=== PATIENT | female | born 1935 | race Caucasian/White ===

== ENCOUNTER 2016-08-25 10:19 | Inpatient (IN) | payer OTHER, MEDICARE ==
[~2016-08-25 10:19] MED LIST: TRANEXAMIC ACID 3,000 MG/50 ML BAG IRR ONE; VANCOMYCIN 1 GM VIAL ONE
[2016-08-25] MEDS ORDERED: ACETAMINOPHEN 325 MG TAB PO ONE (10:50)
[2016-08-25] MEDS ORDERED: ceFAZolin 2 GM/DEXTROSE 100 ML IV ONE (10:50)
[2016-08-25] MEDS ORDERED: DEXAMETHASONE 4 MG/ML VIAL IVP ONE (10:50)
[2016-08-25] MEDS ORDERED: FAMOTIDINE 20 MG TAB PO ONE (10:50)
[2016-08-25] MEDS ORDERED: LR 1,000 ML IV ONE (10:59)
[2016-08-25] MEDS ORDERED: LIDOCAINE 1% 2 ML INJ ID PRN (10:59)
[2016-08-25] MEDS ORDERED: ROPIVACAINE 0.2% 80 MG, EPINEPHrine 0.2 MG, KETOROLAC TROMETHAMINE 30 MG in BAG 0 ML IU ONE (11:00)
[2016-08-25] MEDS ORDERED: TRANEXAMIC ACID 3,000 MG in NS 50 ML IRR ONE (11:00)
--- NOTE | 2016-08-25 11:08 | PDHPUP ---
History & Physical Update H&P update statement: This history and physical update is based on an assessment of the patient which was completed after admission or registration (within 24 hours), but prior to the surgery/procedure. H&P update: H&P reviewed & patient examined, no change in patient's condition since H&P completed
[2016-08-25] MEDS ORDERED: PROPOFOL 200 MG/20 ML VIAL ONE ×3 (11:16→13:05)
[2016-08-25] MEDS ORDERED: fentaNYL 100 MCG/2 ML INJ ONE (11:16)
--- NOTE | 2016-08-25 11:46 | PDANEPAE ---
ANE History of Present Illness R knee replacement ANE Past Medical History - Cardiovascular History Hx Hypertension: No Hx Arrhythmias: No Hx Chest Pain: No Hx Coronary Artery / Peripheral Vascular Disease: No Hx CHF / Valvular Disease: No Hx Palpitations: No Cardiovascular History Comment: recently worked up [place]. Angel [place] [facility] [place] - Pulmonary History Hx COPD: No Hx Asthma/Reactive Airway Disease: No Hx Recent Upper Respiratory Infection: No Hx Oxygen in Use at Home: No Hx Sleep Apnea: No Sleep Apnea Screening Result - Last Documented: Negative Pulmonary History Comment: hx of bronchitis in winter usually , hx of pneumonia in past - Endocrine History Hx Diabetes: No Hypothyroid: Yes Endocrine History Comment: sjogrens syndrome - Renal History Hx Renal Disorders: Yes Renal History Comment: hx of 3 bladder slings. frequency - Liver History Hx Hepatic Disorders: No - Neurological & Psychiatric Hx Hx Neurological and Psychiatric Disorders: Yes Neurological / Psychiatric History Comment: insomnia - Cancer History Hx Cancer: No - Congenital Disorder History Hx Congenital Disorders: No - GI History GERD: mild Hx Gastrointestinal Disorders: No Gastrointestinal History Comment: hx of colonoscopy with [facility] - Other Health History Other Health History: wears glasses. arthritis generalized aches- right shoulder often aches- poss torn rtc - Chronic Pain History Chronic Pain: Yes (right knee) - Surgical History Prior Surgeries: ihsan. appy. tonsillectomy. 3 bladder slings. partial hysterectomy ANE Review of Systems - Exercise capacity Exercise capacity: <4 METS METS (RN): 3 METS ANE Patient History - Allergies Allergies/Adverse Reactions: amoxicillin trihydrate [From Augmentin] Allergy (Verified 08/05/16 16:11) Vomiting ciprofloxacin [From Cipro] Allergy (Verified 08/05/16 16:11) Vomiting ciprofloxacin HCl [From Cipro] Allergy (Verified 08/05/16 16:11) Vomiting metronidazole [From Flagyl] Allergy (Verified 08/05/16 16:11) Vomiting Metronidazole HCl [From Flagyl] Allergy (Verified 08/05/16 16:11) Vomiting morphine [Morphine] Allergy (Verified 08/05/16 16:11) Vomiting nitrofurantoin [From Macrobid] Allergy (Verified 08/05/16 16:11) Unknown nitrofurantoin macrocrystalline [From Macrobid] Allergy (Verified 08/05/16 16:11 ) Unknown oxaprozin [From Daypro] Allergy (Verified 08/05/16 16:11) Vomiting potassium clavula *RETIRED-11/01/11 [From Augmentin] Allergy (Verified 08/05/16 16:11) Vomiting Sulfa (Sulfonamide Antibiotics) Allergy (Verified 08/05/16 16:11) Hives tramadol [Tramadol] Allergy (Verified 08/05/16 16:11) Vomiting - Home Medications Home Medications: Butalb/Acetaminophen/Caffeine [Oyanri-Qtqgmgyl-Kffn 50-325-40] 1 each PO DAILY PRN 02/08/14 [Last Taken 08/24/16 17:00] Dicyclomine [Bentyl 20 MG (*)] 20 mg PO DAILY PRN 02/08/14 [Last Taken 08/03/16] Herbals/Supplements -Info Only 1 ea PO DAILY 02/08/14 [Last Taken 02/05/15] Hydroxychloroquine Sulfate [Plaquenil 200 mg (*)] 200 mg PO BID 02/08/14 [Last Taken 08/25/16 08:00] Levothyroxine [Synthroid 50 mcg (*)] 50 mcg PO DAILY06 02/08/14 [Last Taken 06/07 08:00] Methylcellulose (with Sugar) [Citrucel Powder 19 gm (RX)] 19 gm PO QID 02/08/14 [Last Taken 02/06/15] Omeprazole [Prilosec 20 mg] 20 mg PO BID 02/08/14 [Last Taken 08/24/16 08:00] cycloSPORINE 0.05% [Restasis Opht Drops(*)] 1 drop EACHEYE BID 02/08/14 [Last Taken 08/25/16 08:00] oxyCODONE/APAP 5/325 [Percocet 5/325 (*)] 1 tab PO QID PRN 02/08/14 [Last Taken 08/24/16 22:30] Gabapentin [Neurontin 300 MG (*)] 1,200 mg PO HS 02/06/15 [Last Taken 08/24/16 22:30] Pilocarpine HCl [Salagen 5mg (*)] 5 mg PO BID 02/06/15 [Last Taken 08/25/16 08: 00] Aspirin [Aspirin 81mg (*)] 81 mg PO DAILY 07/28/16 [Last Taken 08/10/16] Rosuvastatin Calcium [Crestor 5mg] 5 mg PO HS 07/28/16 [Last Taken 08/24/16 22: 30] Zolpidem Tartrate [Ambien 5MG (*)] 10 mg PO HS 07/28/16 [Last Taken 08/24/16 22: 30] - NPO status NPO Since - Liquids (Date): 08/25/16 NPO Since - Liquids (Time): 08:00 NPO Since - Solids (Date): 08/24/16 NPO Since - Solids (Time): 18:30 - Anes Hx Anes Hx: post operative nausea - Smoking Hx Smoking Status: Former smoker (stopped 38 years ago) - Alcohol Use Alcohol Use: None - Family Anes Hx Family Hx Anesthesia Complications: nausea and vomiting ANE Labs/Vital Signs - Vital Signs Blood Pressure: 149/72 Heart Rate: 76 Respiratory Rate: 15 O2 Sat (%): 96 Height: 162.56 cm Weight: 61.235 kg ANE Physical Exam - Airway Neck exam: decreased ROM (mild decrease in extension) Mallampati Score: Class 2 Mouth exam: normal dental/mouth exam - Pulmonary Pulmonary: clear to auscultation - Cardiovascular Cardiovascular: regular rate and rhythym - ASA Status ASA Status: III ANE Anesthesia Plan Anesthesia Plan: spinal Regional Anesthesia: single shot NB (adductor canal NB)
[2016-08-25] MEDS ORDERED: MIDAZOLAM 2 MG/2 ML VIAL IVP ONE (11:51)
[2016-08-25] MEDS ORDERED: MIDAZOLAM 2 MG/2 ML VIAL ONE (11:52)
--- NOTE | 2016-08-25 11:57 | PDANEPAE ---
ANE Past Medical History - Cardiovascular History Hx Hypertension: No Hx Arrhythmias: No Hx Chest Pain: No Hx Coronary Artery / Peripheral Vascular Disease: No Hx CHF / Valvular Disease: No Hx Palpitations: No Cardiovascular History Comment: [place] Angel [place] [facility] [place] [facility] [place] - Pulmonary History Hx COPD: No Hx Asthma/Reactive Airway Disease: No Hx Recent Upper Respiratory Infection: No Hx Oxygen in Use at Home: No Hx Sleep Apnea: No Sleep Apnea Screening Result - Last Documented: Negative Pulmonary History Comment: hx of bronchitis in winter usually - Endocrine History Hx Diabetes: No Endocrine History Comment: sjogrens syndrome - Renal History Hx Renal Disorders: Yes Renal History Comment: hx of 3 bladder slings. frequency - Liver History Hx Hepatic Disorders: No - Neurological & Psychiatric Hx Hx Neurological and Psychiatric Disorders: No - Cancer History Hx Cancer: No - Congenital Disorder History Hx Congenital Disorders: No - GI History Hx Gastrointestinal Disorders: No Gastrointestinal History Comment: hx of colonoscopy with [place] - Other Health History Other Health History: wears glasses. arthritis generalized aches- right shoulder often aches- poss torn rtc - Chronic Pain History Chronic Pain: Yes (right knee) - Surgical History Prior Surgeries: ihsan. appy. tonsillectomy. 3 bladder slings. partial hysterectomy ANE Review of Systems - Exercise capacity METS (RN): 3 METS ANE Patient History - Allergies Allergies/Adverse Reactions: amoxicillin trihydrate [From Augmentin] Allergy (Verified 08/05/16 16:11) Vomiting ciprofloxacin [From Cipro] Allergy (Verified 08/05/16 16:11) Vomiting ciprofloxacin HCl [From Cipro] Allergy (Verified 08/05/16 16:11) Vomiting metronidazole [From Flagyl] Allergy (Verified 08/05/16 16:11) Vomiting Metronidazole HCl [From Flagyl] Allergy (Verified 08/05/16 16:11) Vomiting morphine [Morphine] Allergy (Verified 08/05/16 16:11) Vomiting nitrofurantoin [From Macrobid] Allergy (Verified 08/05/16 16:11) Unknown nitrofurantoin macrocrystalline [From Macrobid] Allergy (Verified 08/05/16 16:11 ) Unknown oxaprozin [From Daypro] Allergy (Verified 08/05/16 16:11) Vomiting potassium clavula *RETIRED-11/01/11 [From Augmentin] Allergy (Verified 08/05/16 16:11) Vomiting Sulfa (Sulfonamide Antibiotics) Allergy (Verified 08/05/16 16:11) Hives tramadol [Tramadol] Allergy (Verified 08/05/16 16:11) Vomiting - Home Medications Home Medications: Butalb/Acetaminophen/Caffeine [Ochhih-Pamfbyso-Spey 50-325-40] 1 each PO DAILY PRN 02/08/14 [Last Taken Unknown] Dicyclomine [Bentyl 20 MG (*)] 20 mg PO DAILY PRN 02/08/14 [Last Taken Unknown] Herbals/Supplements -Info Only 1 ea PO DAILY 02/08/14 [Last Taken 02/05/15] Hydroxychloroquine Sulfate [Plaquenil 200 mg (*)] 200 mg PO BID 02/08/14 [Last Taken 02/06/15] Levothyroxine [Synthroid 50 mcg (*)] 50 mcg PO DAILY06 02/08/14 [Last Taken ] Methylcellulose (with Sugar) [Citrucel Powder 19 gm (RX)] 19 gm PO QID 02/08/14 [Last Taken 02/06/15] Omeprazole [Prilosec 20 mg] 20 mg PO BID 02/08/14 [Last Taken 02/06/15] cycloSPORINE 0.05% [Restasis Opht Drops(*)] 1 drop EACHEYE BID 02/08/14 [Last Taken 02/06/15] oxyCODONE/APAP 5/325 [Percocet 5/325 (*)] 1 tab PO QID PRN 02/08/14 [Last Taken 02/05/15] Gabapentin [Neurontin 300 MG (*)] 1,200 mg PO HS 02/06/15 [Last Taken 02/05/15] Pilocarpine HCl [Salagen 5mg (*)] 5 mg PO BID 02/06/15 [Last Taken 02/06/15] Aspirin [Aspirin 81mg (*)] 81 mg PO DAILY 07/28/16 [Last Taken Unknown] Rosuvastatin Calcium [Crestor 5mg] 5 mg PO HS 07/28/16 [Last Taken Unknown] Zolpidem Tartrate [Ambien 5MG (*)] 10 mg PO HS 07/28/16 [Last Taken Unknown] - NPO status NPO Since - Liquids (Date): 08/25/16 NPO Since - Liquids (Time): 08:00 NPO Since - Solids (Date): 08/24/16 NPO Since - Solids (Time): 18:30 - Smoking Hx Smoking Status: Former smoker - Family Anes Hx Family Hx Anesthesia Complications: none ANE Labs/Vital Signs - Vital Signs Blood Pressure: 149/72 Heart Rate: 76 Respiratory Rate: 15 O2 Sat (%): 96 Height: 162.56 cm Weight: 61.235 kg ANE Anesthesia Plan Anesthesia Plan: spinal Regional Anesthesia: single shot NB
[2016-08-25] MEDS ORDERED: ONDANSETRON 4 MG/2 ML VIAL ONE (12:29)
[2016-08-25] MEDS ORDERED: DEXAMETHASONE 4 MG/ML VIAL ONE (12:30)
[2016-08-25] MEDS ORDERED: POLYETHYLENE GLYCOL 3350 17 GM PKT PO PRN (12:37)
[2016-08-25] MEDS ORDERED: PROMETHAZINE HCL 25 MG/ML INJ IVP PRN (12:37)
[2016-08-25] MEDS ORDERED: diphenhydrAMINE 25 MG CAP PO PRN (12:37)
[2016-08-25] MEDS ORDERED: MAGNESIUM HYDROXIDE 30 ML UDCUP PO PRN (12:37)
[2016-08-25] MEDS ORDERED: ONDANSETRON 4 MG/2 ML VIAL IVP PRN (12:37)
[2016-08-25] MEDS ORDERED: BISACODYL 10 MG SUPP PR PRN (12:37)
[2016-08-25] MEDS ORDERED: LACTULOSE 20 GM/30 ML UDCUP PO PRN (12:37)
[2016-08-25] MEDS ORDERED: ONDANSETRON DISINTEGRATING 4 MG TAB PO PRN (12:37)
[2016-08-25] MEDS ORDERED: PHARMACY PAIN CONSULT 1 EA MISC PRN (12:37)
[2016-08-25] MEDS ORDERED: DIPHENOXYLATE/ATROPINE LOMOTIL 1 TAB PO PRN (12:37)
[2016-08-25] MEDS ORDERED: PROMETHAZINE HCL 25 MG SUPPR PR PRN (12:37)
[2016-08-25] MEDS ORDERED: METOCLOPRAMIDE 10 MG/2 ML VIAL IVP PRN (12:37)
[2016-08-25] MEDS ORDERED: CYCLOBENZAPRINE 10 MG TAB PO PRN (12:37)
[2016-08-25] MEDS ORDERED: ROPIVACAINE HCL 150 MG/30 ML INJ ONE ×3 (12:48)
--- NOTE | 2016-08-25 13:26 | POSTANESTH ---
Post Anesthetic Evaluation Cardiovascular Status: Normal, Stable Respiratory Status: Normal, Stable Level of Consciousness/Mental Status: Can Participate in Eval Pain Control: Adequate, Prn Tx Ordered Nausea/Vomiting Control: Adequate, Prn Tx Ordered Complications Possibly Related to Anesthesia: None Noted
--- NOTE | 2016-08-25 13:32 | POSTOPPROG ---
Post Op Note Date of Operation: 08/25/16 Surgeon: Kathie Manley Mechanical Assembly Technician: Carol Manley PAc Anesthesiologist: Markie Anesthesia: Spinal Pre-op Diagnosis: R knee djd Post-op Diagnosis: same Indication: pain Procedure: R TKA Findings: DJD knee Inf/Abcess present in the surg proc area at time of surgery?: No EBL: 50-100
[2016-08-25] MEDS ORDERED: fentaNYL 100 MCG/2 ML INJ IVP PRN (13:51)
[2016-08-25] MEDS ORDERED: NALOXONE HCL 0.4 MG/ML INJ IVP PRN (13:51)
[2016-08-25] MEDS: LR 1,000 ML IV SCH (17:44)
[2016-08-25] MEDS: ACETAMINOPHEN 325 MG TAB PO SCH ×2 (17:44→23:55)
[2016-08-25] MEDS ORDERED: NON-FORMULARY NEW DRUG (Rosuvastatin Calcium [Crestor 5mg] 5 MG) PO SCH (21:00)
[2016-08-25] MEDS ORDERED: NON-FORMULARY NEW DRUG (Omeprazole [Prilosec 20 Mg] 20 MG) PO SCH (21:00)
[2016-08-25] MEDS ORDERED: NON-FORMULARY NEW DRUG (Cyclosporine 0.05% [Restasis Opht Drops(*)] 1 DROP) EACHEYE SCH (21:00)
[2016-08-25] MEDS: oxyCODONE IR 5 MG TAB PO PRN ×2 (21:04→22:15)
[2016-08-25] MEDS: FAMOTIDINE 20 MG TAB PO SCH (21:05)
[2016-08-25] MEDS: ROSUVASTATIN CALCIUM 10 MG TAB PO SCH (21:05)
[2016-08-25] MEDS: GABAPENTIN 300 MG CAP PO SCH (21:06)
[2016-08-25] MEDS: PANTOPRAZOLE SODIUM 40 MG TAB PO SCH (21:06)
[2016-08-25] MEDS: SENNOSIDES/DOCUSATE SODIUM TAB PO SCH (21:06)
[2016-08-25] MEDS: HYDROXYCHLOROQUINE SULFATE 200 MG TAB PO SCH (21:07)
[2016-08-25] MEDS: ceFAZolin 2 GM/DEXTROSE 100 ML IV SCH (21:07)
[2016-08-25] MEDS: ASPIRIN 325 MG TAB PO SCH (21:13)
[2016-08-25] MEDS: TEMAZEPAM 15 MG CAP PO PRN (21:26)
[2016-08-25] MEDS: PILOCARPINE HCL 5 MG TAB PO SCH (21:52)
[2016-08-25] MEDS: CYCLOSPORINE 0.05% 1 EACH BOX EACHEYE SCH (22:07)
[2016-08-26] MEDS: oxyCODONE IR 5 MG TAB PO PRN ×7 (02:58→23:34)
[2016-08-26 04:59] LABS: HEMATOCRIT 29.7 % (38.0-47.0); HEMOGLOBIN 9.9 g/dL (12.6-16.3)
[2016-08-26 05:13] LABS: ANION GAP 9 mEq/L (8-16); CALCIUM 8.5 mg/dL (8.5-10.4); CARBON DIOXIDE 22 mEq/l (22-31); CHLORIDE 107 mEq/L (97-110); GLOMERULAR FILTRATION RATE 53; GLUCOSE 100 mg/dL (70-100); POTASSIUM 4.1 mEq/L (3.5-5.2); SODIUM 138 mEq/L (134-144)
[2016-08-26] MEDS: ACETAMINOPHEN 325 MG TAB PO SCH ×4 (05:31→23:33)
[2016-08-26] MEDS: ceFAZolin 2 GM/DEXTROSE 100 ML IV SCH (05:33)
[2016-08-26] MEDS: LEVOTHYROXINE 50 MCG TAB PO SCH (05:33)
--- NOTE | 2016-08-26 07:23 | GOP ---
[f rep st] OPERATIVE REPORT DATE OF OPERATION: 08/25/2016 SURGEON: Yanni Manley MD PROTOTYPE SEWER: DOUGLAS Martinez. ANESTHESIA: Spinal. PREOPERATIVE DIAGNOSIS: Right knee osteoarthritis. POSTOPERATIVE DIAGNOSIS: Right knee osteoarthritis. PROCEDURE PERFORMED: Right total knee arthroplasty. FINDINGS: ESTIMATED BLOOD LOSS: 30 cc. INDICATIONS: This is a 81-year-old female with severe and progressive pain and deformity of the rig ht knee unresponsive to conservative care. Risks and benefits of the surgical intervention were exp lained in detail. DESCRIPTION OF PROCEDURE: The patient was brought to the operative room and placed on the table in the supine position. Spinal anesthesia was induced without difficulty. A pneumatic tourniquet was applied about the right proximal thigh, and the leg was prepped and draped in a sterile fashion. Th e leg adler was applied. After exsanguination by elevation the tourniquet was inflated to 250 mm o f mercury. Incision was made anterior medial from the tibial tuberosity to a point 2 cm proximal to the superio r pole of the patella. Medial parapatellar arthrotomy was carried out from the superior pole of the patella and posteriorly in line with the fibers of the Type 2 VMO. The medial collateral ligament was elevated and the infrapatellar fat pad was resected. Pathology: Severe lateral compartmental osteoarthritis. The patella was everted and the articular surface was excised. A 32 mm patellar button was placed. The distal femoral guide hole was drilled and the 6 degree alignment shon was placed. A 10 mm distal femoral cut was made without difficulty. Attention was turned to the tibia and a standard 6 mm cut based on the medial tibial condyle was per formed. The tibial articular surface was excised without difficulty. Attention was turned back to the femur and a size 3 trial femoral cutting block was positioned. Ant erior, posterior, and chamfer cuts were made, followed by the intercondylar box cut. The knee was extended and the remnants of the medial and lateral meniscus were excised. The posteri or capsule was injected with ropivacaine, epinephrine and Toradol. A size 3 tibial tray was positio moises. Trial reduction was then carried out. There was excellent range of motion, alignment, and sta bility using the 11 mm polyethylene. All trials were then removed. The joint was thoroughly irrigated and carefully dried. Two packages of cement and 2 grams of vancomycin were mixed in the vacuum mixer and placed on the fixation surfa cathi of all surfaces of the components. The components were implanted and all excess cement was thor oughly removed. The permanent 11 mm polyethylene was placed without difficulty. The tourniquet was deflated and all bleeders were coagulated. The wound was thoroughly irrigated an d closed using interrupted sutures of 2-0 Vicryl for the joint capsule. The subcu was closed with 3 -0 Vicryl and the skin with 4-0 Monocryl. Dermabond and Steri-Strips were applied followed by a com pressive dressing. The patient was then moved from the operating room to the recovery room in good condition, having tolerated the procedure well. /[id number]/MODL
[2016-08-26] MEDS: PANTOPRAZOLE SODIUM 40 MG TAB PO SCH ×2 (08:20→22:21)
[2016-08-26] MEDS: ASPIRIN 325 MG TAB PO SCH (08:20)
[2016-08-26] MEDS: HYDROXYCHLOROQUINE SULFATE 200 MG TAB PO SCH ×2 (08:20→22:20)
[2016-08-26] MEDS: SENNOSIDES/DOCUSATE SODIUM TAB PO SCH ×2 (08:21→22:21)
[2016-08-26] MEDS: PILOCARPINE HCL 5 MG TAB PO SCH ×2 (08:21→22:36)
[2016-08-26] MEDS: FAMOTIDINE 20 MG TAB PO SCH ×2 (08:21→22:21)
[2016-08-26] MEDS: CYCLOSPORINE 0.05% 1 EACH BOX EACHEYE SCH ×2 (08:40→22:36)
--- NOTE | 2016-08-26 08:45 | SOAPPROG ---
SOAP Progress Note Assessment/Plan: Assessment: Patient is doing well POD 1 s/p R TKA Pain management: pain is well controlled on oral pain meds. VTE ppx: recommend aspirin daily for 3 weeks, cont ERIC and SCDs Anemia: level is expected initially postop. Asymptomatic. Continue to monitor D/c planning: d/c to SNF ([facility]) today vs tomorrow pending release from PT. Plan: 08/26/16 08:42 Subjective: Darya is doing well this morning, c/o lateral right hip pain, denies SOB, chest pain and N/V. Objective: Vital Signs Temp Pulse Resp BP Pulse Ox 36.6 C 66 14 103/70 94 08/26/16 07:17 08/26/16 07:17 08/26/16 07:17 08/26/16 07:17 08/26/16 07:17 Laboratory Results 08/26/16 04:30 08/26/16 04:30 08/25/16 08/26/16 08/27/16 05:59 05:59 05:59 Intake Total 1420 Output Total 1180 250 Balance 240 -250 RLE: incision dressing is clean and dry, NVI, +pf/df ICD10 Worksheet Patient Problems: Problems Problem Status Onset Primary localized osteoarthritis of right knee Acute TIA (transient ischemic attack) Acute Troponin I above reference range Acute
[2016-08-26] MEDS: LR 1,000 ML IV SCH (10:50)
[2016-08-26] MEDS: GABAPENTIN 300 MG CAP PO SCH (22:20)
[2016-08-26] MEDS: ROSUVASTATIN CALCIUM 10 MG TAB PO SCH (22:21)
[2016-08-26] MEDS: TEMAZEPAM 15 MG CAP PO PRN (22:39)
[2016-08-27 03:14] VITALS: PULSE 73; TEMP 98
[2016-08-27] MEDS: oxyCODONE IR 5 MG TAB PO PRN ×5 (03:58→14:20)
[2016-08-27 04:40] LABS: HEMATOCRIT 28.6 % (38.0-47.0); HEMOGLOBIN 9.5 g/dL (12.6-16.3)
[2016-08-27] MEDS: ACETAMINOPHEN 325 MG TAB PO SCH ×2 (06:12→12:15)
[2016-08-27] MEDS: LEVOTHYROXINE 50 MCG TAB PO SCH (06:13)
[2016-08-27 07:40] VITALS: BP 154/64; RESP 18; O2SAT 100
[2016-08-27] MEDS: PANTOPRAZOLE SODIUM 40 MG TAB PO SCH (08:51)
[2016-08-27] MEDS: PILOCARPINE HCL 5 MG TAB PO SCH (08:52)
[2016-08-27] MEDS: FAMOTIDINE 20 MG TAB PO SCH (08:52)
[2016-08-27] MEDS: SENNOSIDES/DOCUSATE SODIUM TAB PO SCH (08:52)
[2016-08-27] MEDS: ASPIRIN 325 MG TAB PO SCH (08:52)
[2016-08-27] MEDS: HYDROXYCHLOROQUINE SULFATE 200 MG TAB PO SCH (08:52)
[2016-08-27] MEDS: CYCLOSPORINE 0.05% 1 EACH BOX EACHEYE SCH (09:07)
--- NOTE | 2016-08-27 10:03 | SOAPPROG ---
SOAP Progress Note Assessment/Plan: Assessment: Darya is doing well today POD 2 s/p TKA pain is well controlled on oral pain meds VTE ppx: recommend ASA 325mg daily Anemia: level expected initially postop. patient has chronic anemia d/c planning: d/c to SNF today Plan: 08/27/16 10:01 Subjective: Darya is resting comfortably, pain well controlled, ready for d/c Objective: Vital Signs Temp Pulse Resp BP Pulse Ox 36.6 C 73 18 154/64 H 100 08/27/16 07:38 08/27/16 07:38 08/27/16 07:38 08/27/16 07:38 08/27/16 07:38 Laboratory Results 08/27/16 04:16 08/26/16 04:30 08/26/16 08/27/16 08/28/16 05:59 05:59 05:59 Intake Total 1420 1150 Output Total 1180 250 Balance 240 900 incision dressing is clean and dry ICD10 Worksheet Patient Problems: Problems Problem Status Onset Primary localized osteoarthritis of right knee Acute TIA (transient ischemic attack) Acute Troponin I above reference range Acute
--- NOTE | 2016-08-27 10:05 | PDIAF ---
- Diagnosis Diagnosis: s/p TKA Code Status: Full Code - Medication Management Discharge Medications: Medications to Continue on Transfer Dicyclomine [Bentyl 20 MG (*)] 20 mg PO DAILY PRN 02/08/14 [Last Taken 08/03/16] Herbals/Supplements -Info Only 1 ea PO DAILY 02/08/14 [Last Taken 02/05/15] Hydroxychloroquine Sulfate [Plaquenil 200 mg (*)] 200 mg PO BID 02/08/14 [Last Taken 08/25/16 08:00] Levothyroxine [Synthroid 50 mcg (*)] 50 mcg PO DAILY06 02/08/14 [Last Taken 06/07 08:00] Methylcellulose (with Sugar) [Citrucel Powder 19 gm (RX)] 19 gm PO QID 02/08/14 [Last Taken 02/06/15] Omeprazole [Prilosec 20 mg] 20 mg PO BID 02/08/14 [Last Taken 08/24/16 08:00] cycloSPORINE 0.05% [Restasis Opht Drops(*)] 1 drop EACHEYE BID 02/08/14 [Last Taken 08/25/16 08:00] Gabapentin [Neurontin 300 MG (*)] 1,200 mg PO HS 02/06/15 [Last Taken 08/24/16 22:30] Pilocarpine HCl [Salagen 5mg (*)] 5 mg PO BID 02/06/15 [Last Taken 08/25/16 08: 00] Rosuvastatin Calcium [Crestor 5mg] 5 mg PO HS 07/28/16 [Last Taken 08/24/16 22: 30] Zolpidem Tartrate [Ambien 5MG (*)] 10 mg PO HS 07/28/16 [Last Taken 08/24/16 22: 30] Acetaminophen [Tylenol 325mg (*)] 650 mg PO Q6HRS #0 tab 08/26/16 [Last Taken Unknown] Aspirin [Aspirin 325 mg (*)] 325 mg PO DAILY #0 tab 08/26/16 [Last Taken Unknown ] Sennosides/Docusate Sodium [Senokot-S] 1 - 2 tab PO BID #0 tab 08/26/16 [Last Taken Unknown] oxyCODONE IR [Oxycodone Ir (*)] 5 - 10 mg PO Q3HRS PRN #0 tab 08/26/16 [Last Taken Unknown] Discharge Medications: Refer to the Discharge Home Medication list for PRN reason. - Orders Diet Recommendation: no restrictions on diet Diet Texture: Regular Texture Diet Christiano Stockings Discontinue Date: 2 weeks. recommend during the daytime. break overnight Wound Care Instructions: cover incision dressing for showers. remove farmer dressing in 2 [address] surgery. call Dr[address] Galindo if any drainage occurs at Activity/Weight Bearing Restrictions: WBAT with FWW - Follow Up Care Current Providers and Referrals: Crystal Dia MD [Primary Care Provider] -
[2016-08-27] MEDS ORDERED: PILOCARPINE HCL 5 MG TAB PO SCH (12:30)
== END 2016-08-27 14:42 | DRG 470 ==
LOC: F3N 10:19
PROVIDERS: ADMIT Orthopaedic Surgery; ATTEND Orthopaedic Surgery
PROC: 0SRC0J9 Replacement of Right Knee Joint with Synthetic Substitute, Cemented, Open Approach (ICD-10-PCS; principal; 2016-08-25 12:15)
DX: M17.11 Unilateral primary osteoarthritis, right knee (principal); Q87.1 Congenital malformation syndromes predominantly associated with short stature; G47.00 Insomnia, unspecified
CPT/HCPCS: 97110-GP; 97116-GP; 97161-GP; 97165-GO; 97530-GP; C1713; G8978-GP-CL; G8979-GP-CJ; G8980-GP-CK; G8987-GO-CK; G8988-GO-CK; J0171; J0690; J1100; J1885; J2250; J2405; J2704; J2795; J3010; J3370

== ENCOUNTER 2016-09-07 09:47 | Emergency (ER) | payer OTHER, MEDICARE ==
--- NOTE | 2016-09-07 10:18 | EDPHY ---
H & P Stated Complaint: Nausea,dry heaves,not doing well ~ 1 wk while in rehab post TRK Time Seen by Provider: 09/07/16 09:58 HPI/ROS: CHIEF COMPLAINT: Nausea vomiting constipation HISTORY OF PRESENT ILLNESS: 81-year-old female history of right total knee arthroplasty 08/25/[address] Paul Manley arrives via private vehicle complaining of 1 week of vomiting, dry heaving, nausea. Last bowel movement was 4 days ago. She has been home for 3 days, home from a rehabilitation facility. She denies: Fever, chills, abdominal pain, back or flank pain, saddle anesthesia, lower extremity radiculopathy, back pain, urinary abnormality , acute musculoskeletal complaints. She has been performing physical therapy as directed has been weight-bearing. PRIMARY CARE PROVIDER: Dr. Crystal Gilbert REVIEW OF SYSTEMS: A ten point review of systems was performed and is negative with the exception of the items mentioned in the HPI PAST MEDICAL & SURGICAL HISTORY: Right total knee arthroplasty 08/25/2016 Dr. Paul Manley. History of cholecystectomy, appendectomy. SOCIAL HISTORY:lives with her PHYSICAL EXAM (Prior to examination, patient consented to physical exam, hands were washed and my usual and customary physical exam procedures followed) 1) GENERAL: Well-developed, well-nourished, alert and oriented. Appears uncomfortable 2) HEAD: Normocephalic, atraumatic 3) HEENT: Pupils equal, round, reactive to light bilaterally. Sclera anicteric. Nasopharynx, oropharynx, clear, no lesions. Dry mucous membrane 4) NECK: Full range of motion, no meningeal signs. 5) LUNGS: Clear auscultation bilaterally, no wheezes, no rhonchi, no retractions. 6) HEART: Regular rate and rhythm, no murmur, no heave, no gallop. 7) ABDOMEN: No guarding, no rebound, no focal tenderness, negative McBurney's, negative Teran's, negative Rovsing's, negative peritoneal sign, unable to elicit any abdominal pain on exam 8) MUSCULOSKELETAL: right lower extremity: Dressing in place, removed revealing a well-healing surgical incision with no erythema, normal temperature normal coloration. Distal DP PT pulses present and brisk. Negative Homans no palpable cord. No lower extremity edema. 9) BACK: No CVA tenderness 10) SKIN: No rash, no petechiae. 11) Psychiatric: Patient is oriented X 3, there is no agitation. DIFFERENTIAL DIAGNOSIS: [no particular include but limited to opiate induced constipation, opiate induced nausea vomiting, bowel obstruction - Personal History Current Tetanus Diphtheria and Acellular Pertussis (TDAP): Yes Tetanus Vaccine Date: WITHIN THE LAST 10YRS - Medical/Surgical History Hx Asthma: No Hx Chronic Respiratory Disease: No Hx Diabetes: No Hx Cardiac Disease: No Hx Renal Disease: No Hx Cirrhosis: No Hx Alcoholism: No Hx HIV/AIDS: No Hx Splenectomy or Spleen Trauma: No Other PMH: Sjogrens, appy, gallbladder - Social History Smoking Status: Former smoker Constitutional: Initial Vital Signs Temperature (C) 36.4 C 09/07/16 09:49 Heart Rate 74 09/07/16 09:49 Respiratory Rate 18 09/07/16 09:49 Blood Pressure 114/74 09/07/16 09:49 O2 Sat (%) 95 09/07/16 09:49 O2 Delivery Mode Room Air Allergies/Adverse Reactions: amoxicillin trihydrate [From Augmentin] Allergy (Verified 09/07/16 09:48) Vomiting ciprofloxacin [From Cipro] Allergy (Verified 09/07/16 09:48) Vomiting ciprofloxacin HCl [From Cipro] Allergy (Verified 09/07/16 09:48) Vomiting metronidazole [From Flagyl] Allergy (Verified 09/07/16 09:48) Vomiting Metronidazole HCl [From Flagyl] Allergy (Verified 09/07/16 09:48) Vomiting morphine [Morphine] Allergy (Verified 09/07/16 09:48) Vomiting nitrofurantoin [From Macrobid] Allergy (Verified 09/07/16 09:48) Unknown nitrofurantoin macrocrystalline [From Macrobid] Allergy (Verified 09/07/16 09:48 ) Unknown oxaprozin [From Daypro] Allergy (Verified 09/07/16 09:48) Vomiting potassium clavula *RETIRED-11/01/11 [From Augmentin] Allergy (Verified 09/07/16 09:48) Vomiting Sulfa (Sulfonamide Antibiotics) Allergy (Verified 09/07/16 09:48) Hives tramadol [Tramadol] Allergy (Verified 09/07/16 09:48) Vomiting Home Medications: Medication Instructions Recorded Dicyclomine [Bentyl 20 MG (*)] 20 mg PO DAILY PRN 02/08/14 Herbals/Supplements -Info Only 1 ea PO DAILY 02/08/14 Hydroxychloroquine Sulfate 200 mg PO BID 02/08/14 [Plaquenil 200 mg (*)] Levothyroxine [Synthroid 50 mcg 50 mcg PO DAILY06 02/08/14 (*)] Methylcellulose (with Sugar) 19 gm PO QID 02/08/14 [Citrucel Powder 19 gm (RX)] Omeprazole [Prilosec 20 mg] 20 mg PO BID 02/08/14 cycloSPORINE 0.05% [Restasis Opht 1 drop EACHEYE BID 02/08/14 Drops(*)] Gabapentin [Neurontin 300 MG (*)] 1,200 mg PO HS 02/06/15 Pilocarpine HCl [Salagen 5mg (*)] 5 mg PO BID 02/06/15 Rosuvastatin Calcium [Crestor 5mg] 5 mg PO HS 07/28/16 Zolpidem Tartrate [Ambien 5MG (*)] 10 mg PO HS 07/28/16 Acetaminophen [Tylenol 325mg (*)] 650 mg PO Q6HRS #0 tab 08/26/16 Aspirin [Aspirin 325 mg (*)] 325 mg PO DAILY #0 tab 08/26/16 Sennosides/Docusate Sodium 1 - 2 tab PO BID #0 tab 08/26/16 [Senokot-S] oxyCODONE IR [Oxycodone Ir (*)] 5 - 10 mg PO Q3HRS PRN #0 tab 08/26/16 Ondansetron Odt [Zofran Odt] 4 mg PO Q4PRN PRN #15 tab 09/07/16 Peg 3350/Na Sulf,Bicarb,Cl/KCl 1,000 ml PO ONCE #4000 ml 09/07/16 [Golytely (RX)] Medical Decision Making - Diagnostics Imaging Results: Imaging Impressions Abdomen X-Ray 09/07/16 10:22 Impression: Moderate constipation. Possible focal ileus in left upper quadrant. Other chronic findings as above. ED Course/Re-evaluation: The patient has been re-evaluated with serial examinations was recently at 1:57 p.m.. Case discussed with primary supervising physician Dr. Knapp in the ER. We discussed the imaging and laboratory results. We discussed possibility opiate induced nausea, vomiting, constipation. She is tolerating oral intake in the ER. She would like to be discharged. Have offered admission which she declines. Plan will be discharged with oral antiemetic as well as laxative. Usual customary abdominal precautions instructions provided. Doubt acute surgical abdominal pathology. Doubt bowel obstruction. Regarding her right knee, this appears to be healing well, doubt septic arthritis. Doubt spinal compressive disorder such as cauda equina. - Data Points Laboratory Results: Laboratory Results 09/07/16 11:40 09/07/16 11:50 09/07/16 09/07/16 11:50 11:40 WBC 5.44 10^3/uL 10^3/uL (3.80-9.50) RBC 3.51 10^6/uL L 10^6/uL (4.18-5.33) Hgb 11.1 g/dL L g/dL (12.6-16.3) Hct 32.5 % L % (38.0-47.0) MCV 92.6 fL fL (81.5-99.8) MCH 31.6 pg pg (27.9-34.1) MCHC 34.2 g/dL g/dL (32.4-36.7) RDW 13.6 % % (11.5-15.2) Plt Count 357 10^3/uL 10^3/uL (150-400) MPV 9.4 fL fL (8.7-11.7) Neut % (Auto) 80.8 % H % (39.3-74.2) Lymph % (Auto) 7.9 % L % (15.0-45.0) [place] % (Auto) 8.5 % % (4.5-13.0) Eos % (Auto) 1.1 % % (0.6-7.6) Baso % (Auto) 0.4 % % (0.3-1.7) Nucleat RBC Rel Count 0.0 % % (0.0-0.2) Absolute Neuts (auto) 4.40 10^3/uL 10^3/uL (1.70-6.50) Absolute Lymphs (auto) 0.43 10^3/uL L 10^3/uL (1.00-3.00) Absolute Monos (auto) 0.46 10^3/uL 10^3/uL (0.30-0.80) Absolute Eos (auto) 0.06 10^3/uL 10^3/uL (0.03-0.40) Absolute Basos (auto) 0.02 10^3/uL 10^3/uL (0.02-0.10) Absolute Nucleated RBC 0.00 10^3/uL 10^3/uL (0-0.01) Immature Gran % 1.3 % H % (0.0-1.1) Immature Gran # 0.07 10^3/uL 10^3/uL (0.00-0.10) Sodium 134 mEq/L mEq/L (134-144) Potassium 4.0 mEq/L mEq/L (3.5-5.2) Chloride 104 mEq/L mEq/L (97-110) Carbon Dioxide 17 mEq/l L mEq/l (22-31) Anion Gap 13 mEq/L mEq/L (8-16) BUN 16 mg/dL mg/dL (7-23) Creatinine 0.8 mg/dL mg/dL (0.6-1.0) Estimated GFR > 60 Glucose 73 mg/dL mg/dL (70-100) Calcium 8.7 mg/dL mg/dL (8.5-10.4) Total Bilirubin 0.6 mg/dL mg/dL (0.1-1.4) Conjugated Bilirubin 0.2 mg/dL mg/dL (0.0-0.5) Unconjugated Bilirubin 0.4 mg/dL mg/dL (0.0-1.1) AST 31 IU/L IU/L (14-46) ALT 25 IU/L IU/L (9-52) Alkaline Phosphatase 104 IU/L IU/L (38-126) Total Protein 6.9 g/dL g/dL (6.3-8.2) Albumin 3.3 g/dL L g/dL (3.5-5.0) Lipase 228.0 IU/L IU/L (23-300) Medications Given: Discontinued Medications Sodium Chloride (Ns) 1,000 mls @ 0 mls/hr IV ONCE ONE PRN Reason: Wide Open Stop: 09/07/16 10:42 Last Admin: 09/07/16 10:46 Dose: 1,000 mls Ondansetron HCl (Zofran) 4 mg IVP EDNOW ONE Stop: 09/07/16 10:42 Last Admin: 09/07/16 10:46 Dose: 4 mg Departure - Departure Disposition: Home, Routine, Self-Care Clinical Impression: Nausea & vomiting Qualifiers: Vomiting type: unspecified Vomiting Intractability: non-intractable Qualified Code(s): R11.2 - Nausea with vomiting, unspecified Constipation Qualifiers: Constipation type: drug induced constipation Qualified Code(s): K59.03 - Drug induced constipation Condition: Good Instructions: Constipation (ED), Acute Nausea and Vomiting (ED) Additional Instructions: Return to the emergency department immediately if you develop abdominal pain, fevers, if you are unable to tolerate oral food or fluid, or if you have any other symptoms that concern you. Referrals: Crystal Dia MD [Primary Care Provider] - 1 day without fail Prescriptions: Ondansetron Odt [Zofran Odt] 4 mg PO Q4PRN PRN #15 tab PRN Reason: Nausea Peg 3350/Na Sulf,Bicarb,Cl/KCl [Golytely (RX)] 1,000 ml PO ONCE #4000 ml
[2016-09-07] MEDS ORDERED: NS 1,000 ML IV ONE (10:41)
[2016-09-07] MEDS ORDERED: ONDANSETRON 4 MG/2 ML VIAL IVP ONE (10:41)
[2016-09-07 11:48] LABS: % IMMATURE GRANULYOCYTES 1.3 % (0.0-1.1); ABSOLUTE IMMATURE GRANULOCYTES 0.07 10^3/uL (0.00-0.10); ADD DIFF? NO; ADD MORPH? NO; ADD SCAN? NO; ATYPICAL LYMPHOCYTE FLAG 20 (0-99); FRAGMENT RBC FLAG 10 (0-99); HEMATOCRIT 32.5 % (38.0-47.0); HEMOGLOBIN 11.1 g/dL (12.6-16.3); LEFT SHIFT FLG 10 (0-99); LIPEMIA HEMOLYSIS FLAG 90 (0-99); MEAN CELL HEMOGLOBIN 31.6 pg (27.9-34.1); MEAN CELL HEMOGLOBIN CONCENTR. 34.2 g/dL (32.4-36.7); MEAN CELL VOLUME 92.6 fL (81.5-99.8); MEAN PLATELET VOLUME 9.4 fL (8.7-11.7); PLATELET CLUMPS FLAG 0 (0-99); PLATELET COUNT 357 10^3/uL (150-400); RED BLOOD CELL COUNT 3.51 10^6/uL (4.18-5.33); RED CELL DISTRIBUTION WIDTH 13.6 % (11.5-15.2)
[2016-09-07 12:23] LABS: ALANINE AMINOTRANSFERASE 25 IU/L (9-52); ALBUMIN 3.3 g/dL (3.5-5.0); ALKALINE PHOSPHATASE 104 IU/L (38-126); ANION GAP 13 mEq/L (8-16); ASPARTATE AMINOTRANSFERASE 31 IU/L (14-46); BILIRUBIN,TOTAL 0.6 mg/dL (0.1-1.4); BILIRUBIN-CONJUGATED 0.2 mg/dL (0.0-0.5); BILIRUBIN-UNCONJUGATED 0.4 mg/dL (0.0-1.1); CALCIUM 8.7 mg/dL (8.5-10.4); CARBON DIOXIDE 17 mEq/l (22-31); CHLORIDE 104 mEq/L (97-110); CREATININE 0.8 mg/dL (0.6-1.0); GLOMERULAR FILTRATION RATE > 60; GLUCOSE 73 mg/dL (70-100); SODIUM 134 mEq/L (134-144); TOTAL PROTEIN 6.9 g/dL (6.3-8.2)
[2016-09-07 14:12] VITALS: BP 151/71; PULSE 77; RESP 16; TEMP 98.2; O2SAT 93
== END 2016-09-07 14:15 | disposition home or self-care (01) ==
DX: K59.03 Drug induced constipation (principal); Z79.82 Long term (current) use of aspirin; Z87.891 Personal history of nicotine dependence
CPT/HCPCS: 74000; 96361; 96374; 99284; J2405

== ENCOUNTER 2016-09-13 12:24 | Emergency (ER) | payer OTHER, MEDICARE ==
[2016-09-13 12:32] VITALS: PULSE 82
[2016-09-13] MEDS ORDERED: NS 1,000 ML IV ONE ×2 (12:46→13:00)
--- NOTE | 2016-09-13 13:02 | EDPHY ---
HPI/HX/ROS/PE/MDM Narrative: CHIEF COMPLAINT: Nausea, vomiting, lack of appetite HPI: This patient is a 81 year old female arriving with her family complaining of intermittent nausea and vomiting and lack of appetite onset five days ago. She was seen for similar symptoms 09/07/16, six days ago. She has been vomiting bile , and states she cannot get to a point where she wants to eat anything and that nothing tastes good. She denies abdominal pain. She endorses dysuria beginning this morning. She recently had a right total knee arthroplasty 08/25/[address] Manley which has been healing well, and she has been walking as directed. She has not followed up with her surgeon since the procedure. Her daughter and are concerned her symptoms may be related to medication interactions following her surgery. She is on chronic steroid medication for Sjogren's syndrome, constant for the last 12-14 years. No chest pain, fever, headache, or other associated symptoms. REVIEW OF SYSTEMS: Aside from elements discussed in the HPI, a comprehensive 10-point review of systems was reviewed and is negative. PMH: Sjogren's syndrome. Right TKA. Cholecystectomy, appendectomy. SOCIAL HISTORY: and daughter at bedside. PHYSICAL EXAM: General:Patient is alert, in no acute distress. ENT:Eyes are normal to inspection. ENT inspection normal. Neck: Normal inspection. Full range of motion. Respiratory:No respiratory distress. Breath sounds normal bilaterally. Cardiovascular: Regular rate and rhythm. Strong peripheral pulses. Normal cap refill. Abdomen:The abdomen is nontender to palpation. There are no peritoneal signs. There are normal bowel sounds. Back: Normal to inspection. No tenderness to palpation. Skin: Pale. No rash. Warm and dry. Extremities: 10cm well-healed surgical incision to right knee. No erythema. Normal appearance. Full range of motion. Neuro: Oriented x3. Normal motor function. Normal sensory function. Portions of this note were transcribed by an ED scribe. I personally performed the history, physical exam, and medical decision making; and confirm the accuracy of the information in the transcribed note. ED Course: 81 year old female presents with nausea, vomiting, dysuria, and lack of appetite. Plan for labs including CBC, BMP, liver, lipase, and UA. Abdominal x- ray shows dysmotile small bowel pattern, possible manifestation of gastroenteritis or intra-abdominal inflammatory processes. No evidence of obstruction or pneumoperitoneum. Plan for abdominal CT for further evaluation. 15:[address] Henderson, radiologist. CT abdomen shows no localized intra- abdominal inflammatory process, small bowel obstruction or adynamic ileus. Normal kidneys. UA positive for urinary tract infection. 15:23 Reassessed patient. Plan to discharge home in good condition with prescription for Keflex for treatment of UTI. Follow up and return precautions discussed. The patient is comfortable with this plan. MDM: This patient presents with nausea and lack of appetite approximately one month post knee-surgery. Her surgical site appears to be healing well. We performed an extensive workup which is negative for bowel obstruction, bowel perforation, severe sepsis, PNA. I suspect her symptoms are largely secondary to UTI, with some component of adverse effect from ongoing percocet use. I cautioned her that she should really be attempting to wean herself off of her pain meds at this point as this is likely contributing to her lack of energy and nausea. - Data Points Imaging Results: Imaging Impressions Abdomen X-Ray 09/13/16 13:00 Impression: 1. Dysmotile small bowel pattern may be manifestation of gastroenteritis or intra-abdominal inflammatory processes. 2. No evidence of obstruction or pneumoperitoneum. Abdomen CT 09/13/16 14:13 Impression: 1. No localized intra-abdominal inflammatory process, small bowel obstruction or adynamic ileus. 2. Mild postcholecystectomy biliary dilation is unchanged. No common bile duct stone. 3. Normal kidneys. No renal abscess or CT evidence of pyelonephritis. Findings discussed with Emergency Department physician, Dr. Hadley Dillon, on September 13, 2016 at 1525 hours. Laboratory Results: Laboratory Results 09/13/16 13:45 09/13/16 13:45 09/13/16 09/13/16 09/13/16 13:45 13:45 13:00 WBC 5.89 10^3/uL 10^3/uL (3.80-9.50) RBC 3.43 10^6/uL L 10^6/uL (4.18-5.33) Hgb 10.7 g/dL L g/dL (12.6-16.3) Hct 31.8 % L % (38.0-47.0) MCV 92.7 fL fL (81.5-99.8) MCH 31.2 pg pg (27.9-34.1) MCHC 33.6 g/dL g/dL (32.4-36.7) RDW 13.4 % % (11.5-15.2) Plt Count 283 10^3/uL 10^3/uL (150-400) MPV 9.1 fL fL (8.7-11.7) Neut % (Auto) 81.4 % H % (39.3-74.2) Lymph % (Auto) 5.9 % L % (15.0-45.0) [place] % (Auto) 10.7 % % (4.5-13.0) Eos % (Auto) 0.7 % % (0.6-7.6) Baso % (Auto) 0.5 % % (0.3-1.7) Nucleat RBC Rel Count 0.0 % % (0.0-0.2) Absolute Neuts (auto) 4.79 10^3/uL 10^3/uL (1.70-6.50) Absolute Lymphs (auto) 0.35 10^3/uL L 10^3/uL (1.00-3.00) Absolute Monos (auto) 0.63 10^3/uL 10^3/uL (0.30-0.80) Absolute Eos (auto) 0.04 10^3/uL 10^3/uL (0.03-0.40) Absolute Basos (auto) 0.03 10^3/uL 10^3/uL (0.02-0.10) Absolute Nucleated RBC 0.00 10^3/uL 10^3/uL (0-0.01) Immature Gran % 0.8 % % (0.0-1.1) Immature Gran # 0.05 10^3/uL 10^3/uL (0.00-0.10) Sodium 135 mEq/L mEq/L (134-144) Potassium 4.3 mEq/L mEq/L (3.5-5.2) Chloride 105 mEq/L mEq/L (97-110) Carbon Dioxide 17 mEq/l L mEq/l (22-31) Anion Gap 13 mEq/L mEq/L (8-16) BUN 15 mg/dL mg/dL (7-23) Creatinine 0.7 mg/dL mg/dL (0.6-1.0) Estimated GFR > 60 Glucose 87 mg/dL mg/dL (70-100) Calcium 9.0 mg/dL mg/dL (8.5-10.4) Total Bilirubin 0.9 mg/dL mg/dL (0.1-1.4) Conjugated Bilirubin 0.4 mg/dL mg/dL (0.0-0.5) Unconjugated Bilirubin 0.5 mg/dL mg/dL (0.0-1.1) AST 32 IU/L IU/L (14-46) ALT 26 IU/L IU/L (9-52) Alkaline Phosphatase 112 IU/L IU/L (38-126) Total Protein 7.5 g/dL g/dL (6.3-8.2) Albumin 3.7 g/dL g/dL (3.5-5.0) Lipase 185.0 IU/L IU/L (23-300) Urine Color YELLOW Urine Appearance TURBID Urine pH 8.0 H (5.0-7.5) Ur Specific [place] 1.018 (1.002-1.030) Urine Protein 2+ H (NEGATIVE) Urine Ketones TRACE H (NEGATIVE) Urine Blood NEGATIVE (NEGATIVE) Urine Nitrate POSITIVE H (NEGATIVE) Urine Bilirubin NEGATIVE (NEGATIVE) Urine Urobilinogen NEGATIVE EU EU (0.2-1.0) Ur Leukocyte Esterase 3+ H (NEGATIVE) Urine RBC 3-5 /hpf H /hpf (0-3) Urine WBC 50-182 /hpf H /hpf (0-3) Ur Epithelial Cells NONE SEEN /lpf /lpf (NONE-1+) Amorphous Sediment PRESENT /hpf /hpf (NONE-1+) Urine Bacteria 1+ /hpf H /hpf (NONE SEEN) Hyaline Casts 25-50 /lpf H /lpf (0-1) Urine Mucus 4+ /lpf H /lpf (NONE-1+) Urine Glucose NEGATIVE (NEGATIVE) Medications Given: Discontinued Medications Sodium Chloride (Ns) 1,000 mls @ 3,000 mls/hr IV ONCE ONE Stop: 09/13/16 13:05 Last Admin: 09/13/16 13:06 Dose: 1,000 mls Sodium Chloride (Ns) 1,000 mls @ 0 mls/hr IV EDNOW ONE; Wide Open PRN Reason: Protocol Stop: 09/13/16 13:01 Last Admin: 09/13/16 13:08 Dose: Not Given General Time Seen by Provider: 09/13/16 12:59 Initial Vital Signs: Initial Vital Signs Temperature (C) 36.7 C 09/13/16 12:29 Heart Rate 82 09/13/16 12:29 Respiratory Rate 18 09/13/16 12:29 Blood Pressure 133/83 H 09/13/16 12:29 O2 Sat (%) 97 09/13/16 12:29 O2 Delivery Mode Room Air Allergies/Adverse Reactions: amoxicillin trihydrate [From Augmentin] Allergy (Verified 09/13/16 12:26) Vomiting ciprofloxacin [From Cipro] Allergy (Verified 09/13/16 12:26) Vomiting ciprofloxacin HCl [From Cipro] Allergy (Verified 09/13/16 12:26) Vomiting metronidazole [From Flagyl] Allergy (Verified 09/13/16 12:26) Vomiting Metronidazole HCl [From Flagyl] Allergy (Verified 09/13/16 12:26) Vomiting morphine [Morphine] Allergy (Verified 09/13/16 12:26) Vomiting nitrofurantoin [From Macrobid] Allergy (Verified 09/13/16 12:26) Unknown nitrofurantoin macrocrystalline [From Macrobid] Allergy (Verified 09/13/16 12:26 ) Unknown oxaprozin [From Daypro] Allergy (Verified 09/13/16 12:26) Vomiting potassium clavula *RETIRED-11/01/11 [From Augmentin] Allergy (Verified 09/13/16 12:26) Vomiting Sulfa (Sulfonamide Antibiotics) Allergy (Verified 09/13/16 12:26) Hives tramadol [Tramadol] Allergy (Verified 09/13/16 12:26) Vomiting Home Medications: Medication Instructions Recorded Dicyclomine [Bentyl 20 MG (*)] 20 mg PO DAILY PRN 02/08/14 Herbals/Supplements -Info Only 1 ea PO DAILY 02/08/14 Hydroxychloroquine Sulfate 200 mg PO BID 02/08/14 [Plaquenil 200 mg (*)] Levothyroxine [Synthroid 50 mcg 50 mcg PO DAILY06 02/08/14 (*)] Methylcellulose (with Sugar) 19 gm PO QID 02/08/14 [Citrucel Powder 19 gm (RX)] Omeprazole [Prilosec 20 mg] 20 mg PO BID 02/08/14 cycloSPORINE 0.05% [Restasis Opht 1 drop EACHEYE BID 02/08/14 Drops(*)] Gabapentin [Neurontin 300 MG (*)] 1,200 mg PO HS 02/06/15 Pilocarpine HCl [Salagen 5mg (*)] 5 mg PO BID 02/06/15 Rosuvastatin Calcium [Crestor 5mg] 5 mg PO HS 07/28/16 Zolpidem Tartrate [Ambien 5MG (*)] 10 mg PO HS 07/28/16 Acetaminophen [Tylenol 325mg (*)] 650 mg PO Q6HRS #0 tab 08/26/16 Aspirin [Aspirin 325 mg (*)] 325 mg PO DAILY #0 tab 08/26/16 Sennosides/Docusate Sodium 1 - 2 tab PO BID #0 tab 08/26/16 [Senokot-S] oxyCODONE IR [Oxycodone Ir (*)] 5 - 10 mg PO Q3HRS PRN #0 tab 08/26/16 Ondansetron Odt [Zofran Odt] 4 mg PO Q4PRN PRN #15 tab 09/07/16 Peg 3350/Na Sulf,Bicarb,Cl/KCl 1,000 ml PO ONCE #4000 ml 09/07/16 [Golytely (RX)] Cephalexin [Keflex] 500 mg PO TID #21 cap 09/13/16 Departure - Departure Disposition: Home, Routine, Self-Care Clinical Impression: Urinary tract infection Condition: Good Instructions: Urinary Tract Infection in Women (ED) Additional Instructions: Follow-up with your primary doctor within 72 hours. Return to the Emergency Department for fever, worsening pain, flank pain or failure to improve within 72 hours. It is possible that the bacteria causing your infection is resistant to the antibiotic we've placed you on. We have sent a urine for culture, if this comes back with a resistant bacteria, we will call you at the number you provided to us. Referrals: Crystal Dia MD [Primary Care Provider] - As per Instructions Prescriptions: Cephalexin [Keflex] 500 mg PO TID #21 cap Report Scribed for: Hadley Dillon Report Scribed by: Charity Huang Date of Report: 09/13/16 Time of Report: 13:02
[2016-09-13 13:13] LABS: COLOR YELLOW; LEUKOCYTE ESTERASE,URINE 3+ (NEGATIVE); NITRITE,URINE POSITIVE (NEGATIVE)
[2016-09-13 13:52] LABS: AMORPHOUS PRESENT /hpf (NONE-1+); BACTERIA 1+ /hpf (NONE SEEN); HYALINE CASTS 25-50 /lpf (0-1); MUCUS 4+ /lpf (NONE-1+); WBC,URINE 50-182 /hpf (0-3)
[2016-09-13 13:59] LABS: % IMMATURE GRANULYOCYTES 0.8 % (0.0-1.1); ABSOLUTE IMMATURE GRANULOCYTES 0.05 10^3/uL (0.00-0.10); ADD DIFF? NO; ADD MORPH? NO; ADD SCAN? YES; ATYPICAL LYMPHOCYTE FLAG 0 (0-99); FRAGMENT RBC FLAG 0 (0-99); HEMATOCRIT 31.8 % (38.0-47.0); HEMOGLOBIN 10.7 g/dL (12.6-16.3); LEFT SHIFT FLG 10 (0-99); LIPEMIA HEMOLYSIS FLAG 80 (0-99); MEAN CELL HEMOGLOBIN 31.2 pg (27.9-34.1); MEAN CELL HEMOGLOBIN CONCENTR. 33.6 g/dL (32.4-36.7); MEAN CELL VOLUME 92.7 fL (81.5-99.8); MEAN PLATELET VOLUME 9.1 fL (8.7-11.7); PLATELET CLUMPS FLAG 10 (0-99); PLATELET COUNT 283 10^3/uL (150-400); RED BLOOD CELL COUNT 3.43 10^6/uL (4.18-5.33); RED CELL DISTRIBUTION WIDTH 13.4 % (11.5-15.2)
[2016-09-13 14:00] VITALS: RESP 16
[2016-09-13 14:12] LABS: ALANINE AMINOTRANSFERASE 26 IU/L (9-52); ALBUMIN 3.7 g/dL (3.5-5.0); ALKALINE PHOSPHATASE 112 IU/L (38-126); ANION GAP 13 mEq/L (8-16); ASPARTATE AMINOTRANSFERASE 32 IU/L (14-46); BILIRUBIN,TOTAL 0.9 mg/dL (0.1-1.4); BILIRUBIN-CONJUGATED 0.4 mg/dL (0.0-0.5); BILIRUBIN-UNCONJUGATED 0.5 mg/dL (0.0-1.1); CARBON DIOXIDE 17 mEq/l (22-31); CHLORIDE 105 mEq/L (97-110); CREATININE 0.7 mg/dL (0.6-1.0); GLOMERULAR FILTRATION RATE > 60; GLUCOSE 87 mg/dL (70-100); POTASSIUM 4.3 mEq/L (3.5-5.2); SODIUM 135 mEq/L (134-144); TOTAL PROTEIN 7.5 g/dL (6.3-8.2)
[2016-09-13] MEDS ORDERED: IOPAMIDOL (ISOVUE-300) 100 ML BTL ONE (14:23)
[2016-09-13 15:04] LABS: SCAN NEGATIVE
[2016-09-13 15:42] VITALS: BP 163/71; TEMP 97.5; O2SAT 96
== END 2016-09-13 16:24 | disposition home or self-care (01) ==
DX: N39.0 Urinary tract infection, site not specified (principal); B96.89 Other specified bacterial agents as the cause of diseases classified elsewhere; Z79.82 Long term (current) use of aspirin
CPT/HCPCS: 74000; 74177; 96361; 96365; 99285; J0696; Q9967

== ENCOUNTER 2016-09-29 18:59 | Inpatient (IN) | payer OTHER, MEDICARE ==
[2016-09-29] MEDS ORDERED: NS 1,000 ML IV ONE ×3 (20:08→23:05)
[2016-09-29] MEDS ORDERED: ONDANSETRON 4 MG/2 ML VIAL IVP ONE (20:08)
--- NOTE | 2016-09-29 20:08 | EDPHY ---
H & P Time Seen by Provider: 09/29/16 20:07 HPI/ROS: Chief complaint. Nausea vomiting, shortness of breath HPI. 81-year-old female presents with nausea vomiting and dehydration over the past few weeks. This is her 3rd ED visit for same symptoms. She has also been having foul-smelling diarrhea. No abdominal pain. She has right-sided chest pain from a fall about a week ago. No fever cough. Otherwise no chest discomfort. Maybe shortness of breath over the last several days. She had a total knee replacement a month ago but has been ambulatory since. She has also had a recent UTI that was treated with antibiotics and she has no symptoms ROS Constitutional. Generalized weakness Eyes. no problems with vision ENT. no sore throat, no nasal drainage Cardiovascular. no chest pain Respiratory. no shortness of breath, no cough Abdominal. Nausea vomiting and diarrhea . no problems urinating MS. Right-sided chest pain from fall Skin. no rash Lymph. no swollen glands Neuro. no headache, no dizziness, no difficulty walking or with speech Past Medical/Surgical History: Past medical history is significant for Sjogren syndrome, appendectomy, cholecystectomy, right knee replacement Social History: , nonsmoker, no alcohol Smoking Status: Former smoker Physical Exam: General Appearance: Alert well-developed female moderate distress vital signs significant for heart rate 105 Eyes: Pupils equal and round no pallor or injection. ENT, mucous membranes are dry Respiratory: There are no retractions, lungs are clear to auscultation. Cardiovascular: Regular rate and rhythm. Gastrointestinal: Abdomen is soft and nontender, no masses, bowel sounds normal. Neurological: Awake and alert, sensory and motor exams grossly normal. Skin: Warm and dry, no rashes. Musculoskeletal: Neck is nontender. Right-sided chest pain from fall Extremities healed incision and right knee from knee replacement Psychiatric: Patient is oriented X 3, there is no agitation. Constitutional: Initial Vital Signs Temperature (C) 36.4 C 09/29/16 19:10 Heart Rate 105 H 09/29/16 19:10 Respiratory Rate 20 09/29/16 19:10 Blood Pressure 104/71 09/29/16 19:10 O2 Sat (%) 97 09/29/16 19:10 O2 Delivery Mode Room Air Allergies/Adverse Reactions: amoxicillin trihydrate [From Augmentin] Allergy (Verified 09/13/16 12:26) Vomiting ciprofloxacin [From Cipro] Allergy (Verified 09/13/16 12:26) Vomiting ciprofloxacin HCl [From Cipro] Allergy (Verified 09/13/16 12:26) Vomiting metronidazole [From Flagyl] Allergy (Verified 09/13/16 12:26) Vomiting Metronidazole HCl [From Flagyl] Allergy (Verified 09/13/16 12:26) Vomiting morphine [Morphine] Allergy (Verified 09/13/16 12:26) Vomiting nitrofurantoin [From Macrobid] Allergy (Verified 09/13/16 12:26) Unknown nitrofurantoin macrocrystalline [From Macrobid] Allergy (Verified 09/13/16 12:26 ) Unknown oxaprozin [From Daypro] Allergy (Verified 09/13/16 12:26) Vomiting potassium clavula *RETIRED-11/01/11 [From Augmentin] Allergy (Verified 09/13/16 12:26) Vomiting Sulfa (Sulfonamide Antibiotics) Allergy (Verified 09/13/16 12:26) Hives tramadol [Tramadol] Allergy (Verified 09/13/16 12:26) Vomiting Home Medications: Medication Instructions Recorded Dicyclomine [Bentyl 20 MG (*)] 20 mg PO DAILY PRN 02/08/14 Herbals/Supplements -Info Only 1 ea PO DAILY 02/08/14 Hydroxychloroquine Sulfate 200 mg PO BID 02/08/14 [Plaquenil 200 mg (*)] Levothyroxine [Synthroid 50 mcg 50 mcg PO DAILY06 02/08/14 (*)] Methylcellulose (with Sugar) 19 gm PO QID 02/08/14 [Citrucel Powder 19 gm (RX)] Omeprazole [Prilosec 20 mg] 20 mg PO BID 02/08/14 cycloSPORINE 0.05% [Restasis Opht 1 drop EACHEYE BID 02/08/14 Drops(*)] Gabapentin [Neurontin 300 MG (*)] 1,200 mg PO HS 02/06/15 Pilocarpine HCl [Salagen 5mg (*)] 5 mg PO BID 02/06/15 Rosuvastatin Calcium [Crestor 5mg] 5 mg PO HS 07/28/16 Zolpidem Tartrate [Ambien 5MG (*)] 10 mg PO HS 07/28/16 Acetaminophen [Tylenol 325mg (*)] 650 mg PO Q6HRS #0 tab 08/26/16 Aspirin [Aspirin 325 mg (*)] 325 mg PO DAILY #0 tab 08/26/16 Sennosides/Docusate Sodium 1 - 2 tab PO BID #0 tab 08/26/16 [Senokot-S] Ondansetron Odt [Zofran Odt] 4 mg PO Q4PRN PRN #15 tab 09/07/16 Peg 3350/Na Sulf,Bicarb,Cl/KCl 1,000 ml PO ONCE #4000 ml 09/07/16 [Golytely (RX)] Cephalexin [Keflex] 500 mg PO TID #21 cap 09/13/16 Medical Decision Making - Diagnostics EKG Interpretation: EKG interpreted by me shows normal sinus rhythm with normal interval. Left axis deviation QRS is normal there is no significant ST elevation or depression there is no arrhythmia. The rate is 88 Repeat EKG at 10:23 p.m. shows normal sinus rhythm with normal interval. There is left axis deviation and left anterior fascicular block. LVH by voltage. Slightly prolonged QTC at 5:[address] elevation or depression. Occasional PAC. Rate 94 Imaging Results: Imaging Impressions Chest X-Ray 09/29/16 20:09 Impression: No source for chest pain identified. Procedures: IV normal saline. Zofran for nausea. Initial target 2 L ED Course/Re-evaluation: Recheck 10:00 p.m.--patient stable though not really feeling better. Still very weak. She tells me she just cannot go home tonight. Recheck again at 10:30 p.m. patient is really unchanged. Still somewhat nauseated. The patient, her , and I discussed imaging and lab results. We discussed treatment plan including the need for admission due to elevated troponin. She expresses understanding and agreement I have consulted and discussed the case with Dr. Kolb, hospitalist, who agrees to the admission Aspirin given in the emergency department Differential Diagnosis: Recurrent nausea vomiting and diarrhea and dehydration with this being her 3rd admission. I am suspicious the patient may have C difficile causing the abdominal symptoms. She tonight did not have any chest pain but does have an elevated troponin. No ST elevation. - Data Points Laboratory Results: Laboratory Results 09/29/16 20:30 09/29/16 21:30 09/29/16 09/29/16 09/29/16 22:05 21:30 20:30 WBC 4.89 10^3/uL 10^3/uL (3.80-9.50) RBC 3.62 10^6/uL L 10^6/uL (4.18-5.33) Hgb 11.3 g/dL L g/dL (12.6-16.3) Hct 34.0 % L % (38.0-47.0) MCV 93.9 fL fL (81.5-99.8) MCH 31.2 pg pg (27.9-34.1) MCHC 33.2 g/dL g/dL (32.4-36.7) RDW 14.3 % % (11.5-15.2) Plt Count 238 10^3/uL 10^3/uL (150-400) MPV 9.2 fL fL (8.7-11.7) Neut % (Auto) 75.7 % H % (39.3-74.2) Lymph % (Auto) 8.8 % L % (15.0-45.0) [place] % (Auto) 12.7 % % (4.5-13.0) Eos % (Auto) 1.2 % % (0.6-7.6) Baso % (Auto) 0.4 % % (0.3-1.7) Nucleat RBC Rel Count 0.0 % % (0.0-0.2) Absolute Neuts (auto) 3.70 10^3/uL 10^3/uL (1.70-6.50) Absolute Lymphs (auto) 0.43 10^3/uL L 10^3/uL (1.00-3.00) Absolute Monos (auto) 0.62 10^3/uL 10^3/uL (0.30-0.80) Absolute Eos (auto) 0.06 10^3/uL 10^3/uL (0.03-0.40) Absolute Basos (auto) 0.02 10^3/uL 10^3/uL (0.02-0.10) Absolute Nucleated RBC 0.00 10^3/uL 10^3/uL (0-0.01) Immature Gran % 1.2 % H % (0.0-1.1) Immature Gran # 0.06 10^3/uL 10^3/uL (0.00-0.10) Sodium 131 mEq/L L mEq/L (134-144) Potassium 3.9 mEq/L mEq/L (3.5-5.2) Chloride 103 mEq/L mEq/L (97-110) Carbon Dioxide 14 mEq/l L mEq/l (22-31) Anion Gap 14 mEq/L mEq/L (8-16) BUN 11 mg/dL mg/dL (7-23) Creatinine 0.7 mg/dL mg/dL (0.6-1.0) Estimated GFR > 60 Glucose 53 mg/dL L mg/dL (70-100) Calcium 8.3 mg/dL L mg/dL (8.5-10.4) Troponin I 0.207 ng/mL H ng/mL (0-0.034) Lipase 107.0 IU/L IU/L (23-300) Urine Color YELLOW Urine Appearance CLEAR Urine pH 5.0 (5.0-7.5) Ur Specific [place] 1.015 (1.002-1.030) Urine Protein NEGATIVE (NEGATIVE) Urine Ketones 1+ H (NEGATIVE) Urine Blood NEGATIVE (NEGATIVE) Urine Nitrate NEGATIVE (NEGATIVE) Urine Bilirubin NEGATIVE (NEGATIVE) Urine Urobilinogen NEGATIVE EU EU (0.2-1.0) Ur Leukocyte Esterase 3+ H (NEGATIVE) Urine RBC 3-5 /hpf H /hpf (0-3) Urine WBC 50-182 /hpf H /hpf (0-3) Ur Epithelial Cells TRACE /lpf /lpf (NONE-1+) Urine Bacteria TRACE /hpf H /hpf (NONE SEEN) Hyaline Casts 5-15 /lpf /lpf (0-1) Urine Mucus 3+ /lpf H /lpf (NONE-1+) Urine Glucose NEGATIVE (NEGATIVE) Medications Given: Discontinued Medications Sodium Chloride (Ns) 1,000 mls @ 0 mls/hr IV EDNOW ONE; Wide Open PRN Reason: Protocol Stop: 09/29/16 20:09 Last Admin: 09/29/16 20:47 Dose: 1,000 mls Sodium Chloride (Ns) 1,000 mls @ 0 mls/hr IV EDNOW ONE; Wide Open PRN Reason: Protocol Stop: 08/09/17 20:09 Last Admin: 09/29/16 20:48 Dose: 1,000 mls Ondansetron HCl (Zofran) 4 mg IVP EDNOW ONE Stop: 09/29/16 20:09 Last Admin: 09/29/16 20:47 Dose: 4 mg Promethazine HCl (Phenergan) 12.5 mg IVP EDNOW ONE Stop: 09/29/16 22:17 Last Admin: 09/29/16 22:25 Dose: 12.5 mg Departure - Departure Disposition: [facility] Clinical Impression: Vomiting and diarrhea, Dehydration, Elevated troponin Condition: Fair
[2016-09-29 20:54] LABS: % IMMATURE GRANULYOCYTES 1.2 % (0.0-1.1); ABSOLUTE IMMATURE GRANULOCYTES 0.06 10^3/uL (0.00-0.10); ADD DIFF? NO; ADD MORPH? NO; ADD SCAN? NO; ATYPICAL LYMPHOCYTE FLAG 10 (0-99); FRAGMENT RBC FLAG 0 (0-99); HEMOGLOBIN 11.3 g/dL (12.6-16.3); LEFT SHIFT FLG 10 (0-99); LIPEMIA HEMOLYSIS FLAG 80 (0-99); MEAN CELL HEMOGLOBIN 31.2 pg (27.9-34.1); MEAN CELL HEMOGLOBIN CONCENTR. 33.2 g/dL (32.4-36.7); MEAN CELL VOLUME 93.9 fL (81.5-99.8); MEAN PLATELET VOLUME 9.2 fL (8.7-11.7); PLATELET CLUMPS FLAG 40 (0-99); PLATELET COUNT 238 10^3/uL (150-400); RED BLOOD CELL COUNT 3.62 10^6/uL (4.18-5.33); RED CELL DISTRIBUTION WIDTH 14.3 % (11.5-15.2)
--- NOTE | 2016-09-29 21:08 | CPEKG ---
Heart Rate: 88 RR Interval: 682 P-R Interval: 188 QRSD Interval: 90 QT Interval: 408 QTC Interval: 494 P Banner: -65 QRS Banner: -51 T Wave Banner: 79 EKG Severity - ABNORMAL ECG - EKG Impression: VENTRICULAR-PACED COMPLEXES EKG Impression: LEFT ANTERIOR FASCICULAR BLOCK EKG Impression: LEFT VENTRICULAR HYPERTROPHY EKG Impression: BORDERLINE PROLONGED QT INTERVAL Electronically Signed By: Bhaskar Cox 30-Sep-2016 15:29:29
[2016-09-29 21:57] LABS: ANION GAP 14 mEq/L (8-16); CALCIUM 8.3 mg/dL (8.5-10.4); CARBON DIOXIDE 14 mEq/l (22-31); CHLORIDE 103 mEq/L (97-110); CREATININE 0.7 mg/dL (0.6-1.0); GLOMERULAR FILTRATION RATE > 60; GLUCOSE 53 mg/dL (70-100); POTASSIUM 3.9 mEq/L (3.5-5.2); SODIUM 131 mEq/L (134-144)
[2016-09-29 22:08] LABS: TROPONIN I 0.207 ng/mL (0-0.034)
[2016-09-29] MEDS ORDERED: PROMETHAZINE HCL 25 MG/ML INJ IVP ONE (22:16)
[2016-09-29 22:19] LABS: COLOR YELLOW; LEUKOCYTE ESTERASE,URINE 3+ (NEGATIVE); NITRITE,URINE NEGATIVE (NEGATIVE)
[2016-09-29 22:21] LABS: BACTERIA TRACE /hpf (NONE SEEN); MUCUS 3+ /lpf (NONE-1+); WBC,URINE 50-182 /hpf (0-3)
--- NOTE | 2016-09-29 22:25 | CPEKG ---
Heart Rate: 94 RR Interval: 638 P-R Interval: 192 QRSD Interval: 96 QT Interval: 408 QTC Interval: 511 P [place]: 83 QRS [place]: -44 T Wave [place]: 89 EKG Severity - ABNORMAL ECG - EKG Impression: SINUS RHYTHM EKG Impression: ATRIAL PREMATURE COMPLEX EKG Impression: LEFT ANTERIOR FASCICULAR BLOCK EKG Impression: LVH WITH SECONDARY REPOLARIZATION ABNORMALITY EKG Impression: PROLONGED QT INTERVAL Electronically Signed By: Edgard Sabillon 30-Sep-2016 00:03:40
[2016-09-29] MEDS ORDERED: ASPIRIN 325 MG TAB PO ONE (22:43)
[2016-09-29] MEDS ORDERED: ONDANSETRON DISINTEGRATING 4 MG TAB PO PRN (23:05)
[2016-09-29] MEDS ORDERED: ACETAMINOPHEN 325 MG TAB PO PRN (23:05)
[2016-09-29] MEDS ORDERED: PROMETHAZINE HCL 25 MG/ML INJ IVP PRN (23:05)
--- NOTE | 2016-09-29 23:19 | PDGENHP ---
History and Physical - Chief Complaint Malaise - History of Present Illness 81 yo F w/ hx of Sjogren's syndrome and recent TKA presents with myriad of complaints. Patient underwent R TKA about a month ago and was then discharged to a SNF for rehabilitation. For the last few weeks she has noticed loose, foul smelling BMs w/ mucus. However, she has only had a few BMs each day. Additionally, she has lost her appetite and developed progressive nausea and cough over the last few weeks. She feels fatigued and overall very poorly. She also has some pain on her right chest where she fell and hit her ribs. She denies BRBPR, melena, abdominal pain, dysuria, urgency, frequency, and sputum production. She was seen in the ED on 09/13 with similar symptoms. Significant pyuria was noted at that time and she was prescribed Keflex, which she took for 3 days. No urine culture was sent at that time. History Information - Allergies/Home Medication List Allergies/Adverse Reactions: amoxicillin trihydrate [From Augmentin] Allergy (Verified 09/13/16 12:26) Vomiting ciprofloxacin [From Cipro] Allergy (Verified 09/13/16 12:26) Vomiting ciprofloxacin HCl [From Cipro] Allergy (Verified 09/13/16 12:26) Vomiting metronidazole [From Flagyl] Allergy (Verified 09/13/16 12:26) Vomiting Metronidazole HCl [From Flagyl] Allergy (Verified 09/13/16 12:26) Vomiting morphine [Morphine] Allergy (Verified 09/13/16 12:26) Vomiting nitrofurantoin [From Macrobid] Allergy (Verified 09/13/16 12:26) Unknown nitrofurantoin macrocrystalline [From Macrobid] Allergy (Verified 09/13/16 12:26 ) Unknown oxaprozin [From Daypro] Allergy (Verified 09/13/16 12:26) Vomiting potassium clavula *RETIRED-11/01/11 [From Augmentin] Allergy (Verified 09/13/16 12:26) Vomiting Sulfa (Sulfonamide Antibiotics) Allergy (Verified 09/13/16 12:26) Hives tramadol [Tramadol] Allergy (Verified 09/13/16 12:26) Vomiting Home Medications: Dicyclomine [Bentyl 20 MG (*)] 20 mg PO DAILY PRN 02/08/14 [Last Taken 08/03/16] Herbals/Supplements -Info Only 1 ea PO DAILY 02/08/14 [Last Taken 02/05/15] Hydroxychloroquine Sulfate [Plaquenil 200 mg (*)] 200 mg PO BID 02/08/14 [Last Taken 08/25/16 08:00] Levothyroxine [Synthroid 50 mcg (*)] 50 mcg PO DAILY06 02/08/14 [Last Taken 06/07 08:00] Methylcellulose (with Sugar) [Citrucel Powder 19 gm (RX)] 19 gm PO QID 02/08/14 [Last Taken 02/06/15] Omeprazole [Prilosec 20 mg] 20 mg PO BID 02/08/14 [Last Taken 08/24/16 08:00] cycloSPORINE 0.05% [Restasis Opht Drops(*)] 1 drop EACHEYE BID 02/08/14 [Last Taken 08/25/16 08:00] Gabapentin [Neurontin 300 MG (*)] 1,200 mg PO HS 02/06/15 [Last Taken 08/24/16 22:30] Pilocarpine HCl [Salagen 5mg (*)] 5 mg PO BID 02/06/15 [Last Taken 08/25/16 08: 00] Rosuvastatin Calcium [Crestor 5mg] 5 mg PO HS 07/28/16 [Last Taken 08/24/16 22: 30] Zolpidem Tartrate [Ambien 5MG (*)] 10 mg PO HS 07/28/16 [Last Taken 08/24/16 22: 30] I have personally reviewed and updated: family history, medical history - Past Medical History Additional medical history: Sjogren's syndrome - Family History Positive for: hypertension (Quit 38 years ago) - Social History Smoking Status: Former smoker Alcohol Use: None Drug Use: None Review of Systems ROS: 10pt was reviewed & negative except for what was stated in HPI & below Physical Exam Temp Pulse Resp BP Pulse Ox 36.7 C 86 18 148/75 H 95 09/29/16 23:00 09/29/16 23:00 09/29/16 23:00 09/29/16 23:00 09/29/16 23:00 Constitutional: chronically ill appearing, uncomfortable Eyes: PERRL, EOMI Ears, Nose, Mouth, Throat: moist mucous membranes, no oral mucosal ulcers Cardiovascular: regular rate and rhythym, pulses symmetric bilaterally Respiratory: no respiratory distress, clear to auscultation, reduced air movement Gastrointestinal: normoactive bowel sounds, soft, non-tender abdomen, No tenderness, No guarding, No rebound Genitourinary: no bladder tenderness Skin: warm, no rashes or abrasions Neurologic: AAOx3, CN II-XII Intact Psychiatric: interacting appropriately, not anxious Lab Data & Imaging Review 09/29/16 20:30 09/29/16 21:30 WBC 4.89 10^3/uL (3.80-9.50) 09/29/16 20:30 RBC 3.62 10^6/uL (4.18-5.33) L 09/29/16 20:30 Hgb 11.3 g/dL (12.6-16.3) L 09/29/16 20:30 Hct 34.0 % (38.0-47.0) L 09/29/16 20:30 MCV 93.9 fL (81.5-99.8) 09/29/16 20:30 MCH 31.2 pg (27.9-34.1) 09/29/16 20:30 MCHC 33.2 g/dL (32.4-36.7) 09/29/16 20:30 RDW 14.3 % (11.5-15.2) 09/29/16 20:30 Plt Count 238 10^3/uL (150-400) 09/29/16 20:30 MPV 9.2 fL (8.7-11.7) 09/29/16 20:30 Neut % (Auto) 75.7 % (39.3-74.2) H 09/29/16 20:30 Lymph % (Auto) 8.8 % (15.0-45.0) L 09/29/16 20:30 [place] % (Auto) 12.7 % (4.5-13.0) 09/29/16 20:30 Eos % (Auto) 1.2 % (0.6-7.6) 09/29/16 20:30 Baso % (Auto) 0.4 % (0.3-1.7) 09/29/16 20:30 Nucleat RBC Rel Count 0.0 % (0.0-0.2) 09/29/16 20:30 Absolute Neuts (auto) 3.70 10^3/uL (1.70-6.50) 09/29/16 20:30 Absolute Lymphs (auto) 0.43 10^3/uL (1.00-3.00) L 09/29/16 20:30 Absolute Monos (auto) 0.62 10^3/uL (0.30-0.80) 09/29/16 20:30 Absolute Eos (auto) 0.06 10^3/uL (0.03-0.40) 09/29/16 20:30 Absolute Basos (auto) 0.02 10^3/uL (0.02-0.10) 09/29/16 20:30 Absolute Nucleated RBC 0.00 10^3/uL (0-0.01) 09/29/16 20:30 Immature Gran % 1.2 % (0.0-1.1) H 09/29/16 20:30 Immature Gran # 0.06 10^3/uL (0.00-0.10) 09/29/16 20:30 Sodium 131 mEq/L (134-144) L 09/29/16 21:30 Potassium 3.9 mEq/L (3.5-5.2) 09/29/16 21:30 Chloride 103 mEq/L (97-110) 09/29/16 21:30 Carbon Dioxide 14 mEq/l (22-31) L 09/29/16 21:30 Anion Gap 14 mEq/L (8-16) 09/29/16 21:30 BUN 11 mg/dL (7-23) 09/29/16 21:30 Creatinine 0.7 mg/dL (0.6-1.0) 09/29/16 21:30 Estimated GFR > 60 09/29/16 21:30 Glucose 53 mg/dL (70-100) L 09/29/16 21:30 Calcium 8.3 mg/dL (8.5-10.4) L 09/29/16 21:30 Troponin I 0.207 ng/mL (0-0.034) H 09/29/16 21:30 Lipase 107.0 IU/L (23-300) 09/29/16 21:30 Urine Color YELLOW 09/29/16 22:05 Urine Appearance CLEAR 09/29/16 22:05 Urine pH 5.0 (5.0-7.5) 09/29/16 22:05 Ur Specific [place] 1.015 (1.002-1.030) 09/29/16 22:05 Urine Protein NEGATIVE (NEGATIVE) 09/29/16 22:05 Urine Ketones 1+ (NEGATIVE) H 09/29/16 22:05 Urine Blood NEGATIVE (NEGATIVE) 09/29/16 22:05 Urine Nitrate NEGATIVE (NEGATIVE) 09/29/16 22:05 Urine Bilirubin NEGATIVE (NEGATIVE) 09/29/16 22:05 Urine Urobilinogen NEGATIVE EU (0.2-1.0) 09/29/16 22:05 Ur Leukocyte Esterase 3+ (NEGATIVE) H 09/29/16 22:05 Urine RBC 3-5 /hpf (0-3) H 09/29/16 22:05 Urine WBC 50-182 /hpf (0-3) H 09/29/16 22:05 Ur Epithelial Cells TRACE /lpf (NONE-1+) 09/29/16 22:05 Urine Bacteria TRACE /hpf (NONE SEEN) H 09/29/16 22:05 Hyaline Casts 5-15 /lpf (0-1) 09/29/16 22:05 Urine Mucus 3+ /lpf (NONE-1+) H 09/29/16 22:05 Urine Glucose NEGATIVE (NEGATIVE) 09/29/16 22:05 Imaging Review: CXR unremarkable Visualized and Interpreted Chest x-ray results: Yes Chest X-Ray results: no infiltrate Visualized and Interpreted EKG results: Yes EKG additional interpertation: Incomplete RBBB, LAFB, subtle lateral ST depressions unchanged from 2015 ECG Assessment & Plan Assessment: 81 yo F w/ hx of Sjogren's syndrome and recent TKA presenting with nausea, vomiting, loose stools and found to have elevated troponin. Plan: 1. Loose stools, nausea, vomiting - Possibly infectious etiology (viral vs. bacterial), does have multiple risk factors including recent hospitalization, antibiotic use, and stay in nursing facility. Other considerations include systemic effects of urinary tract infection noting significant pyuria. Denies abdominal pain, BRBPR and melena. She appears dehydrated on examination and has a benign abdominal examination. - IVF, anti-emetics PRN - GI Stool PCR - Will also check TSH and AM cortisol 2. Abnormal urinalysis - Significant pyuria (persistent from 09/13), 3+ LE, and trace bacteria; denies symptoms of urinary tract infection. She received 3 day course of Keflex in late August for same problem, no urine culture performed at that time. Normal renal function and only 3-5 RBCS so doubt non-infectious inflammatory etiology, but still possible, especially noting autoimmune history. Review of microbiology data reveals Proteus urinary tract infection in 2009. - Will treat empirically with CTX 1g QD for now - Urine and blood cultures ordered - Consider further renal work-up if culture not explanatory 3. Elevated troponin - Without symptoms of ACS, suspect demand ischemia in this 81 yo with acute illness and evidence of conduction abnormalities on ECG. - Continue to trend enzymes - May benefit from risk stratification (Nuc stress vs. LHC) 4. Hyponatremia - Suspect hypovolemic etiology noting above, rehydrate and monitor BMP. 5. Hx of Sjogren's syndrome - On hydroxychloroquine, pilocarpine, and cyclosporine drops as outpatient. 6. Hypothyroid - On LTX, checking TSH. Diet - Regular Code - Full Ppx - Low dose LMWH noting age Dispo - Admit to observation
[2016-09-30] MEDS ORDERED: GABAPENTIN 300 MG CAP PO PRN (00:54)
[2016-09-30] MEDS: traZODone 50 MG TAB PO PRN ×2 (01:08→21:47)
[2016-09-30] MEDS ORDERED: LORazepam 0.5 MG TAB PO ONE (03:08)
[2016-09-30] MEDS: oxyCODONE IR 5 MG TAB PO PRN ×3 (03:22→21:46)
[2016-09-30 05:06] LABS: % IMMATURE GRANULYOCYTES 1.4 % (0.0-1.1); ABSOLUTE IMMATURE GRANULOCYTES 0.05 10^3/uL (0.00-0.10); ADD DIFF? NO; ADD MORPH? NO; ADD SCAN? NO; ATYPICAL LYMPHOCYTE FLAG 30 (0-99); FRAGMENT RBC FLAG 0 (0-99); HEMATOCRIT 28.1 % (38.0-47.0); HEMOGLOBIN 9.3 g/dL (12.6-16.3); LEFT SHIFT FLG 10 (0-99); LIPEMIA HEMOLYSIS FLAG 80 (0-99); MEAN CELL HEMOGLOBIN CONCENTR. 33.1 g/dL (32.4-36.7); MEAN CELL VOLUME 93.7 fL (81.5-99.8); MEAN PLATELET VOLUME 9.3 fL (8.7-11.7); PLATELET CLUMPS FLAG 0 (0-99); PLATELET COUNT 216 10^3/uL (150-400); RED CELL DISTRIBUTION WIDTH 14.3 % (11.5-15.2)
[2016-09-30 05:23] LABS: ANION GAP 12 mEq/L (8-16); CALCIUM 8.2 mg/dL (8.5-10.4); CARBON DIOXIDE 16 mEq/l (22-31); CHLORIDE 103 mEq/L (97-110); CREATININE 0.7 mg/dL (0.6-1.0); GLOMERULAR FILTRATION RATE > 60; GLUCOSE 48 mg/dL (70-100); POTASSIUM 3.7 mEq/L (3.5-5.2); SODIUM 131 mEq/L (134-144)
[2016-09-30 05:29] LABS: TROPONIN I 0.291 ng/mL (0-0.034)
[2016-09-30 05:48] LABS: CORTISOL-AM 6.8 ug/dL (4.5-22.7)
[2016-09-30] MEDS ORDERED: D10W 250 ML IV ONE (07:45)
[2016-09-30] MEDS ORDERED: NON-FORMULARY NEW DRUG (Omeprazole [Prilosec 20 Mg] 20 MG) PO SCH (09:00)
[2016-09-30] MEDS: PANTOPRAZOLE SODIUM 40 MG TAB PO SCH ×2 (10:09→21:47)
[2016-09-30] MEDS: PILOCARPINE HCL 5 MG TAB PO SCH ×2 (10:10→21:49)
[2016-09-30] MEDS: HYDROXYCHLOROQUINE SULFATE 200 MG TAB PO SCH ×2 (10:10→21:50)
[2016-09-30] MEDS: LEVOTHYROXINE 50 MCG TAB PO SCH (10:10)
[2016-09-30] MEDS: ENOXAPARIN 30 MG/0.3 ML SYR SC SCH (10:14)
[2016-09-30] MEDS: CYCLOSPORINE 0.05% 1 EACH BOX EACHEYE SCH ×2 (10:17→21:52)
[2016-09-30] MEDS ORDERED: CARBOXYMETHYLCELLULOSE 0.5% 0.4 ML DROPERETTE EACHEYE PRN (11:47)
[2016-09-30] MEDS ORDERED: PREDNISONE 2 MG PO SCH (12:00)
--- NOTE | 2016-09-30 14:40 | HOSPPROG ---
Hospitalist Progress Note Assessment/Plan: # Nausea and vomiting - intractable- this improved overnight with supportive care IV fluids IV antiemetics and empiric antibiotics Patient was noted to be hypoglycemic with blood sugars less than 50 3 times in the last 12 hours- curious of her presenting symptoms may be related Telemetry (personally reviewed and interpreted) sinus rhythm- oxygen saturations 96% on room air - continue IV fluids if p.o. inadequate - continue IV antiemetics p.r.n. - continue empiric antibiotics # Hypoglycemia- patient with 3 measured blood glucose < 50 in the past 12 hours - no history of diabetes or oral hypoglycemic agents Based on exam and history low suspicion for surreptitious medication use - patient intermittently with nausea, vomiting, tremulousness and diaphoresis TSH and cortisol at presentation normal Differential diagnosis includes insulin autoimmune hypoglycemia, insulinoma or other insulin legal secretary conditions- severity of illness less consistent with hypoglycemia secondary to sepsis - checking insulin, pro-insulin, beta-hydroxybutyrate, and insulin antibodies - consider US imaging - monitor sugars with improved PO intake # Hyponatremia - suspected hypovolemic - follow after IVF # Indeterminant troponins - patient without complaint - continue to follow would defer further work/risk stratification up until dc # pyuria- patient with previous symptoms received 3 days of Keflex returns to ED with abnormal urinalysis Urine culture- NGTD - continue empiric ceftriaxone - monitor culture results # Sjogren's - continue home meds # Hypothyroidism - cont home meds # proph - lovenox # diet - advancing as tolerates # dispo - > 2MN as requiring IV fluids and diagnostic work up for diarrhea, nausea/vomiting and hypoglycemia I have discussed case with RN will continue following blood sugars a.c. HS and giving dextrose as needed for blood sugars less than 60 or symptomatic Subjective: Feeling better this morning Objective: Vital Signs Temp Pulse Resp BP Pulse Ox 36.8 C 92 15 126/58 H 96 09/30/16 12:13 09/30/16 12:13 09/30/16 12:13 09/30/16 12:13 09/30/16 12:13 Laboratory Results 09/30/16 04:25 09/30/16 04:25 09/29/16 09/30/16 10/01/16 05:59 05:59 05:59 Intake Total 2960 Output Total 425 Balance 2535 - Physical Exam Constitutional: appears nourished Eyes: anicteric sclera Ears, Nose, Mouth, Throat: dry mucous membranes Cardiovascular: regular rate and rhythym, systolic murmur Respiratory: no respiratory distress, no rales or rhonchi Gastrointestinal: normoactive bowel sounds, soft, non-tender abdomen Genitourinary: no bladder fullness Skin: warm, normal color Musculoskeletal: No asymmetric calves Neurologic: AAOx3 Psychiatric: interacting appropriately, not anxious Lymph, Heme, Immunologic: no cervical LAD ICD10 Worksheet Patient Problems: Problems Problem Status Onset Dehydration Acute Elevated troponin Acute Vomiting and diarrhea Acute Primary localized osteoarthritis of right knee Acute TIA (transient ischemic attack) Acute Troponin I above reference range Acute
[2016-09-30] MEDS ORDERED: NS 1,000 ML IV ONE (15:05)
[2016-09-30] MEDS ORDERED: NON-FORMULARY NEW DRUG (Rosuvastatin Calcium [Crestor 5mg] 5 MG) PO SCH (21:00)
[2016-09-30] MEDS: ASPIRIN 81 MG CHEWABLE TAB PO SCH (21:48)
[2016-09-30] MEDS: ROSUVASTATIN CALCIUM 10 MG TAB PO SCH (21:49)
[2016-09-30] MEDS: GABAPENTIN 300 MG CAP PO SCH (21:51)
[2016-10-01] MEDS: ONDANSETRON 4 MG/2 ML VIAL IVP PRN (00:15)
[2016-10-01] MEDS: LEVOTHYROXINE 50 MCG TAB PO SCH (05:42)
[2016-10-01 05:49] LABS: ANION GAP 8 mEq/L (8-16); CARBON DIOXIDE 20 mEq/l (22-31); CHLORIDE 106 mEq/L (97-110); CREATININE 0.7 mg/dL (0.6-1.0); GLOMERULAR FILTRATION RATE > 60; GLUCOSE 73 mg/dL (70-100); POTASSIUM 3.5 mEq/L (3.5-5.2); SODIUM 134 mEq/L (134-144)
[2016-10-01] MEDS: PILOCARPINE HCL 5 MG TAB PO SCH ×2 (09:56→21:23)
[2016-10-01] MEDS: predniSONE 1 MG TAB PO SCH (09:56)
[2016-10-01] MEDS: HYDROXYCHLOROQUINE SULFATE 200 MG TAB PO SCH ×2 (09:56→21:22)
[2016-10-01] MEDS: PANTOPRAZOLE SODIUM 40 MG TAB PO SCH ×2 (09:57→21:21)
[2016-10-01] MEDS: ENOXAPARIN 30 MG/0.3 ML SYR SC SCH (10:02)
[2016-10-01] MEDS: CYCLOSPORINE 0.05% 1 EACH BOX EACHEYE SCH ×2 (10:20→21:23)
[2016-10-01] MEDS ORDERED: POLYETHYLENE GLYCOL 3350 17 GM PKT PO PRN (13:49)
--- NOTE | 2016-10-01 16:06 | HOSPPROG ---
Hospitalist Progress Note Assessment/Plan: # Nausea and vomiting - intractable- entirely resolved with IV fluids IV antiemetics and empiric antibiotics Telemetry (personally reviewed and interpreted) sinus rhythm- oxygen saturations 92% on room air - DC IV fluids as p.o. inadequate - continue IV antiemetics p.r.n. - continue empiric antibiotics # Hypoglycemia- patient with 3 measured blood glucose < 50 in 12 hours after admission- no history of diabetes or oral hypoglycemic agents symptoms of hypoglycemia and low sugars resolved overnight with PO intake alone TSH and cortisol at presentation normal - follow pending labs- insulin, pro-insulin, beta-hydroxybutyrate, and insulin antibodies - patient educated about hypoglycemia and the importance of oral intake ongoing # Hyponatremia - suspected hypovolemic - resolved after IVF- sodium 134 # Indeterminant troponins - patient without complaint - troponin down to 0.16 - defer additional workup during this hospitalization # pyelonephritis- patient with systemic sx at presentation - patient with previous symptoms received 3 days of Keflex returns to ED with abnormal urinalysis Urine culture with 1000 colony-forming units of gram-negative rods- suspect secondary to preceding antibiotic exposure - continue empiric ceftriaxone - monitor culture results # Sjogren's - continue home meds # Hypothyroidism - cont home meds # proph - lovenox # diet - advancing as tolerates # dispo - > 2MN as requiring therapy evaluations for safe disposition planning I have discussed case with RN gera Jon and work on bowel regiment and therapies Subjective: feeling so much better Objective: Vital Signs Temp Pulse Resp BP Pulse Ox 37 C 90 18 142/60 H 92 10/01/16 15:13 10/01/16 15:13 10/01/16 15:13 10/01/16 15:13 10/01/16 15:13 Laboratory Results 10/01/16 04:21 09/30/16 10/01/16 10/02/16 05:59 05:59 05:59 Intake Total 2310 Output Total 1650 875 Balance 660 -875 - Physical Exam Constitutional: chronically ill appearing Eyes: anicteric sclera Ears, Nose, Mouth, Throat: moist mucous membranes Cardiovascular: regular rate and rhythym Respiratory: no respiratory distress, no rales or rhonchi Gastrointestinal: normoactive bowel sounds, soft, non-tender abdomen Genitourinary: no bladder fullness Skin: warm, normal color Musculoskeletal: No asymmetric calves Neurologic: AAOx3 Psychiatric: interacting appropriately Lymph, Heme, Immunologic: no cervical LAD ICD10 Worksheet Patient Problems: Problems Problem Status Onset Dehydration Acute Elevated troponin Acute Vomiting and diarrhea Acute Primary localized osteoarthritis of right knee Acute TIA (transient ischemic attack) Acute Troponin I above reference range Acute
[2016-10-01] MEDS: DOCUSATE SODIUM 100 MG CAP PO SCH ×2 (16:14→21:23)
[2016-10-01] MEDS: oxyCODONE IR 5 MG TAB PO PRN ×2 (16:14→21:22)
[2016-10-01] MEDS: ASPIRIN 81 MG CHEWABLE TAB PO SCH (21:22)
[2016-10-01] MEDS: GABAPENTIN 300 MG CAP PO SCH (21:23)
[2016-10-01] MEDS: ROSUVASTATIN CALCIUM 10 MG TAB PO SCH (21:29)
[2016-10-01] MEDS: traZODone 50 MG TAB PO PRN (22:05)
[2016-10-02] MEDS: oxyCODONE IR 5 MG TAB PO PRN ×2 (01:03→22:05)
[2016-10-02] MEDS: LEVOTHYROXINE 50 MCG TAB PO SCH (04:12)
[2016-10-02] MEDS: PILOCARPINE HCL 5 MG TAB PO SCH ×2 (08:40→22:05)
[2016-10-02] MEDS: DOCUSATE SODIUM 100 MG CAP PO SCH ×2 (08:41→22:05)
[2016-10-02] MEDS: HYDROXYCHLOROQUINE SULFATE 200 MG TAB PO SCH ×2 (08:41→22:04)
[2016-10-02] MEDS: PANTOPRAZOLE SODIUM 40 MG TAB PO SCH ×2 (08:41→22:06)
[2016-10-02] MEDS: predniSONE 1 MG TAB PO SCH (08:41)
[2016-10-02] MEDS: ENOXAPARIN 40 MG/0.4 ML SYR SC SCH (08:42)
[2016-10-02] MEDS: CYCLOSPORINE 0.05% 1 EACH BOX EACHEYE SCH ×2 (08:57→22:05)
--- NOTE | 2016-10-02 16:48 | HOSPPROG ---
Hospitalist Progress Note Assessment/Plan: # Nausea and vomiting - intractable- entirely resolved with IV fluids IV antiemetics and empiric antibiotics - p.o. inadequate - continue IV antiemetics p.r.n. - continue empiric antibiotics # Hypoglycemia- patient with 3 measured blood glucose < 50 in 12 hours after admission- no history of diabetes or oral hypoglycemic agents symptoms of hypoglycemia and low sugars resolved with PO intake alone TSH and cortisol at presentation normal - follow pending labs- - patient educated about hypoglycemia and the importance of oral intake ongoing # Hyponatremia - suspected hypovolemic - resolved after IVF- sodium 134 # Indeterminant troponins - patient without complaint - troponin down to 0.16 Telemetry (personally reviewed and interpreted) sinus rhythm- oxygen saturations 94% on room air - defer additional workup during this hospitalization # pyelonephritis- patient with systemic sx at presentation - patient with previous symptoms received 3 days of Keflex returns to ED with abnormal urinalysis Urine culture with 1000 colony-forming units of gram-negative rods- suspect secondary to preceding antibiotic exposure - continue empiric ceftriaxone - based on allergies cefpodoxime only PO option # Sjogren's - continue home meds # Hypothyroidism - cont home meds # proph - lovenox # diet - advancing as tolerates # dispo - > 2MN as requiring therapy evaluations for safe disposition planning I have discussed case with RN based on the patient's allergy profile the only viable oral antibiotics for her pyelonephritis is cefpodoxime Meds being reconciled sent to her pharmacy they do not have that medication in stock we will need to wait till tomorrow morning for disposition Subjective: feeling stronger Objective: Vital Signs Temp Pulse Resp BP Pulse Ox 36.3 C 88 16 149/68 H 94 10/02/16 15:20 10/02/16 15:20 10/02/16 15:20 10/02/16 15:20 10/02/16 15:20 Laboratory Results 10/01/16 04:21 10/01/16 10/02/16 10/03/16 05:59 05:59 05:59 Intake Total 2310 810 Output Total 1650 8785 950 Balance 819 -3297 -443 - Physical Exam Constitutional: no apparent distress Eyes: PERRL Ears, Nose, Mouth, Throat: moist mucous membranes Cardiovascular: regular rate and rhythym Respiratory: no respiratory distress, no rales or rhonchi Gastrointestinal: normoactive bowel sounds, soft, non-tender abdomen Genitourinary: no bladder fullness Skin: warm, normal color Musculoskeletal: No asymmetric calves Neurologic: AAOx3 Psychiatric: interacting appropriately Lymph, Heme, Immunologic: no cervical LAD ICD10 Worksheet Patient Problems: Problems Problem Status Onset Dehydration Acute Elevated troponin Acute Vomiting and diarrhea Acute Primary localized osteoarthritis of right knee Acute TIA (transient ischemic attack) Acute Troponin I above reference range Acute
[2016-10-02] MEDS: GABAPENTIN 300 MG CAP PO SCH (22:04)
[2016-10-02] MEDS: traZODone 50 MG TAB PO PRN (22:05)
[2016-10-02] MEDS: ASPIRIN 81 MG CHEWABLE TAB PO SCH (22:05)
[2016-10-02] MEDS: ROSUVASTATIN CALCIUM 10 MG TAB PO SCH (22:06)
[2016-10-02] MEDS: ONDANSETRON 4 MG/2 ML VIAL IVP PRN (23:52)
[2016-10-03] MEDS: LEVOTHYROXINE 50 MCG TAB PO SCH (05:20)
--- NOTE | 2016-10-03 08:29 | PDIAF ---
- Diagnosis Diagnosis: pyelonephritis Code Status: Full Code - Medication Management Discharge Medications: Medications to Continue on Transfer Dicyclomine [Bentyl 20 MG (*)] 20 mg PO DAILY PRN 02/08/14 [Last Taken 08/03/16] Herbals/Supplements -Info Only 1 ea PO DAILY 02/08/14 [Last Taken 02/05/15] Hydroxychloroquine Sulfate [Plaquenil 200 mg (*)] 200 mg PO BID 02/08/14 [Last Taken 09/29/16 09:00] Levothyroxine [Synthroid 50 mcg (*)] 50 mcg PO DAILY06 02/08/14 [Last Taken 11/07] Omeprazole [Prilosec 20 mg] 20 mg PO BID 02/08/14 [Last Taken 09/28/16] cycloSPORINE 0.05% [Restasis Opht Drops(*)] 1 drop EACHEYE BID 02/08/14 [Last Taken 09/29/16 09:00] Gabapentin [Neurontin 300 MG (*)] 1,200 mg PO HS 02/06/15 [Last Taken 09/28/16] Pilocarpine HCl [Salagen 5mg (*)] 5 mg PO BID 02/06/15 [Last Taken 09/29/16 09: 00] Rosuvastatin Calcium [Crestor 5mg] 5 mg PO HS 07/28/16 [Last Taken 09/28/16] Zolpidem Tartrate [Ambien 5MG (*)] 10 mg PO HS 07/28/16 [Last Taken 09/28/16] Acetaminophen [Tylenol 325mg (*)] 650 mg PO Q6HRS #0 tab 08/26/16 [Last Taken 21:00] Ondansetron Odt [Zofran Odt 4 mg (*)] 4 mg PO Q4PRN PRN #15 tab 09/07/16 [Last Taken 09/29/16] Acet/Caffeine/Buta Fioricet [Fioricet (*)] 1 each PO Q6HRS PRN 09/30/16 [Last Taken 09/28/16] Aspirin [Aspirin 81mg (*)] 81 mg PO HS 09/30/16 [Last Taken 09/28/16] Sennosides/Docusate Sodium [Senokot-S] 1 - 2 tab PO BID PRN 09/30/16 [Last Taken Unknown] predniSONE [Kanwal] 2 mg PO DAILY 09/30/16 [Last Taken 09/29/16] Cefpodoxime Proxetil 100 mg PO BID #8 tablet 10/02/16 [Last Taken Unknown] Discharge Medications: Refer to the Discharge Home Medication list for PRN reason. - Orders Services needed: Home Care, Physical Therapy Home Care Face to Face: I certify that this patient was under my care and that I had the required [id number] encounter meeting the encounter requirements on the discharge day. My findings support the fact that the patient is homebound as defined in CMS Chapter 7 Medicare Benefits Manual 30.1.1, The condition of the patient is such that there exists a normal inability to leave home and consequently, leaving home would require a considerable and taxing effort. Diet Recommendation: no restrictions on diet Diet Texture: Regular Texture Diet - Follow Up Care Current Providers and Referrals: Crystal Dia MD [Primary Care Provider] - As per Instructions
[2016-10-03] MEDS: DOCUSATE SODIUM 100 MG CAP PO SCH (08:54)
[2016-10-03] MEDS: ENOXAPARIN 40 MG/0.4 ML SYR SC SCH (08:54)
[2016-10-03] MEDS: PILOCARPINE HCL 5 MG TAB PO SCH (08:55)
[2016-10-03] MEDS: PANTOPRAZOLE SODIUM 40 MG TAB PO SCH (08:55)
[2016-10-03] MEDS: predniSONE 1 MG TAB PO SCH (08:55)
[2016-10-03] MEDS: HYDROXYCHLOROQUINE SULFATE 200 MG TAB PO SCH (08:55)
[2016-10-03] MEDS: CYCLOSPORINE 0.05% 1 EACH BOX EACHEYE SCH (08:56)
[2016-10-03 10:15] VITALS: BP 114/59; PULSE 90; RESP 21; TEMP 98.2; O2SAT 91
--- NOTE | 2016-10-03 19:12 | GDS ---
[f rep st] DISCHARGE SUMMARY DISCHARGE DIAGNOSES: Include: 1. Pyelonephritis. 2. Nausea and vomiting, presumed secondary to acute pyelonephritis. 3. Hypoglycemia. 4. Hyponatremia. 5. Indeterminate troponins. 6. Sjogren's. 7. Hypothyroidism. HISTORY OF PRESENT ILLNESS: This is a 81-year-old female, who presents with complaints of severe na usea and vomiting. For details of patient's initial presentation, please reference the History and Physical dated 09/29/2016. HOSPITAL COURSE BY ISSUE: 1. Acute nausea and vomiting. Only reversible cause identified was presumed underlying pyelonephri tis. The patient was empirically treated with IV fluids and ceftriaxone, and had rapid improvement in her symptoms. By her second day of hospitalization, her nausea and vomiting had nearly resolved. Continue p.r.n. Zofran if needed post disposition. She is holding a normal diet without complicat ion on the day of disposition. 2. Presumed pyelonephritis. Patient received several doses of Keflex in the outpatient setting, ob scuring clear urine culture results. We did find gram-negative rods in her urine, but had a low per centage of colony-forming units. Again, she was empirically treated with ceftriaxone, and then salomon sitioned to cefpodoxime oral at disposition secondary to her complicated allergy list. It was the o nly oral agent that she was not allergic to that would presumably cover the most likely gram-negativ e rods. She will complete a full 7-day course after disposition. 3. Hypoglycemia. Patient had severe hypoglycemia in the first 24 hours of her hospitalization, wit h blood glucoses plummeting into the 40s while she was not tolerating good oral intake. We did init iate laboratory workup for this, which is pending at the time of her disposition. She did rebound a nd hold her blood sugars within normal range after resuming normal intake. 4. Indeterminate troponin. Patient did have a small peak of an indeterminate range for her troponi n, which then trended down after supportive care was initiated. She never had cardiac symptoms. Wa s followed on telemetry. It was felt that the small excursion of her troponin was likely related to her acute presentation and illness, which was profound enough to additionally cause hypoglycemia. Patient can seek outpatient cardiac risk stratification after full recovery from her acute pyeloneph ritis and postsurgical status. MEDICATIONS AT THE TIME OF DISPOSITION: Please reference medication reconciliation printed on 10/03. PENDING STUDIES: At the time of this dictation, include workup for hypoglycemia, as well as blood c ultures drawn 09/30/2016, which are preliminary no growth to date. FOLLOWUP APPOINTMENTS: Include with her primary care provider, post completion of antibiotics, for followup of her systemic symptoms after completion of treatment. TIME SPENT: I spent greater than 30 minutes in the planning and coordination of this discharge. /[id number]/MODL
== END 2016-10-03 11:01 | disposition home or self-care (01) | DRG 690 ==
LOC: INTOOBSV 22:25 → F2W 23:50 → OBSVTOIN 09-30 15:43
PROVIDERS: ADMIT Student in an Organized Health Care Education/Training Program; ATTEND Student in an Organized Health Care Education/Training Program
DX: N12 Tubulo-interstitial nephritis, not specified as acute or chronic (principal); E87.1 Hypo-osmolality and hyponatremia; E16.2 Hypoglycemia, unspecified; E03.9 Hypothyroidism, unspecified; M35.00 Sjogren syndrome, unspecified; E86.0 Dehydration; Z96.651 Presence of right artificial knee joint
CPT/HCPCS: 83525-90; 84206-90; 84681-90; 86337-90; 96374; 97116-GP; 97162-GP; 97530-GP; G0378; G8978-GP-CL; G8979-GP-CI; G8980-GP-CI; J0696; J1650; J2405; J2550

== ENCOUNTER 2016-10-22 10:34 | Inpatient (IN) | payer OTHER, MEDICARE ==
--- NOTE | 2016-10-22 11:37 | EDPHY ---
H & P Stated Complaint: Fell,hit back of head;no LOC - Personal History Current Tetanus Diphtheria and Acellular Pertussis (TDAP): Yes Tetanus Vaccine Date: WITHIN THE LAST 10YRS - Medical/Surgical History Hx Asthma: No Hx Chronic Respiratory Disease: No Hx Diabetes: No Hx Cardiac Disease: No Hx Renal Disease: No Hx Cirrhosis: No Hx Alcoholism: No Hx HIV/AIDS: No Hx Splenectomy or Spleen Trauma: No Other PMH: Sjogrens, appy, gallbladder, r knee replacement, tonsils, 3 bladder tucks - Social History Smoking Status: Former smoker Time Seen by Provider: 10/22/16 11:20 HPI/ROS: CHIEF COMPLAINT: Hit head, syncopal episode HISTORY OF PRESENT ILLNESS: 81-year-old female with no history of anticoagulant use in the emergency department via private vehicle with her complaining of acute occipital head injury after a syncopal episode. She remembers walking into her house and then remembers waking up on the floor with a headache. There are no prolonged periods of immobility on the floor. No alcohol use. She is currently complaining of a nonprogressive headache. No midline C-spine pain. No peripheral paresthesia, weakness, numbness. No antecedent symptoms such as dizziness, dyspnea, palpitations PRIMARY CARE PROVIDER:Dr. Crystal Dia REVIEW OF SYSTEMS: A ten point review of systems was performed and is negative with the exception of the items mentioned in the HPI PAST MEDICAL/SURGICAL HISTORY: TIA. Sjogren's. no anticoagulant use SOCIAL HISTORY: denies alcohol use at time of incident PHYSICAL EXAM 1) GENERAL: Well-developed, well-nourished, alert and oriented. Appears to be in no acute distress. Answering questions appropriately. 2) HEAD: Normocephalic, left occipital hematoma. No laceration or abrasion 3) HEENT: Pupils equal, round, reactive to light bilaterally. Negative Horners. Nasopharynx, oropharynx, clear. No deformity or angulation of nose. No septal hematoma. No rhinorrhea. No oral trauma. Ears bilaterally with normal tympanic membranes. No hemotympanum. No fluid or blood in the external auditory canal. No raccoon eyes. No Emerson sign. Teeth are normally aligned with no gross malocclusion, TMJ bilaterally nontender, facial bones nontender including the zygomatic arch, maxilla mandible. 4) NECK: No cervical collar is on. Posterior cervical spine is nontender, no stepoff, no effusion. Full range of motion which does not elicit any midline cervical spine pain, no posterior midline tenderness, no step-off. 5) LUNGS: Clear to auscultation bilaterally, no wheezes, no rhonchi, no retractions. No obvious signs of trauma. No chest wall pain. No flaring, no grunting. Moving symmetrically. No crepitus. 6) HEART: Regular rate and rhythm, 7) ABDOMEN: No guarding, no rebound, no focal tenderness, no peritoneal signs, no signs of trauma, no ecchymosis 8) MUSCULOSKELETAL: Moving all extremities, no focal areas of tenderness, no obvious trauma. 9) BACK: No midline vertebral tenderness, no fluctuance, no step-off, no obvious trauma, no visual or palpable abnormality. 10) SKIN: No laceration. No abrasion DIFFERENTIAL DIAGNOSIS: in no particular include but limited to intracranial hemorrhage, (Rodger Hinojosa) Constitutional: Initial Vital Signs Temperature (C) 36.5 C 10/22/16 10:35 Heart Rate 85 10/22/16 10:35 Respiratory Rate 18 10/22/16 10:35 Blood Pressure 155/85 H 10/22/16 10:35 O2 Sat (%) 95 10/22/16 10:35 O2 Delivery Mode Room Air Allergies/Adverse Reactions: amoxicillin trihydrate [From Augmentin] Allergy (Verified 10/22/16 10:38) Vomiting ciprofloxacin [From Cipro] Allergy (Verified 10/22/16 10:38) Vomiting ciprofloxacin HCl [From Cipro] Allergy (Verified 10/22/16 10:38) Vomiting metronidazole [From Flagyl] Allergy (Verified 10/22/16 10:38) Vomiting Metronidazole HCl [From Flagyl] Allergy (Verified 10/22/16 10:38) Vomiting morphine [Morphine] Allergy (Verified 10/22/16 10:38) Vomiting nitrofurantoin [From Macrobid] Allergy (Verified 10/22/16 10:38) Unknown nitrofurantoin macrocrystalline [From Macrobid] Allergy (Verified 10/22/16 10:38 ) Unknown oxaprozin [From Daypro] Allergy (Verified 10/22/16 10:38) Vomiting potassium clavula *RETIRED-11/01/11 [From Augmentin] Allergy (Verified 10/22/16 10:38) Vomiting Sulfa (Sulfonamide Antibiotics) Allergy (Verified 10/22/16 10:38) Hives tramadol [Tramadol] Allergy (Verified 10/22/16 10:38) Vomiting Home Medications: Medication Instructions Recorded Dicyclomine [Bentyl 20 MG (*)] 20 mg PO DAILY PRN 02/08/14 Hydroxychloroquine Sulfate 200 mg PO BID 02/08/14 [Plaquenil 200 mg (*)] Levothyroxine [Synthroid 50 mcg 50 mcg PO HS 02/08/14 (*)] Omeprazole [Prilosec 20 mg] 20 mg PO DAILY PRN 02/08/14 cycloSPORINE 0.05% [Restasis Opht 1 drop EACHEYE BID 02/08/14 Drops(*)] Gabapentin [Neurontin 300 MG (*)] 1,200 mg PO HS 02/06/15 Pilocarpine HCl [Salagen 5mg (*)] 5 mg PO BID 02/06/15 Rosuvastatin Calcium [Crestor 5mg] 5 mg PO HS 07/28/16 Zolpidem Tartrate [Ambien 5MG (*)] 10 mg PO HS 07/28/16 Aspirin [Aspirin 81mg (*)] 81 mg PO HS 09/30/16 Sennosides/Docusate Sodium 1 - 2 tab PO BID PRN 09/30/16 [Senokot-S] predniSONE [Kanwal] 2 mg PO DAILY 09/30/16 Ondansetron Odt [Zofran Odt 4 mg 4 mg PO Q4PRN PRN #30 tab 10/03/16 (*)] Acetaminophen [Tylenol 325mg (*)] 325 - 650 mg PO Q6HRS 10/22/16 Medical Decision Making ED Course/Re-evaluation: 11:35 a.m.: Head CT ordered in this patient for trauma for the following indication: greater than 65 years old. Discussed case Dr. Laura Lizarraga in the ER, secondary supervising physician 1:00 p.m.: Re-evaluation of the patient she is alert oriented person place time events answering questions appropriately. Will consult with Neurosurgery and Trauma Services 1:10 p.m.: Phone consultation with Dr. Newton Heranndez Neurosurgery who will consult 1:20 p.m.: Consultation with Trauma surgery Dr. Varela will admit primarily, ICU 1:47 p.m.: Phone consultation with hospitalist Dr. Fredy Hobbs will consult for medicine service. Informed by the nursing staff at this time that after 7 attempts at phlebotomy they have been unsuccessful in obtaining labs & IV access. A PICC line will be ordered. 4:28 p.m.: The patient had been taken to the floor after interventional radiology. There was a delay in obtaining blood work on the patient due to difficult IV access. At 3:40 p.m. blood work was obtained on the patient via interventional radiology and I was informed at 4:25 p.m. that the patient had elevated troponin of 0.179 and elevated D-dimer of 1.17. I spoke with the hospitalist at 4:28 p.m., Dr. Long to alert her to these laboratory values. (Rodger Hinojosa) The patient was evaluated and managed by the physician printing bindery assistant. I have reviewed this chart and I agree with the findings and plan of care as documented , as indicated by my signature. I am the secondary supervising physician. I reviewed the CT scan. Hazel Hinojosa discussed this patient with me throughout her stay in the emergency department. (Laura Lizarraga) - Data Points Medications Given: Acetaminophen (Tylenol) 1,000 mg PO Q8H MARY Stop: 04/20/17 14:59 Last Admin: 10/23/16 07:08 Dose: 1,000 mg Cyclosporine (Restasis) 1 drop EACHEYE BID MARY Stop: 04/20/17 20:59 Last Admin: 10/22/16 20:15 Dose: Not Given Gabapentin (Neurontin) 1,200 mg PO HS MARY Stop: 04/20/17 20:59 Last Admin: 10/22/16 21:08 Dose: 1,200 mg Hydromorphone HCl (Dilaudid) 0.2 mg IVP Q1H PRN PRN Reason: Pain, Severe Unable to Take PO Stop: 11/01/16 15:13 Last Admin: 10/22/16 21:06 Dose: 0.2 mg Hydroxychloroquine Sulfate (Plaquenil) 200 mg PO BID MARY PRN Reason: Protocol Stop: 11/21/16 20:59 Last Admin: 10/22/16 20:14 Dose: Not Given Levothyroxine Sodium (Synthroid) 50 mcg PO HS [facility] Stop: 04/20/17 20:59 Last Admin: 10/22/16 21:09 Dose: 50 mcg Ondansetron HCl (Zofran) 4 mg IVP Q4HRS PRN PRN Reason: Nausea/Vomiting, Can't Take PO Stop: 04/20/17 14:55 Last Admin: 10/23/16 03:17 Dose: 4 mg Pilocarpine HCl (Salagen) 5 mg PO BID [facility] Stop: 04/20/17 20:59 Last Admin: 10/22/16 20:14 Dose: Not Given Promethazine HCl (Phenergan) 12.5 - 25 mg IVP Q6 PRN PRN Reason: Nausea/Vomiting, Can't Take PO Stop: 04/21/17 03:24 Last Admin: 10/23/16 05:42 Dose: 25 mg Rosuvastatin Calcium (Crestor) 5 mg PO HS [facility] Stop: 04/20/17 20:59 Last Admin: 10/22/16 22:14 Dose: Not Given Zolpidem Tartrate (Ambien) 5 - 10 mg PO HS PRN PRN Reason: Sleep/Insomnia Stop: 04/20/17 20:39 Last Admin: 10/22/16 22:24 Dose: 5 mg Discontinued Medications Acetaminophen (Tylenol) 1,000 mg PO Q8H [facility] Stop: 04/20/17 14:59 Last Admin: 10/22/16 16:03 Dose: 1,000 mg Promethazine HCl (Phenergan) 12.5 - 25 mg IVP ONCE PRN PRN Reason: Nausea/Vomiting, Can't Take PO Stop: 10/23/16 03:00 Last Admin: 10/22/16 22:59 Dose: 12.5 mg Departure - Departure Disposition: [facility] Acute Clinical Impression: Subdural hematoma, Subarachnoid hemorrhage Syncope Qualifiers: Syncope type: unspecified Qualified Code(s): R55 - Syncope and collapse Condition: Fair
--- NOTE | 2016-10-22 11:41 | CPEKG ---
Heart Rate: 81 RR Interval: 741 P-R Interval: 204 QRSD Interval: 106 QT Interval: 388 QTC Interval: 451 P [place]: 54 QRS [place]: -42 T Wave [place]: 76 EKG Severity - ABNORMAL ECG - EKG Impression: SINUS RHYTHM EKG Impression: LEFT ANTERIOR FASCICULAR BLOCK EKG Impression: LEFT VENTRICULAR HYPERTROPHY Electronically Signed By: Laura Lizarraga 23-Oct-2016 09:26:41
[2016-10-22] MEDS ORDERED: ALTEPLASE 2 MG VIAL IVP PRN (13:30)
--- NOTE | 2016-10-22 14:35 | GCON ---
[f rep st] CONSULTATION REASON FOR CONSULTATION: Subdural hematoma with traumatic subarachnoid hemorrhage, status post grou nd-level fall. HISTORY OF PRESENT ILLNESS: The patient is a 81-year-old woman, who utilizes aspirin, who states th at she was walking toward her garage at approximately 8:30 this morning, when she had sudden loss of consciousness. When she woke up, she had called her , who was not present with her and did not witness the fall itself. She was brought by private vehicle to [facility] for f urther evaluation and management. Imaging studies demonstrated a small right-sided subdural hematom a with traumatic subarachnoid hemorrhage. The patient at this time is complaining about a little bi t of left posterior occipital pain but otherwise denies any double vision, blurred vision, difficult y with her speech. No numbness, tingling, pain, or weakness of the upper or lower extremities. She does have some baseline right rotator cuff symptoms as well as a recent right knee replacement. No loss of bowel or bladder function. REVIEW OF SYSTEMS: Complete 10-point review of systems was negative except for those noted above in the HPI. SOCIAL HISTORY: The patient denies any alcohol or other illicit drug use. She is a former smoker a nd is . She sits on the [facility] [employer]. She is retired. PAST MEDICAL HISTORY: 1. History of TIAs. 2. History of Sjogren's. FAMILY HISTORY: Negative for intracranial aneurysms. ALLERGIES: 1. Amoxicillin. 2. Ciprofloxacin. 3. Flagyl. 4. Morphine. 5. Macrobid. 6. Oxaprozin. 7. Potassium clavulanate. 8. Sulfa. 9. Tramadol. MEDICATIONS: Prior to admission: 1. Dicyclomine 20 mg p.o. daily p.r.n. 2. Plaquenil 200 mcg p.o. b.i.d. 3. Levothyroxine 50 mcg p.o. q.h.s. 4. Omeprazole 20 mg p.o. daily p.r.n. 5. Cyclosporine 0.05% to each eye b.i.d. 6. Gabapentin 1200 mg p.o. q.h.s. 7. Pilocarpine 5 mg p.o. b.i.d. 8. Crestor 5 mg p.o. q.h.s. 9. Ambien 10 mg p.o. q.h.s. 10. Aspirin 81 mg p.o. daily. 11. Senokot 1 tab p.o. b.i.d. p.r.n. 12. Prednisone 2 mg p.o. daily. 13. Zofran 4 mg p.o. q.4 hours p.r.n. 14. Tylenol 325-650 mg p.o. q.6 hours p.r.n. PAST SURGICAL HISTORY: 1. Cholecystectomy. 2. Right knee replacement. 3. Tonsil and adenoidectomy. 4. History of 3 bladder tucks. MEDICAL DECISION MAKING: The patient underwent a head CT without contrast, completed at [facility] and reviewed by myself on the PACS system. There is evidence of a small right-sided subdural hematoma, approximately 7 mm in thickness, with minimal mass effect. There is right front al hemorrhagic cortical contusion, subarachnoid hemorrhage without mass effect. There is a left par ietal scalp hematoma. No evidence of any skull fractures. CT of the cervical spine without contrast, also reviewed by myself on the [facility] PACS system, demonstrates evidence of diffuse degenerative disk disease, multilevel, with a grade 1 anterolisthesis of C3 on C4, C4 on C5, C5 on C6, and C7 on T1. There is no evidence of any spinal fractures. PHYSICAL EXAMINATION: VITAL SIGNS: Blood pressure 166/74, heart rate 89, respiratory rate 18. She is satting 97% on room air. GENERAL: The patient is lying on the gurney, has no acute distress. She is quite pleasant, cooperative with the examination. Her is at the bedside. Affect is appropriate. HEENT: Head is atraumatic, normocephalic. Pupils are equal, round, and reactive to l ight bilaterally. Oropharynx is moist. NEUROLOGICAL EXAMINATION: CRANIAL NERVES: 2-12 are intact. Tongue protrudes midline. Uvula and p alate elevate symmetrically. She has intact sensation to light touch on her face bilaterally. She has intact hearing to light finger scratch bilaterally. Shoulder shrug is symmetric. Pupils are eq ual, round, and reactive to light bilaterally. MOTOR: She has 5/5 strength with bilateral manager fiber str ength, biceps, triceps, and left deltoid, with 4/5 right deltoid, which is baseline from her rotator cuff injury. She has 5/5 strength with bilateral hip flexion, knee flexion and extension, plantar dorsiflexion. SENSORY: She has intact sensation to light touch throughout all major dermatomes of the bilateral upper and lower extremities throughout. OTHER: She has negative Ana Laura's and no Ba binski. Reflexes are not obtained in the right patella and 1+ in the left patella with 1+ at the bi lateral brachioradialis. ASSESSMENT AND PLAN: The patient is a 81-year-old woman who had a ground-level fall, likely syncopa l, earlier today around at 8:30 a.m. She presented to the emergency department and underwent imagin g, which demonstrated a small subdural hematoma as well as traumatic subarachnoid hemorrhage on the right side, both of which demonstrate no mass effect or midline shift. She is otherwise neurologica lly intact, with a GCS score of 15, and doing quite well. I explained to her the imaging findings a nd explained to her that at this point, given the fact that it has been several hours since her fall and the imaging studies, that we will not plan on reversing her aspirin. There is a very small lea nce that she may require reversal or surgical intervention for the subdural hematoma if these contin ue to enlarge. At this point, she will be admitted to the intensive care unit under the care of Dr. Varela of the trauma surgery service. Medicine will be consulted for syncopal workup. We will devan n to place her on Keppra 500 mg p.o. b.i.d. for 1 week for seizure prophylaxis and repeat a head CT in approximately 2 hours without contrast to ensure stabilization of the bleed. I discussed extensi vely with the patient and her , who are both in agreement. I also discussed with the emergen cy room physician, Mr. Hinojosa, as well as Dr. Varela, who are all in agreement. Thank you for this consultation. /[id number]/MODL
[2016-10-22] MEDS ORDERED: ACETAMINOPHEN 325 MG TAB PO SCH (15:00)
[2016-10-22] MEDS ORDERED: DICYCLOMINE 20 MG TAB PO PRN (15:10)
[2016-10-22] MEDS ORDERED: D5W NS 1,000 ML IV SCH (15:15)
--- NOTE | 2016-10-22 15:39 | PDGENHP ---
History and Physical - Chief Complaint acute syncope - History of Present Illness primary care provider: Dr. Crystal Dia HPI: 81-year-old female presents with acute syncope characterized as complete loss of consciousness, suddenly occurring while the patient was ambulating from her garage into her home. She reports the onset of symptoms was at 9:00 a.m. and she had no precipitating palpitation, Chest pain, lightheadedness, headache. Prior to her onset of symptoms, she had otherwise been feeling well and had been awake for approximately 2 hours. She reports that she had not eaten breakfast and had not had any fluids to drink prior to her onset of symptoms. When she regained consciousness, she was experiencing associated headache located in the left posterior occiput, duration persistent. She was not experiencing any hemiparesis or haylee paresthesias. she reports that she has had 1 prior episode of loss of consciousness in the past, and is debatable whether this was a TIA versus another cause. She has been taking all of her home medications as prescribed, and has been taking her aspirin nightly. She also reports that this event occurred in the context of approximately 8 weeks of generalized fatigue, as well as poor oral intake in the setting of her Sjogren syndrome, resulting in hypovolemia and several emergency department visits. History Information - Allergies/Home Medication List Allergies/Adverse Reactions: amoxicillin trihydrate [From Augmentin] Allergy (Verified 10/22/16 10:38) Vomiting ciprofloxacin [From Cipro] Allergy (Verified 10/22/16 10:38) Vomiting ciprofloxacin HCl [From Cipro] Allergy (Verified 10/22/16 10:38) Vomiting metronidazole [From Flagyl] Allergy (Verified 10/22/16 10:38) Vomiting Metronidazole HCl [From Flagyl] Allergy (Verified 10/22/16 10:38) Vomiting morphine [Morphine] Allergy (Verified 10/22/16 10:38) Vomiting nitrofurantoin [From Macrobid] Allergy (Verified 10/22/16 10:38) Unknown nitrofurantoin macrocrystalline [From Macrobid] Allergy (Verified 10/22/16 10:38 ) Unknown oxaprozin [From Daypro] Allergy (Verified 10/22/16 10:38) Vomiting potassium clavula *RETIRED-11/01/11 [From Augmentin] Allergy (Verified 10/22/16 10:38) Vomiting Sulfa (Sulfonamide Antibiotics) Allergy (Verified 10/22/16 10:38) Hives tramadol [Tramadol] Allergy (Verified 10/22/16 10:38) Vomiting Home Medications: Dicyclomine [Bentyl 20 MG (*)] 20 mg PO DAILY PRN 02/08/14 [Last Taken 08/03/16] Hydroxychloroquine Sulfate [Plaquenil 200 mg (*)] 200 mg PO BID 02/08/14 [Last Taken 10/21/16 09:00] Levothyroxine [Synthroid 50 mcg (*)] 50 mcg PO HS 02/08/14 [Last Taken 10/21/16] Omeprazole [Prilosec 20 mg] 20 mg PO DAILY PRN 02/08/14 [Last Taken 09/28/16] cycloSPORINE 0.05% [Restasis Opht Drops(*)] 1 drop EACHEYE BID 02/08/14 [Last Taken 10/21/16 21:00] Gabapentin [Neurontin 300 MG (*)] 1,200 mg PO HS 02/06/15 [Last Taken 10/21/16] Pilocarpine HCl [Salagen 5mg (*)] 5 mg PO BID 02/06/15 [Last Taken 10/21/16 09: 00] Rosuvastatin Calcium [Crestor 5mg] 5 mg PO HS 07/28/16 [Last Taken 10/21/16] Zolpidem Tartrate [Ambien 5MG (*)] 10 mg PO HS 07/28/16 [Last Taken 10/21/16] Aspirin [Aspirin 81mg (*)] 81 mg PO HS 09/30/16 [Last Taken 10/21/16] Sennosides/Docusate Sodium [Senokot-S] 1 - 2 tab PO BID PRN 09/30/16 [Last Taken 10/21/16 21:00] predniSONE [Kanwal] 2 mg PO DAILY 09/30/16 [Last Taken 10/21/16] Acetaminophen [Tylenol 325mg (*)] 325 - 650 mg PO Q6HRS 10/22/16 [Last Taken 21:00] I have personally reviewed and updated: family history, medical history, social history, surgical history - Past Medical History Additional medical history: Sjogren's syndrome. Hypothyroidism. Gastroesophageal reflux disease. Possible TIA. Hypoglycemia. Anemia with most recent hemoglobin level 9.3 in September of 2016. Pyelonephritis treated approximately 2 weeks ago - Surgical History Additional surgical history: right total knee replacement in August of 2016, hysterectomy, bladder suspension surgery, cholecystectomy - Family History Positive for: hypertension (Quit 38 years ago) Additional family history: no coronary artery disease, family history of hypertension - Social History Smoking Status: Former smoker Alcohol Use: Occasionally Drug Use: None Additional social history: currently lives independently in her home with her Review of Systems ROS: 10pt was reviewed & negative except for what was stated in HPI & below Neurological: Reports: headache, other ( loss of consciousness) Physical Exam Temp Pulse Resp BP Pulse Ox 36.5 C 93 20 103/70 93 10/22/16 10:35 10/22/16 14:15 10/22/16 14:15 10/22/16 14:15 10/22/16 14:15 Constitutional: no apparent distress, appears nourished, not in pain, other ( elderly appearing) Eyes: PERRL, anicteric sclera Ears, Nose, Mouth, Throat: moist mucous membranes, hearing normal, ears appear normal, no oral mucosal ulcers Cardiovascular: regular rate and rhythym, systolic murmur ( 1/6 systolic murmur at all valve locations), No irregularly irregular, No tachycardia, No edema Respiratory: no respiratory distress, no rales or rhonchi, clear to auscultation Gastrointestinal: normoactive bowel sounds, soft, non-tender abdomen, no palpable masses Genitourinary: no bladder fullness, no bladder tenderness, other ( no CVA tenderness) Skin: other ( tender, mildly ecchymotic area located along the posterior scalp, without any skin break) Neurologic: AAOx3, sensation intact bilaterally, CN II-XII Intact ( with the exception of right eye medial gaze palsy), No weakness ( motor strength 5/5 bilateral upper and lower extremities), No facial droop Psychiatric: interacting appropriately, not anxious, not encephalopathic, thought process linear, No agitated Lab Data & Imaging Review POC Glucose 92 mg/dL (70-100) 10/22/16 14:48 Visualized and Interpreted Chest x-ray results: Yes Chest X-Ray results: no infiltrate Visualized and Interpreted EKG results: Yes EKG Interpretation: Positive for: other ( normal sinus rhythm with left anterior fascicular block) Assessment & Plan Assessment: 81-year-old female presents with acute syncopal episode resulting in traumatic fall, resultant subdural and subarachnoid hemorrhages Plan: 1. Syncope. Acute, new problem this provider, further workup indicated. Potential etiologies include cerebral vascular insufficiency versus hypovolemia and orthostasis versus under replaced hypothyroidism. Glucometer check is within normal limits, doubt that hypoglycemia played any role in this event. -patient denies any urinary infectious symptoms, I have reviewed outside records including 10/03/[address] Jillian Garcia, characterizing patient's most recent hospitalization as pyelonephritis and subsequent hypoglycemia with hyponatremia, treated with 7 days of antibiotics -reviewed outside records including carotid ultrasounds from January of 2015 demonstrating minimal plaque in the bilateral carotids, MRA of the head demonstrating no abnormalities of the [place], echocardiogram demonstrating no significant valvular abnormalities but the left atrium is moderately dilated placing her at risk for atrial fibrillation. -nuc stress 02/09/14 normal -would recommend monitoring on telemetry for any tachyarrhythmias -would not recommend repeating echocardiogram and carotid ultrasounds at this time, unless the patient demonstrates other abnormalities -would recommend getting orthostatic vital signs -would recommend checking TSH, serum electrolytes, CBC 2. Subdural hematoma and subarachnoid hemorrhage. Head CT demonstrating right frontal subarachnoid hemorrhage without mass effect, 7 mm right parietal subdural hematoma with minimal mass effect -goal systolic blood pressures less than 140, utilize nicardipine if needed -neurosurgery consultation appreciated, no neurosurgical intervention indicated at this time -neurologic exam is relatively normal with the only subtle abnormality being right eye medial gaze palsy -continue to monitor neurologic exam 3. Sjogren's disease. Patient's aversion to oral intake may be somewhat related to her presentation, would recommend encouraging oral intake of solids and liquids, continuing her home medications once reconciled I have discussed with Dr. Abhi Varela, of the Trauma surgery service, the trauma surgery service will remain primary and hospital Medicine will continue to consult daily.
[2016-10-22 15:55] LABS: % IMMATURE GRANULYOCYTES 0.4 % (0.0-1.1); ABSOLUTE IMMATURE GRANULOCYTES 0.03 10^3/uL (0.00-0.10); ADD DIFF? NO; ADD MORPH? NO; ADD SCAN? NO; ATYPICAL LYMPHOCYTE FLAG 20 (0-99); FRAGMENT RBC FLAG 0 (0-99); HEMOGLOBIN 10.1 g/dL (12.6-16.3); LEFT SHIFT FLG 0 (0-99); LIPEMIA HEMOLYSIS FLAG 80 (0-99); MEAN CELL HEMOGLOBIN 31.8 pg (27.9-34.1); MEAN CELL HEMOGLOBIN CONCENTR. 33.7 g/dL (32.4-36.7); MEAN CELL VOLUME 94.3 fL (81.5-99.8); PLATELET CLUMPS FLAG 10 (0-99); PLATELET COUNT 215 10^3/uL (150-400); RED BLOOD CELL COUNT 3.18 10^6/uL (4.18-5.33)
[2016-10-22] MEDS ORDERED: ACETAMINOPHEN 325 MG TAB ONE (16:00)
[2016-10-22] MEDS ORDERED: ACETAMINOPHEN 500 MG TAB ONE (16:01)
[2016-10-22 16:05] LABS: APTT 24.1 SEC (23.0-38.0); INR 1.07 (0.83-1.16); PROTIME(PATIENT) 13.8 SEC (12.0-15.0)
[2016-10-22 16:06] LABS: ANION GAP 10 mEq/L (8-16); CALCIUM 9.1 mg/dL (8.5-10.4); CARBON DIOXIDE 22 mEq/l (22-31); CHLORIDE 100 mEq/L (97-110); CREATININE 0.7 mg/dL (0.6-1.0); GLOMERULAR FILTRATION RATE > 60; GLUCOSE 83 mg/dL (70-100); SODIUM 132 mEq/L (134-144)
[2016-10-22 16:18] LABS: TROPONIN I 0.179 ng/mL (0.000-0.034)
--- NOTE | 2016-10-22 16:20 | GHP ---
[f rep st] PREOP HISTORY AND PHYSICAL DATE OF ADMISSION: 10/22/2016 ADMITTING DIAGNOSIS: Syncope, with fall from standing and left subdural and left anterior subarachnoid hemorrhages. HISTORY: The patient is a 81-year-old white female who was in her usual state of health. She did not eat breakfast this morning. She went to the garage to get several cans at approximately 9 in the morning. She then was going to the steps. The next thing she remembers, she found herself on the garage floor complaining of a headache. She did not have her phone with her. As she recently had knee surgery, she was concerned about getting up, but was able to. She then walked up the stairs, tried calling her but did not reach him. She cleaned the house and he returned approximately at 10:00 in the morning. He took her to the emergency room. She does take an 81 mg aspirin on a daily basis. She has had no prior concussions. She did have a previous TIA last winter. She has been on the aspirin because of the TIA. SOCIAL HISTORY: She smoked from ages [age], up to 2 packs per day. She does not drink. ALLERGIES: She has an allergy to sulfa drugs manifested by hives. MEDICATIONS: Chronic medications include Tylenol 325 mg 1-2 p.o. every 6 hours , aspirin 81 mg q.h.s., Zofran 4 mg ODT tablet p.r.n., Ambien 10 mg p.o. q.h.s. She has cyclosporine 0.05% 1 drop each eye (Restasis) twice a day, Bentyl 20 mg twice a day, gabapentin 1200 mg p.o. q.h.s., Plaquenil 200 mg twice a day, Synthroid 50 mcg at bedtime, Prilosec 20 mg daily, pilocarpine 5 mg p.o. daily, prednisone 2 mg p.o. daily, Crestor 5 mg p.o. q.h.s., Senokot 1-2 tabs daily as needed. PAST SURGICAL HISTORY: Include bilateral cataract extraction with intraocular lens placement. 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 There is no history of rheumatic fever, tuberculosis, hepatitis, or transfusions. REVIEW OF SYSTEMS: She has had Sjgren syndrome for 12 years as manifested by fatigue, myalgias, dry eye, and difficulty swallowing. Her last colonoscopy was complicated with severe nausea, but according to the patient, it was negative. She wears lenses for visual correction. Recently, her stools have been more Jell-O like and yellow/orange in color. She has a history of a urinary tract infection, has completed treatment for that. She has been hypothyroid for a period of time. She has had decreased energy for the past 8 weeks. In fact, she has not been eating much since her surgery. She has been taking Tylenol for headaches. She has a right partial rotator cuff injury. PHYSICAL EXAMINATION: GENERAL: She is awake and alert, complaining bitterly of a left posterior occipital/parietal contusion. This is approximately 2.5 cm in diameter by approximately 0.75 cm thick. HEENT: There is no other head injury. Specifically, there are no raccoon eyes. There is no Emerson sign. She has normal dental occlusion. Her cranial nerves are intact. She has a slight diplopia on left lateral gaze. Strength is 5/5 in all muscle groups, without focal lateralizing weakness. She is oriented to person, place, and time. Her GCS is 15. Cognitive testing is intact. She is able to recite the days of the week forward and backward. NECK: Nontender to palpation. EXTREMITIES: She has difficulty raising her right arm because of her prior shoulder injury. Her right upper extremity is ranged, and that was felt to be normal. Her left upper extremity is ranged and is felt to be normal. Clavicles are normal. LYMPHATIC: There is no cervical, supraclavicular, axillary, or inguinal lymphadenopathy. CHEST: Stable to AP and lateral compression. CARDIAC: S1, S2 to be normal. I could not detect any murmurs but Dr. Adis Daniel felt that there was a 1/6 systolic ejection murmur present. ABDOMEN: Soft, nontender, with hypoactive bowel sounds. PELVIS: Stable to AP and lateral compression. A CT of her head shows a right small frontal subarachnoid hemorrhage and a lateral subdural hemorrhage without shift. There does not appear to be any parenchymal bleeding. CT of her neck shows degenerative changes, but no acute changes. There has been difficulty getting IV access. She will go to Interventional Radiology for placement of a PICC line, and she will go back to CAT scan for a followup head CT. She will be admitted to the intensive care unit for observation. Dr. Louise has seen her from a neurosurgical standpoint, and he recommended a followup CT. Dr. Bhaskar Daniel from the hospitalist service will be evaluating her for the causes of her syncope. /[id number]/MODL MTDD
[2016-10-22] MEDS ORDERED: IOPAMIDOL (ISOVUE 370) 100 ML BTL IV ONE (17:28)
[2016-10-22] MEDS: HYDROmorphONE/DILAUDID 1 MG/ML SYR IVP PRN ×2 (18:32→21:06)
[2016-10-22] MEDS: ONDANSETRON 4 MG/2 ML VIAL IVP PRN (20:08)
[2016-10-22] MEDS: HYDROXYCHLOROQUINE SULFATE 200 MG TAB PO SCH (20:14)
[2016-10-22] MEDS: PILOCARPINE HCL 5 MG TAB PO SCH (20:14)
[2016-10-22] MEDS: CYCLOSPORINE 0.05% 1 EACH BOX EACHEYE SCH (20:15)
[2016-10-22] MEDS: GABAPENTIN 400 MG CAP PO SCH (21:08)
[2016-10-22] MEDS: LEVOTHYROXINE 50 MCG TAB PO SCH (21:09)
[2016-10-22] MEDS: ROSUVASTATIN CALCIUM 10 MG TAB PO SCH (22:14)
[2016-10-22] MEDS: ZOLPIDEM TARTRATE 5 MG TAB PO PRN (22:24)
[2016-10-22] MEDS ORDERED: PROMETHAZINE HCL 25 MG/ML INJ IVP PRN (22:52)
[2016-10-23] MEDS: ONDANSETRON 4 MG/2 ML VIAL IVP PRN ×2 (03:17→18:01)
[2016-10-23] MEDS: ACETAMINOPHEN 500 MG TAB PO SCH ×3 (03:19→15:28)
[2016-10-23] MEDS: PROMETHAZINE HCL 25 MG/ML INJ IVP PRN ×2 (05:42→19:29)
[2016-10-23 05:57] LABS: % IMMATURE GRANULYOCYTES 0.8 % (0.0-1.1); ABSOLUTE IMMATURE GRANULOCYTES 0.04 10^3/uL (0.00-0.10); ADD DIFF? NO; ADD MORPH? NO; ADD SCAN? NO; ATYPICAL LYMPHOCYTE FLAG 20 (0-99); FRAGMENT RBC FLAG 0 (0-99); HEMOGLOBIN 9.6 g/dL (12.6-16.3); LEFT SHIFT FLG 0 (0-99); LIPEMIA HEMOLYSIS FLAG 80 (0-99); MEAN CELL HEMOGLOBIN 31.1 pg (27.9-34.1); MEAN CELL HEMOGLOBIN CONCENTR. 33.1 g/dL (32.4-36.7); MEAN CELL VOLUME 93.9 fL (81.5-99.8); MEAN PLATELET VOLUME 9.1 fL (8.7-11.7); PLATELET CLUMPS FLAG 0 (0-99); PLATELET COUNT 200 10^3/uL (150-400); RED BLOOD CELL COUNT 3.09 10^6/uL (4.18-5.33); RED CELL DISTRIBUTION WIDTH 15.2 % (11.5-15.2)
[2016-10-23 06:06] LABS: ANION GAP 7 mEq/L (8-16); CALCIUM 8.9 mg/dL (8.5-10.4); CARBON DIOXIDE 24 mEq/l (22-31); CHLORIDE 98 mEq/L (97-110); CREATININE 0.7 mg/dL (0.6-1.0); GLOMERULAR FILTRATION RATE > 60; GLUCOSE 98 mg/dL (70-100); POTASSIUM 3.9 mEq/L (3.5-5.2); SODIUM 129 mEq/L (134-144)
[2016-10-23 06:18] LABS: TROPONIN I 0.183 ng/mL (0.000-0.034)
[2016-10-23] MEDS ORDERED: LORazepam 2 MG/ML INJ IVP PRN (08:56)
[2016-10-23] MEDS ORDERED: fentaNYL 100 MCG/2 ML INJ IVP ONE (08:56)
[2016-10-23] MEDS ORDERED: PROCHLORPERAZINE MALEATE 25 MG SUPPR PR PRN (08:56)
[2016-10-23] MEDS ORDERED: HYDROmorphONE/DILAUDID 1 MG/ML SYR IVP PRN (08:58)
[2016-10-23] MEDS ORDERED: PANTOPRAZOLE SODIUM 40 MG TAB PO PRN (09:00)
[2016-10-23] MEDS: PROCHLORPERAZINE MALEATE 10 MG TAB PO PRN ×2 (09:25→15:29)
[2016-10-23] MEDS: CYCLOSPORINE 0.05% 1 EACH BOX EACHEYE SCH ×2 (09:35→20:13)
--- NOTE | 2016-10-23 10:07 | GCON ---
[f rep st] CONSULTATION [employer] CONSULTATION REASON FOR ADMISSION: Syncopal episode and closed head injury. HISTORY OF PRESENT ILLNESS: The patient is a very pleasant 81-year-old white female with a past med ical history of Sjogren syndrome, hypothyroidism, anemia, hypoglycemia, TIA, gastroesophageal reflux disease, and pyelonephritis. She presented after a fall at home, apparently having a syncopal epis ode that occurred in her garage. Upon regaining consciousness, she was experiencing headache, was b rought to the emergency room. She was subsequently found to have a subdural hematoma and a subarach noid hemorrhage. In discussion with the patient, she states that her only complaint is really a hea dache, as well as some nausea and vomiting. There is no breathlessness. She denies any chest pain, pleuritic-type chest pain, or angina equivalent. No fever or night sweats. Prior to this, she was in her normal state of health. PAST MEDICAL HISTORY: Again, significant for gastroesophageal reflux disease, Sjogren syndrome, hyp othyroidism, hypoglycemia, anemia, and pyelonephritis. PAST SURGICAL HISTORY: She has had a hysterectomy, bladder suspension surgery, cholecystectomy, and a total knee replacement. ALLERGIES: Include amoxicillin and ciprofloxacin. SOCIAL HISTORY: Previous heavy smoker, none recently. No significant alcohol use. She is retired. She currently resides at home with her . Has excellent family support. PHYSICAL EXAM: VITAL SIGNS: Blood pressure 139/63, pulse 92, respirations 20, temperature 36.4, ox ygen saturation 94% on room air. GENERAL: She is a thin, somewhat malnourished-appearing 81-year-o ld white female who is complaining of a headache. HEENT: Eyes are PERRLA, EOMI. Throat shows no e rythema or tonsillar hypertrophy. NECK: Supple. No cervical adenopathy. HEART: Regular rate and rhythm, with a 2/6 systolic murmur at left sternal border without radiation. LUNGS: Diminished br eath sounds with bibasilar crackles, but there is no wheeze. ABDOMEN: Soft, nontender. Bowel soun ds are present in all 4 quadrants. EXTREMITIES: No clubbing, cyanosis, or edema. LABORATORY DATA: White count is 5, hemoglobin 9.6, hematocrit 29, platelet count 200, sodium 129, p otassium 3.9, chloride 98, CO2 24, BUN 8, creatinine 0.7. Glucose is 98. TSH is 1.01. Chest x-ray is clear. CT scan of the head shows a right parietal acute subdural hematoma and subarachnoid hemo rrhage. There is a left parietal scalp hematoma. CT angiogram of the chest is negative for PE. She has bilateral fibrosis. IMPRESSION: 1. Syncopal episode. 2. Subdural and subarachnoid hemorrhage. 3. History of Sjogren's. 4. History of hypertension. 5. Nausea and vomiting. RECOMMENDATIONS: 1. Close neurologic monitoring. 2. Echocardiogram. 3. Carotid Dopplers. 4. Medications for nausea. 5. DVT and PE prophylaxis, holding anticoagulation for now. 6. Stress ulcer prophylaxis. /[id number]/MODL
[2016-10-23 10:08] LABS: CHOLESTEROL 138 mg/dL (140-220); CHOLESTEROL/HDL RATIO 2.06 RATIO (1.00-4.44); HIGH DENSITY LIPOPROTEIN 67 mg/dL (40-85); LDL/HDL RATIO 0.85 RATIO (1.00-3.22); LOW DENSITY LIPOPROTEIN 57 mg/dL (80-100); NON-HIGH DENSITY LIPOPROTEIN 71 mg/dL (90-129); TRIGLYCERIDE 73 mg/dL (35-135); VERY LOW DENSITY LIPOPROTEINS 14 mg/dL (8-25)
[2016-10-23] MEDS: HYDROXYCHLOROQUINE SULFATE 200 MG TAB PO SCH ×2 (10:56→20:13)
[2016-10-23] MEDS: PILOCARPINE HCL 5 MG TAB PO SCH ×2 (10:57→20:14)
[2016-10-23] MEDS: predniSONE 1 MG TAB PO SCH (10:57)
--- NOTE | 2016-10-23 11:10 | ECHO ---
[id number] + + [address] : : [place] [address] : : [phone] + + Adult Echocardiographic Report + ----+ :Name: SALOMON MCCLENDON MStudy Date: 10/23/2016 10:31 AM : : Hospital Admission Number: [id number] Location: 245: :: 1935 Gender: Female Height: 63 in : :Age: 81 yrs Race: WH Weight: 120 lb : :Reason For Study: Focal wall mortion abnormalities : : BSA: 1.6 meters2 : :History: CVA : + ----+ MMode/2D Measurements \T\ Calculations IVSd: 1.4 cm LVIDd: 3.3 cm FS: 25.8 % LVOT diam: 2.1 cm LVPWd: 1.5 cm LVIDs: 2.4 cm EDV(Teich): LVOT area: 43.4 ml 3.3 cm2 ESV(Teich): 20.8 ml EF(Teich): 52.0 % LVLd ap4: 5.4 cm SV(MOD-sp4): EDV(MOD-sp4): 36.0 ml 51.0 ml LVLs ap4: 4.2 cm ESV(MOD-sp4): 15.0 ml EF(MOD-sp4): 70.6 % Normal Measurement Values: + + :LVIDd (3.5-5.7cm) IVSd (0.6-1.1cm) LVPWd (0.6-1.1cm) Aortic Root (2.0-3.7cm)Left Atrium (1.5-4.0cm): :LV Vol(d) (76-115ml) LV Vol(s) (29-48ml) Ejec Fraction (50-65%)PV Virgilio (0.6- 1.2m/s) TV Virgilio (0.4-1.0m/s) : :MV E Virgilio (0.8-1.0m/s)MV A Virgilio (0.3-1.0m/s)LVOT Virgilio (0.7-1.2m/s) Asc Ao Virgilio ( 0.9-1.8m/s) : + + Doppler Measurements \T\ Calculations MV E max virgilio: MV V2 max: Ao mean P.2 mmHgLV V1 mean P.1 cm/sec 126.4 cm/sec Ao V2 mean: 1.6 mmHg MV A max virgilio: MV max P.9 cm/sec LV V1 mean: 113.5 cm/sec 6.4 mmHg Ao V2 VTI: 17.8 cm 57.3 cm/sec MV E/A: 0.64 MV V2 mean: GERSON(I,D): 3.2 cm2 LV V1 VTI: MV dec time: 81.8 cm/sec 17.0 cm 0.14 sec MV mean P.9 mmHg MV V2 VTI: 22.9 cm MVA(VTI): 2.5 cm2 SV(LVOT): 57.0 ml PA V2 max: PI end-d virgilio: 92.3 cm/sec 119.4 cm/sec PA max P.4 mmHg Left Ventricle The left ventricle is normal in size and function. There is moderate concentric left ventricular hypertrophy. Ejection Fraction = 55-60%. There is Doppler evidence for diastolic dysfunction. No regional wall motion abnormalities noted. Right Ventricle The right ventricle is grossly normal size. The right ventricular systolic function is normal. Atria The left atrial size is normal. Right atrial size is normal. The interatrial septum is intact with no evidence for an atrial septal defect. Mitral Valve The mitral valve is normal in structure and function. There is no mitral valve stenosis. There is trace mitral regurgitation. Tricuspid Valve The tricuspid valve is normal in structure and function. There is no tricuspid stenosis. There is trace tricuspid regurgitation. Right ventricular systolic pressure is normal. Aortic Valve The aortic valve is normal in structure and function. There is no aortic stenosis. Mild aortic regurgitation. Pulmonic Valve The pulmonic valve is not well visualized. There is no pulmonic valvular stenosis. Mild pulmonic valvular regurgitation. Great Vessels The aortic root is normal size. Pericardium/Pleural There is a fat pad seen. There is no pericardial effusion. Conclusion A complete two-dimensional transthoracic echocardiogram was performed (2D, M-mode, Doppler and color flow Doppler). The study was technically difficult. Moderate concentric left ventricular hypertrophy. Ejection Fraction = 55-60%. There is Doppler evidence for diastolic dysfunction. There is trace mitral regurgitation. There is trace tricuspid regurgitation. Mild aortic regurgitation. Mild pulmonic valvular regurgitation. Final Reading Physician: Chelsey Gross signed on 10/23/2016 11:09 AM Ordering Physician: Bhaskar Daniel Performed By: Crystal Rivas
--- NOTE | 2016-10-23 12:13 | TRAUMAPN ---
Assessment/Plan: Stable but etiology of fall/syncope still unclear. Follow up CT without change. Workup in progress by Dr. Daniel. Nothing further to add. Will transfer to Dr. Daniel's service. Subjective: "I slept poorly last night due to headache, nausea and frequent need to urinate. " Objective: Vital Signs Temp Pulse Resp BP Pulse Ox 36.4 C 92 20 139/63 H 94 10/23/16 08:00 10/23/16 08:00 10/23/16 08:00 10/23/16 08:00 10/23/16 08:00 Laboratory Results 10/23/16 05:25 10/23/16 09:35 10/22/16 10/23/16 10/24/16 05:59 05:59 05:59 Intake Total 1344.9 Output Total 630 Balance 714.9 PT 13.8 SEC (12.0-15.0) 10/22/16 15:40 INR 1.07 (0.83-1.16) 10/22/16 15:40 - C-Spine Clearance Cervical Spine Cleared: Yes Provider who Cleared Cervical Spine: Avery Physical Exam - Physical Exam General Appearance: WD/WN, alert, mild distress Neck: non-tender, full range of motion, supple Respiratory: chest non-tender, lungs clear, normal breath sounds Cardiac/Chest: regular rate, rhythm Abdomen: normal bowel sounds, non-tender, soft Pelvic Exam: deferred Rectal: deferred Back: Normal inspection Skin: normal color, warm/dry Extremities: normal range of motion, non-tender, normal inspection Neuro/Psych: no motor/sensory deficits, alert, normal mood/affect, oriented x 3 Time Spent w/Patient (minutes): 25
--- NOTE | 2016-10-23 12:15 | SOAPPROG ---
Downtime Inpatient Late Entry SOAP Note: Kylah remained GCS 15 today but had nausea and headache. We repeated her CT head and the SDH is stable. We would suggest a FU CT in 4 weeks and she could see us after that as an outpatient. We suggest holding antiplatelet agents. Our office can set up her outpatient CT scan and arrange for her followup. Please call if you have any questions regarding her subdural. Raul Hernandez MD
[2016-10-23] MEDS: NS 1,000 ML IV SCH ×2 (13:32→20:27)
[2016-10-23] MEDS: oxyCODONE IR 5 MG TAB PO PRN ×2 (13:36→20:12)
--- NOTE | 2016-10-23 15:29 | ASMTCMCOM ---
CM Note CM Note Notes: Pt admitted with subdural hematom and subarachnoid hemorrhage after fall at home. Pt tx from ICU to 3N today. DC needs unclear. C/M to follow Date Signed: 10/23/2016 03:29 PM Electronically Signed By:Mariana Aceves
--- NOTE | 2016-10-23 18:12 | HOSPPROG ---
Hospitalist Progress Note Assessment/Plan: Assessment: 81-year-old female presents with acute syncopal episode resulting in traumatic fall, resultant subdural and subarachnoid hemorrhages, abnormal troponin Plan: 1. Syncope. Acute, possible etiology includes orthostasis (none checked on admission) vs. cardiac ischemia (abnl trop) - monitor on tele, no arrhythmia o/n - cardiac stress test - reviewed outside records (02/04 CUS demonstrating minimal plaque, MRA brain normal), hold on further neurovasc imaging 2. Subdural hematoma and subarachnoid hemorrhage. Repeat HCT demonstrating stable blood, no shift - ongoing headache and nausea likely 2/2 issue, uncontrolled, cont supportive care w/ pain/anti-emetic Rx - appreciate NSGY consult, requires outpt f/u imaging 3. Sjogren's disease. Patient's aversion to oral intake may be somewhat related to her presentation, would recommend encouraging oral intake of solids and liquids, continuing her home medications 4. Abnormal troponin. Acute, new problem, further w/u indicated. No chest pain, remains elevated at 0.1, no prior hx and no underlying condition to attribute it to - last nuc stress 2013, normal - get nuc tomorrow AM - Echo w/o focal wall motion abnl - get lipid/A1c 5. Hyponatremia. Acute, 2/2 hypovolemia/poor PO intake - get Le - adjust from D5NS to NS at 100/hr and gauge response 6. Prior CVA. 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 Regular w/ NS Code. Full PPx. High risk, lovenox 40 Dispo. ADD uncertain, upgrade to inpatient admission status re: anticipate LOS > 48hrs for reasonable medical necessity including uncontrolled SDH/SAH symptoms , acutely abnl trop requiring further diagnostic w/u in setting of high risk syncope, hyponatremia. Discussed with Dr. Abhi Varela, we have agreed that the Hospital Medicine service will assume the patient's daily care and will serve as the primary provider for this patient moving forward given that her trauma issues have stabilized and she is being upgraded to inpatient admission status purely for medical issues at this time. Subjective: poor appetite, nauseated, headache relieved w/ fentanyl Objective: Vital Signs Temp Pulse Resp BP Pulse Ox 36.6 C 91 18 153/74 H 95 10/23/16 17:51 10/23/16 17:51 10/23/16 17:51 10/23/16 17:51 10/23/16 17:51 Laboratory Results 10/23/16 05:25 10/23/16 09:35 10/22/16 10/23/16 10/24/16 05:59 05:59 05:59 Intake Total 1344.9 449 Output Total 630 Balance 714.9 449 PT 13.8 SEC (12.0-15.0) 10/22/16 15:40 INR 1.07 (0.83-1.16) 10/22/16 15:40 - Physical Exam Constitutional: appears nourished, uncomfortable, other (elderly appearing), No not in pain Ears, Nose, Mouth, Throat: dry mucous membranes Cardiovascular: regular rate and rhythym, no murmur, rub, or gallop, No irregularly irregular, No edema Respiratory: no respiratory distress, no rales or rhonchi, clear to auscultation Gastrointestinal: normoactive bowel sounds, soft, non-tender abdomen, no palpable masses, No distension Neurologic: AAOx3, sensation intact bilaterally, facial droop (mild left), No weakness Psychiatric: interacting appropriately, not anxious, not encephalopathic, thought process linear ICD10 Worksheet Patient Problems: Problems Problem Status Onset Vomiting and diarrhea Acute Dehydration Acute Elevated troponin Acute Syncope Acute Subdural hematoma Acute Subarachnoid hemorrhage Acute Primary localized osteoarthritis of right knee Acute Troponin I above reference range Acute TIA (transient ischemic attack) Acute
[2016-10-23] MEDS: ZOLPIDEM TARTRATE 5 MG TAB PO PRN (20:12)
[2016-10-23] MEDS: LEVOTHYROXINE 50 MCG TAB PO SCH (20:13)
[2016-10-23] MEDS: GABAPENTIN 400 MG CAP PO SCH (20:13)
[2016-10-23] MEDS: ROSUVASTATIN CALCIUM 10 MG TAB PO SCH (20:14)
[2016-10-23] MEDS: SENNOSIDES/DOCUSATE SODIUM TAB PO PRN (20:14)
[2016-10-24] MEDS: ACETAMINOPHEN 500 MG TAB PO SCH ×4 (00:04→22:31)
[2016-10-24 04:44] LABS: % IMMATURE GRANULYOCYTES 0.5 % (0.0-1.1); ABSOLUTE IMMATURE GRANULOCYTES 0.03 10^3/uL (0.00-0.10); ADD DIFF? NO; ADD MORPH? NO; ADD SCAN? NO; ATYPICAL LYMPHOCYTE FLAG 20 (0-99); FRAGMENT RBC FLAG 0 (0-99); HEMATOCRIT 30.3 % (38.0-47.0); LEFT SHIFT FLG 0 (0-99); LIPEMIA HEMOLYSIS FLAG 80 (0-99); MEAN CELL HEMOGLOBIN 31.3 pg (27.9-34.1); MEAN CELL VOLUME 94.7 fL (81.5-99.8); MEAN PLATELET VOLUME 8.7 fL (8.7-11.7); PLATELET CLUMPS FLAG 10 (0-99); PLATELET COUNT 202 10^3/uL (150-400); RED CELL DISTRIBUTION WIDTH 15.1 % (11.5-15.2)
[2016-10-24 05:02] LABS: ANION GAP 7 mEq/L (8-16); CALCIUM 8.6 mg/dL (8.5-10.4); CARBON DIOXIDE 23 mEq/l (22-31); CHLORIDE 100 mEq/L (97-110); CREATININE 0.7 mg/dL (0.6-1.0); GLOMERULAR FILTRATION RATE > 60; GLUCOSE 75 mg/dL (70-100); POTASSIUM 3.7 mEq/L (3.5-5.2); SODIUM 130 mEq/L (134-144)
[2016-10-24] MEDS: predniSONE 1 MG TAB PO SCH (08:53)
[2016-10-24] MEDS: PILOCARPINE HCL 5 MG TAB PO SCH ×2 (08:53→22:30)
[2016-10-24] MEDS: HYDROXYCHLOROQUINE SULFATE 200 MG TAB PO SCH ×2 (08:53→21:21)
[2016-10-24] MEDS: NS 1,000 ML IV SCH (08:56)
[2016-10-24] MEDS ORDERED: REGADENOSON 0.4 MG/5 ML SYR IVP ONE (09:54)
--- NOTE | 2016-10-24 10:38 | CPIP ---
[f rep st] INVASIVE CARDIAC PROCEDURE DATE OF PROCEDURE: 10/24/2016 PROCEDURE PERFORMED: Adenosine stress test. INDICATIONS: Syncope. PROCEDURE: After obtaining informed consent, patient was administered Lexiscan per standard protoco l. Baseline heart rate was 99. Baseline blood pressure 123/58. Baseline oxygen saturation 98%. B aseline EKG showed sinus rhythm without acute ST changes. The patient was observed for 4 minutes. Peak heart rate was 114 beats per minute. Peak blood pressure 123/55. Peak heart rate 95. The pat ient experienced no significant AV block. EKG did not show significant changes. CONCLUSIONS: Uneventful Lexiscan infusion. Nuclear images pending. /[id number]/MODL
[2016-10-24] MEDS: oxyCODONE IR 5 MG TAB PO PRN ×3 (10:46→22:28)
[2016-10-24] MEDS: CYCLOSPORINE 0.05% 1 EACH BOX EACHEYE SCH ×2 (11:29→22:29)
--- NOTE | 2016-10-24 17:36 | HOSPPROG ---
Hospitalist Progress Note Assessment/Plan: * Syncope -continue tele - consider outpatient event monitoring * Borderline trop -stress test pending * SDH and SAH (traumatic) -stable -repeat head CT 4 weeks * Sjogren's * SIADH -urine sodium elevated - stop IVF -fluid restrict * Prior CVA -hold ASA Subjective: No new complaints. Objective: Vital Signs Temp Pulse Resp BP Pulse Ox 37.0 C 101 H 14 121/53 H 93 10/24/16 15:55 10/24/16 15:55 10/24/16 15:55 10/24/16 15:55 10/24/16 15:55 Laboratory Results 10/24/16 04:28 10/24/16 04:28 10/23/16 10/24/16 10/25/16 05:59 05:59 05:59 Intake Total 999 1208 Output Total 700 475 Balance 299 733 PT 13.8 SEC (12.0-15.0) 10/22/16 15:40 INR 1.07 (0.83-1.16) 10/22/16 15:40 - Physical Exam Constitutional: no apparent distress, appears nourished, not in pain Cardiovascular: regular rate and rhythym, no murmur, rub, or gallop Respiratory: no respiratory distress, no rales or rhonchi, clear to auscultation Gastrointestinal: normoactive bowel sounds, soft, non-tender abdomen, no palpable masses Skin: no rashes or abrasions, no fluctuance, no induration Neurologic: AAOx3, sensation intact bilaterally Psychiatric: interacting appropriately, not anxious, not encephalopathic, thought process linear ICD10 Worksheet Patient Problems: Problems Problem Status Onset Subarachnoid hemorrhage Acute Subdural hematoma Acute Syncope Acute Dehydration Acute Elevated troponin Acute Primary localized osteoarthritis of right knee Acute TIA (transient ischemic attack) Acute Troponin I above reference range Acute Vomiting and diarrhea Acute
[2016-10-24] MEDS: GABAPENTIN 400 MG CAP PO SCH (21:20)
[2016-10-24] MEDS: LEVOTHYROXINE 50 MCG TAB PO SCH (21:21)
[2016-10-24] MEDS: ROSUVASTATIN CALCIUM 10 MG TAB PO SCH (21:21)
[2016-10-24] MEDS: SENNOSIDES/DOCUSATE SODIUM TAB PO PRN (21:33)
[2016-10-24] MEDS: ZOLPIDEM TARTRATE 5 MG TAB PO PRN (22:28)
[2016-10-25 05:44] LABS: ANION GAP 9 mEq/L (8-16); CALCIUM 8.3 mg/dL (8.5-10.4); CARBON DIOXIDE 22 mEq/l (22-31); CHLORIDE 101 mEq/L (97-110); CREATININE 0.8 mg/dL (0.6-1.0); GLOMERULAR FILTRATION RATE > 60; GLUCOSE 80 mg/dL (70-100); SODIUM 132 mEq/L (134-144)
[2016-10-25] MEDS: ACETAMINOPHEN 500 MG TAB PO SCH ×3 (06:39→22:03)
[2016-10-25] MEDS: PILOCARPINE HCL 5 MG TAB PO SCH ×2 (08:02→21:55)
[2016-10-25] MEDS: predniSONE 1 MG TAB PO SCH (08:02)
[2016-10-25] MEDS: HYDROXYCHLOROQUINE SULFATE 200 MG TAB PO SCH ×2 (08:02→21:52)
[2016-10-25] MEDS: CYCLOSPORINE 0.05% 1 EACH BOX EACHEYE SCH ×2 (08:03→21:50)
[2016-10-25] MEDS ORDERED: BISACODYL 10 MG SUPP PR PRN (10:46)
[2016-10-25] MEDS ORDERED: POLYETHYLENE GLYCOL 3350 17 GM PKT PO PRN (10:46)
[2016-10-25] MEDS ORDERED: LACTULOSE 20 GM/30 ML UDCUP PO PRN (10:46)
[2016-10-25] MEDS ORDERED: MAGNESIUM HYDROXIDE 30 ML UDCUP PO PRN (10:46)
[2016-10-25] MEDS: oxyCODONE IR 5 MG TAB PO PRN ×3 (11:53→21:53)
--- NOTE | 2016-10-25 14:39 | SOAPPROG ---
SOAP Progress Note Assessment/Plan: Assessment: Cardiology consultation performed and dicatated. See dictation for full thoughts. 81 y/o woman with hyperlipidemia and palpitations but no previous cardiac issues had sudden syncope in garage three days ago suffering subdural hematoma. Telemetry shows NSR with PACs but no NSVT. Echo shows LVEF 57% with normal wall motions, mild diastolic dysfunction and mild AI with no , trivial MR and trivial TR with normal PA pressures. Lexiscan cardiolite shows LVEF 65% with mild lateral ischemia. ECG unremarkable and peak troponin 0.2. Patient denies CP , PND or cough. REGALADO at home of one block and has "quivering" in her heart chronically. IMP/PLAN: 1)Syncope with LOC and subdural hematoma. 2)Mildly abnormal cardiolite stress test with lateral ischemia and normal LVEF. Clinically I don't think she is having angina or CHF. I am concerned about arrhythmias as etiology for her syncope. REC: 1)no cath or ASA for now. 2)start Toprol XL 25mg PO qam. 3)ECG in AM 4)repeat cardiac troponin in AM 5)upon discharge to rehab facility or home would place 30 day event monitor and f/u Cardiology as out-pt. Thanks. Will follow with you. 10/25/16 14:35 Objective: Vital Signs Temp Pulse Resp BP Pulse Ox 36.6 C 89 15 111/64 93 10/25/16 08:00 10/25/16 08:00 10/25/16 08:00 10/25/16 08:00 10/25/16 08:00 Laboratory Results 10/24/16 04:28 10/25/16 05:15 10/24/16 10/25/16 10/26/16 05:59 05:59 05:59 Intake Total 999 2245 Output Total 700 1025 Balance 299 1220 PT 13.8 SEC (12.0-15.0) 10/22/16 15:40 INR 1.07 (0.83-1.16) 10/22/16 15:40 ICD10 Worksheet Patient Problems: Problems Problem Status Onset Subarachnoid hemorrhage Acute Subdural hematoma Acute Syncope Acute Dehydration Acute Elevated troponin Acute Primary localized osteoarthritis of right knee Acute TIA (transient ischemic attack) Acute Troponin I above reference range Acute Vomiting and diarrhea Acute
--- NOTE | 2016-10-25 15:42 | HOSPPROG ---
Hospitalist Progress Note Assessment/Plan: * Syncope -30 day event monitoring at discharge * Borderline trop -stress test with mild ischemia -per cardiology - no cath for now -metoprolol added * SDH and SAH (traumatic) -stable -repeat head CT 4 weeks * Sjogren's -chronic low dose prednisone * SIADH -fluid restrict * Prior CVA -hold ASA Subjective: A littel dizzy up in chair today Objective: Vital Signs Temp Pulse Resp BP Pulse Ox 37.0 C 100 15 132/67 H 96 10/25/16 15:23 10/25/16 15:23 10/25/16 15:23 10/25/16 15:23 10/25/16 15:23 Laboratory Results 10/24/16 04:28 10/25/16 05:15 10/24/16 10/25/16 10/26/16 05:59 05:59 05:59 Intake Total 999 2245 Output Total 700 1025 Balance 299 1220 PT 13.8 SEC (12.0-15.0) 10/22/16 15:40 INR 1.07 (0.83-1.16) 10/22/16 15:40 d/w Dr. Hayes - cardiology to consult and comment on mild + stress test and concerning syncope history Nuclear stress - mild lateral ischemia - Physical Exam Constitutional: no apparent distress, appears nourished, not in pain Cardiovascular: regular rate and rhythym, no murmur, rub, or gallop Respiratory: no respiratory distress, no rales or rhonchi, clear to auscultation Gastrointestinal: normoactive bowel sounds, soft, non-tender abdomen, no palpable masses Skin: no rashes or abrasions, no fluctuance, no induration Neurologic: AAOx3, sensation intact bilaterally Psychiatric: interacting appropriately, not anxious, not encephalopathic, thought process linear ICD10 Worksheet Patient Problems: Problems Problem Status Onset Subarachnoid hemorrhage Acute Subdural hematoma Acute Syncope Acute Dehydration Acute Elevated troponin Acute Primary localized osteoarthritis of right knee Acute TIA (transient ischemic attack) Acute Troponin I above reference range Acute Vomiting and diarrhea Acute
--- NOTE | 2016-10-25 15:50 | GCON ---
[f rep st] CONSULTATION CARDIOLOGY CONSULTATION DATE OF CONSULTATION: 10/25/2016 REASON FOR CONSULTATION: Evaluate woman with near syncopal spell and loss of consciousness with sma ll subdural hematoma and abnormal Lexiscan Cardiolite stress test with lateral ischemia. HISTORY OF PRESENT ILLNESS: I was asked by Dr. Nicci Bello to consult for the above reasons. Th e patient is a 81-year-old woman with a history of Sjogren disease, anemia and hyperlipidemia but no previous cardiac problems. She does have chronic dyspnea on exertion at 1 block and does feel her heart quivering once in a while. A year ago she had an episode of syncope with loss of consciousnes s in her closet. Three days ago she was in her garage getting some soda out of the refrigerator whe n she syncoped hitting her head on the cement floor. She was brought to the emergency room and foun d to have a subdural hematoma. The patient denies any prodromal chest pain or heart palpitations be fore the fall. An echo in the hospital demonstrated an LVEF of 57% with mild diastolic dysfunction and mild aortic insufficiency with no aortic stenosis. She had trivial mitral and tricuspid insuffi ciency with estimated normal pulmonary arterial pressures. A Lexiscan Cardiolite stress test demons trates an LVEF of 65% with a small amount of lateral ischemia. Her peak troponin was 0.2 and her EK G was unremarkable. Currently she has a headache but reports no chest pain or rest shortness of clarisa ath or heart palpitations or near syncope. She reports no PND or cough. She was on aspirin which h as been held during this hospitalization. PAST MEDICAL HISTORY: Hypothyroidism, GERD, Sjogren disease, questionable previous TIA, anemia and hyperlipidemia and a new subdural hematoma. PAST SURGICAL HISTORY: Right knee replacement, hysterectomy and cholecystectomy. CURRENT MEDICATIONS: Neurontin 1200 mg q.h.s., Dilaudid p.r.n., Plaquenil 200 mg p.o. b.i.d., Synth roid 50 mcg per day, prednisone 2 mg per day, Crestor 5 mg per day. ALLERGIES: Amoxicillin and Cipro. SOCIAL HISTORY: Patient denies tobacco use and has mild alcohol intake. FAMILY HISTORY: Unremarkable for premature coronary artery disease or premature sudden cardiac deat h. REVIEW OF SYSTEMS: Patient reports no recent fevers, chills, weight gain or weight loss. She repor ts no GI bleed symptoms such as hematemesis, melena, or bright red blood per rectum. Rest of a 10-p oint review of systems is negative. PHYSICAL EXAM: VITAL SIGNS: Temperature 36.6 Celsius, pulse 89 and regular, blood pressure 111/64, respirations 16. Weight 54.4 kg. GENERAL: An older thin-appearing woman in no acute distress wit hout chest pain or using excess respiratory muscles. Eyes: Pupils equal and reactive to light. EN T: Oral mucosa with no cyanosis. NECK: Jugular venous pressure to 7 cm. Carotid pulses 2+ bilate rally with no obvious bruits. No thyromegaly noted. LUNGS: Clear to auscultation bilaterally with out rales, rhonchi, or wheezing. HEART: Normal PMI. Regular rate and rhythm with 1/6 nonradiating systolic murmur and no S3. ABDOMEN: Soft and nontender. No hepatosplenomegaly. No guarding. No bruit over abdominal aorta. EXTREMITIES: 2+ peripheral pulses including femoral and pedal pulses. No edema noted. MUSCULOSKELETAL: No scoliosis. Mild tenderness in her cervical spine. SKIN: N o bleeding or cyanosis. NEURO: Normal affect and mood. DIAGNOSTIC STUDIES: EKG: Normal sinus rhythm at 81 beats per minute. Left ventricular hypertrophy and left anterior fascicular block noted. No acute ST elevation or depression noted. LABS: White count 6.3, hematocrit 30, platelets 202,000, MCV 95. Sodium 132, potassium 4.0, chlori de 101, bicarb 22, BUN 15, creatinine 0.8. INR 1.07. TSH 1.0. Troponin 0.2. LDL cholesterol 57. IMPRESSION: A 81-year-old woman with a syncopal spell and loss of consciousness with subsequent sma ll subdural hematoma. Clinically I am concerned about ventricular arrhythmias causing her syncope. Although she has mild ischemia on her Cardiolite stress test, I do not think she is having unstable angina or heart failure. With a recent subdural hematoma, I would not restart aspirin or do a hear t catheterization. RECOMMENDATIONS: 1. Would start on Toprol-XL 25 mg per day for both antiarrhythmic and antianginal effects. 2. Rest of medications without change. 3. No aspirin or heart catheterization currently. 4. Would recheck a troponin in the morning to make sure that it is trending down. 5. Would get an EKG in the morning. 6. Would continue her on telemetry, and when she is possibly discharged home or to inpatient rehab, would place a 30-day event monitor with close followup in Cardiology Clinic. Thank you for allowing me to participate in the care of the patient. We will follow along closely w carlos connie during her hospitalization. /[id number]/MODL
[2016-10-25] MEDS: METOPROLOL SUCCINATE XR 25 MG TAB PO SCH (16:18)
--- NOTE | 2016-10-25 16:35 | ASMTCMCOM ---
CM Note CM Note Notes: Patient feels dizzy when up. She would like yo go to in-patient rehab. At this time PT recommending home, OT in-pt; ST in-pt. This Field Specialist left a message for in-pt to review chart for possible admit. Date Signed: 10/25/2016 04:34 PM Electronically Signed By:Kylah Headley
[2016-10-25] MEDS: GABAPENTIN 400 MG CAP PO SCH (21:50)
[2016-10-25] MEDS: LEVOTHYROXINE 50 MCG TAB PO SCH (21:52)
[2016-10-25] MEDS: SENNOSIDES/DOCUSATE SODIUM TAB PO SCH (21:56)
[2016-10-25] MEDS: ROSUVASTATIN CALCIUM 10 MG TAB PO SCH (21:56)
[2016-10-25] MEDS: ZOLPIDEM TARTRATE 5 MG TAB PO PRN (22:03)
[2016-10-26 02:32] LABS: HEMOGLOBIN A1C 4.8 % (4.0-6.0)
[2016-10-26] MEDS: ACETAMINOPHEN 500 MG TAB PO SCH ×2 (05:21→16:02)
[2016-10-26] MEDS: oxyCODONE IR 5 MG TAB PO PRN ×3 (05:22→21:51)
[2016-10-26 05:53] LABS: ANION GAP 7 mEq/L (8-16); CALCIUM 8.5 mg/dL (8.5-10.4); CARBON DIOXIDE 25 mEq/l (22-31); CHLORIDE 101 mEq/L (97-110); CREATININE 0.7 mg/dL (0.6-1.0); GLOMERULAR FILTRATION RATE > 60; GLUCOSE 79 mg/dL (70-100); SODIUM 133 mEq/L (134-144)
[2016-10-26] MEDS ORDERED: COSYNTROPIN 0.25 MG/2 ML SYRINGE IVP ONE (06:00)
[2016-10-26 06:05] LABS: TROPONIN I 0.102 ng/mL (0.000-0.034)
--- NOTE | 2016-10-26 08:55 | CPEKG ---
Heart Rate: 78 RR Interval: 769 P-R Interval: 204 QRSD Interval: 88 QT Interval: 396 QTC Interval: 452 P [place]: 75 QRS [place]: -45 T Wave [place]: 83 EKG Severity - ABNORMAL ECG - EKG Impression: SINUS RHYTHM EKG Impression: LEFT ANTERIOR FASCICULAR BLOCK EKG Impression: LEFT VENTRICULAR HYPERTROPHY EKG Impression: COMPARED WITH 10/22/2016 AT 11:30 A.M., NO SIGNIFICANT CHANGE Electronically Signed By: Brissa Smith 26-Oct-2016 10:38:41
[2016-10-26] MEDS: predniSONE 1 MG TAB PO SCH (09:10)
[2016-10-26] MEDS: SENNOSIDES/DOCUSATE SODIUM TAB PO SCH ×2 (09:10→20:50)
[2016-10-26] MEDS: PILOCARPINE HCL 5 MG TAB PO SCH ×2 (09:10→20:51)
[2016-10-26] MEDS: HYDROXYCHLOROQUINE SULFATE 200 MG TAB PO SCH ×2 (09:10→20:50)
[2016-10-26] MEDS: METOPROLOL SUCCINATE XR 25 MG TAB PO SCH (09:10)
[2016-10-26] MEDS: CYCLOSPORINE 0.05% 1 EACH BOX EACHEYE SCH ×2 (09:11→20:53)
[2016-10-26] MEDS ORDERED: ACETAMINOPHEN 500 MG TAB PO PRN (18:01)
--- NOTE | 2016-10-26 18:03 | HOSPPROG ---
Hospitalist Progress Note Assessment/Plan: * Syncope -30 day event monitoring at discharge * Borderline trop -stress test with mild ischemia -per cardiology - no cath for now -metoprolol added * SDH and SAH (traumatic) -stable -repeat head CT 4 weeks * Sjogren's -chronic low dose prednisone * SIADH -fluid restrict * Prior CVA -hold ASA Patient still with severe dizziness when standing. Doesn't feel ready for home. ? rehab Subjective: doesn't feel ready for home. Severe dizziness with standing Objective: Vital Signs Temp Pulse Resp BP Pulse Ox 36.8 C 72 16 126/64 H 96 10/26/16 16:00 10/26/16 16:00 10/26/16 16:00 10/26/16 16:00 10/26/16 16:00 Laboratory Results 10/24/16 04:28 10/26/16 05:15 10/25/16 10/26/16 10/27/16 05:59 05:59 05:59 Intake Total 2245 300 Output Total 1025 1220 Balance 1220 -920 PT 13.8 SEC (12.0-15.0) 10/22/16 15:40 INR 1.07 (0.83-1.16) 10/22/16 15:40 - Physical Exam Constitutional: no apparent distress, appears nourished, not in pain Cardiovascular: regular rate and rhythym, no murmur, rub, or gallop Respiratory: no respiratory distress, no rales or rhonchi, clear to auscultation Gastrointestinal: normoactive bowel sounds, soft, non-tender abdomen, no palpable masses Skin: no rashes or abrasions, no fluctuance, no induration Neurologic: AAOx3, sensation intact bilaterally Psychiatric: interacting appropriately, not anxious, not encephalopathic, thought process linear ICD10 Worksheet Patient Problems: Problems Problem Status Onset Subarachnoid hemorrhage Acute Subdural hematoma Acute Syncope Acute Dehydration Acute Elevated troponin Acute Primary localized osteoarthritis of right knee Acute TIA (transient ischemic attack) Acute Troponin I above reference range Acute Vomiting and diarrhea Acute
[2016-10-26] MEDS: GABAPENTIN 400 MG CAP PO SCH (20:49)
[2016-10-26] MEDS: LEVOTHYROXINE 50 MCG TAB PO SCH (20:50)
[2016-10-26] MEDS: ROSUVASTATIN CALCIUM 10 MG TAB PO SCH (20:51)
[2016-10-26] MEDS: ONDANSETRON 4 MG/2 ML VIAL IVP PRN (21:27)
[2016-10-26] MEDS: ZOLPIDEM TARTRATE 5 MG TAB PO PRN (21:51)
[2016-10-27] MEDS: predniSONE 1 MG TAB PO SCH (09:01)
[2016-10-27] MEDS: PILOCARPINE HCL 5 MG TAB PO SCH ×2 (09:01→19:31)
[2016-10-27] MEDS: HYDROXYCHLOROQUINE SULFATE 200 MG TAB PO SCH ×2 (09:01→20:42)
[2016-10-27] MEDS: SENNOSIDES/DOCUSATE SODIUM TAB PO SCH ×2 (09:01→20:39)
[2016-10-27] MEDS: METOPROLOL SUCCINATE XR 25 MG TAB PO SCH (09:01)
[2016-10-27] MEDS: CYCLOSPORINE 0.05% 1 EACH BOX EACHEYE SCH ×2 (09:04→19:29)
[2016-10-27] MEDS ORDERED: LIDOCAINE 1% 300 MG/30 ML SDV SC ONE (13:08)
[2016-10-27] MEDS: oxyCODONE IR 5 MG TAB PO PRN ×3 (13:20→22:28)
--- NOTE | 2016-10-27 13:23 | PDCARPN ---
Cardiology Progress Note Chief Complaint: Syncope Assessment/Plan: Assessment: Kylah is a 81 y/o F who presented to the hospital with syncope which came on without warning. She was at the refrigerator getting a drink and the next thing she remembers was waking up on the floor. She did sustain a small subdural hematoma. A echo showed preserved LV function without significant valvular abnormalities. A nuclear stress test showed a small area of later ischemia. Her troponin peaked at .2. She is being monitored on tele which showed one short run of SVT at a rate of 160bpm at night time. She denies any CP, SOB, or racing heart. She is complaining of dizziness. Plan: 1. Syncope which came on without warning. Normal EF by echo. Her symptoms are concerning for a arrhythmia. Options including a Linq versus event monitor were discussed with her today. She will have a Linq placed today by Dr. Ramirez. 2. Subdural hematoma, small 3. Abnormal nuclear stress test with mild inferior ischemia. She denies any angina. She is being treated medically with Metoprolol and Crestor. She is not on a Aspirin secondary to #2 but I would add this once if felt to be ok from a neuro standpoint. 10/27/16 13:25 Subjective: complaining of dizziness when she stands. It has been present since her event and improves daily. Objective: Vital Signs (8 Hrs) Temp Pulse Resp BP Pulse Ox 10/27/16 11:32 36.8 C 83 14 106/59 L 94 10/27/16 09:01 92 122/60 H 10/27/16 07:22 37.1 C 89 14 122/60 H 93 Intake/Output (24 Hrs) 10/26/16 10/27/16 10/28/16 05:59 05:59 05:59 Intake Total 300 400 Output Total 1220 725 Balance -920 -325 Intake: Oral (ml) 300 400 Output: Urine (ml) 1220 725 Bedside Commode 1100 725 Incontinence 100 Toilet 20 Other: Intake Quantity Yes Sufficient Number of Voids Bedside Commode 1 1 Incontinence 1 Number of Stools Bedside Commode 1 tele- NSR with one run of SVT at 160bpm Result Diagrams: 10/24/16 04:28 10/26/16 05:15 Cardiac Labs: Cardiac Lab Results (72 Hrs) 10/26/16 05:15 Troponin I 0.102 H - Physical Exam Constitutional: WDWN Cardiovascular: regular rate and rhythm, No diastolic murmur Peripheral Pulses: 2+: dorsalis-pedis (R), dorsalis-pedis (L) Respiratory: clear to auscultate bilat, no crackles, no wheezes Skin: no edema ICD10 Worksheet Patient Problems: Problems Problem Status Onset Subarachnoid hemorrhage Acute Subdural hematoma Acute Syncope Acute Dehydration Acute Elevated troponin Acute Primary localized osteoarthritis of right knee Acute TIA (transient ischemic attack) Acute Troponin I above reference range Acute Vomiting and diarrhea Acute
--- NOTE | 2016-10-27 14:48 | HOSPPROG ---
Hospitalist Progress Note Assessment/Plan: Patient is a 81-year-old female who had a syncopal event with complete loss of consciousness. She had no precipitating palpitations, chest pain or lightheadedness. She landed on the back of her head sustained a large swollen bump. Today she is feeling overall better but is very concerned about being discharged home. Today is my 1st encounter with the patient. Chart reviewed. * Syncope -30 day event monitoring at discharge Dr. Ramirez placed a Linq today Reviewed her environmental monitoring technician. She had a short run of sinus tachycardia possibly SVT that occurred around 1 in the morning * Borderline trop -stress test with mild ischemia -per cardiology - no cath for now -metoprolol added * SDH and SAH (traumatic) -stable -repeat head CT 4 weeks * Sjogren's -chronic low dose prednisone * SIADH -fluid restrict * Prior CVA -hold ASA * plan. Patient does not feel safe to return home. She would like to stay at the rehab on [facility]/ will discuss with case management Subjective: sarah has no complaints, but overall fatigue. Objective: Vital Signs Temp Pulse Resp BP Pulse Ox 36.8 C 83 14 106/59 L 94 10/27/16 11:32 10/27/16 11:32 10/27/16 11:32 10/27/16 11:32 10/27/16 11:32 Laboratory Results 10/24/16 04:28 10/26/16 05:15 10/26/16 10/27/16 10/28/16 05:59 05:59 05:59 Intake Total 300 400 Output Total 1220 725 Balance -920 -325 PT 13.8 SEC (12.0-15.0) 10/22/16 15:40 INR 1.07 (0.83-1.16) 10/22/16 15:40 - Physical Exam Constitutional: no apparent distress, other (thin) Eyes: PERRL Ears, Nose, Mouth, Throat: hearing normal Cardiovascular: regular rate and rhythym Respiratory: no respiratory distress Gastrointestinal: normoactive bowel sounds Skin: warm, other (hematoma on the occipital part of her head) Musculoskeletal: full muscle strength Neurologic: AAOx3 Psychiatric: interacting appropriately, not anxious ICD10 Worksheet Patient Problems: Problems Problem Status Onset Subarachnoid hemorrhage Acute Subdural hematoma Acute Syncope Acute Dehydration Acute Elevated troponin Acute Primary localized osteoarthritis of right knee Acute TIA (transient ischemic attack) Acute Troponin I above reference range Acute Vomiting and diarrhea Acute
--- NOTE | 2016-10-27 15:32 | PDCTREPORT ---
Cardiothoracic Procedure Rpt Cardiothoracic Procedure Report: Procedure: Insertion of a LINQ monitor After obtaining informed consent, a small area on the left anterior chest was sterile prepped and draped. It was infiltrated with 2% Xylocaine. A stab was made with a 10 blade. Blunt dissection was used to implant the Linq subcutaneously. [place] closed the stab wound. Conclusion: Successful Linq implantation. Patient Problems: Problems Problem Status Onset Vomiting and diarrhea Acute Dehydration Acute Elevated troponin Acute Syncope Acute Subdural hematoma Acute Subarachnoid hemorrhage Acute Primary localized osteoarthritis of right knee Acute Troponin I above reference range Acute TIA (transient ischemic attack) Acute
[2016-10-27] MEDS: ROSUVASTATIN CALCIUM 10 MG TAB PO SCH (20:40)
[2016-10-27] MEDS: GABAPENTIN 400 MG CAP PO SCH (20:40)
[2016-10-27] MEDS: LEVOTHYROXINE 50 MCG TAB PO SCH (20:40)
[2016-10-27] MEDS: ZOLPIDEM TARTRATE 5 MG TAB PO PRN (22:28)
[2016-10-27] MEDS: ONDANSETRON 4 MG/2 ML VIAL IVP PRN (22:28)
[2016-10-28 07:24] VITALS: RESP 14
[2016-10-28] MEDS: HYDROXYCHLOROQUINE SULFATE 200 MG TAB PO SCH (08:41)
[2016-10-28] MEDS: PILOCARPINE HCL 5 MG TAB PO SCH (08:41)
[2016-10-28] MEDS: predniSONE 1 MG TAB PO SCH (08:42)
[2016-10-28] MEDS: SENNOSIDES/DOCUSATE SODIUM TAB PO SCH (08:43)
[2016-10-28] MEDS: METOPROLOL SUCCINATE XR 25 MG TAB PO SCH (08:46)
[2016-10-28] MEDS: CYCLOSPORINE 0.05% 1 EACH BOX EACHEYE SCH (09:15)
[2016-10-28] MEDS: oxyCODONE IR 5 MG TAB PO PRN ×2 (10:21→14:58)
[2016-10-28 11:26] VITALS: PULSE 86
--- NOTE | 2016-10-28 11:32 | HOSPPROG ---
Hospitalist Progress Note Assessment/Plan: Patient is a 81-year-old female who had a syncopal event with complete loss of consciousness. She had no precipitating palpitations, chest pain or lightheadedness. She landed on the back of her head sustained a large swollen bump. * Syncope Dr. Ramirez placed a Linq monitor Reviewed her monitor and storage bin tender. She had a short run of sinus tachycardia possibly SVT that occurred x 1. otherwise sinus * Borderline trop -stress test with mild ischemia -per cardiology - no cath for now -metoprolol added * SDH and SAH (traumatic) -stable -repeat head CT 4 weeks * Sjogren's -chronic low dose prednisone * SIADH -fluid restrict * Prior CVA -hold ASA * plan. DC to SNF/ cardiology to f/u with her Subjective: Darya is feeling fine/no complaints. Objective: Vital Signs Temp Pulse Resp BP Pulse Ox 36.9 C 86 14 121/63 H 93 10/28/16 11:24 10/28/16 11:24 10/28/16 11:24 10/28/16 11:24 10/28/16 11:24 Laboratory Results 10/24/16 04:28 10/26/16 05:15 10/27/16 10/28/16 10/29/16 05:59 05:59 05:59 Intake Total 400 1220 200 Output Total 725 1120 Balance -325 100 200 PT 13.8 SEC (12.0-15.0) 10/22/16 15:40 INR 1.07 (0.83-1.16) 10/22/16 15:40 - Physical Exam Constitutional: no apparent distress, appears nourished, not in pain Eyes: PERRL Ears, Nose, Mouth, Throat: hearing normal Cardiovascular: regular rate and rhythym Respiratory: no respiratory distress Gastrointestinal: normoactive bowel sounds Skin: warm, other (egg size bump on occipital area of head) Musculoskeletal: full muscle strength Neurologic: AAOx3 Psychiatric: interacting appropriately, not anxious ICD10 Worksheet Patient Problems: Problems Problem Status Onset Subarachnoid hemorrhage Acute Subdural hematoma Acute Syncope Acute Dehydration Acute Elevated troponin Acute Primary localized osteoarthritis of right knee Acute TIA (transient ischemic attack) Acute Troponin I above reference range Acute Vomiting and diarrhea Acute
[2016-10-28 11:40] VITALS: BP 111/66; TEMP 98.8; O2SAT 91
--- NOTE | 2016-10-28 12:04 | PDIAF ---
- Diagnosis Diagnosis: syncope, SDH & SAH Code Status: Full Code - Medication Management Discharge Medications: Medications to Continue on Transfer Dicyclomine [Bentyl 20 MG (*)] 20 mg PO DAILY PRN 02/08/14 [Last Taken 08/03/16] Hydroxychloroquine Sulfate [Plaquenil 200 mg (*)] 200 mg PO BID 02/08/14 [Last Taken 10/21/16 09:00] Levothyroxine [Synthroid 50 mcg (*)] 50 mcg PO HS 02/08/14 [Last Taken 10/21/16] Omeprazole [Prilosec 20 mg] 20 mg PO DAILY PRN 02/08/14 [Last Taken 09/28/16] cycloSPORINE 0.05% [Restasis Opht Drops(*)] 1 drop EACHEYE BID 02/08/14 [Last Taken 10/21/16 21:00] Gabapentin [Neurontin 300 MG (*)] 1,200 mg PO HS 02/06/15 [Last Taken 10/21/16] Pilocarpine HCl [Salagen 5mg (*)] 5 mg PO BID 02/06/15 [Last Taken 10/21/16 09: 00] Rosuvastatin Calcium [Crestor 5mg] 5 mg PO HS 07/28/16 [Last Taken 10/21/16] Zolpidem Tartrate [Ambien 5MG (*)] 10 mg PO HS 07/28/16 [Last Taken 10/21/16] predniSONE [Kanwal] 2 mg PO DAILY 09/30/16 [Last Taken 10/21/16] Acetaminophen [Tylenol ES 500 mg (*)] 1,000 mg PO Q8H PRN tab 10/28/16 [Last Taken Unknown] Metoprolol Succinate Xr [Toprol Xl 25 mg (*)] 25 mg PO DAILY #30 tab 10/28/16 [ Last Taken Unknown] Polyethylene Glycol 3350 [Miralax 17 gm (*)] 17 gm PO DAILY PRN pkt 10/28/16 [ Last Taken Unknown] Sennosides/Docusate Sodium [Senokot-S] 1 - 2 tab PO BID tab 10/28/16 [Last Taken Unknown] Discharge Medications: Refer to the Discharge Home Medication list for PRN reason. - Orders Services needed: Physical Therapy, Occupational Therapy Diet Recommendation: no restrictions on diet Diet Texture: Regular Texture Diet Additional: stop aspirin until ok with neurosurgery. f/u with Dr Newton Hernandez or Dr Louise in the next 4 weeks. You need a repeat CT scan of your head. Dr Ramirez to f/u with you about LINQ monitor/ if you don't hear from their office in next 30 days/ call them. Metoprolol is a new medication for you. - Labs/Radiology Imaging Orders: will need a f/u CT scan of head to f/u with SAH - Follow Up Care Current Providers and Referrals: Horace Hayes MD [Medical Doctor] - (follow up in office. 30 day monitor for arrythmia monitoring ) Crystal Dia MD [Primary Care Provider] - As per Instructions Nura Louise MD [Medical Doctor] - (follow up in Neurosurg office in [address] Head is obtained. , )
--- NOTE | 2016-10-28 12:55 | GDS ---
[f rep st] DISCHARGE SUMMARY DISCHARGE DIAGNOSES: 1. Syncopal event. 2. Borderline troponin. 3. Subdural hemorrhage and subarachnoid hemorrhage. 4. Sjogren's. 5. Syndrome of inappropriate antidiuretic hormone secretion. 6. Prior cerebrovascular accident. CONSULTATIONS: 1. Dr. Abhi Varela. 2. Dr. Horace Hayes. BRIEF HISTORY: The patient is a 81-year-old female with a history of Sjogren disease, anemia and hyp erlipidemia. A year ago she had an episode of syncope with loss of consciousness in her closet. Thr ee days prior to her admission she was in her garage getting some soda out of the refrigerator and sh e had a syncopal event, hitting her head on a cement floor. She was brought to the emergency room an d found to have a subdural hematoma. An echo in the hospital showed an EF of 57% with mild diastolic dysfunction and mild aortic insufficiency without aortic stenosis. A Lexiscan Cardiolite test showe d an LVEF of 65% with a small amount of lateral ischemia. Her EKG was noted to be unremarkable. She will be discharged to a fci facility because of the syncopal event. She will further fo llow up with Cardiology and with Neurosurgery in the outpatient setting. HOSPITAL COURSE: 1. Syncopal episode. I reviewed her monitoring analyst. She had 1 short run of SVT, that Cardiology is aware of. She has a Link monitor in place. 2. Borderline troponin. The stress test shows mild ischemia. No catheterization for now. Metoprol ol has been added to her home regimen. 3. Subdural hematoma and subarachnoid hemorrhage that was traumatic. She will get a repeat head CT in 4 weeks and further follow up with Neurosurgery. 4. Sojourn's. Continue her low-dose prednisone. 5. Syndrome of inappropriate antidiuretic hormone secretion, stable. 6. Prior cerebrovascular accident. Aspirin is on hold due to the bleed. CONDITION AT DISCHARGE: Stable. Blood pressure is 121/63, respiratory rate is 14, O2 saturation on room air 93%, pulse is 86, temperature is 36.9 Celsius. MEDICATIONS AT DISCHARGE: Please see the EMR. DISCHARGE INSTRUCTIONS: 1. To follow up with Neurosurgery within the next 4 weeks and get a repeat CT scan of her head. 2. To follow up with Dr. Ramirez in regard to her Link monitor. 3. If she has any further syncopal events, fever, chills, chest pain or shortness of breath, return to the ER. TIME SPENT: Greater than 30 minutes discharging and coordinating her care. /[id number]/MODL
--- NOTE | 2016-10-31 17:05 | ASMTCMCOM ---
CM Note CM Note Notes: Pt medically stable for d/c to [facility]. RN Nel to call report. Orders faxed due to [employer] down. Date Signed: 10/28/2016 02:17 PM Electronically Signed By:Lazara Rodríguez
== END 2016-10-28 17:02 | DRG 41 ==
LOC: INTOOBSV 13:21 → F2N 16:35 → F3N 10-23 12:06 → OBSVTOIN 10-23 13:18
PROVIDERS: ADMIT Internal Medicine; ATTEND Internal Medicine Pulmonary Disease
PROC: 02HV33Z Insertion of Infusion Device into Superior Vena Cava, Percutaneous Approach (ICD-10-PCS; 2016-10-22)
PROC: 0JH63PZ Insertion of Cardiac Rhythm Related Device into Chest Subcutaneous Tissue and Fascia, Percutaneous Approach (ICD-10-PCS; principal; 2016-10-27)
DX: S06.5X1A Traumatic subdural hemorrhage with loss of consciousness of 30 minutes or less, initial encounter (principal); S06.6X1A Traumatic subarachnoid hemorrhage with loss of consciousness of 30 minutes or less, initial encounter; W19.XXXA Unspecified fall, initial encounter; R55 Syncope and collapse; E22.2 Syndrome of inappropriate secretion of antidiuretic hormone; I25.9 Chronic ischemic heart disease, unspecified; M35.00 Sjogren syndrome, unspecified; E03.9 Hypothyroidism, unspecified; K21.9 Gastro-esophageal reflux disease without esophagitis; D64.9 Anemia, unspecified; E78.5 Hyperlipidemia, unspecified; I10 Essential (primary) hypertension; Z86.73 Personal history of transient ischemic attack (TIA), and cerebral infarction without residual deficits; Z79.82 Long term (current) use of aspirin; Z87.440 Personal history of urinary (tract) infections
CPT/HCPCS: 92507-GN; 92523-GN; 97116-GP; 97161-GP; 97166-GO; 97530-GO; 97530-GP; 97535-GO; A9500; C1751; C1764; G0378; G8978-GP-CJ; G8979-GP-CI; G8987-GO-CL; G8988-GO-CJ; G9168-GN-CJ; G9169-GN-CJ; J1170; J2405; J2550; J2785; J3010; Q9967

== ENCOUNTER 2016-11-02 14:04 | Inpatient (IN) | payer OTHER, MEDICARE ==
[2016-11-02] MEDS ORDERED: NS 1,000 ML IV ONE (14:18)
[2016-11-02] MEDS ORDERED: ONDANSETRON 4 MG/2 ML VIAL IVP ONE (14:18)
--- NOTE | 2016-11-02 14:43 | EDPHY ---
H & P Stated Complaint: nausea and vomiting along with headache Time Seen by Provider: 11/02/16 14:42 - Personal History Tetanus Vaccine Date: WITHIN THE LAST 10YRS - Medical/Surgical History Hx Asthma: No Hx Chronic Respiratory Disease: No Hx Diabetes: No Hx Cardiac Disease: No Hx Renal Disease: No Hx Cirrhosis: No Hx Alcoholism: No Hx HIV/AIDS: No Hx Splenectomy or Spleen Trauma: No Other PMH: Sjogrens, appy, gallbladder, r knee replacement, tonsils, 3 bladder tucks - Social History Smoking Status: Former smoker Constitutional: Initial Vital Signs Temperature (C) 37.2 C 11/02/16 14:05 Heart Rate 69 11/02/16 14:05 Respiratory Rate 17 11/02/16 14:05 Blood Pressure 138/69 H 11/02/16 14:05 O2 Sat (%) 96 11/02/16 14:05 O2 Delivery Mode Room Air Allergies/Adverse Reactions: amoxicillin trihydrate [From Augmentin] Allergy (Verified 10/22/16 10:38) Vomiting ciprofloxacin [From Cipro] Allergy (Verified 10/22/16 10:38) Vomiting ciprofloxacin HCl [From Cipro] Allergy (Verified 10/22/16 10:38) Vomiting metronidazole [From Flagyl] Allergy (Verified 10/22/16 10:38) Vomiting Metronidazole HCl [From Flagyl] Allergy (Verified 10/22/16 10:38) Vomiting morphine [Morphine] Allergy (Verified 10/22/16 10:38) Vomiting nitrofurantoin [From Macrobid] Allergy (Verified 10/22/16 10:38) Unknown nitrofurantoin macrocrystalline [From Macrobid] Allergy (Verified 10/22/16 10:38 ) Unknown oxaprozin [From Daypro] Allergy (Verified 10/22/16 10:38) Vomiting potassium clavula *RETIRED-11/01/11 [From Augmentin] Allergy (Verified 10/22/16 10:38) Vomiting Sulfa (Sulfonamide Antibiotics) Allergy (Verified 10/22/16 10:38) Hives tramadol [Tramadol] Allergy (Verified 10/22/16 10:38) Vomiting Home Medications: Medication Instructions Recorded Dicyclomine [Bentyl 20 MG (*)] 20 mg PO DAILY PRN 02/08/14 Hydroxychloroquine Sulfate 200 mg PO BID 02/08/14 [Plaquenil 200 mg (*)] Levothyroxine [Synthroid 50 mcg 50 mcg PO HS 02/08/14 (*)] Omeprazole [Prilosec 20 mg] 20 mg PO DAILY PRN 02/08/14 cycloSPORINE 0.05% [Restasis Opht 1 drop EACHEYE BID 02/08/14 Drops(*)] Gabapentin [Neurontin 300 MG (*)] 1,200 mg PO HS 02/06/15 Pilocarpine HCl [Salagen 5mg (*)] 5 mg PO BID 02/06/15 Rosuvastatin Calcium [Crestor 5mg] 5 mg PO HS 07/28/16 Zolpidem Tartrate [Ambien 5MG (*)] 10 mg PO HS 07/28/16 predniSONE [Kanwal] 2 mg PO DAILY 09/30/16 Acetaminophen [Tylenol ES 500 mg 1,000 mg PO Q8H PRN tab 10/28/16 (*)] Metoprolol Succinate Xr [Toprol Xl 25 mg PO DAILY #30 tab 10/28/16 25 mg (*)] Polyethylene Glycol 3350 [Miralax 17 gm PO DAILY PRN pkt 10/28/16 17 gm (*)] Sennosides/Docusate Sodium 1 - 2 tab PO BID tab 10/28/16 [Senokot-S] Ondansetron Odt [Zofran Odt 4 mg 4 mg PO Q6H PRN 11/02/16 (*)] oxyCODONE IR [Oxycodone Ir (*)] 5 mg PO Q6H PRN 11/02/16 Medical Decision Making - Diagnostics Imaging Results: Imaging Impressions Head CT 11/02/16 14:48 Impression: 1. Increase in mixed density subdural hematoma collections over the right frontal and parietal lobes with a small amount of [id number] shift that has developed. 2. No hemorrhage, mass effect, or definite acute peripheral infarct. 3. Stable moderate nonspecific hypodensities in the white matter of bilateral cerebral hemispheres. Differential diagnosis includes microvascular ischemic disease, post-infectious/post-inflammatory sequela, atypical demyelinating disease, or migraine-related sequela. Small white matter lacunar infarcts may also have this appearance. 4. Stable mild to moderate atrophy. If symptoms worsen, additional imaging may be necessary. Findings discussed with Sohail Rodrigues MD at 15:32 hour, 11/02/2016. Imaging: Discussed imaging studies w/ television and radio repairer Radiologist ED Course/Re-evaluation: CHIEF COMPLAINT: Headache and nausea vomiting HISTORY OF PRESENT ILLNESS: This patient is a 81-year-old female who is currently residing in a rehab facility after suffering a subdural hematoma. Starting last night she began vomiting. She denies any fevers or chills. She denies any diarrhea. She states she has a headache but she has had a headache intermittently. She denies any neurologic deficits. She denies any speech difficulty. REVIEW OF SYSTEMS: A 10 point review of systems was performed and is negative with the exception of the elements mentioned in the history of present illness. PHYSICAL EXAM: HR, BP, O2 Sat, RR. Temp noted General Appearance: Alert, well hydrated, appropriate, and non-toxic appearing. Head: Atraumatic without scalp tenderness or obvious injury Eyes: Pupils equal, round, reactive to light and accommodation, EOMI, no trauma , no injection. Ears: Clear bilaterally, no perforation, normal landmarks Nose: Atraumatic, no rhinorrhea, clear. Throat: There is no erythema or exudates, no lesions, normal tonsils, mucus membranes moist. Neck: Supple, 2+ carotid upstroke, nontender, no lymphadenopathy. Respiratory: No retractions, no distress, no wheezes, and no accessory muscle use. Lungs are clear to auscultation bilaterally. Cardiovascular: Regular rate and rhythm, no murmurs, rubs, or gallops. Bilateral carotid, radial, dorsalis pedis, and posterior tibial pulses intact. Good capillary refill all extremities. Gastrointestinal: Abdomen is soft, nontender, non-distended, no masses, no rebound, no guarding, no peritoneal signs. Musculoskeletal: Normal active ROM of all extremities, atraumatic. Neurological: Alert, appropriate, and interactive. The patient has normal DTRs and non-focal cranial nerves, motor, sensory, and cerebellar exam. Skin: No rashes, good turgor, no nodules on palpation. Past medical history: Subdural hematoma, hypertension Past surgical history: See above otherwise noncontributory Family history: Noncontributory Social history: , currently residing at a nursing facility, does not use tobacco drugs or alcohol DIAGNOSTICS/PROCEDURES/CRITICAL CARE TIME: Study: CT of the head without contrast Indication: subdural hematoma with new onset nausea vomiting rule out recurrent hemorrhage/hematoma Results: CT scan of the head was obtained. The results of the study are normal. The study was read by the radiologist, . I viewed the images myself on the PACS system. DIFFERENTIAL DIAGNOSIS: The differential diagnosis for the patient's nausea and vomiting included but was not limited to gastroenteritis, gastritis, medication side-effect, recurrent intracranial pressure from subdural bleeding. MEDICAL DECISION MAKING: This patient has no neurologic deficits. She may have a simple gastritis gastroenteritis or she may have increased intracranial pressure causing her headache and nausea and vomiting. Consequently, we will do a noncontrast head CT and some laboratory studies. 15:[address] Yuan, radiologist. CT shows a 3-5mm shift in her right frontal-parietal subdural hematoma. 15:[address] Nicholson, neurosurgeon. He will consult. He recommends admission. 15:39 Spoke with hospitalist service. Dr. Gonzalez accepts admission for increasing subdural hematoma, nausea, and vomiting. - Data Points Medications Given: Ondansetron HCl (Zofran) 4 mg IVP Q4HRS PRN PRN Reason: Nausea/Vomiting, Can't Take PO Stop: 05/01/17 16:04 Last Admin: 11/02/16 17:30 Dose: 4 mg Discontinued Medications Sodium Chloride (Ns) 1,000 mls @ 0 mls/hr IV ONCE ONE PRN Reason: Wide Open Stop: 11/02/16 14:19 Last Admin: 11/02/16 14:25 Dose: 1,000 mls Ondansetron HCl (Zofran) 4 mg IVP EDNOW ONE Stop: 11/02/16 14:19 Last Admin: 11/02/16 14:23 Dose: 4 mg Departure - Departure Disposition: [facility] In[facility] Acute Clinical Impression: Subdural hematoma Nausea & vomiting Qualifiers: Vomiting type: unspecified Vomiting Intractability: non-intractable Qualified Code(s): R11.2 - Nausea with vomiting, unspecified Condition: Fair Report Scribed for: Sohail Rodrigues Report Scribed by: Charity Huang Date of Report: 11/02/16 Time of Report: 15:41
[2016-11-02] MEDS ORDERED: POLYETHYLENE GLYCOL 3350 17 GM PKT PO PRN (16:40)
[2016-11-02] MEDS ORDERED: DICYCLOMINE 20 MG TAB PO PRN (16:40)
[2016-11-02 17:01] LABS: % IMMATURE GRANULYOCYTES 1.2 % (0.0-1.1); ABSOLUTE IMMATURE GRANULOCYTES 0.09 10^3/uL (0.00-0.10); ADD DIFF? NO; ADD MORPH? NO; ADD SCAN? NO; ATYPICAL LYMPHOCYTE FLAG 40 (0-99); FRAGMENT RBC FLAG 0 (0-99); HEMATOCRIT 31.3 % (38.0-47.0); HEMOGLOBIN 10.3 g/dL (12.6-16.3); LEFT SHIFT FLG 10 (0-99); LIPEMIA HEMOLYSIS FLAG 80 (0-99); MEAN CELL HEMOGLOBIN 31.6 pg (27.9-34.1); MEAN CELL HEMOGLOBIN CONCENTR. 32.9 g/dL (32.4-36.7); MEAN PLATELET VOLUME 9.2 fL (8.7-11.7); PLATELET CLUMPS FLAG 30 (0-99); PLATELET COUNT 266 10^3/uL (150-400); RED BLOOD CELL COUNT 3.26 10^6/uL (4.18-5.33); RED CELL DISTRIBUTION WIDTH 15.2 % (11.5-15.2)
[2016-11-02 17:22] LABS: ANION GAP 13 mEq/L (8-16); CALCIUM 8.6 mg/dL (8.5-10.4); CARBON DIOXIDE 18 mEq/l (22-31); CHLORIDE 99 mEq/L (97-110); CREATININE 0.8 mg/dL (0.6-1.0); GLOMERULAR FILTRATION RATE > 60; GLUCOSE 95 mg/dL (70-100); POTASSIUM 4.4 mEq/L (3.5-5.2); SODIUM 130 mEq/L (134-144)
--- NOTE | 2016-11-02 17:24 | GHP ---
[f rep st] HISTORY AND PHYSICAL DATE OF ADMISSION: 11/02/2016 CHIEF COMPLAINT: Nausea, vomiting, and recent subdural hemorrhage. HISTORY OF PRESENT ILLNESS: The patient is a 81-year-old female with history of Sjogren disorder, on chronic prednisone, who was recently admitted with syncope and found to have a subdural hemorrhage. She was subsequently transferred to rehab where she developed nausea and vomiting last night. She returns to the emergency department for reevaluation. She was admitted to the hospital on October 22 after a syncopal event. She was found to have a subdural hematoma which was 7 mm in the right parietal region. She remained neurologically intact with a GCS score of 15 and this was managed nonoperatively. Her aspirin has since been held. Syncope workup included normal ejection fraction on echocardiogram. There was some concern for cardiac arrhythmia and a LINQ monitor was placed. She did have an abnormal stress test on October 24, which showed some lateral ischemia. Cardiology was consulted. She did not undergo an angiogram, but rather was treated medically with beta imelda and statin. Again, she remains off aspirin due to her subdural bleed. In the ED today, CT showed enlarging subdural bleed. Upon my evaluation, she is neurologically intact. She complains of ongoing nausea. She states her headache is unchanged and is mild in severity. She denies any further syncope or presyncopal symptoms. She has had no chest pain, shortness of breath, heart palpitations, or dizziness. She just feels tired and nauseous. Neurosurgery is consulted in the emergency department. She will be admitted to the step- down unit for further management. PAST MEDICAL HISTORY: 1. Sjogren syndrome. 2. Chronic immunosuppression. On low-dose prednisone. 3. Hypothyroidism. 4. GERD. 5. History of possible TIA. 6. Chronic anemia. 7. History of pyelonephritis. SURGICAL HISTORY: 1. Right total knee replacement, August 2016. 2. Hysterectomy. 3. Bladder suspension surgery. 4. Cholecystectomy. FAMILY HISTORY: Positive for hypertension. SOCIAL HISTORY: She is a former smoker. She reports occasional alcohol use, though none recently. She denies drug use. She is currently staying at [facility] recovering from her subdural hematoma. Prior to that, she lived independently at home with her . REVIEW OF SYSTEMS: A 10-point review of systems was performed and is negative as per HPI. OBJECTIVE: VITAL SIGNS: Temperature is 37.2, blood pressure 138/69, heart rate 69, respiratory rate 17. She is 96% on room air general. Patient is awake , alert, and oriented, in no acute distress. She is frequently yawning. HEENT : She describes that she has some tenderness over her right parietal region. Pupils are equal, round, and reactive to light. Extraocular intact. Oropharynx is clear. Mucous membranes are moist. NECK: Supple. There is no JVD. HEART : Regular rate and rhythm. LUNGS: Clear to auscultation bilaterally. ABDOMEN : Soft, nondistended, nontender. Normoactive bowel sounds. EXTREMITIES: Without cyanosis, clubbing, or edema. NEUROLOGIC: Cranial nerves 2-12 are intact. She has 5/5 muscle strength in bilateral upper and lower extremities. Speech is fluent. LABORATORY DATA: CBC, basic metabolic panel, and INR are ordered and pending. CT of the brain without contrast showed increase in mixed density subdural hematoma over the right frontal and parietal lobes with a small amount of right- to-left that is new from prior exam. There is no definite acute infarct, stable [id number] atrophy, and also stable moderate nonspecific hypodensities in the white matter of bilateral cerebral hemispheres. ASSESSMENT/PLAN: Mrs. Domingo is a 81-year-old female who is readmitted to the hospital with nausea and vomiting due to increasing size of a recent subdural hematoma. 1. Subdural hematoma. This is increased in size from October 22, now consistent with a chronic SDH. No new trauma or recurrent falls or syncope. I reviewed the images and discussed the case with the Neurosurgery service who will consult. I will keep the patient n.p.o. until they have determined whether or not she will require surgery, though operative intervention sounds unlikely. Consideration is given to treatment with TXA. Will defer this to the Neurosurgery team. She will be monitored closely in the step-down unit with neuro checks and we will repeat a head CT in the morning. We will review blood pressure parameters with the Neurosurgery team. She is currently normotensive with a systolic blood pressure in the 130s. Will provide antiemetics to hopefully control her nausea and vomiting. 2. History of syncope. Her last syncopal event was October 22 which preceded her subdural hematoma. Workup thus far has included an echocardiogram with normal ejection fraction. A LINQ monitor was placed during her last hospitalization due to suspicion for cardiac arrhythmia as a source of her syncope. She will be monitored on telemetry. I asked cardiology to review her LINQ data to determine if there has been any evidence of arrythmia. 3. Chronic anemia. Her hemoglobin has been stable, around 10. CBC is currently pending. There is no indication for transfusion at this time. 4. Abnormal stress test. Mild lateral ischemia was noted on her Lexiscan performed October 24, 2016. This has been managed medically with beta imelda and statin. We will continue this. Aspirin is currently contraindicated, given the increasing size of her subdural hematoma. However, once her subdural risk is deemed stable by the Neurosurgery service, we should consider resuming aspirin. 5. Chronic hyponatremia. 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 Again, labs are pending. Her recent sodiums have been in the low 130s and have remained stable. 6. Sjogren syndrome. She is managed on chronic low-dose prednisone, which will be continued. 7. Deep venous thrombosis prophylaxis. Pharmacologic prophylaxis is contraindicated in the setting of increasing size of the subdural. We will place sequential compression devices. CODE STATUS: Patient is full code. DISPOSITION: Patient admitted as inpatient status. I suspect she will require greater than 48 hours hospitalization for ongoing management of her worsening subdural hematoma, nausea, and vomiting. PT/OT evaluations are requested. /[id number]/MODL MTDD
[2016-11-02] MEDS: ONDANSETRON 4 MG/2 ML VIAL IVP PRN (17:30)
[2016-11-02 17:38] LABS: INR 1.14 (0.83-1.16); PROTIME(PATIENT) 14.5 SEC (12.0-15.0)
[2016-11-02 17:39] LABS: APTT 24.4 SEC (23.0-38.0)
[2016-11-02] MEDS: ACETAMINOPHEN 325 MG TAB PO PRN (20:19)
[2016-11-02] MEDS: GABAPENTIN 300 MG CAP PO SCH (20:20)
[2016-11-02] MEDS: PILOCARPINE HCL 5 MG TAB PO SCH (20:21)
[2016-11-02] MEDS: ROSUVASTATIN CALCIUM 10 MG TAB PO SCH (20:22)
[2016-11-02] MEDS: LEVOTHYROXINE 50 MCG TAB PO SCH (20:23)
[2016-11-02] MEDS: SENNOSIDES/DOCUSATE SODIUM TAB PO SCH (20:23)
[2016-11-02] MEDS: TRANEXAMIC ACID 650 MG TAB PO SCH (20:24)
[2016-11-02] MEDS: ZOLPIDEM TARTRATE 5 MG TAB PO SCH (20:24)
[2016-11-02] MEDS: HYDROXYCHLOROQUINE SULFATE 200 MG TAB PO SCH (20:24)
[2016-11-02] MEDS: CYCLOSPORINE 0.05% 1 EACH BOX EACHEYE SCH (23:35)
[2016-11-03] MEDS: ACETAMINOPHEN 325 MG TAB PO PRN ×3 (04:35→20:49)
--- NOTE | 2016-11-03 04:46 | GCON ---
[f rep st] CONSULTATION HOSPITAL COURSE/HISTORY/MAJOR MEDICAL FINDINGS: The patient is a 81-year-old female, who presented to the emergency room today with increasing nausea. She is well known to Dr. Louise as he recently consulted on her in the hospital for a right-sided acute subdural hematoma. She states that she has been having nausea the past 2 days, and it has been worsening. She denies any headache, any dizziness, any confusion, difficulty with speech or smell. She denies any new weakness. REVIEW OF SYSTEMS: Review of systems is negative other than what is stated in the HPI. Please see pertinent negatives and pertinent positives. PAST MEDICAL HISTORY: Significant for history of Sjogren's, history of syncope. 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 SOCIAL HISTORY: She quit smoking at 40. She smokes approximately 2 packs per day. She does not use any alcohol or illicit drugs. FAMILY HISTORY: Noncontributory. ALLERGIES: She is allergic to sulfa drugs. HOME MEDICATIONS: Include Tylenol 325 mg 1 p.o. q. day; Zofran 4 mg 1 p.o. p.r.n. nausea; Ambien 10 mg 1 p.o. q.h.s.; Restasis to eyes twice a day; Bentyl b.i.d.; gabapentin 1 tab p.o. q.h.s.; Plaquenil 20 mg 1 p.o. q. day; Synthroid 50 mcg 1 p.o. q.h.s.; Prilosec 20 mg p.o. q. day; pilocarpine 5 mg 1 p.o. q. day ; prednisone 10 mg 1 p.o. daily; Crestor 5 mg 1 p.o. q.h.s.; and Senokot 1-2 tabs q. daily as needed. Patient also recently completed a course of Keppra after her last admission. PHYSICAL EXAMINATION: VITAL SIGNS: Temp 37.2, heart rate is 69, respiratory rate is 17, BP is 138/69. She is 96% on room air. NEUROLOGIC: Patient is in no acute distress. She is alert and oriented x3. She answers questions appropriately. Affect is appropriate given the situation. Cranial nerves 2-12 are grossly intact. EOMI and PERRLA. Patient has a negative pronator drift. Patient is a 5/5 and equal in her bilateral upper and bilateral lower extremities including her deltoids, triceps, biceps, wrist flexors, extensors, interossei, intrinsic heel cover splitter iliopsoas, hamstrings, quadriceps, plantar flexion, dorsiflexion and EHL. Her sensation is intact in bilateral upper and bilateral lower extremities. DIAGNOSTIC REVIEW: Head CT done on 11/02/2016 demonstrating an increased mixed density and subdural hematoma on the right-hand side that is appearing more chronic in nature. There is a small amount of increased [id number] midline shift. There is no evidence of acute new hemorrhage. ASSESSMENT AND PLAN: The patient is a 81-year-old female who presents to the emergency room with worsening nausea, who has evidence of a slight increase in her right-sided subdural hematoma with some increased nausea. At this point in time, she is otherwise neurologically intact and denies any headaches. Patient seen both by Dr. Louise and me in the emergency room at approximately 1600. At this point in time, we recommended admitting the patient to the step down unit with q.2 hour neuro checks. Will start tranexamic acid 650 mg b.i.d. and monitor her carefully. It was discussed with the Medicine team that at this point in time would not recommend surgical intervention, and it is okay if the patient eats. We will continue to monitor her carefully. Will order a repeat head CT if her exam or symptoms worsen. /[id number]/MODL MTDD
[2016-11-03 05:21] LABS: HEMATOCRIT 30.6 % (38.0-47.0); HEMOGLOBIN 10.2 g/dL (12.6-16.3); MEAN CELL HEMOGLOBIN CONCENTR. 33.3 g/dL (32.4-36.7); RED BLOOD CELL COUNT 3.29 10^6/uL (4.18-5.33)
[2016-11-03 05:33] LABS: ANION GAP 10 mEq/L (8-16); CARBON DIOXIDE 19 mEq/l (22-31); CHLORIDE 99 mEq/L (97-110); CREATININE 0.8 mg/dL (0.6-1.0); GLOMERULAR FILTRATION RATE > 60; GLUCOSE 73 mg/dL (70-100); SODIUM 128 mEq/L (134-144)
--- NOTE | 2016-11-03 08:04 | SOAPPROG ---
SOAP Progress Note Assessment/Plan: Assessment: 81 yo F with right subacute SDH Plan: neuro: stable and feeling better this am, nausea improved today. We will continue to follow her SDH clinically for now. If she has worsening headaches, nausea or enlarging SDH then we will consider surgery. on Tranexamic acid hyponatremia: likely contributing to worsening symptoms, would like NA > 130, currently 128. Will let IM address PT/OT/ST please call with neuro changes patient was seen by Dr Louise this morning 11/03/16 07:59 Subjective: headacahes and nausea better this morning. No weakness. Objective: Vital Signs Temp Pulse Resp BP Pulse Ox 36.9 C 92 16 118/60 93 11/03/16 07:51 11/03/16 07:51 11/03/16 07:51 11/03/16 07:51 11/03/16 07:51 Laboratory Results 11/03/16 04:56 11/03/16 04:56 11/02/16 11/03/16 11/04/16 05:59 05:59 05:59 Intake Total 400 Output Total 200 Balance 200 PT 14.5 SEC (12.0-15.0) 11/02/16 17:21 INR 1.14 (0.83-1.16) 11/02/16 17:21 AAOx4, +FC PERRL, EOMI, no facial droop JAYDA x 4 + light touch ICD10 Worksheet Patient Problems: Problems Problem Status Onset Nausea & vomiting Acute Subdural hematoma Acute Dehydration Acute Elevated troponin Acute Primary localized osteoarthritis of right knee Acute Subarachnoid hemorrhage Acute Syncope Acute TIA (transient ischemic attack) Acute Troponin I above reference range Acute Vomiting and diarrhea Acute
--- NOTE | 2016-11-03 08:39 | HOSPPROG ---
Hospitalist Progress Note Assessment/Plan: Patient is a 81-year-old female who was recently admitted with syncope and found to have a subdural hemorrhage. She was transferred from rehab her she developed nausea and vomiting. Emergency room a CT showed enlarging subdural bleed. Today is my 1st encounter with the patient. Chart reviewed. * subdural subacute hematoma Started on tranexamic acid 650 mg bid Having a mild headache this morning * nausea and vomiting Resolved, will advance her diet from clear liquids * history of syncope A link monitor was placed on her recent admission Per research nurse practitioner pest control service representative. The link monitor shows sinus rhythm * chronic anemia follow * abnormal stress test with noted lateral ischemia Being managed with beta imelda and statin, aspirin is currently contraindicated * hyponatremia Secondary to see SIADH * history of Sjogren syndrome low dose prednisone * plan. Will monitor through today hopefully she can return to inpatient rehab soon. Appreciate neurosurgery involvement Subjective: Darya is complaining of a headache. Says this is been chronic Objective: Vital Signs Temp Pulse Resp BP Pulse Ox 36.9 C 92 16 118/60 93 11/03/16 07:51 11/03/16 07:51 11/03/16 07:51 11/03/16 07:51 11/03/16 07:51 Laboratory Results 11/03/16 04:56 11/03/16 04:56 11/02/16 11/03/16 11/04/16 05:59 05:59 05:59 Intake Total 400 Output Total 200 Balance 200 PT 14.5 SEC (12.0-15.0) 11/02/16 17:21 INR 1.14 (0.83-1.16) 11/02/16 17:21 - Physical Exam Constitutional: uncomfortable Eyes: PERRL Ears, Nose, Mouth, Throat: hearing normal Cardiovascular: regular rate and rhythym Respiratory: no respiratory distress Skin: warm Musculoskeletal: generalized weakness Neurologic: AAOx3 Psychiatric: interacting appropriately ICD10 Worksheet Patient Problems: Problems Problem Status Onset Nausea & vomiting Acute Subdural hematoma Acute Dehydration Acute Elevated troponin Acute Primary localized osteoarthritis of right knee Acute Subarachnoid hemorrhage Acute Syncope Acute TIA (transient ischemic attack) Acute Troponin I above reference range Acute Vomiting and diarrhea Acute
[2016-11-03] MEDS ORDERED: PANTOPRAZOLE SODIUM 40 MG TAB PO PRN (09:00)
[2016-11-03] MEDS: TRANEXAMIC ACID 650 MG TAB PO SCH ×2 (09:32→20:43)
[2016-11-03] MEDS: PILOCARPINE HCL 5 MG TAB PO SCH ×2 (09:32→20:44)
[2016-11-03] MEDS: HYDROXYCHLOROQUINE SULFATE 200 MG TAB PO SCH ×2 (09:32→20:43)
[2016-11-03] MEDS: predniSONE 1 MG TAB PO SCH (09:32)
[2016-11-03] MEDS: METOPROLOL SUCCINATE XR 25 MG TAB PO SCH (09:32)
[2016-11-03] MEDS: SENNOSIDES/DOCUSATE SODIUM TAB PO SCH ×2 (09:32→20:46)
[2016-11-03] MEDS: CYCLOSPORINE 0.05% 1 EACH BOX EACHEYE SCH ×2 (10:10→22:09)
--- NOTE | 2016-11-03 12:22 | ASMTCMCOM ---
CM Note CM Note Notes: Pt has increasing subderal hematoma, n/v; is currently in rehab at [facility]. [facility] sent updates via [employer]. PT/OT evals pending. Plan is for pt to return to [facility] when medically stable. Date Signed: 11/03/2016 12:21 PM Electronically Signed By:AUNDREA Regan
[2016-11-03] MEDS: ONDANSETRON DISINTEGRATING 4 MG TAB PO PRN (15:30)
--- NOTE | 2016-11-03 16:21 | HOSPPROG ---
Hospitalist Progress Note Assessment/Plan: Patient is a 81-year-old female who was recently admitted with syncope and found to have a subdural hemorrhage. She was transferred from rehab her she developed nausea and vomiting. Emergency room a CT showed enlarging subdural bleed. Today is my 1st encounter with the patient. Chart reviewed. * subdural subacute hematoma Started on tranexamic acid 650 mg bid Having a mild headache this morning * nausea and vomiting Resolved, will advance her diet from clear liquids * history of syncope A link monitor was placed on her recent admission Per senior loan processor guest services representative. The link monitor shows sinus rhythm * chronic anemia follow * abnormal stress test with noted lateral ischemia Being managed with beta imelda and statin, aspirin is currently contraindicated * hyponatremia Secondary to see SIADH * history of Sjogren syndrome low dose prednisone * plan. notified by radiology about CT Scan results/ concern for r to left shift / I spoke w neurosurgery/will make her NPO for now. Patient having some emesis / will give iv fluids. Objective: Vital Signs Temp Pulse Resp BP Pulse Ox 37 C 91 20 112/52 L 96 11/03/16 11:35 11/03/16 11:35 11/03/16 11:35 11/03/16 11:35 11/03/16 11:35 Laboratory Results 11/03/16 04:56 11/03/16 04:56 11/02/16 11/03/16 11/04/16 05:59 05:59 05:59 Intake Total 400 Output Total 200 Balance 200 PT 14.5 SEC (12.0-15.0) 11/02/16 17:21 INR 1.14 (0.83-1.16) 11/02/16 17:21 ICD10 Worksheet Patient Problems: Problems Problem Status Onset Nausea & vomiting Acute Subdural hematoma Acute Dehydration Acute Elevated troponin Acute Primary localized osteoarthritis of right knee Acute Subarachnoid hemorrhage Acute Syncope Acute TIA (transient ischemic attack) Acute Troponin I above reference range Acute Vomiting and diarrhea Acute
[2016-11-03] MEDS: NS 1,000 ML IV SCH (16:33)
[2016-11-03 18:22] LABS: ANION GAP 10 mEq/L (8-16); CALCIUM 8.8 mg/dL (8.5-10.4); CARBON DIOXIDE 19 mEq/l (22-31); CHLORIDE 97 mEq/L (97-110); CREATININE 0.9 mg/dL (0.6-1.0); GLOMERULAR FILTRATION RATE > 60; GLUCOSE 88 mg/dL (70-100); POTASSIUM 4.1 mEq/L (3.5-5.2); SODIUM 126 mEq/L (134-144)
[2016-11-03] MEDS: ROSUVASTATIN CALCIUM 10 MG TAB PO SCH (20:42)
[2016-11-03] MEDS: GABAPENTIN 300 MG CAP PO SCH (20:44)
[2016-11-03] MEDS: ZOLPIDEM TARTRATE 5 MG TAB PO SCH (20:45)
[2016-11-03] MEDS: LEVOTHYROXINE 50 MCG TAB PO SCH (20:46)
[2016-11-04] MEDS: ACETAMINOPHEN 325 MG TAB PO PRN ×3 (00:34→22:11)
--- NOTE | 2016-11-04 01:46 | HOSPPROG ---
Hospitalist Progress Note Assessment/Plan: Cross cover: called by RN about worsening right-sided/parietal headache. Patient states this is worsening from prior and now 10/31. Neurologic exam is stable at this time and patient denies any new symptoms or visual disturbances. Will obtain CT Head w/o STAT noting known subdural hematoma. Objective: Vital Signs Temp Pulse Resp BP Pulse Ox 36.9 C 78 16 134/58 H 90 L 11/03/16 23:25 11/03/16 23:25 11/03/16 23:25 11/03/16 23:25 11/03/16 23:25 Laboratory Results 11/03/16 04:56 11/03/16 17:30 11/02/16 11/03/16 11/04/16 05:59 05:59 05:59 Intake Total 400 1800 Output Total 200 650 Balance 200 1150 PT 14.5 SEC (12.0-15.0) 11/02/16 17:21 INR 1.14 (0.83-1.16) 11/02/16 17:21 ICD10 Worksheet Patient Problems: Problems Problem Status Onset Nausea & vomiting Acute Subdural hematoma Acute Dehydration Acute Elevated troponin Acute Primary localized osteoarthritis of right knee Acute Subarachnoid hemorrhage Acute Syncope Acute TIA (transient ischemic attack) Acute Troponin I above reference range Acute Vomiting and diarrhea Acute
[2016-11-04] MEDS: NS 1,000 ML IV SCH (05:17)
--- NOTE | 2016-11-04 07:38 | SOAPPROG ---
SOAP Progress Note Assessment/Plan: Assessment: 81 yo F with right subacute SDH Plan: neuro: stable but continued nausea and headaches yesterday We will continue to follow her SDH clinically for now. If she has worsening headaches, nausea or enlarging SDH then we will consider surgery. on Tranexamic acid. Patient does not need any more head CTs unless her condition changes dramatically. She has undergone 3 head CTs in 36 hours. hyponatremia: likely contributing to worsening symptoms, would like NA > 130, currently 126. Will likely start 1.8% Nacl to slowly raise Na PT/OT/ST please call with neuro changes patient was seen by Dr Louise this morning 11/03/16 07:59 11/04/16 07:35 11/04/16 07:37 Subjective: continued headaches, some nausea last night but no emesis. Objective: Vital Signs Temp Pulse Resp BP Pulse Ox 37.1 C 75 16 136/58 H 92 11/04/16 03:43 11/04/16 03:43 11/04/16 03:43 11/04/16 03:43 11/04/16 03:43 Laboratory Results 11/03/16 04:56 11/03/16 17:30 11/03/16 11/04/16 11/05/16 05:59 05:59 05:59 Intake Total 400 2765 Output Total 200 650 Balance 200 2115 PT 14.5 SEC (12.0-15.0) 11/02/16 17:21 INR 1.14 (0.83-1.16) 11/02/16 17:21 AAOx4, +FC PERRL, EOMI, no facial droop JAYDA x 4 + light touch ICD10 Worksheet Patient Problems: Problems Problem Status Onset Nausea & vomiting Acute Subdural hematoma Acute Dehydration Acute Elevated troponin Acute Primary localized osteoarthritis of right knee Acute Subarachnoid hemorrhage Acute Syncope Acute TIA (transient ischemic attack) Acute Troponin I above reference range Acute Vomiting and diarrhea Acute
[2016-11-04] MEDS: predniSONE 1 MG TAB PO SCH (09:32)
[2016-11-04] MEDS: TRANEXAMIC ACID 650 MG TAB PO SCH ×3 (09:33→22:11)
[2016-11-04] MEDS: SENNOSIDES/DOCUSATE SODIUM TAB PO SCH ×3 (09:34→21:35)
[2016-11-04] MEDS: HYDROXYCHLOROQUINE SULFATE 200 MG TAB PO SCH ×2 (09:35→21:21)
[2016-11-04] MEDS: METOPROLOL SUCCINATE XR 25 MG TAB PO SCH (09:35)
[2016-11-04] MEDS: PILOCARPINE HCL 5 MG TAB PO SCH ×2 (09:36→21:29)
[2016-11-04] MEDS: ONDANSETRON 4 MG/2 ML VIAL IVP PRN (09:42)
[2016-11-04] MEDS: SODIUM CL 23.4% 308 MEQ in WATER FOR INJECTION,STERILE 1,000 ML IV SCH (09:44)
[2016-11-04] MEDS: CYCLOSPORINE 0.05% 1 EACH BOX EACHEYE SCH ×2 (10:35→21:28)
[2016-11-04] MEDS: PROMETHAZINE HCL 25 MG/ML INJ IVP PRN ×2 (12:10→18:28)
--- NOTE | 2016-11-04 15:05 | HOSPPROG ---
Hospitalist Progress Note Assessment/Plan: Patient is a 81-year-old female who was recently admitted with syncope and found to have a subdural hemorrhage. She was transferred from rehab her she developed nausea and vomiting. Emergency room a CT showed enlarging subdural bleed. Today is my 1st encounter with the patient. Chart reviewed. D/W Luis Ramírez. * subdural subacute hematoma Started on tranexamic acid 650 mg bid Having a mild headache this morning * nausea and vomiting continues *Diarrhea check cdiff follow * history of syncope A link monitor was placed on her recent admission Per flooring helper wholesale representative. The link monitor shows sinus rhythm * chronic anemia follow * abnormal stress test with noted lateral ischemia Being managed with beta imelda and statin, aspirin is currently contraindicated * hyponatremia Secondary to SIADH on saline labs ordered, still not done D/W RN multiple times difficult blood draw follow closely * history of Sjogren syndrome low dose prednisone * plan. Patient having some emesis/diarrhea on iv fluids. Subjective: Still having nausea and diarrhea. Mild headache. Objective: Vital Signs Temp Pulse Resp BP Pulse Ox 36.5 C 82 16 172/76 H 96 11/04/16 12:00 11/04/16 14:03 11/04/16 12:00 11/04/16 14:03 11/04/16 12:00 Laboratory Results 11/03/16 04:56 11/03/16 17:30 11/03/16 11/04/16 11/05/16 05:59 05:59 05:59 Intake Total 400 2765 Output Total 200 650 1 Balance 200 2115 -1 PT 14.5 SEC (12.0-15.0) 11/02/16 17:21 INR 1.14 (0.83-1.16) 11/02/16 17:21 - Physical Exam Constitutional: not in pain, chronically ill appearing, uncomfortable Eyes: PERRL, anicteric sclera, EOMI Ears, Nose, Mouth, Throat: moist mucous membranes, hearing normal, ears appear normal Cardiovascular: No JVD, No tachycardia, No edema Respiratory: no respiratory distress, no rales or rhonchi, reduced air movement Gastrointestinal: normoactive bowel sounds, No tenderness, No ascites Skin: warm, normal color, No erythema Musculoskeletal: normal joint ROM, no joint effusions, generalized weakness Neurologic: AAOx3 Psychiatric: not anxious, not encephalopathic, thought process linear ICD10 Worksheet Patient Problems: Problems Problem Status Onset Vomiting and diarrhea Acute Dehydration Acute Elevated troponin Acute Syncope Acute Subdural hematoma Acute Subarachnoid hemorrhage Acute Nausea & vomiting Acute Primary localized osteoarthritis of right knee Acute Troponin I above reference range Acute TIA (transient ischemic attack) Acute
[2016-11-04 16:02] LABS: ANION GAP 12 mEq/L (8-16); CALCIUM 8.5 mg/dL (8.5-10.4); CARBON DIOXIDE 17 mEq/l (22-31); CHLORIDE 99 mEq/L (97-110); CREATININE 0.7 mg/dL (0.6-1.0); GLOMERULAR FILTRATION RATE > 60; GLUCOSE 81 mg/dL (70-100); POTASSIUM 3.8 mEq/L (3.5-5.2); SODIUM 128 mEq/L (134-144)
[2016-11-04] MEDS: ONDANSETRON DISINTEGRATING 4 MG TAB PO PRN (16:28)
[2016-11-04] MEDS ORDERED: ALTEPLASE 2 MG VIAL IVP PRN (18:35)
[2016-11-04] MEDS: GABAPENTIN 300 MG CAP PO SCH (21:21)
[2016-11-04] MEDS: ZOLPIDEM TARTRATE 5 MG TAB PO SCH (21:22)
[2016-11-04] MEDS: LEVOTHYROXINE 50 MCG TAB PO SCH (21:28)
[2016-11-04] MEDS: ROSUVASTATIN CALCIUM 10 MG TAB PO SCH (21:34)
--- NOTE | 2016-11-05 07:36 | NEUSURGPN ---
Assessment/Plan: Assessment: 81 yo F with right subacute SDH Plan: neuro: stable. States she feels improved this AM compared to yesterday. We will continue to follow her SDH clinically for now. If she has worsening headaches, nausea or enlarging SDH then we will consider surgery. on Tranexamic acid. Patient does not need any more head CTs unless her condition changes dramatically. She has undergone 3 head CTs in 36 hours. hyponatremia: likely contributing to worsening symptoms, would like NA > 130, currently 128. On 1.8% Nacl to slowly raise Na PT/OT/ST please call with neuro changes patient was d/w Dr Louise this morning Subjective: Pt resting in bed. Denies headache or nausea at this time. Objective: AAOx3 NAD VSS CN II-XII grossly intact Motor 5/5 BUE/BLE +LT Urinary Catheter in Place: No - Physician Discussed Patient with Dr.: Louise Neurosurgery Physical Exam - Vitals, I&O, Labs I and O 11/04/16 11/05/16 11/06/16 05:59 05:59 05:59 Intake Total 2765 400 Output Total 650 851 Balance 2115 -451 Intake: Oral (ml) 2100 IV Infused (ml) 665 400 Ns 1,000 ml @ 75 mls/hr 665 IV CONT MARY Rx#: [id number] Sodium Cl 23.4% 308 meq 400 In Water For Injection, Sterile 1,000 ml @ 50 mls /hr IV CONT MARY Rx#: [id number] Output: Urine (ml) 650 851 Bedside Commode 650 451 Toilet 400 Other: Number of Voids Bedside Commode 1 2 Toilet 1 1 Number of Stools Bedside Commode 1 1 Vital Signs Temp Pulse Resp BP Pulse Ox 37.6 C 90 18 151/80 H 95 11/05/16 04:00 11/05/16 04:00 11/05/16 04:00 11/05/16 04:00 11/05/16 04:00 Laboratory Results 11/03/16 04:56 11/04/16 15:32 ICD10 Worksheet Patient Problems: Problems Problem Status Onset Nausea & vomiting Acute Subdural hematoma Acute Dehydration Acute Elevated troponin Acute Primary localized osteoarthritis of right knee Acute Subarachnoid hemorrhage Acute Syncope Acute TIA (transient ischemic attack) Acute Troponin I above reference range Acute Vomiting and diarrhea Acute
[2016-11-05] MEDS: ACETAMINOPHEN 325 MG TAB PO PRN ×3 (08:46→20:19)
[2016-11-05] MEDS: TRANEXAMIC ACID 650 MG TAB PO SCH ×2 (08:47→20:20)
[2016-11-05] MEDS: predniSONE 1 MG TAB PO SCH (08:47)
[2016-11-05] MEDS: HYDROXYCHLOROQUINE SULFATE 200 MG TAB PO SCH ×2 (08:47→20:20)
[2016-11-05] MEDS: PILOCARPINE HCL 5 MG TAB PO SCH ×2 (08:48→20:25)
[2016-11-05] MEDS: METOPROLOL SUCCINATE XR 25 MG TAB PO SCH (08:48)
[2016-11-05] MEDS: SENNOSIDES/DOCUSATE SODIUM TAB PO SCH ×2 (09:00→20:25)
[2016-11-05] MEDS: CYCLOSPORINE 0.05% 1 EACH BOX EACHEYE SCH ×2 (09:00→20:27)
[2016-11-05 10:01] LABS: ANION GAP 13 mEq/L (8-16); CALCIUM 8.9 mg/dL (8.5-10.4); CARBON DIOXIDE 16 mEq/l (22-31); CHLORIDE 101 mEq/L (97-110); CREATININE 0.7 mg/dL (0.6-1.0); GLOMERULAR FILTRATION RATE > 60; GLUCOSE 105 mg/dL (70-100); POTASSIUM 3.4 mEq/L (3.5-5.2); SODIUM 130 mEq/L (134-144)
--- NOTE | 2016-11-05 12:16 | HOSPPROG ---
Hospitalist Progress Note Assessment/Plan: Patient is a 81-year-old female who was recently admitted with syncope and found to have a subdural hemorrhage. She was transferred from rehab her she developed nausea and vomiting. Emergency room a CT showed enlarging subdural bleed. 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 Continue supportive care check na in am likely titrate off IVF Subjective: Feeling much better today. No nausea or headache. Objective: Vital Signs Temp Pulse Resp BP Pulse Ox 36.9 C 80 18 155/77 H 96 11/05/16 12:00 11/05/16 12:00 11/05/16 12:00 11/05/16 12:00 11/05/16 12:00 Laboratory Results 11/03/16 04:56 11/05/16 09:41 11/04/16 11/05/16 11/06/16 05:59 05:59 05:59 Intake Total 2765 400 250 Output Total 650 851 300 Balance 2115 -451 -50 PT 14.5 SEC (12.0-15.0) 11/02/16 17:21 INR 1.14 (0.83-1.16) 11/02/16 17:21 - Physical Exam Constitutional: not in pain, chronically ill appearing Eyes: PERRL, anicteric sclera, EOMI Ears, Nose, Mouth, Throat: moist mucous membranes, hearing normal, ears appear normal Cardiovascular: regular rate and rhythym, No JVD Respiratory: no respiratory distress, reduced air movement Gastrointestinal: normoactive bowel sounds, No tenderness, No ascites Skin: warm, normal color, No mottled Musculoskeletal: no joint effusions, generalized weakness Neurologic: AAOx3 Psychiatric: interacting appropriately, not anxious, not encephalopathic ICD10 Worksheet Patient Problems: Problems Problem Status Onset Vomiting and diarrhea Acute Dehydration Acute Elevated troponin Acute Syncope Acute Subdural hematoma Acute Subarachnoid hemorrhage Acute Nausea & vomiting Acute Primary localized osteoarthritis of right knee Acute Troponin I above reference range Acute TIA (transient ischemic attack) Acute
[2016-11-05] MEDS: SODIUM CL 23.4% 308 MEQ in WATER FOR INJECTION,STERILE 1,000 ML IV SCH (13:33)
--- NOTE | 2016-11-05 15:57 | ASMTCMCOM ---
CM Note CM Note Notes: Pt n/v has improved, neurology is monitoring for normalization of her sodium. Plan remains return to [facility] when medically stable. [facility] sent updated clinicals. Date Signed: 11/05/2016 03:56 PM Electronically Signed By:AUNDREA Regan
[2016-11-05] MEDS: ROSUVASTATIN CALCIUM 10 MG TAB PO SCH (20:17)
[2016-11-05] MEDS: GABAPENTIN 300 MG CAP PO SCH (20:19)
[2016-11-05] MEDS: ZOLPIDEM TARTRATE 5 MG TAB PO SCH (20:20)
[2016-11-05] MEDS: LEVOTHYROXINE 50 MCG TAB PO SCH (20:20)
[2016-11-06] MEDS: ACETAMINOPHEN 325 MG TAB PO PRN ×3 (03:20→21:46)
[2016-11-06 08:01] LABS: ANION GAP 7 mEq/L (8-16); CALCIUM 8.1 mg/dL (8.5-10.4); CARBON DIOXIDE 19 mEq/l (22-31); CHLORIDE 105 mEq/L (97-110); CREATININE 0.6 mg/dL (0.6-1.0); GLOMERULAR FILTRATION RATE > 60; GLUCOSE 93 mg/dL (70-100); POTASSIUM 3.1 mEq/L (3.5-5.2); SODIUM 131 mEq/L (134-144)
--- NOTE | 2016-11-06 08:24 | NEUSURGPN ---
Assessment/Plan: Assessment: 81 yo F with right subacute SDH Plan: neuro: stable. States she feels improved this AM compared to yesterday. We will continue to follow her SDH clinically for now. If she has worsening headaches, nausea or enlarging SDH then we will consider surgery. on Tranexamic acid. Patient does not need any more head CTs unless her condition changes dramatically. She has undergone 3 head CTs in 36 hours. hyponatremia: likely contributing to worsening symptoms, would like NA > 130, currently 131. PT/OT/ST please call with neuro changes Continue TXA 650mg bid Subjective: Denies any head, nausea improved. Mild headache, alleviated with Tylenol Objective: NAD A&Ox3 CN II-XII grossly intact. EOMI. PERRLA. MAEx4 06/25 and equal in BUE and BLE - Physician Discussed Patient with : [facility] Physical Exam - Vitals, I&O, Labs I and O 11/05/16 11/06/16 11/07/16 05:59 05:59 05:59 Intake Total 400 1000 Output Total 851 300 Balance -451 700 Intake: Oral (ml) 1000 IV Infused (ml) 400 Sodium Cl 23.4% 308 meq 400 In Water For Injection, Sterile 1,000 ml @ 50 mls /hr IV CONT MARY Rx#: [id number] Output: Urine (ml) 851 300 Bedside Commode 451 Toilet 400 300 Other: Intake Quantity Yes Sufficient Number of Voids Bedside Commode 2 Incontinence 2 Toilet 1 1 Number of Stools Bedside Commode 1 Vital Signs Temp Pulse Resp BP Pulse Ox 36.6 C 89 17 158/92 H 95 11/06/16 08:00 11/06/16 08:00 11/06/16 08:00 11/06/16 08:00 11/06/16 08:00 Laboratory Results 11/03/16 04:56 11/06/16 07:32 ICD10 Worksheet Patient Problems: Problems Problem Status Onset Nausea & vomiting Acute Subdural hematoma Acute Dehydration Acute Elevated troponin Acute Primary localized osteoarthritis of right knee Acute Subarachnoid hemorrhage Acute Syncope Acute TIA (transient ischemic attack) Acute Troponin I above reference range Acute Vomiting and diarrhea Acute
[2016-11-06] MEDS: SODIUM CL 23.4% 308 MEQ in WATER FOR INJECTION,STERILE 1,000 ML IV SCH (08:56)
[2016-11-06] MEDS: predniSONE 1 MG TAB PO SCH (09:01)
[2016-11-06] MEDS: PILOCARPINE HCL 5 MG TAB PO SCH ×2 (09:02→22:31)
[2016-11-06] MEDS: TRANEXAMIC ACID 650 MG TAB PO SCH ×2 (09:02→21:41)
[2016-11-06] MEDS: METOPROLOL SUCCINATE XR 25 MG TAB PO SCH (09:02)
[2016-11-06] MEDS: HYDROXYCHLOROQUINE SULFATE 200 MG TAB PO SCH ×2 (09:02→22:31)
[2016-11-06] MEDS: SENNOSIDES/DOCUSATE SODIUM TAB PO SCH ×2 (09:03→22:31)
[2016-11-06] MEDS: CYCLOSPORINE 0.05% 1 EACH BOX EACHEYE SCH ×2 (09:06→22:31)
--- NOTE | 2016-11-06 12:08 | HOSPPROG ---
Hospitalist Progress Note Assessment/Plan: Patient is a 81-year-old female who was recently admitted with syncope and found to have a subdural hemorrhage. She was transferred from rehab her she developed nausea and vomiting. * subdural subacute hematoma Started on tranexamic acid 650 mg bid doing better * nausea and vomiting resolved today *Diarrhea cdiff negative none today * history of syncope A link monitor was placed on her recent admission Per [facility] representative. The link monitor shows sinus rhythm * chronic anemia follow * abnormal stress test with noted lateral ischemia Being managed with beta imelda and statin, aspirin is currently contraindicated * hyponatremia Secondary to SIADH DC saline infusion check metp in am follow closely * history of Sjogren syndrome low dose prednisone * plan. Continue supportive care check na in am home soon if na conts to be stable Subjective: Feeling tired today. No new issues. No pain. Objective: Vital Signs Temp Pulse Resp BP Pulse Ox 36.6 C 86 16 150/76 H 97 11/06/16 08:00 11/06/16 11:39 11/06/16 11:39 11/06/16 11:39 11/06/16 11:39 Laboratory Results 11/03/16 04:56 11/06/16 07:32 11/05/16 11/06/16 11/07/16 05:59 05:59 05:59 Intake Total 400 1000 380 Output Total 851 300 Balance -451 700 380 PT 14.5 SEC (12.0-15.0) 11/02/16 17:21 INR 1.14 (0.83-1.16) 11/02/16 17:21 - Physical Exam Constitutional: not in pain, cachectic Eyes: PERRL, anicteric sclera Ears, Nose, Mouth, Throat: moist mucous membranes, hearing normal Cardiovascular: No JVD, No edema Respiratory: no respiratory distress, reduced air movement Gastrointestinal: No tenderness, No ascites Skin: warm, normal color Musculoskeletal: normal joint ROM, generalized weakness Neurologic: AAOx3 Psychiatric: interacting appropriately, not anxious, not encephalopathic ICD10 Worksheet Patient Problems: Problems Problem Status Onset Vomiting and diarrhea Acute Dehydration Acute Elevated troponin Acute Syncope Acute Subdural hematoma Acute Subarachnoid hemorrhage Acute Nausea & vomiting Acute Primary localized osteoarthritis of right knee Acute Troponin I above reference range Acute TIA (transient ischemic attack) Acute
[2016-11-06] MEDS: ONDANSETRON DISINTEGRATING 4 MG TAB PO PRN (20:31)
[2016-11-06] MEDS: ONDANSETRON 4 MG/2 ML VIAL IVP PRN (21:34)
[2016-11-06] MEDS: ZOLPIDEM TARTRATE 5 MG TAB PO SCH (21:42)
[2016-11-06] MEDS: ROSUVASTATIN CALCIUM 10 MG TAB PO SCH (21:43)
[2016-11-06] MEDS: GABAPENTIN 300 MG CAP PO SCH (22:31)
[2016-11-06] MEDS: LEVOTHYROXINE 50 MCG TAB PO SCH (22:31)
[2016-11-07] MEDS: ONDANSETRON DISINTEGRATING 4 MG TAB PO PRN (03:11)
[2016-11-07] MEDS: ACETAMINOPHEN 325 MG TAB PO PRN ×2 (04:18→21:15)
[2016-11-07] MEDS: PROMETHAZINE HCL 25 MG/ML INJ IVP PRN ×2 (04:50→21:16)
[2016-11-07 05:27] LABS: ANION GAP 7 mEq/L (8-16); CALCIUM 8.4 mg/dL (8.5-10.4); CARBON DIOXIDE 22 mEq/l (22-31); CHLORIDE 98 mEq/L (97-110); CREATININE 0.7 mg/dL (0.6-1.0); GLOMERULAR FILTRATION RATE > 60; GLUCOSE 86 mg/dL (70-100); POTASSIUM 3.1 mEq/L (3.5-5.2); SODIUM 127 mEq/L (134-144)
[2016-11-07] MEDS: TRANEXAMIC ACID 650 MG TAB PO SCH ×2 (09:16→21:02)
[2016-11-07] MEDS: SODIUM CHLORIDE 1,000 MG TAB PO SCH ×2 (09:16→17:53)
[2016-11-07] MEDS: HYDROXYCHLOROQUINE SULFATE 200 MG TAB PO SCH ×2 (09:17→21:01)
[2016-11-07] MEDS: predniSONE 1 MG TAB PO SCH (09:17)
[2016-11-07] MEDS: SENNOSIDES/DOCUSATE SODIUM TAB PO SCH ×2 (09:17→21:03)
[2016-11-07] MEDS: PILOCARPINE HCL 5 MG TAB PO SCH ×2 (09:17→21:04)
[2016-11-07] MEDS: METOPROLOL SUCCINATE XR 25 MG TAB PO SCH (09:17)
[2016-11-07] MEDS: CYCLOSPORINE 0.05% 1 EACH BOX EACHEYE SCH ×2 (09:26→22:32)
--- NOTE | 2016-11-07 10:02 | NEUSURGPN ---
Assessment/Plan: Assessment: 81 yo F with right subacute SDH Plan: neuro: stable. We will continue to follow her SDH clinically for now. If she has worsening headaches, nausea or enlarging SDH then we will consider surgery. on Tranexamic acid. Patient does not need any more head CTs unless her condition changes dramatically. hyponatremia: likely contributing to worsening symptoms, would like NA > 130, currently 127. Medicine following closely and Salt tabs order this morning PT/OT/ST please call with neuro changes Continue TXA 650mg bid Continue Q4 hour neuro checks Subjective: Nausea this morning Objective: NAD A&Ox3 MAEx4 5/5 and equal in BUE and BLE. CN II-XII grossly intact [facility] Neurosurgery Physical Exam - Vitals, I&O, Labs I and O 11/06/16 11/07/16 11/08/16 05:59 05:59 05:59 Intake Total 1000 830 Output Total 300 450 200 Balance 700 380 -200 Intake: Oral (ml) 1000 830 Output: Urine (ml) 300 450 200 Incontinence 450 Toilet 300 200 Other: Intake Quantity Yes No Sufficient Number of Voids Incontinence 2 1 Toilet 1 2 1 Number of Stools Incontinence 1 Toilet 1 Vital Signs Temp Pulse Resp BP Pulse Ox 36.4 C 74 16 134/69 H 96 11/07/16 07:23 11/07/16 07:23 11/07/16 07:23 11/07/16 07:23 11/07/16 07:23 Laboratory Results 11/03/16 04:56 11/07/16 04:49 ICD10 Worksheet Patient Problems: Problems Problem Status Onset Nausea & vomiting Acute Subdural hematoma Acute Dehydration Acute Elevated troponin Acute Primary localized osteoarthritis of right knee Acute Subarachnoid hemorrhage Acute Syncope Acute TIA (transient ischemic attack) Acute Troponin I above reference range Acute Vomiting and diarrhea Acute
[2016-11-07] MEDS: SODIUM CL 23.4% 308 MEQ in WATER FOR INJECTION,STERILE 1,000 ML IV SCH (12:54)
--- NOTE | 2016-11-07 13:29 | HOSPPROG ---
Hospitalist Progress Note Assessment/Plan: Patient is a 81-year-old female who was recently admitted with syncope and found to have a subdural hemorrhage. She was transferred from rehab her she developed nausea and vomiting. 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 The link monitor shows sinus rhythm * chronic anemia follow * abnormal stress test with noted lateral ischemia Being managed with beta imelda and statin, aspirin is currently contraindicated * hyponatremia Secondary to SIADH and possible salt wasting DC'd saline infusion over night, pt did not tolerate NA down to 127 and symptomatic restarted 1.8% saline salt tabs BID, reviewed with Dr Kumari([facility]) agrees fluid restriction 800ml check metp in am follow closely * history of Sjogren syndrome low dose prednisone *Nutrition poor PO intake making hyponatremia worse encourage increased intake * plan. Continue supportive care check na in am return to rehab when na stable reviewed with at bedside Subjective: Feeling terrible. Nausea and vomitting. Weak and tired. Objective: Vital Signs Temp Pulse Resp BP Pulse Ox 36.1 C 81 16 151/71 H 92 11/07/16 11:27 11/07/16 11:27 11/07/16 11:27 11/07/16 11:27 11/07/16 11:27 Laboratory Results 11/03/16 04:56 11/07/16 04:49 11/06/16 11/07/16 11/08/16 05:59 05:59 05:59 Intake Total 1000 830 Output Total 300 450 200 Balance 700 380 -200 PT 14.5 SEC (12.0-15.0) 11/02/16 17:21 INR 1.14 (0.83-1.16) 11/02/16 17:21 - Physical Exam Constitutional: not in pain, chronically ill appearing, uncomfortable Eyes: PERRL, anicteric sclera, EOMI Ears, Nose, Mouth, Throat: moist mucous membranes, hearing normal, ears appear normal Cardiovascular: No JVD, No tachycardia, No edema Respiratory: no respiratory distress, no rales or rhonchi, reduced air movement Gastrointestinal: No tenderness, No ascites, No guarding, No distension Skin: warm, normal color, No mottled Musculoskeletal: normal joint ROM, no joint effusions, generalized weakness, No pain with ROM Neurologic: AAOx3 Psychiatric: interacting appropriately, not anxious, not encephalopathic, thought process linear ICD10 Worksheet Patient Problems: Problems Problem Status Onset Vomiting and diarrhea Acute Dehydration Acute Elevated troponin Acute Syncope Acute Subdural hematoma Acute Subarachnoid hemorrhage Acute Nausea & vomiting Acute Primary localized osteoarthritis of right knee Acute Troponin I above reference range Acute TIA (transient ischemic attack) Acute
[2016-11-07] MEDS: GABAPENTIN 300 MG CAP PO SCH (21:00)
[2016-11-07] MEDS: LEVOTHYROXINE 50 MCG TAB PO SCH (21:00)
[2016-11-07] MEDS: ZOLPIDEM TARTRATE 5 MG TAB PO SCH (21:02)
[2016-11-07] MEDS: ROSUVASTATIN CALCIUM 10 MG TAB PO SCH (21:02)
[2016-11-08] MEDS: SODIUM CHLORIDE 1,000 MG TAB PO SCH ×2 (08:45→17:12)
[2016-11-08] MEDS: PILOCARPINE HCL 5 MG TAB PO SCH ×2 (08:45→20:56)
[2016-11-08] MEDS: METOPROLOL SUCCINATE XR 25 MG TAB PO SCH (08:45)
[2016-11-08] MEDS: TRANEXAMIC ACID 650 MG TAB PO SCH ×2 (08:45→20:57)
[2016-11-08] MEDS: HYDROXYCHLOROQUINE SULFATE 200 MG TAB PO SCH ×2 (08:45→20:56)
[2016-11-08] MEDS: predniSONE 1 MG TAB PO SCH (08:45)
[2016-11-08] MEDS: CYCLOSPORINE 0.05% 1 EACH BOX EACHEYE SCH ×2 (08:49→21:01)
[2016-11-08] MEDS: SENNOSIDES/DOCUSATE SODIUM TAB PO SCH ×2 (08:50→20:55)
[2016-11-08] MEDS: SODIUM CL 23.4% 308 MEQ in WATER FOR INJECTION,STERILE 1,000 ML IV SCH (09:53)
--- NOTE | 2016-11-08 10:20 | NEUSURGPN ---
Assessment/Plan: 81 yr old female with enlarging chronic appearing right SDH without midline shift -Patient remains neurologically stable. -We will continue to follow her SDH clinically for now-Continue Tranexamic acid. -Patient does not need any more head CTs unless her condition changes dramatically -hyponatremia: likely contributing to worsening symptoms, would like NA > 130, currently 127. Most recent Na pending. Medicine following closely. -Patient states she is chronically hyponatremic and she does not appreciate the salt tabs/fluids, we appreciate medicines input on this -PT/OT/ST -please call with neuro changes -Continue TXA 650mg bid -Continue Q4 hour neuro checks -Elva Garcia PA has long phone conversation with on phone this am regarding her plan of care Patient discussed with Dr Louise Subjective: Patient does not like the salt tabs, states she is chronically low sodium all the time Objective: A&Ox3 MAEx4 5/5 and equal in BUE and BLE CN II-XII grossly intact EMOI PERRLA Neuro Check Frequency: per routine Urinary Catheter in Place: No - Physician Discussed Patient with : [facility] Physical Exam - Vitals, I&O, Labs I and O 11/07/16 11/08/16 11/09/16 05:59 05:59 05:59 Intake Total 830 675 Output Total 450 1250 Balance 380 -575 Intake: Oral (ml) 830 375 IV Infused (ml) 300 Sodium Cl 23.4% 308 meq 300 In Water For Injection, Sterile 1,000 ml @ 50 mls /hr IV CONT [facility] Rx#: [id number] Output: Urine (ml) 450 1250 Incontinence 450 950 Toilet 300 Other: Intake Quantity No Sufficient Number of Voids Incontinence 1 2 Toilet 2 1 Number of Stools Incontinence 1 Toilet 1 Vital Signs Temp Pulse Resp BP Pulse Ox 36.8 C 93 16 152/72 H 92 11/08/16 07:52 11/08/16 07:52 11/08/16 07:52 11/08/16 07:52 11/08/16 07:52 Laboratory Results 11/03/16 04:56 ICD10 Worksheet Patient Problems: Problems Problem Status Onset Nausea & vomiting Acute Subdural hematoma Acute Dehydration Acute Elevated troponin Acute Primary localized osteoarthritis of right knee Acute Subarachnoid hemorrhage Acute Syncope Acute TIA (transient ischemic attack) Acute Troponin I above reference range Acute Vomiting and diarrhea Acute
[2016-11-08 10:24] LABS: ANION GAP 10 mEq/L (8-16); CALCIUM 8.5 mg/dL (8.5-10.4); CARBON DIOXIDE 21 mEq/l (22-31); CHLORIDE 101 mEq/L (97-110); CREATININE 0.7 mg/dL (0.6-1.0); GLOMERULAR FILTRATION RATE > 60; GLUCOSE 115 mg/dL (70-100); POTASSIUM 3.1 mEq/L (3.5-5.2); SODIUM 132 mEq/L (134-144)
--- NOTE | 2016-11-08 14:16 | HOSPPROG ---
Hospitalist Progress Note Assessment/Plan: Assessment: 81-year-old female p/w acute SDH s/p syncopal episode c/b acute on chronic hyponatremia Plan: * subdural subacute hematoma. acute, NSGY consulting, stablized, on tranexamic acid 650 mg bid - will need outpt NSGY f/u * nausea and vomiting. acute on chronic, this issue has intermittently occurred , unclear if is this truly related to hyponatremia, or exacerbated by SDH - improved s/p tx for hyponatremia * diarrhea. cdiff negative, PRN imodium * syncope. has had recurrent episodes, unclear etiology, has previously be thought to be 2/2 "dehydration", and linq monitor has been placed - per rep review, shows NSR * chronic anemia. stable, no active bleeding * abnormal stress test with noted lateral ischemia. currently on bblocker and statin, holding ASA given SDH * hyponatremia. 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's ( drinks lots of water at home to keep mouth saturated, is very attentive to this) + SIADH component and potentially recently exacerbated by SDH - significant symptoms of nausea/vomiting/weakness when level at 127 yesterday, sx improved w/ improvement in level to 132 w/ 1.8% saline, 1g bid salt tabs, tight fluid restriction (800cc/day) - counseled patient and that solid food and approx 1L/day fluid restriction is a sustainable plan, if patient can tolerate the sensation of dry mouth - recommended PO lozenges/candy to increase saliva production, patient has not enjoyed this in the past - will loosen fluid restriction to 1L/day - will increase salt tabs to 2g bid - will stop 1.8% saline - repeat 4 p.m. Na level, and q12 thereafter, gauge effect of changes - repeat Le level - d/w Dr. Stokes, appreciate renal consultation, counseled patient/ that generating a viable outpatient plan is next step, and then ensuring outpatient f /u * Sjogren syndrome. chronic, cont on low dose prednisone Diet. As tolerates, fluid restriction Code. Full PPx. High risk, SCDs, pharm contraindicated Dispo. ADD 11/09 vs. 11/10, pending stabilization of Na level above, planning on SNF Subjective: reports no nausea today, thirsty Objective: Vital Signs Temp Pulse Resp BP Pulse Ox 37.9 C 96 18 140/75 H 94 11/08/16 12:00 11/08/16 12:00 11/08/16 12:00 11/08/16 12:00 11/08/16 12:00 Laboratory Results 11/03/16 04:56 11/08/16 09:36 11/07/16 11/08/16 11/09/16 05:59 05:59 05:59 Intake Total 830 675 Output Total 450 1250 Balance 380 -575 PT 14.5 SEC (12.0-15.0) 11/02/16 17:21 INR 1.14 (0.83-1.16) 11/02/16 17:21 - Time Spent With Patient Time Spent with Patient: greater than 35 minutes Time Spent with Patient: Greater than 35 minutes spent on this patients care, greater than 50% of time spent counseling, educating, and coordinating care regarding the above mentioned plan. - Physical Exam Constitutional: no apparent distress, not in pain, chronically ill appearing, uncomfortable Ears, Nose, Mouth, Throat: other (tacky mucouse membranes) Cardiovascular: tachycardia, No systolic murmur, No irregularly irregular, No edema Respiratory: no respiratory distress, no rales or rhonchi, clear to auscultation Gastrointestinal: normoactive bowel sounds, soft, non-tender abdomen, no palpable masses Neurologic: AAOx3, sensation intact bilaterally, No weakness Psychiatric: interacting appropriately, not anxious, not encephalopathic, thought process linear ICD10 Worksheet Patient Problems: Problems Problem Status Onset Nausea & vomiting Acute Subdural hematoma Acute Dehydration Acute Elevated troponin Acute Primary localized osteoarthritis of right knee Acute Subarachnoid hemorrhage Acute Syncope Acute TIA (transient ischemic attack) Acute Troponin I above reference range Acute Vomiting and diarrhea Acute
--- NOTE | 2016-11-08 14:22 | ASMTCMCOM ---
CM Note CM Note Notes: [facility] sent clinical updates. Plan remains d/c back to [facility] when medically stable. Date Signed: 11/08/2016 02:22 PM Electronically Signed By:AUNDREA Regan
[2016-11-08] MEDS: ACETAMINOPHEN 325 MG TAB PO PRN (14:55)
[2016-11-08] MEDS ORDERED: POTASSIUM CL 20 MEQ TAB PO ONE (15:00)
--- NOTE | 2016-11-08 15:22 | PDCONSULT ---
Audio Visual Facilities Engineer Note: Assessment/Plan: Hyponatremia: pt has chronic hyponatremia usually with sodium in the low 130s. 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 She has been getting hypertonic saline for the past four days for concern that her hyponatremia is contributing to her symptoms of N/V. Her lowest sodium here has been 126, I would be surprised if she was symptomatic from that. - Stopping hypertonic saline. - Increasing sodium tabs to 2000mg BID. - Fluid restricting to 1000ml daily. - Would continue to monitor daily. Hypokalemia: K 3.1, will give KCl 40meq x1 today and continue to monitor. Thank you for the interesting consult. Nephrology will continue to follow, please call if you have any additional questions or concerns. H & P Stated Complaint: nausea and vomiting along with headache Time Seen by Provider: 11/02/16 14:42 HPI/ROS: HPI: Ms. Julian is a 81 yo F with h/o Sjogrens and hyponatremia who was admited on 11/02 for a subdural hematoma. Pt had presented initially on 10/22/16 after a syncopal event and was found to have a subdural hematoma but GCS of 15. She re- presented this time as she had worsening nausea/vomiting at home. 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 On 11/04/16, she was started on hypertonic saline at 1.8% for concern that her sodium level was contributing to her symptoms. The lowest her sodium has been this hospitalization is 126, and today it is 132. She states that she has known about the low sodium but nothing had ever been done about it before. She notes she drinks lots of water at home due to her Sjogrens. ROS: Positive per HPI, rest of 10-point ROS negative - Personal History Tetanus Vaccine Date: WITHIN THE LAST 10YRS - Medical/Surgical History Hx Asthma: No Hx Chronic Respiratory Disease: No Hx Diabetes: No Hx Cardiac Disease: No Hx Renal Disease: No Hx Cirrhosis: No Hx Alcoholism: No Hx HIV/AIDS: No Hx Splenectomy or Spleen Trauma: No Other PMH: Sjogrens, appy, gallbladder, r knee replacement, tonsils, 3 bladder tucks - Family History Significant Family History: No pertinent family hx - Social History Smoking Status: Former smoker - Physical Exam Exam: General: alert and oriented, no acute distress Eyes; EOMI, PERRL OP: Clear, MMM Neck: supple, no thyromegaly CV: RRR, +2/4 radial and dorsalis pedis pulses, no peripheral edema Resp: CTA bilat, nonlabored respirations Abd: Soft, NT/ND Neuro: CN II-XII grossly intact, no asterixis Psych: cooperative, appropriate mood and affect Skin: C/D/I, no rash Constitutional: Initial Vital Signs Temperature (C) 37.2 C 11/02/16 14:05 Heart Rate 69 11/02/16 14:05 Respiratory Rate 17 11/02/16 14:05 Blood Pressure 138/69 H 11/02/16 14:05 O2 Sat (%) 96 11/02/16 14:05 O2 Delivery Mode Room Air Allergies/Adverse Reactions: amoxicillin trihydrate [From Augmentin] Allergy (Verified 10/22/16 10:38) Vomiting ciprofloxacin [From Cipro] Allergy (Verified 10/22/16 10:38) Vomiting ciprofloxacin HCl [From Cipro] Allergy (Verified 10/22/16 10:38) Vomiting metronidazole [From Flagyl] Allergy (Verified 10/22/16 10:38) Vomiting Metronidazole HCl [From Flagyl] Allergy (Verified 10/22/16 10:38) Vomiting morphine [Morphine] Allergy (Verified 10/22/16 10:38) Vomiting nitrofurantoin [From Macrobid] Allergy (Verified 10/22/16 10:38) Unknown nitrofurantoin macrocrystalline [From Macrobid] Allergy (Verified 10/22/16 10:38 ) Unknown oxaprozin [From Daypro] Allergy (Verified 10/22/16 10:38) Vomiting potassium clavula *RETIRED-11/01/11 [From Augmentin] Allergy (Verified 10/22/16 10:38) Vomiting Sulfa (Sulfonamide Antibiotics) Allergy (Verified 10/22/16 10:38) Hives tramadol [Tramadol] Allergy (Verified 10/22/16 10:38) Vomiting Home Medications: Medication Instructions Recorded Dicyclomine [Bentyl 20 MG (*)] 20 mg PO DAILY PRN 02/08/14 Hydroxychloroquine Sulfate 200 mg PO BID 02/08/14 [Plaquenil 200 mg (*)] Levothyroxine [Synthroid 50 mcg 50 mcg PO HS 02/08/14 (*)] Omeprazole [Prilosec 20 mg] 20 mg PO DAILY PRN 02/08/14 cycloSPORINE 0.05% [Restasis Opht 1 drop EACHEYE BID 02/08/14 Drops(*)] Gabapentin [Neurontin 300 MG (*)] 1,200 mg PO HS 02/06/15 Pilocarpine HCl [Salagen 5mg (*)] 5 mg PO BID 02/06/15 Rosuvastatin Calcium [Crestor 5mg] 5 mg PO HS 07/28/16 Zolpidem Tartrate [Ambien 5MG (*)] 10 mg PO HS 07/28/16 predniSONE [Kanwal] 2 mg PO DAILY 09/30/16 Acetaminophen [Tylenol ES 500 mg 1,000 mg PO Q8H PRN tab 10/28/16 (*)] Metoprolol Succinate Xr [Toprol Xl 25 mg PO DAILY #30 tab 10/28/16 25 mg (*)] Polyethylene Glycol 3350 [Miralax 17 gm PO DAILY PRN pkt 10/28/16 17 gm (*)] Sennosides/Docusate Sodium 1 - 2 tab PO BID tab 10/28/16 [Senokot-S] Ondansetron Odt [Zofran Odt 4 mg 4 mg PO Q6H PRN 11/02/16 (*)] oxyCODONE IR [Oxycodone Ir (*)] 5 mg PO Q6H PRN 11/02/16 Lab and Imaging 11/03/16 04:56 11/08/16 09:36 WBC 6.50 10^3/uL (3.80-9.50) 11/03/16 04:56 RBC 3.29 10^6/uL (4.18-5.33) L 11/03/16 04:56 Hgb 10.2 g/dL (12.6-16.3) L 11/03/16 04:56 Hct 30.6 % (38.0-47.0) L 11/03/16 04:56 MCV 93.0 fL (81.5-99.8) 11/03/16 04:56 MCH 31.0 pg (27.9-34.1) 11/03/16 04:56 MCHC 33.3 g/dL (32.4-36.7) 11/03/16 04:56 RDW 15.0 % (11.5-15.2) 11/03/16 04:56 Plt Count 318 10^3/uL (150-400) D 11/03/16 04:56 MPV 9.2 fL (8.7-11.7) 11/02/16 16:00 Neut % (Auto) 86.7 % (39.3-74.2) H 11/02/16 16:00 Lymph % (Auto) 5.3 % (15.0-45.0) L 11/02/16 16:00 Woodson % (Auto) 6.3 % (4.5-13.0) 11/02/16 16:00 Eos % (Auto) 0.1 % (0.6-7.6) L 11/02/16 16:00 Baso % (Auto) 0.4 % (0.3-1.7) 11/02/16 16:00 Nucleat RBC Rel Count 0.0 % (0.0-0.2) 11/02/16 16:00 Absolute Neuts (auto) 6.42 10^3/uL (1.70-6.50) 11/02/16 16:00 Absolute Lymphs (auto) 0.39 10^3/uL (1.00-3.00) L 11/02/16 16:00 Absolute Monos (auto) 0.47 10^3/uL (0.30-0.80) 11/02/16 16:00 Absolute Eos (auto) 0.01 10^3/uL (0.03-0.40) L 11/02/16 16:00 Absolute Basos (auto) 0.03 10^3/uL (0.02-0.10) 11/02/16 16:00 Absolute Nucleated RBC 0.00 10^3/uL (0-0.01) 11/02/16 16:00 Immature Gran % 1.2 % (0.0-1.1) H 11/02/16 16:00 Immature Gran # 0.09 10^3/uL (0.00-0.10) 11/02/16 16:00 PT 14.5 SEC (12.0-15.0) 11/02/16 17:21 INR 1.14 (0.83-1.16) 11/02/16 17:21 APTT 24.4 SEC (23.0-38.0) 11/02/16 17:21 Sodium 132 mEq/L (134-144) L 11/08/16 09:36 Potassium 3.1 mEq/L (3.5-5.2) L 11/08/16 09:36 Chloride 101 mEq/L (97-110) 11/08/16 09:36 Carbon Dioxide 21 mEq/l (22-31) L 11/08/16 09:36 Anion Gap 10 mEq/L (8-16) 11/08/16 09:36 BUN 6 mg/dL (7-23) L 11/08/16 09:36 Creatinine 0.7 mg/dL (0.6-1.0) 11/08/16 09:36 Estimated GFR > 60 11/08/16 09:36 Glucose 115 mg/dL (70-100) H 11/08/16 09:36 Calcium 8.5 mg/dL (8.5-10.4) 11/08/16 09:36 Urine Osmolality 553 mosmo/kg (300-900) 11/04/16 00:26 Ur Random Sodium 97 mEq/L (30-90) H 11/04/16 00:26 C. difficile Tox (PCR) NEGATIVE (NEGATIVE) 11/04/16 14:15
[2016-11-08 16:53] LABS: ANION GAP 10 mEq/L (8-16); CALCIUM 8.2 mg/dL (8.5-10.4); CARBON DIOXIDE 21 mEq/l (22-31); CHLORIDE 100 mEq/L (97-110); CREATININE 0.7 mg/dL (0.6-1.0); GLOMERULAR FILTRATION RATE > 60; GLUCOSE 101 mg/dL (70-100); POTASSIUM 3.2 mEq/L (3.5-5.2); SODIUM 131 mEq/L (134-144)
[2016-11-08] MEDS: ROSUVASTATIN CALCIUM 10 MG TAB PO SCH (20:53)
[2016-11-08] MEDS: GABAPENTIN 300 MG CAP PO SCH (20:55)
[2016-11-08] MEDS: LEVOTHYROXINE 50 MCG TAB PO SCH (20:56)
[2016-11-08] MEDS: ZOLPIDEM TARTRATE 5 MG TAB PO SCH (20:57)
[2016-11-09 05:43] LABS: ANION GAP 10 mEq/L (8-16); CALCIUM 8.9 mg/dL (8.5-10.4); CARBON DIOXIDE 20 mEq/l (22-31); CHLORIDE 103 mEq/L (97-110); CREATININE 0.7 mg/dL (0.6-1.0); GLOMERULAR FILTRATION RATE > 60; GLUCOSE 88 mg/dL (70-100); POTASSIUM 3.7 mEq/L (3.5-5.2); SODIUM 133 mEq/L (134-144)
[2016-11-09] MEDS: PILOCARPINE HCL 5 MG TAB PO SCH ×2 (08:09→22:40)
[2016-11-09] MEDS: METOPROLOL SUCCINATE XR 25 MG TAB PO SCH (08:09)
[2016-11-09] MEDS: SODIUM CHLORIDE 1,000 MG TAB PO SCH ×2 (08:09→18:16)
[2016-11-09] MEDS: TRANEXAMIC ACID 650 MG TAB PO SCH ×2 (08:10→22:39)
[2016-11-09] MEDS: HYDROXYCHLOROQUINE SULFATE 200 MG TAB PO SCH ×2 (08:10→22:38)
[2016-11-09] MEDS: SENNOSIDES/DOCUSATE SODIUM TAB PO SCH ×2 (08:10→22:40)
[2016-11-09] MEDS: predniSONE 1 MG TAB PO SCH (08:10)
--- NOTE | 2016-11-09 09:12 | NEUSURGPN ---
Assessment/Plan: 81 yr old female with enlarging chronic appearing right SDH without midline shift -Patient remains neurologically stable. -We will continue to follow her SDH clinically for now-Continue Tranexamic acid. -Patient does not need any more head CTs while inpatient unless her condition changes dramatically -hyponatremia: medicine and nephrology working on this. -PT/OT/ST -please call with neuro changes -Continue TXA 650mg bid -Continue Q4 hour neuro checks -Plan for follow up in 2 weeks with repeat HCT w/o contrast -OK for DC to SNF from standing Patient discussed with Dr Louise Subjective: Pt resting in bed, denies significant headache or nausea. Objective: AAOx3 NAD VSS CN II-XII grossly intact MAEx4 Motor 5/5 BUE/BLE +LT Urinary Catheter in Place: No - Physician Discussed Patient with : [facility] Physical Exam - Vitals, I&O, Labs I and O 11/08/16 11/09/16 11/10/16 05:59 05:59 05:59 Intake Total 675 850 Output Total 1250 4 Balance -575 846 Intake: Oral (ml) 375 850 IV Infused (ml) 300 Sodium Cl 23.4% 308 meq 300 In Water For Injection, Sterile 1,000 ml @ 50 mls /hr IV CONT MARY Rx#: [id number] Output: Urine (ml) 1250 4 Incontinence 950 4 Toilet 300 Other: Number of Voids Incontinence 2 1 Toilet 1 Vital Signs Temp Pulse Resp BP Pulse Ox 37.7 C 94 19 147/79 H 97 11/09/16 07:44 11/09/16 08:09 11/09/16 07:44 11/09/16 08:09 11/09/16 07:44 Laboratory Results 11/03/16 04:56 11/09/16 05:00 ICD10 Worksheet Patient Problems: Problems Problem Status Onset Nausea & vomiting Acute Subdural hematoma Acute Dehydration Acute Elevated troponin Acute Primary localized osteoarthritis of right knee Acute Subarachnoid hemorrhage Acute Syncope Acute TIA (transient ischemic attack) Acute Troponin I above reference range Acute Vomiting and diarrhea Acute
--- NOTE | 2016-11-09 10:48 | HOSPPROG ---
Hospitalist Progress Note Assessment/Plan: Assessment: 81-year-old female p/w acute SDH s/p syncopal episode c/b acute on chronic hyponatremia Plan: subdural subacute hematoma. acute, NSGY consulting, stablized, on tranexamic acid 650 mg bid will need outpt NSGY f/u will clarify w neurosurgery duration of TXA nausea and vomiting. acute on chronic, this issue has intermittently occurred, unclear if is this truly related to hyponatremia, or exacerbated by SDH improved s/p tx for hyponatremia diarrhea. recurrent this AM at risk for cdiff repeat cdiff testing syncope. has had recurrent episodes, unclear etiology, has previously be thought to be 2/2 "dehydration", and linq monitor has been placed per rep review, shows NSR chronic anemia. stable, no active bleeding abnormal stress test with noted lateral ischemia. currently on bblocker and statin, holding ASA given SDH hyponatremia. acute on chronic, baseline low 130s on review of past several months c/w SIADH dc hypertonic fluid continue salt tabs at 2g bid Sjogren syndrome. chronic, cont on low dose prednisone Diet. As tolerates, fluid restriction Code. Full PPx. High risk, SCDs, pharm contraindicated Dispo. inpatient awaiting diarrhea workup Subjective: 4 loose stools this AM. no h/o cdiff. case d/w neurosurgery PA Objective: Vital Signs Temp Pulse Resp BP Pulse Ox 37.7 C 94 19 147/79 H 97 11/09/16 07:44 11/09/16 08:09 11/09/16 07:44 11/09/16 08:09 11/09/16 07:44 Laboratory Results 11/03/16 04:56 11/09/16 05:00 11/08/16 11/09/16 11/10/16 05:59 05:59 05:59 Intake Total 675 850 Output Total 1250 4 Balance -575 846 PT 14.5 SEC (12.0-15.0) 11/02/16 17:21 INR 1.14 (0.83-1.16) 11/02/16 17:21 - Physical Exam Constitutional: no apparent distress, appears nourished Eyes: PERRL, anicteric sclera Ears, Nose, Mouth, Throat: hearing normal, ears appear normal, No moist mucous membranes Cardiovascular: regular rate and rhythym, no murmur, rub, or gallop, No tachycardia Respiratory: no respiratory distress, no rales or rhonchi Gastrointestinal: normoactive bowel sounds, No guarding, No rebound, No distension Genitourinary: No trinh in urethra Skin: warm, normal color Musculoskeletal: full muscle strength, no muscle tenderness Neurologic: AAOx3, sensation intact bilaterally Psychiatric: interacting appropriately, not anxious ICD10 Worksheet Patient Problems: Problems Problem Status Onset Nausea & vomiting Acute Subdural hematoma Acute Dehydration Acute Elevated troponin Acute Primary localized osteoarthritis of right knee Acute Subarachnoid hemorrhage Acute Syncope Acute TIA (transient ischemic attack) Acute Troponin I above reference range Acute Vomiting and diarrhea Acute
[2016-11-09] MEDS ORDERED: POTASSIUM CL 20 MEQ TAB PO ONE (11:01)
--- NOTE | 2016-11-09 11:06 | SOAPPROG ---
SOAP Progress Note Assessment/Plan: Assessment/Plan: Hyponatremia: pt has chronic hyponatremia usually with sodium in the low 130s. 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 She was getting hypertonic saline for four days due to concern that her hyponatremia is contributing to her symptoms of N/V. Her lowest sodium here has been 126m and today is 133 off of hypertonic saline. I would be surprised if she was symptomatic from her hyponatremia during this hospitalization. - Continue sodium tabs 2 tabs BID. - Will fluid restrict to 1200ml. - Will plan for pt to f/u in clinic for further management. Her big challenge is maintaining a fluid restriction with her Sjogren's, so salt tabs may help counteract that. Hypokalemia: k up to 3.7, will give KCL again today and also check magnesium. Nephrology will sign off, please call if you have any additional questions or concerns. Subjective: No acute events overnight. Pt having some diarrhea this am, no N/V, having some tremors. Objective: Vital Signs Temp Pulse Resp BP Pulse Ox 37.7 C 94 19 147/79 H 97 11/09/16 07:44 11/09/16 08:09 11/09/16 07:44 11/09/16 08:09 11/09/16 07:44 Laboratory Results 11/03/16 04:56 11/09/16 05:00 11/08/16 11/09/16 11/10/16 05:59 05:59 05:59 Intake Total 675 850 Output Total 1250 4 Balance -575 846 PT 14.5 SEC (12.0-15.0) 11/02/16 17:21 INR 1.14 (0.83-1.16) 11/02/16 17:21 General: alert and oriented, no acute distress Eyes; EOMI, PERRL OP: Clear CV: RRR Resp: nonlabored respirations, CTAB Abd; Soft, NT Ext: no edema BLE Neuro: CN II-XII grossly intact, no asterixis, +tremor Psych: cooperative, appropriate mood and affect ICD10 Worksheet Patient Problems: Problems Problem Status Onset Nausea & vomiting Acute Subdural hematoma Acute Dehydration Acute Elevated troponin Acute Primary localized osteoarthritis of right knee Acute Subarachnoid hemorrhage Acute Syncope Acute TIA (transient ischemic attack) Acute Troponin I above reference range Acute Vomiting and diarrhea Acute
[2016-11-09] MEDS: CYCLOSPORINE 0.05% 1 EACH BOX EACHEYE SCH ×2 (12:05→23:39)
[2016-11-09] MEDS: ACETAMINOPHEN 325 MG TAB PO PRN ×2 (12:55→22:37)
[2016-11-09] MEDS: ONDANSETRON 4 MG/2 ML VIAL IVP PRN (18:19)
[2016-11-09] MEDS: ZOLPIDEM TARTRATE 5 MG TAB PO SCH (22:37)
[2016-11-09] MEDS: GABAPENTIN 300 MG CAP PO SCH (22:38)
[2016-11-09] MEDS: LEVOTHYROXINE 50 MCG TAB PO SCH (22:39)
[2016-11-09] MEDS: ROSUVASTATIN CALCIUM 10 MG TAB PO SCH (22:39)
[2016-11-10 08:03] VITALS: BP 134/78; PULSE 94; RESP 24; TEMP 98.7; O2SAT 90
[2016-11-10] MEDS: predniSONE 1 MG TAB PO SCH (08:05)
[2016-11-10] MEDS: TRANEXAMIC ACID 650 MG TAB PO SCH (08:06)
[2016-11-10] MEDS: PILOCARPINE HCL 5 MG TAB PO SCH (08:06)
[2016-11-10] MEDS: HYDROXYCHLOROQUINE SULFATE 200 MG TAB PO SCH (08:07)
[2016-11-10] MEDS: METOPROLOL SUCCINATE XR 25 MG TAB PO SCH (08:07)
[2016-11-10] MEDS: SODIUM CHLORIDE 1,000 MG TAB PO SCH (08:07)
[2016-11-10] MEDS: CYCLOSPORINE 0.05% 1 EACH BOX EACHEYE SCH (08:08)
[2016-11-10] MEDS: SENNOSIDES/DOCUSATE SODIUM TAB PO SCH (08:08)
--- NOTE | 2016-11-10 09:09 | NEUSURGPN ---
Assessment/Plan: 81 yr old female with enlarging chronic appearing right SDH without midline shift -Patient remains neurologically stable. -We will continue to follow her SDH clinically for now-Continue Tranexamic acid. -Patient does not need any more head CTs while inpatient unless her condition changes dramatically. Will plan to repeat head CT in 2 weeks -hyponatremia: medicine and nephrology following -PT/OT/ST -Continue Q4 hour neuro checks -Plan for follow up in 2 weeks with repeat HCT w/o contrast. Continue on Tranexamic acid 650 mg po BID -OK for DC to SNF from NS standpoint Patient discussed with Dr Louise Subjective: Doing well this morning. No current headache, nausea, vomiting. Objective: Awake. Alert. PERRL. EOMI Following commands Moving all extremities Strength full - Physician Discussed Patient with : [facility] Physical Exam - Vitals, I&O, Labs I and O 11/09/16 11/10/16 11/11/16 05:59 05:59 05:59 Intake Total 850 Output Total 4 200 200 Balance 846 -200 -200 Intake: Oral (ml) 850 Output: Urine (ml) 4 200 200 Incontinence 4 Toilet 200 200 Other: Number of Voids Bedside Commode 1 Incontinence 1 Toilet 1 Number of Stools Incontinence 1 Vital Signs Temp Pulse Resp BP Pulse Ox 37.1 C 94 24 H 134/78 H 90 L 11/10/16 08:00 11/10/16 08:00 11/10/16 08:00 11/10/16 08:00 11/10/16 08:00 Laboratory Results 11/03/16 04:56 11/09/16 05:00 ICD10 Worksheet Patient Problems: Problems Problem Status Onset Nausea & vomiting Acute Subdural hematoma Acute Dehydration Acute Elevated troponin Acute Primary localized osteoarthritis of right knee Acute Subarachnoid hemorrhage Acute Syncope Acute TIA (transient ischemic attack) Acute Troponin I above reference range Acute Vomiting and diarrhea Acute
--- NOTE | 2016-11-10 10:53 | PDIAF ---
- Diagnosis Diagnosis: subdural bleed; SIADH Code Status: Full Code - Medication Management Discharge Medications: Medications to Continue on Transfer Dicyclomine [Bentyl 20 MG (*)] 20 mg PO DAILY PRN 02/08/14 [Last Taken 08/03/16] Hydroxychloroquine Sulfate [Plaquenil 200 mg (*)] 200 mg PO BID 02/08/14 [Last Taken 10/21/16 09:00] Levothyroxine [Synthroid 50 mcg (*)] 50 mcg PO HS 02/08/14 [Last Taken 10/21/16] Omeprazole [Prilosec 20 mg] 20 mg PO DAILY PRN 02/08/14 [Last Taken 09/28/16] cycloSPORINE 0.05% [Restasis Opht Drops(*)] 1 drop EACHEYE BID 02/08/14 [Last Taken 10/21/16 21:00] Gabapentin [Neurontin 300 MG (*)] 1,200 mg PO HS 02/06/15 [Last Taken 10/21/16] Pilocarpine HCl [Salagen 5mg (*)] 5 mg PO BID 02/06/15 [Last Taken 10/21/16 09: 00] Rosuvastatin Calcium [Crestor 5mg] 5 mg PO HS 07/28/16 [Last Taken 10/21/16] Zolpidem Tartrate [Ambien 5MG (*)] 10 mg PO HS 07/28/16 [Last Taken 10/21/16] predniSONE [Kanwal] 2 mg PO DAILY 09/30/16 [Last Taken 10/21/16] Acetaminophen [Tylenol ES 500 mg (*)] 1,000 mg PO Q8H PRN tab 10/28/16 [Last Taken Unknown] Metoprolol Succinate Xr [Toprol Xl 25 mg (*)] 25 mg PO DAILY #30 tab 10/28/16 [ Last Taken Unknown] Polyethylene Glycol 3350 [Miralax 17 gm (*)] 17 gm PO DAILY PRN pkt 10/28/16 [ Last Taken Unknown] Sennosides/Docusate Sodium [Senokot-S] 1 - 2 tab PO BID tab 10/28/16 [Last Taken Unknown] Ondansetron Odt [Zofran Odt 4 mg (*)] 4 mg PO Q6H PRN 11/02/16 [Last Taken Unknown] Sodium Chloride [Salt Tablet] 2,000 mg PO BIDMEAL tab 11/10/16 [Last Taken Unknown] Tranexamic Acid 650 mg PO BID tab 11/10/16 [Last Taken Unknown] Discharge Medications: Refer to the Discharge Home Medication list for PRN reason. - Orders Services needed: Registered Nurse, Certified Utility Worker [employer], Master Filler Shredder Helper , Physical Therapy, Occupational Therapy, Speech Language Pathologist Diet Recommendation: other (oral fluid restriction to 1200 ml total fluids / 24 hours) Diet Texture: Regular Texture Diet Activity/Weight Bearing Restrictions: Fall Risk Precautions - Labs/Radiology BMP Date: 11/15/16 - Follow Up Care Current Providers and Referrals: Nura Louise MD [Medical Doctor] - (TO BE SEEN IN OFFICE IN [address] HEAD W/O CONTRAST BEFORE VISIT. )
--- NOTE | 2016-11-10 12:16 | ASDISCHSUM ---
Discharge Information Plan Status:SNF Medically Cleared to Leave: Discharge Date:11/10/2016 12:08 PM D/C Disposition:[facility] Facility ADT D/C Disposition:Correction Facility Projected Discharge Date:11/04/2016 11:00 AM Transportation at D/C:Wheelchair Van Discharge Delay Reason: Follow-Up Date:11/04/2016 11:00 AM Discharge Slot: Final Diagnosis: Placement Information Referral Type:*Intermediate/SNF Referral ID:[id number] Provider Name:[facility] Address 1:[address] Address 2: City:[place] Selection Factors: State:[place] Patient Contact Information Contact Name:KHANH Relationship: Address:[address] City:[place] Alternate Phone: State/Zip Code:[place] [address] Email: Financial Information Financial Class: Primary Plan Desc:MEDICARE INPATIENT Primary Plan Number:[id number] Secondary Plan Desc:[employer]ARP/MDR SUPPLEMENT Secondary Plan Number:[id number] Assessment Information [facility] CM Progress Note CM Note CM Note Notes: Pt has increasing subderal hematoma, n/v; is currently in rehab at [facility]. [facility] sent updates via [employer]. PT/OT evals pending. Plan is for pt to return to [facility] when medically stable. Date Signed: 11/03/2016 12:21 PM Electronically Signed By:AUNDREA Regan [facility] CM Progress Note CM Note CM Note Notes: Pt n/v has improved, neurology is monitoring for normalization of her sodium. Plan remains return to [facility] when medically stable. [facility] sent updated clinicals. Date Signed: 11/05/2016 03:56 PM Electronically Signed By:AUNDREA Regan [facility] CM Progress Note CM Note CM Note Notes: [facility] sent clinical updates. Plan remains d/c back to [facility] when medically stable. Date Signed: 11/08/2016 02:22 PM Electronically Signed By:AUNDREA Regan [facility] CM Progress Note CM Note CM Note Notes: Pt medically stable for d/c back to [facility]. Date Signed: 11/10/2016 12:15 PM Electronically Signed By:AUNDREA Regan Intervention Information Intervention Type:*IM-Signed Date of Service:11/09/2016 09:50 AM Patient Type:Inpatient Staff Member:Arlin Madrid Hours: Discipline: Severity: Comment:
--- NOTE | 2016-11-10 13:39 | PDDCSUM ---
Discharge Summary Discharge Summary: DISCHARGE DIAGNOSES: -Enlarging prior subdural hematoma - hyponatremia due to SIADH CONSULTANTS: Nephrology service Neurosurgery service PROCEDURES: CT scan of head without contrast, x3 HOSPITAL COURSE SUMMARY: This patient had been admitted here initially in late September after a syncope spell led to some changes in neurologic examine she had a CT scan at that time with a subdural hematoma. She was followed here non operatively at that time and she had unremarkable neurologic exams. There was not enlargement of the bleed. Her aspirin therapy which was chronic daily was stopped at that time. She was discharged from here to a local custodial facility for rehabilitation. She came back here again intermittently and again left here to the rehabilitation center. At the time of this admission she had headache with nausea and vomiting. On repeat CT scan she had further enlargement of her subdural hematoma. She had unremarkable neurologic exam initially though there was intermittently some confusion. On repeat CT scan the bleed has stabilized again and her neurologic symptoms and headache and nausea were resolving. She was followed non operatively again and has done well overall. At this time she has a good sensorium, normal communication and is normally oriented, but is working with physical therapist on balance still. She has no headache, is eating well, has no nausea. She did have sodiums as low as mild hyponatremia. At this time her urine sodiums were high greater than 100, so she is presumed to have SIADH. It seems he probably has some mild chronic SIADH has been aggravated by her neurologic injury. At this time her sodium is a remaining in the range of 132-133 with oral fluid restriction and salt supplements. She does have Sjogren syndrome with severe dry mouth which makes the oral fluid restriction hard for her so it is elected to give her some oral sodium to make things easier. This time she is stable for discharge from hospital but will need ongoing rehabilitation efforts. She is being transferred to the [facility] where she will have physical occupational and cognitive therapies. PENDING TEST RESULTS: none MEDICATION CHANGES: Sodium chloride tablets twice daily are added FOLLOW-UP PLAN: Initial care and assessment will be at the [facility] She will see the nurse surgery group in [address] scan of the head She has an appointment to see her director of compliance Dr. Pereira in a little more than 1 week Greater than 35 minutes bedside and care coordination time today
== END 2016-11-10 12:08 | DRG 949 ==
LOC: EDUNIT# → F3N 16:18
PROVIDERS: ADMIT Hospitalist; ATTEND Hospitalist
DX: S06.5X0D Traumatic subdural hemorrhage without loss of consciousness, subsequent encounter (principal); E22.2 Syndrome of inappropriate secretion of antidiuretic hormone; M35.00 Sjogren syndrome, unspecified; E87.6 Hypokalemia; E03.9 Hypothyroidism, unspecified; D53.9 Nutritional anemia, unspecified; K21.9 Gastro-esophageal reflux disease without esophagitis; Z79.52 Long term (current) use of systemic steroids; Z87.891 Personal history of nicotine dependence; Z96.651 Presence of right artificial knee joint
CPT/HCPCS: 92507-GN; 92523-GN; 96374; 97116-GP; 97162-GP; 97166-GO; 97530-GP; 97532-GO; 97535-GO; G8978-GP-CJ; G8979-GP-CI; G8987-GO-CK; G8988-GO-CI; G9168-GN-CJ; G9169-GN-CI; J2405; J2550

== ENCOUNTER → 2016-11-22 | Outpatient (CLI) | payer OTHER, MEDICARE | LOC: CIMAGING 10:57 | PROVIDERS: ATTEND Physician Assistant Surgical | DX: S06.9X0S Unspecified intracranial injury without loss of consciousness, sequela (principal) | CPT/HCPCS: 70450-PO ==

== ENCOUNTER 2016-12-05 11:39 | Inpatient (IN) | payer OTHER, MEDICARE ==
[2016-12-05] MEDS ORDERED: LORazepam 2 MG/ML INJ ONE (11:55)
[2016-12-05] MEDS ORDERED: NS 500 ML IV ONE (11:56)
--- NOTE | 2016-12-05 11:56 | EDPHY ---
H & P Time Seen by Provider: 12/05/16 11:48 HPI/ROS: Chief complaint. Unresponsive HPI. 81-year-old female here by EMS and with her telling me that the patient had nausea vomiting and moaning all night long and then was unresponsive this morning. Apparently she has had recent hospitalization for subdural that was treated non operatively. He says she was fairly well yesterday but unresponsive today. Unclear whether she has had a fall or injury. ROS Constitutional. Generalized weakness Eyes. no problems with vision ENT. no sore throat, no nasal drainage Cardiovascular. no chest pain Respiratory. no shortness of breath, no cough Abdominal. no abdominal pain, no nausea/vomiting, no diarrhea . no problems urinating MS. no calf pain/swelling, no neck/back pain, no joint pain Skin. no rash Lymph. no swollen glands Neuro. Cannot walker speak. Minimal responsiveness to verbal stimuli Past Medical/Surgical History: Past medical history seen for Sjogren syndrome, appendectomy, cholecystectomy, knee replacement, recent subdural hematoma Social History: , nonsmoker, no alcohol Smoking Status: Former smoker Physical Exam: General Appearance: Well-developed female responsive to verbal stimuli but nonverbal is moderate distress. Vital signs show the patient be afebrile. Initial heart rate 119 and initial blood pressure 139/ 60 Eyes: Pupils equal and round no pallor or injection. ENT, Mouth: Mucous membranes are moist. Respiratory: There are no retractions, lungs are clear to auscultation. Cardiovascular: Regular rate and rhythm. Gastrointestinal: Abdomen is soft and nontender, no masses, bowel sounds normal. Neurological: Opens eyes to verbal stimuli. Nonverbal. Does not move extremities to command Skin: Warm and dry, no rashes. Musculoskeletal: Neck is supple nontender. Extremities symmetrical, full range of motion. Psychiatric: Patient is nonverbal Constitutional: Initial Vital Signs Temperature (C) 37.3 C 12/05/16 11:47 Heart Rate 104 H 12/05/16 11:47 Respiratory Rate 30 H 12/05/16 11:47 Blood Pressure 168/117 H 12/05/16 11:47 O2 Sat (%) 100 12/05/16 11:47 O2 Delivery Mode Nasal Cannula O2 (L/minute) 3 Allergies/Adverse Reactions: amoxicillin trihydrate [From Augmentin] Allergy (Verified 10/22/16 10:38) Vomiting ciprofloxacin [From Cipro] Allergy (Verified 10/22/16 10:38) Vomiting ciprofloxacin HCl [From Cipro] Allergy (Verified 10/22/16 10:38) Vomiting metronidazole [From Flagyl] Allergy (Verified 10/22/16 10:38) Vomiting Metronidazole HCl [From Flagyl] Allergy (Verified 10/22/16 10:38) Vomiting morphine [Morphine] Allergy (Verified 10/22/16 10:38) Vomiting nitrofurantoin [From Macrobid] Allergy (Verified 10/22/16 10:38) Unknown nitrofurantoin macrocrystalline [From Macrobid] Allergy (Verified 10/22/16 10:38 ) Unknown oxaprozin [From Daypro] Allergy (Verified 10/22/16 10:38) Vomiting potassium clavula *RETIRED-11/01/11 [From Augmentin] Allergy (Verified 10/22/16 10:38) Vomiting Sulfa (Sulfonamide Antibiotics) Allergy (Verified 10/22/16 10:38) Hives tramadol [Tramadol] Allergy (Verified 10/22/16 10:38) Vomiting Home Medications: Medication Instructions Recorded Dicyclomine [Bentyl 20 MG (*)] 20 mg PO DAILY PRN 02/08/14 Hydroxychloroquine Sulfate 200 mg PO BID 02/08/14 [Plaquenil 200 mg (*)] Levothyroxine [Synthroid 50 mcg 50 mcg PO HS 02/08/14 (*)] Omeprazole [Prilosec 20 mg] 20 mg PO DAILY PRN 02/08/14 cycloSPORINE 0.05% [Restasis Opht 1 drop EACHEYE BID 02/08/14 Drops(*)] Gabapentin [Neurontin 300 MG (*)] 1,200 mg PO HS 02/06/15 Pilocarpine HCl [Salagen 5mg (*)] 5 mg PO BID 02/06/15 Rosuvastatin Calcium [Crestor 5mg] 5 mg PO HS 07/28/16 Zolpidem Tartrate [Ambien 5MG (*)] 10 mg PO HS 07/28/16 predniSONE [Kanwal] 2 mg PO DAILY 09/30/16 Acetaminophen [Tylenol ES 500 mg 1,000 mg PO Q8H PRN tab 10/28/16 (*)] Metoprolol Succinate Xr [Toprol Xl 25 mg PO DAILY #30 tab 10/28/16 25 mg (*)] Polyethylene Glycol 3350 [Miralax 17 gm PO DAILY PRN pkt 10/28/16 17 gm (*)] Sennosides/Docusate Sodium 1 - 2 tab PO BID tab 10/28/16 [Senokot-S] Ondansetron Odt [Zofran Odt 4 mg 4 mg PO Q6H PRN 11/02/16 (*)] Sodium Chloride [Salt Tablet] 2,000 mg PO BIDMEAL tab 11/10/16 Tranexamic Acid 650 mg PO BID tab 11/10/16 Medical Decision Making - Diagnostics EKG Interpretation: EKG interpreted by me shows sinus tachycardia normal interval and left axis deviation. QRS shows a left anterior fascicular block. No significant ST elevation or depression. No arrhythmia. The rate is 112. This EKG is unchanged from previous EKG in October 2016 Imaging Results: Imaging Impressions Cervical Spine CT 12/05/16 11:45 Impression: No acute posttraumatic abnormality identified. If there is persistent pain or neurologic deficit, consider MRI and/or flexion and extension views, if clinically indicated. Findings discussed with JOEL SABILLON 12/05/[address] 12/05/16 11:45 Impression: 1. Left parietal scalp hematoma with no acute intracranial findings. 2. Continued decrease in size and attenuation of a right frontal subdural hematoma with no significant midline shift on today's study. Findings discussed with Joel Sabillon MD on December 05, 2016 at 1317 hours. Chest X-Ray 12/05/16 11:56 Impression: No acute findings in the chest. Head CT shows a hematoma no intracranial bleeding. Resolving frontal subdural hematoma Chest x-ray interpreted by me is normal Procedures: IV normal saline, monitor ED Course/Re-evaluation: Blood pressure goes up to 168/117. As I am concerned the patient has intracranial bleed I spoke with pharmacy about the cardia pain. However subsequently pressures have come down. Her heart rate remains about 112-113. Jon catheter is placed Re-evaluation 2:10 p.m.--patient unchanged Patient has a urinary tract infection. She is given IV Rocephin. She has multiple medical allergies with side effects causing vomiting. I consulted discussed case with Dr. Long including recommendation for admission. He expresses understanding and agreement, hospitalist, who agrees to the admission 3:05 p.m. I discussed the case with patient's . We discussed treatment Differential Diagnosis: I thought the patient had intracranial bleed and was hypertensive secondary to intracranial bleeding. However CT shows resolving subdural hematoma. I considered sepsis. No evidence for pneumonia. She does have a urinary tract infection. However her lactate is normal. She was very hypertensive requiring medication to bring down her blood pressure. I have considered acute coronary syndrome as the patient's troponin is elevated however the last multiple troponins have all been elevated. Critical Care Time: Critical care time exclusive procedures 45 minutes - Data Points Laboratory Results: Laboratory Results 12/05/16 11:42 12/05/16 11:42 12/05/16 12/05/16 12/05/16 11:42 11:42 11:42 WBC 9.03 10^3/uL 10^3/uL (3.80-9.50) RBC 3.69 10^6/uL L 10^6/uL (4.18-5.33) Hgb 11.8 g/dL L g/dL (12.6-16.3) Hct 33.6 % L % (38.0-47.0) MCV 91.1 fL fL (81.5-99.8) MCH 32.0 pg pg (27.9-34.1) MCHC 35.1 g/dL g/dL (32.4-36.7) RDW 15.4 % H % (11.5-15.2) Plt Count 304 10^3/uL 10^3/uL (150-400) MPV 9.8 fL fL (8.7-11.7) Neut % (Auto) 85.5 % H % (39.3-74.2) Lymph % (Auto) 5.2 % L % (15.0-45.0) [place] % (Auto) 8.2 % % (4.5-13.0) Eos % (Auto) 0.1 % L % (0.6-7.6) Baso % (Auto) 0.3 % % (0.3-1.7) Nucleat RBC Rel Count 0.0 % % (0.0-0.2) Absolute Neuts (auto) 7.72 10^3/uL H 10^3/uL (1.70-6.50) Absolute Lymphs (auto) 0.47 10^3/uL L 10^3/uL (1.00-3.00) Absolute Monos (auto) 0.74 10^3/uL 10^3/uL (0.30-0.80) Absolute Eos (auto) 0.01 10^3/uL L 10^3/uL (0.03-0.40) Absolute Basos (auto) 0.03 10^3/uL 10^3/uL (0.02-0.10) Absolute Nucleated RBC 0.00 10^3/uL 10^3/uL (0-0.01) Immature Gran % 0.7 % % (0.0-1.1) Immature Gran # 0.06 10^3/uL 10^3/uL (0.00-0.10) PT REJ INR TNP APTT TNP Sodium 132 mEq/L L mEq/L (134-144) Potassium 4.0 mEq/L mEq/L (3.5-5.2) Chloride 99 mEq/L mEq/L (97-110) Carbon Dioxide 18 mEq/l L mEq/l (22-31) Anion Gap 15 mEq/L mEq/L (8-16) BUN 9 mg/dL mg/dL (7-23) Creatinine 0.7 mg/dL mg/dL (0.6-1.0) Estimated GFR > 60 Glucose 131 mg/dL H mg/dL (70-100) Calcium 9.6 mg/dL mg/dL (8.5-10.4) Troponin I 0.116 ng/mL H ng/mL (0.000-0.034) Medications Given: Nicardipine/Sodium Chloride (Cardene 0.1 Mg/Ml (Premix)) 200 mls @ 0 mls/hr IV CONT MARY; Titrate PRN Reason: Protocol Stop: 06/03/17 12:29 Last Admin: 12/05/16 12:56 Dose: 200 mls Discontinued Medications Sodium Chloride (Ns) 500 mls @ 1,000 mls/hr IV EDNOW ONE PRN Reason: Protocol Stop: 12/05/16 12:25 Last Admin: 12/05/16 12:00 Dose: 500 mls Lorazepam (Ativan Injection) 1 mg IVP EDNOW ONE Stop: 12/05/16 12:01 Last Admin: 12/05/16 12:01 Dose: 1 mg Lorazepam (Ativan Injection) 1 mg IVP EDNOW ONE Stop: 12/05/16 12:22 Last Admin: 12/05/16 12:40 Dose: 1 mg Departure - Departure Disposition: [facility] Acute Clinical Impression: Altered mental status Qualifiers: Altered mental status type: stupor Qualified Code(s): R40.1 - Stupor Urinary tract infection Qualifiers: Urinary tract infection type: site unspecified Hematuria presence: with hematuria Qualified Code(s): N39.0 - Urinary tract infection, site not specified Condition: Fair
[2016-12-05] MEDS ORDERED: LORazepam 2 MG/ML INJ IVP ONE ×2 (12:00→12:21)
[2016-12-05] MEDS ORDERED: ESMOLOL/NACL 250 ML IV SCH (12:00)
[2016-12-05 12:04] LABS: % IMMATURE GRANULYOCYTES 0.7 % (0.0-1.1); ABSOLUTE IMMATURE GRANULOCYTES 0.06 10^3/uL (0.00-0.10); ADD DIFF? NO; ADD MORPH? NO; ADD SCAN? NO; ATYPICAL LYMPHOCYTE FLAG 30 (0-99); FRAGMENT RBC FLAG 0 (0-99); HEMATOCRIT 33.6 % (38.0-47.0); HEMOGLOBIN 11.8 g/dL (12.6-16.3); LEFT SHIFT FLG 0 (0-99); LIPEMIA HEMOLYSIS FLAG 90 (0-99); MEAN CELL HEMOGLOBIN CONCENTR. 35.1 g/dL (32.4-36.7); MEAN CELL VOLUME 91.1 fL (81.5-99.8); MEAN PLATELET VOLUME 9.8 fL (8.7-11.7); PLATELET CLUMPS FLAG 20 (0-99); PLATELET COUNT 304 10^3/uL (150-400); RED BLOOD CELL COUNT 3.69 10^6/uL (4.18-5.33); RED CELL DISTRIBUTION WIDTH 15.4 % (11.5-15.2)
[2016-12-05 12:11] LABS: ANION GAP 15 mEq/L (8-16); CALCIUM 9.6 mg/dL (8.5-10.4); CARBON DIOXIDE 18 mEq/l (22-31); CHLORIDE 99 mEq/L (97-110); CREATININE 0.7 mg/dL (0.6-1.0); GLOMERULAR FILTRATION RATE > 60; GLUCOSE 131 mg/dL (70-100); SODIUM 132 mEq/L (134-144)
[2016-12-05 12:23] LABS: TROPONIN I 0.116 ng/mL (0.000-0.034)
[2016-12-05] MEDS ORDERED: niCARdipine/NACL 200 ML IV SCH (12:30)
--- NOTE | 2016-12-05 14:06 | CPEKG ---
Heart Rate: 112 RR Interval: 536 P-R Interval: 180 QRSD Interval: 88 QT Interval: 336 QTC Interval: 459 P Randlett: 69 QRS Randlett: -49 T Wave Randlett: 96 EKG Severity - ABNORMAL ECG - EKG Impression: SINUS TACHYCARDIA EKG Impression: LEFT ANTERIOR FASCICULAR BLOCK EKG Impression: LVH WITH SECONDARY REPOLARIZATION ABNORMALITY Electronically Signed By: Edgard Sabillon 05-Dec-2016 15:31:53
[2016-12-05 14:54] LABS: COLOR YELLOW; LEUKOCYTE ESTERASE,URINE 2+ (NEGATIVE); NITRITE,URINE POSITIVE (NEGATIVE)
[2016-12-05 14:59] LABS: BACTERIA 1+ /hpf (NONE SEEN); MUCUS TRACE /lpf (NONE-1+); RBC,URINE 50-182 /hpf (0-3); WBC,URINE 50-182 /hpf (0-3)
[2016-12-05] MEDS ORDERED: LORazepam 2 MG/ML INJ IVP PRN (15:03)
[2016-12-05] MEDS ORDERED: PROMETHAZINE HCL 25 MG/ML INJ IVP PRN (15:03)
[2016-12-05] MEDS ORDERED: ONDANSETRON DISINTEGRATING 4 MG TAB PO PRN (15:03)
[2016-12-05] MEDS ORDERED: HYDROmorphONE/DILAUDID 1 MG/ML INJ IVP PRN (15:03)
[2016-12-05] MEDS ORDERED: NS 1,000 ML IV SCH (15:15)
[2016-12-05 15:58] LABS: INR 1.15 (0.83-1.16); PROTIME(PATIENT) 14.7 SEC (12.0-15.0)
[2016-12-05 16:04] LABS: APTT 21.8 SEC (23.0-38.0)
--- NOTE | 2016-12-05 16:20 | ASMTCMCOM ---
CM Note CM Note Notes: Patient brought in by EMS from private home in [place] where she lives with her , Angel. Patient was minimally responsive and AxOx0 when EMS arrived on scene. Patient recently admitted 10/23/16 for syncope, fall and subdural hematoma and subarachnoid hemorrhage. Patient was admitted again 11/02 - 11/10 with increasing subdural hematoma. Patient was discharged both times to [facility]. Per Angel, patient was discharged from [facility] on 11/28/16 home with home energy rater/PT/OT through [facility] ([phone]) and also has help from Alejandro Choi ). Patient's Head CT in the ED shows resolving subdural hematoma. Patient was having high blood pressures requiring medication. Patient is being admitted for UTI. Exact DC needs unknown at this time. CM to follow. Date Signed: 12/05/2016 04:20 PM Electronically Signed By:Debora Bhardwaj RN
[2016-12-05 17:04] LABS: COLOR YELLOW; LEUKOCYTE ESTERASE,URINE 3+ (NEGATIVE); NITRITE,URINE POSITIVE (NEGATIVE)
[2016-12-05 17:08] LABS: BACTERIA 3+ /hpf (NONE SEEN); MUCUS TRACE /lpf (NONE-1+); WBC,URINE 50-182 /hpf (0-3)
--- NOTE | 2016-12-05 17:59 | GHP ---
[f rep st] HISTORY AND PHYSICAL DATE OF ADMISSION: 12/05/2016 CHIEF COMPLAINT: Altered mental status. HISTORY: This is a 81-year-old female, who has a past medical history of fairly recent subdural keaton juan, complicated by re-bleed shortly thereafter, who presents after notes that for the last couple of days she has been less interactive and then today essentially completely unresponsive. His tory is entirely provided by patient's as the patient herself is essentially unarousable. Jimmy martinez notes that for the last couple days, she did not seem totally to be herself. She had some naus ea and vomiting and kept telling her that she hit her head; although, he is quite certain jojo t she did not hit her head recently. This morning, when he tried to wake her up, she was essentially unarousable. She did initially say that she was going to get up but then stopped responding at all, at which time he called 911. He does not note that she had any other complaints recently, including fevers, chills, urinary complaints, breathing difficulties. He does not believe she has had any lea nges in her medications. She does administer her medications herself, and notes that he does not think she has ever had issues with taking either too many year or not the right medications. Jimmy martinez is not sure of her entire medication list. PAST MEDICAL HISTORY: Includes: 1. Sjogren's on chronic prednisone. 2. GERD. 3. Subdural hematoma with a midline shift and re-bleed, now noted on the last [address] to be small er. 4. TIA. 5. Hypothyroidism. 6. Chronic anemia. 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 8. Diastolic dysfunction. 9. Hyperlipidemia. PAST SURGICAL HISTORY: Includes: 1. Right TKA. 2. Hysterectomy. 3. Cholecystectomy. SOCIAL HISTORY: Patient is and is currently living independently with her . She has a remote tobacco-use history. No significant alcohol use. FAMILY HISTORY: This was reviewed and is unremarkable. REVIEW OF SYSTEMS: Unobtainable secondary to patient's mental status. HOME MEDICATIONS: This was reviewed in the EHR, but is not felt to be currently accurate. ALLERGIES: Penicillins, ciprofloxacin, Flagyl, Macrobid, and sulfa. PHYSICAL EXAMINATION: VITAL SIGNS: BP 150/81, heart rate 106, respiratory rate 20, O2 sat 96% on ro om air, temperature is 37.6. GENERAL APPEARANCE: This is an elderly, thin female. She is breathing comfortably and moving all 4 extremities spontaneously, but not responding to command or voice. EYE S: Anicteric. HENT: Oropharynx clear. CARDIOVASCULAR: Regular rate and rhythm. No MRG. PULMONA RY: CTA to anterior exam. ABDOMEN: Soft, nontender, nondistended. EXTREMITIES: No clubbing, cyano sis, or edema. SKIN: Warm, dry, and well perfused. NEURO/PSYCH: Patient is moving all 4 but, agai n, is not opening eyes to commands. Pupils are equal and reactive to light. Does withdraw to pain. Is protecting her airway. CLINICAL DATA: White blood cell count of 9, hematocrit of 33.6, platelets are 300. Coag's are unrem arkable. Lactic acid is 1.7. Chemistry notable for a sodium of 132. Troponin 0.116. Urinalysis sh ows 1+ blood, positive nitrites, 3+ leukocyte esterase, 10-15 red blood cells, 50-180 white blood tracy ls, 3+ bacteria. EKG personally reviewed and interpreted showing sinus tachycardia, left anterior fascicular block, an d LVH; no ischemic changes. Head CT personally reviewed and interpreted, shows decreased size of frontal subdural hematoma withou t any shift. Chest x-ray personally reviewed and interpreted shows no acute findings. ASSESSMENT AND PLAN: This is a 81-year-old female with a past medical history of subdural hematoma, presenting with acute encephalopathy. 1. Acute encephalopathy: I feel this is most likely secondary to urinary tract infection in the set ting of recent subdural hematoma. She is currently protecting her airway but is only minimally respo nsive; therefore, will monitor her in step-down unit. Head CT was improved from prior. No metabolic derangements to explain her current condition. 2. Urinary tract infection: Culture pending. Started on ceftriaxone. Will treat as complicated ur inary tract infection given associated mental status changes. 3. Recent subdural hematoma: Again, this is improved on repeat imaging. 4. Syndrome of inappropriate anti-diuretic hormone: Sodium is currently at baseline. Will continue to trend. 5. Elevated troponin, without any recent complaints of chest pain: In reviewing her prior labs, josefa garcia does seem to be about where she typically is in terms of what appears to be a chronic troponin leak . Will trend and, if continues to increase, consider echocardiogram and cardiology consult. There a re no ischemic changes noted on EKG. 6. History of Sjogren's with chronic prednisone use. She is on a low dose. If she is unable to silas e p.o. in the morning, will need to start IV steroid replacement to avoid adrenal crisis. DISPOSITION: Inpatient status: Patient requiring high level monitoring given her profoundly altered mental status. She will be monitored in step-down unit. Patient is new to my care. Old records reviewed and summarized as per HPI and past medical history. Care plan reviewed with the patient's present at bedside. Care plan reviewed with ER physic bobbi, including plans for workup of altered mental status. CODE STATUS: Full code. She does have an Advance Directive on file. /[id number]/MODL
[2016-12-05] MEDS ORDERED: ACETAMINOPHEN 650 MG SUPP PR PRN (18:13)
[2016-12-05] MEDS ORDERED: NS BOLUS 500 ML (Wide open) IV ONE (18:30)
[2016-12-06 05:05] LABS: % IMMATURE GRANULYOCYTES 0.6 % (0.0-1.1); ABSOLUTE IMMATURE GRANULOCYTES 0.05 10^3/uL (0.00-0.10); ADD DIFF? NO; ADD MORPH? NO; ADD SCAN? NO; ATYPICAL LYMPHOCYTE FLAG 30 (0-99); FRAGMENT RBC FLAG 0 (0-99); HEMATOCRIT 29.8 % (38.0-47.0); LEFT SHIFT FLG 10 (0-99); LIPEMIA HEMOLYSIS FLAG 80 (0-99); MEAN CELL HEMOGLOBIN 31.3 pg (27.9-34.1); MEAN CELL HEMOGLOBIN CONCENTR. 33.6 g/dL (32.4-36.7); MEAN CELL VOLUME 93.4 fL (81.5-99.8); MEAN PLATELET VOLUME 9.3 fL (8.7-11.7); PLATELET CLUMPS FLAG 10 (0-99); PLATELET COUNT 197 10^3/uL (150-400); RED BLOOD CELL COUNT 3.19 10^6/uL (4.18-5.33); RED CELL DISTRIBUTION WIDTH 15.8 % (11.5-15.2)
[2016-12-06 05:18] LABS: ANION GAP 6 mEq/L (8-16); CALCIUM 8.6 mg/dL (8.5-10.4); CARBON DIOXIDE 20 mEq/l (22-31); CHLORIDE 105 mEq/L (97-110); CREATININE 0.7 mg/dL (0.6-1.0); GLOMERULAR FILTRATION RATE > 60; GLUCOSE 87 mg/dL (70-100); POTASSIUM 3.4 mEq/L (3.5-5.2); SODIUM 131 mEq/L (134-144)
--- NOTE | 2016-12-06 07:48 | WOCRNPDOC ---
WOCRN Advanced Assessment Note - Skin Integrity Problem, Advanced Assess Coccyx Dressing Type: Open to Air Nora Wound Tissue: Erythema, Non-blanching Site Measurement - Head-to-Toe Length X Width X Depth (cm): 4x0.4x0 Pressure Injury Stage: Stage 1 Pressure Injury Present on Admit: Yes Skin Integrity Problem Comment: Likely intertrigenous dermatitis with pressure component as area is non blanching. Patient with diarrhea and confused. Do not apply allevyn life as it will likely get contaminated too frequently. RN in room for care. Sacrum Dressing Type: Open to Air Wound Bed Color: [place], Purple Site Measurement - Head-to-Toe Length X Width X Depth (cm): 5x3x0 Skin Integrity Problem Comment: The area is presents as a contusion, but there is a small chance that it may be a newly forming Deep Tissue injury. Will recheck in 2-3 days for definative diagnosis. Area is sore and non blanching. Please reconsult with further concerns. Perianal Incont Assoc Dermatitis Dressing Type: Open to Air Skin Integrity Problem Comment: Mild IAD. MAD cream may be beneficial. Will ask RN to ask MD to order.
--- NOTE | 2016-12-06 08:21 | PDMN ---
Medical Necessity Medical necessity: est los>2mn for acute encephalopathy likely r/t complicated UTI, elevated troponin; admit to ICU/SDU for high level monitoring r/t profound AMS, IV abx; comorbid SIADH, Sjogren's on chronic steroids, recent SDH; per H& P and order
[2016-12-06] MEDS ORDERED: ALTEPLASE 2 MG VIAL IVP PRN (09:39)
[2016-12-06] MEDS ORDERED: PROTOCOL POTASSIUM 1 DOSE MISC PRN (09:42)
[2016-12-06] MEDS ORDERED: BIOTENE DRY MOUTH MOUTHWASH 237 ML BTL MM PRN (11:14)
[2016-12-06] MEDS: VANCOMYCIN 125 MG/2.5 ML UDL PO SCH ×2 (15:13→20:54)
[2016-12-06] MEDS: POTASSIUM Cl (KCl) 50 ML IV SCH ×3 (15:16→16:36)
--- NOTE | 2016-12-06 16:16 | HOSPPROG ---
Hospitalist Progress Note Assessment/Plan: * Metabolic encephalopathy -suspect due to infection - improving * Cdiff colitis - start PO Vanco * UTI -IV ceftriaxone pending culture * Severe sepsis - due to above * Severe protein calorie malnutrition -BMI 15 * Syncope s/p LINQ monitor * Troponin elevation -recent + stress test -managed medically due to recent SDH -consider cardiac cath * Sjogren's -chronic prednisone 2mg * SDH - recurrent -improved on head CT * SIADH -salt tabs Subjective: Wakes up briefly only, answers minimal questions Objective: Vital Signs Temp Pulse Resp BP Pulse Ox 37.1 C 93 19 145/82 H 96 12/06/16 11:51 12/06/16 11:51 12/06/16 11:51 12/06/16 11:51 12/06/16 11:51 Microbiology 12/06/16 08:00 Gastrointestinal Tract Panel (PCR) - Final Stool Clostridium Difficile Detected Laboratory Results 12/06/16 04:51 12/06/16 04:51 12/05/16 12/06/16 12/07/16 05:59 05:59 05:59 Intake Total 1610 Output Total 1050 Balance 560 PT 14.7 SEC (12.0-15.0) 12/05/16 15:15 INR 1.15 (0.83-1.16) 12/05/16 15:15 d/w Dr Lev Gonzales ICU rounds regarding plan of care Head CT - improving SDH - Physical Exam Constitutional: no apparent distress, appears nourished, not in pain Cardiovascular: regular rate and rhythym, no murmur, rub, or gallop Respiratory: no respiratory distress, no rales or rhonchi, clear to auscultation Gastrointestinal: normoactive bowel sounds, soft, non-tender abdomen, no palpable masses Skin: no rashes or abrasions, no fluctuance, no induration Neurologic: weakness, No AAOx3, No facial droop Psychiatric: encephalopathic, poor insight, poor judgement, poor memory, No agitated ICD10 Worksheet Patient Problems: Problems Problem Status Onset Altered mental status Acute Clostridium difficile infection Acute ~12/06/16 Urinary tract infection Acute Dehydration Acute Elevated troponin Acute Nausea & vomiting Acute Primary localized osteoarthritis of right knee Acute Subarachnoid hemorrhage Acute Subdural hematoma Acute Syncope Acute TIA (transient ischemic attack) Acute Troponin I above reference range Acute Vomiting and diarrhea Acute
[2016-12-06] MEDS: SODIUM CHLORIDE 1,000 MG TAB PO SCH (18:26)
[2016-12-06] MEDS: METOPROLOL SUCCINATE XR 25 MG TAB PO SCH (18:26)
[2016-12-06] MEDS: [UNRECOGNIZED DRUG - OTHER] TP SCH ×2 (18:26→20:54)
[2016-12-06 19:28] LABS: POTASSIUM 3.8 mEq/L (3.5-5.2)
[2016-12-06] MEDS ORDERED: POTASSIUM CL 10 MEQ TAB PO ONE (20:38)
[2016-12-06] MEDS: ROSUVASTATIN CALCIUM 10 MG TAB PO SCH (20:52)
[2016-12-06] MEDS: TRANEXAMIC ACID 650 MG TAB PO SCH (20:52)
[2016-12-06] MEDS: GABAPENTIN 300 MG CAP PO SCH (20:52)
[2016-12-06] MEDS: CYCLOSPORINE 0.05% 1 EACH BOX EACHEYE SCH (20:54)
[2016-12-06] MEDS: HYDROXYCHLOROQUINE SULFATE 200 MG TAB PO SCH (20:54)
[2016-12-06] MEDS ORDERED: NON-FORMULARY NEW DRUG (Rosuvastatin Calcium [Crestor 5mg] 5 MG) PO SCH (21:00)
[2016-12-07] MEDS: VANCOMYCIN 125 MG/2.5 ML UDL PO SCH ×4 (06:05→20:40)
[2016-12-07 06:24] LABS: % IMMATURE GRANULYOCYTES 1.3 % (0.0-1.1); ABSOLUTE IMMATURE GRANULOCYTES 0.06 10^3/uL (0.00-0.10); ADD DIFF? NO; ADD MORPH? NO; ADD SCAN? NO; ATYPICAL LYMPHOCYTE FLAG 50 (0-99); FRAGMENT RBC FLAG 0 (0-99); HEMATOCRIT 28.6 % (38.0-47.0); HEMOGLOBIN 9.5 g/dL (12.6-16.3); LEFT SHIFT FLG 10 (0-99); LIPEMIA HEMOLYSIS FLAG 80 (0-99); MEAN CELL HEMOGLOBIN 31.3 pg (27.9-34.1); MEAN CELL HEMOGLOBIN CONCENTR. 33.2 g/dL (32.4-36.7); MEAN CELL VOLUME 94.1 fL (81.5-99.8); MEAN PLATELET VOLUME 9.4 fL (8.7-11.7); PLATELET CLUMPS FLAG 0 (0-99); PLATELET COUNT 179 10^3/uL (150-400); RED BLOOD CELL COUNT 3.04 10^6/uL (4.18-5.33); RED CELL DISTRIBUTION WIDTH 15.7 % (11.5-15.2)
[2016-12-07 06:39] LABS: ANION GAP 7 mEq/L (8-16); CALCIUM 8.3 mg/dL (8.5-10.4); CARBON DIOXIDE 21 mEq/l (22-31); CHLORIDE 104 mEq/L (97-110); CREATININE 0.7 mg/dL (0.6-1.0); GLOMERULAR FILTRATION RATE > 60; GLUCOSE 80 mg/dL (70-100); POTASSIUM 3.9 mEq/L (3.5-5.2); SODIUM 132 mEq/L (134-144)
[2016-12-07] MEDS ORDERED: NON-FORMULARY NEW DRUG (Omeprazole [Prilosec 20 Mg] 40 MG) PO SCH (09:00)
[2016-12-07] MEDS ORDERED: PREDNISONE 2 MG PO SCH (09:00)
[2016-12-07] MEDS ORDERED: METOPROLOL SUCCINATE XR 25 MG TAB PO SCH (09:00)
[2016-12-07] MEDS: GABAPENTIN 300 MG CAP PO SCH ×2 (09:29→20:42)
[2016-12-07] MEDS: predniSONE 1 MG TAB PO SCH (09:30)
[2016-12-07] MEDS: SODIUM CHLORIDE 1,000 MG TAB PO SCH ×2 (09:31→17:51)
[2016-12-07] MEDS: METOPROLOL SUCCINATE XR 25 MG TAB PO SCH (09:31)
[2016-12-07] MEDS: PANTOPRAZOLE SODIUM 40 MG TAB PO SCH (09:31)
[2016-12-07] MEDS: HYDROXYCHLOROQUINE SULFATE 200 MG TAB PO SCH ×2 (09:31→20:44)
[2016-12-07] MEDS: LEVOTHYROXINE 50 MCG TAB PO SCH (09:31)
[2016-12-07] MEDS ORDERED: LIDO/ZINC OX/CLOTRIMAZOLE (MAD) 116 GM CREAM TP ONE (12:00)
--- NOTE | 2016-12-07 12:48 | ASMTCMCOM ---
CM Note CM Note Notes: Patient doing much better today and should be able to work with therapies. I spoke with patient and her , and they would like to return home with the homecare and unskilled help they had set up prior to this admission. I called [facility] who will resume services. Patient's is coordinating with [facility]. CM to send RN/PT/OT orders to [facility] when patient is discharged. CM available if any other d/c needs arise. Date Signed: 12/07/2016 12:48 PM Electronically Signed By:Mary Grace Harrison RN
[2016-12-07] MEDS: TRANEXAMIC ACID 650 MG TAB PO SCH ×2 (13:09→20:40)
[2016-12-07] MEDS: CEPHALEXIN 500 MG CAP PO SCH ×2 (13:09→17:51)
[2016-12-07] MEDS: LIDO/ZINC OX/CLOTRIMAZOLE (MAD) 116 GM CREAM TP SCH ×2 (13:10→20:43)
[2016-12-07] MEDS: [UNRECOGNIZED DRUG - OTHER] TP SCH (13:31)
--- NOTE | 2016-12-07 14:11 | HOSPPROG ---
Hospitalist Progress Note Assessment/Plan: * Metabolic encephalopathy -suspect due to infection - improving * Cdiff colitis - PO Vanco * UTI - E coli -change to PO Keflex * Severe sepsis - due to above * Severe protein calorie malnutrition -BMI 15 * Syncope s/p LINQ monitor * Troponin elevation -recent + stress test -managed medically due to recent SDH -consider eventual cardiac cath - remains without symptoms * Sjogren's -chronic prednisone 2mg * SDH - recurrent -improved on head CT * SIADH -salt tabs Subjective: No CP/SOB. Feeling better Objective: Vital Signs Temp Pulse Resp BP Pulse Ox 36.6 C 98 20 125/71 H 95 12/07/16 11:50 12/07/16 11:50 12/07/16 11:50 12/07/16 11:50 12/07/16 11:50 Microbiology 12/05/16 17:07 Urine Culture - Final Urine,Clean Catch Escherichia Coli [place] Types 12/06/16 08:00 Gastrointestinal Tract Panel (PCR) - Final Stool Clostridium Difficile Detected Laboratory Results 12/07/16 06:05 12/07/16 06:05 12/06/16 12/07/16 12/08/16 05:59 05:59 05:59 Intake Total 1610 1160 Output Total 1050 675 Balance 560 485 PT 14.7 SEC (12.0-15.0) 12/05/16 15:15 INR 1.15 (0.83-1.16) 12/05/16 15:15 d/w Dr. Brissa Smith - cardiology to consult regarding positive stress test and troponin elevation tele - NSR - Physical Exam Constitutional: no apparent distress, appears nourished, not in pain Cardiovascular: regular rate and rhythym, no murmur, rub, or gallop Respiratory: no respiratory distress, no rales or rhonchi, clear to auscultation Gastrointestinal: normoactive bowel sounds, soft, non-tender abdomen, no palpable masses Skin: no rashes or abrasions, no fluctuance, no induration Neurologic: AAOx3, sensation intact bilaterally Psychiatric: interacting appropriately, not anxious, not encephalopathic, thought process linear ICD10 Worksheet Patient Problems: Problems Problem Status Onset Altered mental status Acute Clostridium difficile infection Acute ~12/06/16 Urinary tract infection Acute Dehydration Acute Elevated troponin Acute Nausea & vomiting Acute Primary localized osteoarthritis of right knee Acute Subarachnoid hemorrhage Acute Subdural hematoma Acute Syncope Acute TIA (transient ischemic attack) Acute Troponin I above reference range Acute Vomiting and diarrhea Acute
--- NOTE | 2016-12-07 14:49 | GCON ---
[f rep st] CONSULTATION CARDIOLOGY CONSULT DATE OF CONSULTATION: 12/07/2016 PRIMARY OUTSIDE SALES ACCOUNT EXECUTIVE: Dr. David Ramirez. CHIEF COMPLAINT: Positive troponin. HISTORY OF PRESENT ILLNESS: We were asked by Dr. Bello to visit with the patient. The patient is a 81-year-old female with admission over the late summer for syncope complicated by subdural hematoma. She was followed by Neurosurgery and managed nonoperatively for her subdural bleed. Because of her concerning syncope, she had an echocardiogram with normal ejection fraction and moderate concentric L VH, a myocardial perfusion study with mild lateral ischemia, and a LINQ insertion. She was readmitted with concern over a rebleed in her head. She remains off aspirin. She was readmi tted again in October with a little bit of a rebleed. She was again managed nonoperatively by Neur osurgery. She is now readmitted on December 05 with altered mental status, found to have a urinary tract infecti on and Clostridium difficile colitis. Troponin 0.34 and has been in this range on past admissions. She is on appropriate antibiotic therapy. I am asked to comment on further management of her presume d coronary disease. Upon my evaluation, she reports no chest pain or dyspnea. The corroborates that she was brou ght to the hospital with confusion, and ultimately unarousability, but was not complaining of chest p ain, shortness of breath, or palpitations at home. She has not had recurrent syncope since her episo de over the summer. REVIEW OF SYSTEMS: A full 10-point review of systems is notable for diarrhea and rectal irritation r elated to this. CARDIOVASCULAR: As per HPI. Otherwise, a full 10-point review was performed and is negative. ALLERGIES: Amoxicillin, ciprofloxacin, metronidazole, morphine, Macrobid, oxaprozin, potassium clavu lanate, sulfa, tramadol. PAST MEDICAL HISTORY: 1. Recent subdural hematoma. 2. SIADH. 3. Sjogren syndrome, on chronic prednisone therapy. 4. Chronic anemia. 5. Hypothyroidism. 6. Dyslipidemia. 7. Reflux. 8. History of TIA. PAST SURGICAL HISTORY: Appendectomy, cholecystectomy, total knee replacement. OUTPATIENT MEDICATIONS: Cefpodoxime, cephalosporin, Bentyl, gabapentin, Plaquenil, Synthroid, Toprol 25 mg daily, Prilosec, Zofran p.r.n., oxycodone p.r.n., MiraLAX p.r.n., prednisone 2 mg daily, Crest or 5 mg daily, senna, tranexamic acid, salt tablets, and Ambien. SOCIAL HISTORY: The patient is , and her is at the bedside. She has a remote tobacco abuse history. She does not drink alcohol. FAMILY HISTORY: Not applicable to the current case. PHYSICAL EXAM: VITAL SIGNS: Blood pressure 125/71, heart rate 98, oxygen saturation 95% on room air . She is afebrile. GENERAL: Chronically ill-appearing older female in no acute distress. HEENT: S clerae are clear and free of jaundice. Mucous membranes are moist. She appears pale. CARDIOVASCULA R: JVP less than 10. Regular rate and rhythm, without murmur, rub, or gallop. LUNGS: Clear to aus cultation bilaterally, without wheezes, rhonchi, or rales. ABDOMEN: Soft, nontender, nondistended, without bruits, masses, or hepatosplenomegaly. RECTAL: Area is irritated, with minimal skin breakdo wn. EXTREMITIES: Warm and well perfused, without cyanosis, clubbing or edema. NEURO: Alert and or iented x3, without gross focal neurologic deficits. LABORATORY DATA: White count 4.65, hematocrit 28.6, and platelets 179. INR 1.15. Lactic acid upon admission was 1.7. Sodium 132, potassium 3.9, chloride 104, bicarb 21, BUN 10, creatinine 0.7. Trop onin has peaked this admission at 0.3 and was 0.248 yesterday. Urinalysis shows 1+ blood, positive n itrites, positive leuk esterase, red cells and white cells. C difficile is positive in the stool, an d E coli positive in the urine. EKG reviewed by nm shows sinus rhythm with left anterior fascicular block and LVH. Echocardiogram from October: Moderate concentric LVH, normal ejection fraction, normal wall motion . No significant valvular disease. A myocardial perfusion study from October personally reviewed by me shows small mild lateral ischemia. Head CT this admission shows decrease in size of her right frontal subdural hematoma, currently 6 mm. Chest x-ray reviewed by me shows LINQ monitor in place. No acute cardiac process. ASSESSMENT/PLAN: A 81-year-old female with a fairly recent subdural hematoma related to syncope. eugene is monitored with a LINQ monitor. We will have to make sure that her home monitor is transmitting. She is now readmitted with altered mental status, found to have Clostridium difficile colitis and uri nary tract infection. Troponins continue to be minimally elevated. EKG is nonischemic. 1. Positive troponin with a history of abnormal nuclear stress test: Overall ejection fraction is p reserved. She is not having angina, heart failure, or significant arrhythmia. Given her recent subd ural hematoma and the fact that she remains off aspirin therapy, I do think that cardiac catheterizat ion is relatively contraindicated given the possible need for anticoagulation, including dual antipla telet therapy if she were to have stent implantation. I discussed in detail with the patient's reggieba nd and the patient that my recommendations are for continued medical management as you are doing with beta imelda and statin therapy. Once she is cleared from a neurosurgical standpoint regarding her subdural hematoma, would reintroduce aspirin 81 mg daily. Follow up with Dr. Ramirez in the outpati ent setting. 2. History of concerning syncope: We will make sure that her home monitor is transmitting. She has not had significant arrhythmias on telemetry here and no recurrent syncope. 3. Clostridium difficile colitis and urinary tract infection: On appropriate antibiotic therapy, ma naged by Hospital Medicine. 4. Anemia: This is chronic. No active bleeding. 5. 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 6. Sjogren's: She is on chronic prednisone therapy, which also impacts her overall health. Thank you for allowing me to participate in the patient's care. At this point, I have no further rec ommendations, and we will sign off, although please re-consult with questions or concerns, or change in clinical status. /[id number]/MODL
[2016-12-07] MEDS ORDERED: POTASSIUM CL 10 MEQ TAB PO ONE ×2 (15:08→19:24)
[2016-12-07] MEDS: CYCLOSPORINE 0.05% 1 EACH BOX EACHEYE SCH ×2 (16:14→21:05)
[2016-12-07 18:52] LABS: POTASSIUM 3.8 mEq/L (3.5-5.2)
[2016-12-07] MEDS: ROSUVASTATIN CALCIUM 10 MG TAB PO SCH (20:39)
[2016-12-07] MEDS: ACETAMINOPHEN 325 MG TAB PO PRN (20:54)
[2016-12-07] MEDS: oxyCODONE IR 5 MG TAB PO PRN (20:55)
[2016-12-08] MEDS: CEPHALEXIN 500 MG CAP PO SCH ×4 (00:13→18:15)
[2016-12-08 04:28] LABS: % IMMATURE GRANULYOCYTES 1.2 % (0.0-1.1); ABSOLUTE IMMATURE GRANULOCYTES 0.05 10^3/uL (0.00-0.10); ADD DIFF? NO; ADD MORPH? NO; ADD SCAN? NO; ATYPICAL LYMPHOCYTE FLAG 50 (0-99); FRAGMENT RBC FLAG 0 (0-99); HEMOGLOBIN 9.3 g/dL (12.6-16.3); LEFT SHIFT FLG 10 (0-99); LIPEMIA HEMOLYSIS FLAG 80 (0-99); MEAN CELL HEMOGLOBIN 31.4 pg (27.9-34.1); MEAN CELL HEMOGLOBIN CONCENTR. 33.2 g/dL (32.4-36.7); MEAN CELL VOLUME 94.6 fL (81.5-99.8); MEAN PLATELET VOLUME 9.3 fL (8.7-11.7); PLATELET CLUMPS FLAG 10 (0-99); PLATELET COUNT 163 10^3/uL (150-400); RED BLOOD CELL COUNT 2.96 10^6/uL (4.18-5.33); RED CELL DISTRIBUTION WIDTH 15.6 % (11.5-15.2)
[2016-12-08 04:38] LABS: ANION GAP 6 mEq/L (8-16); CALCIUM 8.5 mg/dL (8.5-10.4); CARBON DIOXIDE 20 mEq/l (22-31); CHLORIDE 107 mEq/L (97-110); CHOLESTEROL 109 mg/dL (140-220); CHOLESTEROL/HDL RATIO 2.02 RATIO (1.00-4.44); CREATININE 0.8 mg/dL (0.6-1.0); GLOMERULAR FILTRATION RATE > 60; GLUCOSE 86 mg/dL (70-100); HIGH DENSITY LIPOPROTEIN 54 mg/dL (40-85); LOW DENSITY LIPOPROTEIN 43 mg/dL (80-100); NON-HIGH DENSITY LIPOPROTEIN 55 mg/dL (90-129); POTASSIUM 3.9 mEq/L (3.5-5.2); SODIUM 133 mEq/L (134-144); TRIGLYCERIDE 63 mg/dL (35-135); VERY LOW DENSITY LIPOPROTEINS 12 mg/dL (8-25)
[2016-12-08] MEDS: VANCOMYCIN 125 MG/2.5 ML UDL PO SCH ×4 (05:22→22:31)
[2016-12-08] MEDS ORDERED: POTASSIUM CL 10 MEQ TAB PO ONE (08:26)
[2016-12-08] MEDS: LEVOTHYROXINE 50 MCG TAB PO SCH (09:56)
[2016-12-08] MEDS: METOPROLOL SUCCINATE XR 25 MG TAB PO SCH (09:56)
[2016-12-08] MEDS: PANTOPRAZOLE SODIUM 40 MG TAB PO SCH (09:56)
[2016-12-08] MEDS: HYDROXYCHLOROQUINE SULFATE 200 MG TAB PO SCH ×2 (09:56→22:32)
[2016-12-08] MEDS ORDERED: guaiFENesin/CODEINE PHOS 10 ML UDCUP PO PRN (09:57)
[2016-12-08] MEDS: SODIUM CHLORIDE 1,000 MG TAB PO SCH ×2 (09:57→18:15)
[2016-12-08] MEDS: TRANEXAMIC ACID 650 MG TAB PO SCH ×2 (09:58→22:32)
[2016-12-08] MEDS ORDERED: IPRATROPIUM/ALBUTEROL 3 ML DEYVIAL IH PRN (09:58)
[2016-12-08] MEDS: predniSONE 1 MG TAB PO SCH (09:58)
[2016-12-08] MEDS: GABAPENTIN 300 MG CAP PO SCH ×2 (10:01→22:34)
[2016-12-08] MEDS: LIDO/ZINC OX/CLOTRIMAZOLE (MAD) 116 GM CREAM TP SCH ×2 (10:02→18:42)
[2016-12-08] MEDS: CYCLOSPORINE 0.05% 1 EACH BOX EACHEYE SCH ×2 (10:03→16:04)
[2016-12-08] MEDS: BENZONATATE 100 MG CAP PO PRN (10:10)
[2016-12-08] MEDS ORDERED: NON-FORMULARY NEW DRUG (Zolpidem Tartrate [Ambien 10 Mg] 10 MG) PO PRN (13:22)
[2016-12-08] MEDS ORDERED: DICYCLOMINE 20 MG TAB PO PRN (13:22)
--- NOTE | 2016-12-08 14:20 | HOSPPROG ---
Hospitalist Progress Note Assessment/Plan: * Metabolic encephalopathy -due to infection - improved * Cdiff colitis - PO Vanco * UTI - E coli -PO Keflex * Severe sepsis - due to above * Severe protein calorie malnutrition -BMI 15 * Syncope s/p LINQ monitor * Troponin elevation -recent + stress test -managed medically due to recent SDH -consider eventual cardiac cath - remains without symptoms -follow-up Dr. Ramirez outpatient * Sjogren's -chronic prednisone 2mg * SDH - recurrent -improved on head CT * SIADH -salt tabs Subjective: Weak. Still diarrhea Objective: Vital Signs Temp Pulse Resp BP Pulse Ox 36.6 C 76 13 148/65 H 97 12/08/16 11:51 12/08/16 11:51 12/08/16 11:51 12/08/16 11:51 12/08/16 11:51 Laboratory Results 12/08/16 04:15 12/08/16 04:15 12/07/16 12/08/16 12/09/16 05:59 05:59 05:59 Intake Total 1160 970 Output Total 675 Balance 485 970 PT 14.7 SEC (12.0-15.0) 12/05/16 15:15 INR 1.15 (0.83-1.16) 12/05/16 15:15 CXR viewed, my personal interpretation is - no infiltrate tele - NSR - Physical Exam Constitutional: no apparent distress, appears nourished, not in pain Cardiovascular: regular rate and rhythym, no murmur, rub, or gallop Respiratory: no respiratory distress, no rales or rhonchi, clear to auscultation Gastrointestinal: normoactive bowel sounds, soft, non-tender abdomen, no palpable masses Skin: no rashes or abrasions, no fluctuance, no induration Neurologic: AAOx3, sensation intact bilaterally Psychiatric: interacting appropriately, not anxious, not encephalopathic, thought process linear ICD10 Worksheet Patient Problems: Problems Problem Status Onset Altered mental status Acute Clostridium difficile infection Acute ~12/06/16 Urinary tract infection Acute Dehydration Acute Elevated troponin Acute Nausea & vomiting Acute Primary localized osteoarthritis of right knee Acute Subarachnoid hemorrhage Acute Subdural hematoma Acute Syncope Acute TIA (transient ischemic attack) Acute Troponin I above reference range Acute Vomiting and diarrhea Acute
[2016-12-08 18:57] LABS: POTASSIUM 4.1 mEq/L (3.5-5.2)
[2016-12-08] MEDS: ROSUVASTATIN CALCIUM 10 MG TAB PO SCH (22:32)
[2016-12-08] MEDS: ZOLPIDEM TARTRATE 5 MG TAB PO PRN (22:37)
[2016-12-09] MEDS: CEPHALEXIN 500 MG CAP PO SCH ×5 (00:27→23:00)
[2016-12-09 04:33] LABS: ABSOLUTE IMMATURE GRANULOCYTES 0.04 10^3/uL (0.00-0.10); ADD DIFF? NO; ADD MORPH? NO; ADD SCAN? NO; ATYPICAL LYMPHOCYTE FLAG 50 (0-99); FRAGMENT RBC FLAG 0 (0-99); HEMATOCRIT 28.9 % (38.0-47.0); HEMOGLOBIN 9.9 g/dL (12.6-16.3); LEFT SHIFT FLG 10 (0-99); LIPEMIA HEMOLYSIS FLAG 90 (0-99); MEAN CELL HEMOGLOBIN 31.8 pg (27.9-34.1); MEAN CELL HEMOGLOBIN CONCENTR. 34.3 g/dL (32.4-36.7); MEAN CELL VOLUME 92.9 fL (81.5-99.8); MEAN PLATELET VOLUME 9.2 fL (8.7-11.7); PLATELET CLUMPS FLAG 10 (0-99); PLATELET COUNT 160 10^3/uL (150-400); RED BLOOD CELL COUNT 3.11 10^6/uL (4.18-5.33); RED CELL DISTRIBUTION WIDTH 15.4 % (11.5-15.2)
[2016-12-09 04:45] LABS: ANION GAP 8 mEq/L (8-16); CALCIUM 8.7 mg/dL (8.5-10.4); CARBON DIOXIDE 22 mEq/l (22-31); CHLORIDE 102 mEq/L (97-110); CREATININE 0.6 mg/dL (0.6-1.0); GLOMERULAR FILTRATION RATE > 60; GLUCOSE 89 mg/dL (70-100); POTASSIUM 3.7 mEq/L (3.5-5.2); SODIUM 132 mEq/L (134-144)
[2016-12-09] MEDS: VANCOMYCIN 125 MG/2.5 ML UDL PO SCH ×4 (06:07→21:18)
[2016-12-09] MEDS ORDERED: POTASSIUM CL 10 MEQ TAB PO ONE ×2 (06:09→09:00)
[2016-12-09] MEDS: predniSONE 1 MG TAB PO SCH (08:46)
[2016-12-09] MEDS: TRANEXAMIC ACID 650 MG TAB PO SCH ×2 (08:47→21:17)
[2016-12-09] MEDS: METOPROLOL SUCCINATE XR 25 MG TAB PO SCH (08:47)
[2016-12-09] MEDS: LEVOTHYROXINE 50 MCG TAB PO SCH (08:47)
[2016-12-09] MEDS: PANTOPRAZOLE SODIUM 40 MG TAB PO SCH (08:47)
[2016-12-09] MEDS: SODIUM CHLORIDE 1,000 MG TAB PO SCH ×2 (08:48→17:11)
[2016-12-09] MEDS: HYDROXYCHLOROQUINE SULFATE 200 MG TAB PO SCH ×2 (08:48→21:17)
[2016-12-09] MEDS: CYCLOSPORINE 0.05% 1 EACH BOX EACHEYE SCH ×2 (08:49→20:03)
[2016-12-09] MEDS: LIDO/ZINC OX/CLOTRIMAZOLE (MAD) 116 GM CREAM TP SCH ×2 (08:49→20:02)
[2016-12-09] MEDS: ONDANSETRON 4 MG/2 ML VIAL IVP PRN ×2 (09:26→20:02)
--- NOTE | 2016-12-09 09:29 | WOCRNPDOC ---
WOCRN Advanced Assessment Note - Skin Integrity Problem, Advanced Assess Coccyx Dressing Type: Open to Air Nora Wound Tissue: Blanching, Intact Wound Bed Color: [place] Pressure Injury Stage: Stage 1 Skin Integrity Problem Comment: Patient's skin intact and blanching. Wound care does not need to continue to follow this wound. Please reconsult PRN. Sacrum Dressing Type: Open to Air Nora Wound Tissue: Blanching Skin Integrity Problem Comment: Patient's skin intact and blanching. Wound care does not need to follow. Please reconsult PRN. Perianal Incont Assoc Dermatitis Dressing Type: Open to Air Integumentary Issue Intervention: Lotion/Cream Applied (MAD cream) Nora Wound Tissue: Erythema Skin Integrity Problem Comment: Patient with frequent loose stool creating increased moisture and irritation to perianal skin. MAD cream applied. LUIS Mohr informed. Continue with MAD cream until skin irritation resolves. Wound care will not continue to follow. Please reconsult PRN.
--- NOTE | 2016-12-09 15:25 | ASMTCMCOM ---
CM Note CM Note Notes: Pt and have decided that rehab would be best for her. Their first choice in [facility]. D/W Saba and after reviewing and discussing w/pt they are able to accept pt. Plan is for pt to dc most likely tomorrow to [facility]. Per Saba they would like to admit in the AM. Pt and are in agreement w/dc poc and [facility] and are aware of charges. I have scheduled 10 AM pickup on 12/10/16 with [facility] (confirmed with Laith that they are able to transport even with CDiff inf) and notified Saba at [facility] as well as RN and MD. Date Signed: 12/09/2016 03:24 PM Electronically Signed By:Maria Ines Tobar RN
--- NOTE | 2016-12-09 15:58 | HOSPPROG ---
Hospitalist Progress Note Assessment/Plan: * Metabolic encephalopathy -due to infection - improved * Cdiff colitis - PO Vanco * UTI - E coli -PO Keflex * Severe sepsis - due to above * Severe protein calorie malnutrition -BMI 15 * Syncope s/p LINQ monitor * Troponin elevation -recent + stress test -managed medically due to recent SDH -consider eventual cardiac cath - remains without symptoms -follow-up Dr. Ramirez outpatient * Sjogren's -chronic prednisone 2mg * SDH - recurrent -improved on head CT * SIADH -salt tabs * Depression - patient desires to start celexa Subjective: Multiple very small BM daily Objective: Vital Signs Temp Pulse Resp BP Pulse Ox 36.4 C 83 15 135/59 H 97 12/09/16 15:06 12/09/16 15:06 12/09/16 15:06 12/09/16 15:06 12/09/16 15:06 Laboratory Results 12/09/16 04:20 12/09/16 04:20 12/08/16 12/09/16 12/10/16 05:59 05:59 05:59 Intake Total 970 1350 Balance 970 1350 PT 14.7 SEC (12.0-15.0) 12/05/16 15:15 INR 1.15 (0.83-1.16) 12/05/16 15:15 - Physical Exam Constitutional: no apparent distress, appears nourished, not in pain Cardiovascular: regular rate and rhythym, no murmur, rub, or gallop Respiratory: no respiratory distress, no rales or rhonchi, clear to auscultation Gastrointestinal: normoactive bowel sounds, soft, non-tender abdomen, no palpable masses Skin: no rashes or abrasions, no fluctuance, no induration Neurologic: AAOx3, sensation intact bilaterally Psychiatric: interacting appropriately, not anxious, not encephalopathic, thought process linear ICD10 Worksheet Patient Problems: Problems Problem Status Onset Altered mental status Acute Clostridium difficile infection Acute ~12/06/16 Urinary tract infection Acute Dehydration Acute Elevated troponin Acute Nausea & vomiting Acute Primary localized osteoarthritis of right knee Acute Subarachnoid hemorrhage Acute Subdural hematoma Acute Syncope Acute TIA (transient ischemic attack) Acute Troponin I above reference range Acute Vomiting and diarrhea Acute
[2016-12-09] MEDS: CITALOPRAM 20 MG TAB PO SCH (17:00)
[2016-12-09] MEDS: ZOLPIDEM TARTRATE 5 MG TAB PO PRN (21:17)
[2016-12-09] MEDS: ROSUVASTATIN CALCIUM 10 MG TAB PO SCH (21:17)
[2016-12-09] MEDS: BENZONATATE 100 MG CAP PO PRN (21:17)
[2016-12-10] MEDS: ACETAMINOPHEN 325 MG TAB PO PRN (00:33)
[2016-12-10] MEDS: oxyCODONE IR 5 MG TAB PO PRN (00:33)
[2016-12-10] MEDS: CEPHALEXIN 500 MG CAP PO SCH (06:10)
[2016-12-10] MEDS: VANCOMYCIN 125 MG/2.5 ML UDL PO SCH (06:10)
[2016-12-10 08:02] VITALS: BP 140/66; PULSE 85; RESP 17; TEMP 97.4; O2SAT 96
[2016-12-10] MEDS: LIDO/ZINC OX/CLOTRIMAZOLE (MAD) 116 GM CREAM TP SCH (08:31)
[2016-12-10] MEDS: SODIUM CHLORIDE 1,000 MG TAB PO SCH (08:31)
[2016-12-10] MEDS: CYCLOSPORINE 0.05% 1 EACH BOX EACHEYE SCH (08:31)
[2016-12-10] MEDS: CITALOPRAM 20 MG TAB PO SCH (08:32)
[2016-12-10] MEDS: PANTOPRAZOLE SODIUM 40 MG TAB PO SCH (08:32)
[2016-12-10] MEDS: predniSONE 1 MG TAB PO SCH (08:32)
[2016-12-10] MEDS: HYDROXYCHLOROQUINE SULFATE 200 MG TAB PO SCH (08:32)
[2016-12-10] MEDS: METOPROLOL SUCCINATE XR 25 MG TAB PO SCH (08:32)
[2016-12-10] MEDS: TRANEXAMIC ACID 650 MG TAB PO SCH (08:33)
--- NOTE | 2016-12-10 09:27 | PDIAF ---
- Diagnosis Diagnosis: Cdiff Code Status: Full Code - Medication Management Discharge Medications: Medications to Continue on Transfer Dicyclomine [Bentyl 20 MG (*)] 20 mg PO DAILY PRN 02/08/14 [Last Taken 08/03/16] Hydroxychloroquine Sulfate [Plaquenil 200 mg (*)] 200 mg PO BID 02/08/14 [Last Taken 10/21/16 09:00] Levothyroxine [Synthroid 50 mcg (*)] 50 mcg PO DAILY 02/08/14 [Last Taken ] Omeprazole [Prilosec 20 mg] 40 mg PO DAILY 02/08/14 [Last Taken 09/28/16] cycloSPORINE 0.05% [Restasis Opht Drops(*)] 1 drop EACHEYE BID 02/08/14 [Last Taken 10/21/16 21:00] Rosuvastatin Calcium [Crestor 5mg] 5 mg PO HS 07/28/16 [Last Taken 10/21/16] predniSONE [Kanwal] 2 mg PO DAILY 09/30/16 [Last Taken 10/21/16] Metoprolol Succinate Xr [Toprol Xl 25 mg (*)] 25 mg PO DAILY #30 tab 10/28/16 [ Last Taken Unknown] Polyethylene Glycol 3350 [Miralax 17 gm (*)] 17 gm PO DAILY PRN pkt 10/28/16 [ Last Taken Unknown] Ondansetron Odt [Zofran Odt 4 mg (*)] 4 - 8 mg PO Q4HRS PRN 11/02/16 [Last Taken Unknown] Sodium Chloride [Salt Tablet] 2,000 mg PO BIDMEAL tab 11/10/16 [Last Taken Unknown] Tranexamic Acid 650 mg PO BID tab 11/10/16 [Last Taken Unknown] Zolpidem Tartrate [Ambien 10 mg] 10 mg PO HS PRN 12/05/16 [Last Taken Unknown] Gluc Oxid/l-Peroxid/Muramidase [Biotene Mouthwash (*)] 15 ml MM Q4HRS PRN [Last Taken Unknown] oxyCODONE/APAP 5/325 [Percocet 5/325 (*)] 1 - 2 tab PO DAILY PRN 12/06/16 [Last Taken Unknown] Cephalexin [Keflex (*)] 500 mg PO Q6HRS #8 cap 12/10/16 [Last Taken Unknown] Citalopram [CeleXA 20 MG] 20 mg PO DAILY #30 tab 12/10/16 [Last Taken Unknown] Vancomycin [Vancocin Oral Liquid] 125 mg PO QID #30 udl 12/10/16 [Last Taken Unknown] [facility] Antibiotics: Keflex for 2 more days, PO Vanco for 10 more days Discharge Medications: Refer to the Discharge Home Medication list for PRN reason. - Orders Services needed: Physical Therapy, Occupational Therapy, Speech Language Pathologist Diet Recommendation: no restrictions on diet Diet Texture: Regular Texture Diet, Thin Liquids, Meds Whole w/Liquids - Follow Up Care Current Providers and Referrals: Humberto Pereira MD [Primary Care Provider] - As per Instructions
--- NOTE | 2016-12-10 09:46 | ASMTCMCOM ---
CM Note CM Note Notes: Pt will dc this morning to [facility]. Transport set up w/[facility] for 10 am pickup. and pt aware and agreeable to charges for transport; Orders/info sent via [employer]. D/W RN who will call report and notified Darya at [facility] and they are ready to accept pt. Date Signed: 12/10/2016 09:46 AM Electronically Signed By:Maria Ines Tobar RN
[2016-12-10] MEDS: LEVOTHYROXINE 50 MCG TAB PO SCH (09:56)
--- NOTE | 2016-12-10 13:55 | ASDISCHSUM ---
Discharge Information Plan Status:Inpatient Rehab Medically Cleared to Leave: Discharge Date:12/10/2016 10:14 AM D/C Disposition:[facility] IP ADT D/C Disposition:[facility] IP Projected Discharge Date:12/10/2016 11:00 AM Transportation at D/C:Wheelchair Van Discharge Delay Reason: Follow-Up Date:12/10/2016 11:00 AM Discharge Slot: Final Diagnosis: Placement Information Referral Type:*Home Health Care Services Referral ID:[id number] Provider Name: Address 1: Phone Number: Address 2: Fax Number: City: Selection Factors: State: Referral Type:[facility] Referral ID:[id number] Provider Name:[facility] Address 1:[address] Phone Number: Address 2: Fax Number: [facility]:[place] Selection Factors: State:[place] Patient Contact Information Contact Name:KHANH Relationship: Address:[address] City:[place] Alternate Phone: State/Zip Code:[place] [address] Email: Financial Information Financial Class: Primary Plan Desc:MEDICARE INPATIENT Primary Plan Number:[id number] Secondary Plan Desc:[employer]/MDR SUPPLEMENT Secondary Plan Number:[id number] Assessment Information [facility] CM Progress Note CM Note CM Note Notes: Patient brought in by EMS from private home in [place] where she lives with her , Angel. Patient was minimally responsive and AxOx0 when EMS arrived on scene. Patient recently admitted 10/23/16 for syncope, fall and subdural hematoma and subarachnoid hemorrhage. Patient was admitted again 11/02 - 11/10 with increasing subdural hematoma. Patient was discharged both times to [facility]. Per Angel, patient was discharged from [facility] on 11/28/16 home with home fire alarm installer[facility][phone]) and also has help from [facility]jandro Choi ). Patient's Head CT in the ED shows resolving subdural hematoma. Patient was having high blood pressures requiring medication. Patient is being admitted for UTI. Exact DC needs unknown at this time. CM to follow. Date Signed: 12/05/2016 04:20 PM Electronically Signed By:Debora Bhardwaj RN [facility] CM Progress Note CM Note CM Note Notes: Patient doing much better today and should be able to work with therapies. I spoke with patient and her , and they would like to return home with the homecare and unskilled help they had set up prior to this admission. I called [facility] who will resume services. Patient's is coordinating with Alejandro Choi. CM to send RN/PT/OT orders to [facility] when patient is discharged. CM available if any other d/c needs arise. Date Signed: 12/07/2016 12:48 PM Electronically Signed By:Mary Grace Harrison RN [facility] CM Progress Note CM Note CM Note Notes: Pt and have decided that rehab would be best for her. Their first choice in [facility]. D/W Saba and after reviewing and discussing w/pt they are able to accept pt. Plan is for pt to dc most likely tomorrow to [facility]. Per Saba they would like to admit in the AM. Pt and are in agreement w/dc poc and would like to use [facility] transport service and are aware of charges. I have scheduled 10 AM pickup on 12/10/16 with [facility] (confirmed with Laith that they are able to transport even with CDiff inf) and notified Saba at [facility] as well as RN and MD. Date Signed: 12/09/2016 03:24 PM Electronically Signed By:Maria Ines Tobar RN [facility] CM Progress Note CM Note CM Note Notes: Pt will dc this morning to [facility]. Transport set up w/[facility] for 10 am pickup. and pt aware and agreeable to charges for transport; Orders/info sent via [employer]. D/W RN who will call report and notified Darya at [facility] and they are ready to accept pt. Date Signed: 12/10/2016 09:46 AM Electronically Signed By:Maria Ines Tobar RN Intervention Information Intervention Type:*IM-Signed Date of Service:12/10/2016 10:10 AM Patient Type:Inpatient Staff Member:Arlin Madrid Hours: Discipline: Severity: Comment:
[2016-12-10] MEDS ORDERED: PILOCARPINE HCL 5 MG TAB PO SCH (16:00)
--- NOTE | 2016-12-10 19:53 | GDS ---
[f rep st] DISCHARGE SUMMARY DIAGNOSES: 1. Clostridium difficile colitis. 2. Metabolic encephalopathy. 3. Escherichia coli urinary tract infection. 4. Severe sepsis. 5. Severe protein-calorie malnutrition. BMI 15. 6. Recent syncope, status post LINQ monitor. 7. Positive cardiac stress test, being managed medically due to recent subdural hematoma. 8. Sjogren syndrome. 9. Recurrent subdural hematoma. 10. Syndrome of inappropriate antidiuretic hormone. 11. Depression. HISTORY: The patient is a 81-year-old female, who had an unexpected syncopal event, hitting her head on her basement floor, and developing a subdural hematoma, leading to a couple recent admissions, an d stays at [facility]. She now re-presents to the hospital from home when her husban d found her unresponsive with severe metabolic encephalopathy. Upon presentation, it was unclear whdavi t was causing her confusion, but eventually she was discovered to have C difficile colitis and profus e diarrhea. She also had a possible urinary tract infection growing E coli in her urine. She qualif ied for severe sepsis. She was treated with cephalosporin for the UTI, and oral vancomycin for the C difficile, and she slowly improved. Her mental status did improve, but I think she has ongoing cogn itive difficulties that will need speech therapy. She transferred to [facility] for fur ther management. She did have a borderline troponin elevation, has a known positive stress test from her last hospital ization. Due to her subdural hematoma this is being managed medically at this time. Could consider eventual cardiac catheterization, especially if she develops symptoms. She will follow up with Dr. Hayes catalan as an outpatient. She has had recurrence of her subdural hematoma resulting in a second admission, but CT scan of her h ead on this admission is showing nice resolution. She continues on tranexamic acid per Neurosurgery. Once cleared by Neurosurgery, she should start a daily aspirin. Given the evidence of ischemia on her stress test. She has had a persistent SIADH, and remains on salt tablets with good sodium contro l. The patient is very depressed regarding these recent hospitalizations in her decline in health. She did desire to start antidepressant, and I started her on Celexa. DISCHARGE MEDICATIONS: Please see computerized record for full detailed list. NEW MEDICATIONS: 1. Celexa 20 mg p.o. daily. 2. Keflex 500 mg p.o. every 6 hours x2 more days. 3. Vancomycin 125 mg p.o. q.6 hours for 10 more days. This remain of her medications will continue as they were prior to admission. DISCHARGE INSTRUCTIONS: 1. Transfer to inpatient rehabilitation for further care. 2. Follow up with Dr. Ramirez, Cardiology, as an outpatient. 3. Greater than 30 minutes of time was spent arranging this discharge. The patient was seen and examine d by me on the day of discharge. /[id number]/MODL
== END 2016-12-10 10:14 | DRG 871 ==
LOC: EDUNIT# → F2N 16:16 → F2W 12-07 06:55
PROVIDERS: ADMIT Internal Medicine; ATTEND Internal Medicine
PROC: 02HV33Z Insertion of Infusion Device into Superior Vena Cava, Percutaneous Approach (ICD-10-PCS; principal; 2016-12-07)
DX: A41.51 Sepsis due to Escherichia coli [E. coli] (principal); R65.20 Severe sepsis without septic shock; A04.72 Enterocolitis due to Clostridium difficile, not specified as recurrent; N39.0 Urinary tract infection, site not specified; G93.41 Metabolic encephalopathy; E43 Unspecified severe protein-calorie malnutrition; Z68.1 Body mass index [BMI] 19.9 or less, adult; S06.5X9D Traumatic subdural hemorrhage with loss of consciousness of unspecified duration, subsequent encounter; W19.XXXD Unspecified fall, subsequent encounter; K21.9 Gastro-esophageal reflux disease without esophagitis; E03.9 Hypothyroidism, unspecified; D53.9 Nutritional anemia, unspecified; E78.5 Hyperlipidemia, unspecified; E22.2 Syndrome of inappropriate secretion of antidiuretic hormone; Z86.73 Personal history of transient ischemic attack (TIA), and cerebral infarction without residual deficits; Z79.52 Long term (current) use of systemic steroids; Z87.891 Personal history of nicotine dependence; Z96.651 Presence of right artificial knee joint
CPT/HCPCS: 92526-GN; 92610-GN; 96374; 97110-GP; 97116-GP; 97161-GP; 97166-GO; 97530-GP; 97535-GO; C1751; G8978-GP-CJ; G8979-GP-CI; G8987-GO-CJ; G8988-GO-CI; G8996-GN-CI; G8997-GN-CH; J0696; J2060; J2405

== ENCOUNTER 2016-12-10 10:44 | Inpatient (IN) | payer OTHER, MEDICARE ==
[2016-12-10] MEDS ORDERED: OXYCODONE/APAP 5/325 TAB PO PRN (11:51)
[2016-12-10] MEDS ORDERED: DICYCLOMINE 20 MG TAB PO PRN (11:51)
[2016-12-10] MEDS ORDERED: BIOTENE DRY MOUTH MOUTHWASH 237 ML BTL MM PRN (11:51)
[2016-12-10] MEDS ORDERED: NON-FORMULARY NEW DRUG (Zolpidem Tartrate [Ambien 10 Mg] 10 MG) PO PRN (11:51)
[2016-12-10] MEDS ORDERED: POLYETHYLENE GLYCOL 3350 17 GM PKT PO PRN (11:51)
[2016-12-10] MEDS: ACETAMINOPHEN 325 MG TAB PO PRN (12:48)
[2016-12-10] MEDS: VANCOMYCIN 125 MG/2.5 ML UDL PO SCH ×3 (12:48→20:15)
[2016-12-10] MEDS: CEPHALEXIN 500 MG CAP PO SCH ×3 (12:48→23:33)
--- NOTE | 2016-12-10 13:03 | PDOREHIP ---
Admission IRF-[facility] - Admission - 3 Day Assessment Period Admission Date/Day 1: 12/10/16 Day 2: 12/11/16 Day 3: 12/12/16 - Active Diagnoses Comorbidities and Co-existing Conditions at Admission: . None of the Above - Skin Conditions Unhealed Pressure Ulcer (1 or more/Stage 1 or >)-Admission: 1. Yes # Stage 1 Pressure Ulcers-Admission: 1 (Coccyx)
[2016-12-10] MEDS ORDERED: DICYCLOMINE 10 MG CAP PO PRN (13:51)
--- NOTE | 2016-12-10 14:42 | GHP ---
[f rep st] HISTORY AND PHYSICAL POST ADMISSION PHYSICIAN EVALUATION AND REHABILITATION TREATMENT PLAN. DATE OF ADMISSION: 12/10/2016 DATE OF EVALUATION: December 10, 2016. TIME OF EVALUATION: 1210. REFERRING FACILITY: [facility]. REFERRING PHYSICIAN: Jorge Long MD IMPAIRMENT GROUP: 2.1. DATE OF ONSET: 12/05/2016. REHABILITATION DIAGNOSIS: Debility with history of subdural hematoma, complicated by sepsis. ETIOLOGIC DIAGNOSIS: Nontraumatic brain dysfunction. HISTORY OF PRESENT ILLNESS: This patient came to [facility] on , having been found unresponsive by her . She had nausea and vomiting the day before. There is a history of a subdural hematoma approximately a month prior with hospitalization and a subsequent long-term stay. She had returned home. She was evaluated in the emergency room and found to have a urinary tract infection and C diff colitis. She was clinically septic. She has had weight loss and was diagnosed with protein calorie malnutrition. Additionally, she had an elevated troponin. She was treated with IV antibiotics and then oral antibiotics for the urinary tract infection, and oral vancomycin for the C diff colitis. She had a Cardiology consultation with Dr. Smith regarding her elevated troponin. She was without anginal symptoms. History of abnormal nuclear stress test with anterior ischemia was noted. She had an echocardiogram on her prior admission with overall preserved ejection fraction. Advice was to continue beta imelda and to postpone cardiac catheterization due to her ongoing medical complications. Advice was to reintroduce aspirin 81 mg daily when cleared by Neurosurgery. Cardiology also commented on her history of syncope, which was the cause for her subdural hemorrhage in the first place. She has had a LINQ monitor in place , and there have been no arrhythmias noted. She had hyponatremia which has been chronic, going back to the beginning of October, and is consistent with syndrome of inappropriate ADH secretion for which she has been maintained on a fluid restriction. She complained of depression during her hospitalization and was started on citalopram. She currently complains of a headache, but is otherwise without any acute complaints. OTHER STUDIES AND LABS IN THE HOSPITAL: Other than the hyponatremia, her renal function was intact. Lipid panel was done with a total cholesterol of 109, LDL of 43, and HDL of 55. She had a head CT which showed a left parietal scalp hematoma, but no acute intracranial findings, and her chronic right frontal subdural hematoma was decreasing in size. She had a chest x-ray which showed no acute findings. PRECAUTIONS: She is a fall risk. She has isolation for Clostridium difficile colitis. ACTIVE COMORBIDITIES: She has a tier 2 comorbidity of Clostridium difficile colitis. She has a tier 3 comorbidity of recent septicemia. PAST MEDICAL HISTORY: 1. Sjogren syndrome. 2. Appendicitis. 3. Cholecystitis. 4. Degenerative joint disease. 5. Syncope. 6. Subdural hematoma. 7. Gastroesophageal reflux disorder. PAST SURGICAL HISTORY: She has had an appendectomy, cholecystectomy, and knee replacement surgery. PRE-HOSPITAL MEDICATIONS: 1. Dicyclomine 20 mg p.o. daily p.r.n. 2. Hydroxychloroquine 200 mg p.o. twice daily. 3. Levothyroxine 50 mcg p.o. at bedtime. 4. Omeprazole 20 mg p.o. daily. 5. Cyclosporine 0.05% ophthalmic drops twice daily to each eye. 6. Gabapentin 1200 mg p.o. at bedtime. 7. Pilocarpine 5 mg p.o. twice daily. 8. Rosuvastatin 5 mg p.o. at bedtime. 9. Zolpidem 10 mg p.o. at bedtime. 10. Prednisone 2 mg p.o. daily. 11. Acetaminophen 1000 mg p.o. q.8 hours p.r.n. 12. Metoprolol-XL 25 mg p.o. daily. 13. Polyethylene glycol 17 g p.o. daily p.r.n. 14. Senna/docusate 1 to 2 tabs p.o. twice daily. 15. Ondansetron 4 mg p.o. q.6 hours p.r.n. 16. Sodium chloride tablets 2000 mg p.o. twice daily with meals. 17. Tranexamic acid 650 mg p.o. twice daily. ADMISSION MEDICATIONS: 1. Dicyclomine 20 mg p.o. daily. 2. Hydroxychloroquine 200 mg p.o. twice daily. 3. Levothyroxine 50 mcg p.o. daily. 4. Omeprazole 40 mg p.o. daily. 5. Cyclosporine 0.05% 1 drop each eye twice daily. 6. Rosuvastatin 5 mg p.o. at bedtime. 7. Prednisone 2 mg p.o. daily. 8. Metoprolol-XL 25 mg p.o. daily. 9. Polyethylene glycol 17 g p.o. daily. 10. Ondansetron 4 mg p.o. q.4 hours p.r.n. 11. Sodium chloride 2000 mg p.o. twice daily with meals. 12. Tranexamic acid 650 mg p.o. twice daily. 13. Zolpidem 10 mg p.o. at bedtime p.r.n. 14. Biotene mouthwash 15 mL q.4 hours p.r.n. 15. Oxycodone/acetaminophen 1 to 2 tabs p.o. daily p.r.n. 16. Cephalexin 500 mg q.6 hours for 2 more days. 17. Citalopram 20 mg p.o. daily. 18. Vancomycin 125 mg p.o. 4 times daily for 10 more days. ALLERGIES: Listed to amoxicillin which caused vomiting, ciprofloxacin which caused vomiting, metronidazole which caused vomiting, morphine which cause vomiting, nitrofurantoin with an unknown reaction, oxaprozin which caused vomiting, sulfa antibiotics which caused hives, and tramadol which caused vomiting. FAMILY HISTORY: Noncontributory. PSYCHOSOCIAL HISTORY: She is . She lives with her . She has a local son in [place]. She has worked for 12 years for a local [employer]. She is a former smoker. REVIEW OF SYSTEMS: Other than as in HPI, she complains of feeling weak and having dry mouth. She reports that the Biotene mouthwash has not helped her dry mouth. She reports that she had a formed stool this morning. OT notes document an episode of fecal incontinence at the end of a shower yesterday. She has a headache and asks for Tylenol. Headache is over the vertex of her head, and it is not pounding, not associated with vision changes or nausea. Otherwise, a 10-point review of systems is negative. PHYSICAL EXAM: VITAL SIGNS: Blood pressure is 131/75, heart rate is 72, respiratory rate is 21, oxygen saturation is 97% on room air, temperature is 36.8 degrees centigrade. GENERAL: This is a thin elderly woman, appears her chronologic age. Cooperative and in no acute distress. HEENT: Extraocular movements are intact. Pupils are equal, round, and reactive to light. Mucous membranes are somewhat dry. Dentition is in good condition. There is no posterior oropharyngeal mucus. She has some tenderness over the left frontal sinus. NECK: Supple. HEART: There is a regular rate and rhythm with no murmurs, rubs, or gallops. LUNGS: Clear to auscultation bilaterally. ABDOMEN : Soft, nontender, nondistended with normoactive bowel sounds and no hepatosplenomegaly. EXTREMITIES: There is no cyanosis, clubbing, or edema. Radial pulses are 2+ bilaterally, and dorsalis pedis pulses are trace to 1+ bilaterally. NEUROLOGIC: She is alert and oriented x3. She is somewhat vague about her recent medical history. Cranial nerves 2-12 are grossly intact. She has 4/5 strength on the right deltoid, but is otherwise 5/5 overall in strength. Sensation is intact to light touch. Plantar reflexes upgoing on the left and indeterminate on the right. CURRENT LEVEL OF FUNCTION: Per the pre-admission screen, regarding diet, feeding, and swallowing she was on a regular diet. She had supervision for meals. There was mild dysphagia. Grooming required set up. Bathing was accomplished with minimal assistance, though she required maximal assistance to clean up after having the bowel incontinence in the shower. Dressing: Upper body was accomplished with set up, lower body with moderate assistance. Toileting was done with minimal assistance for transfers and for bita care. Regarding bladder, she had a Jon when she was evaluated. Bowel was incontinent. Bed mobility was independent. Transfers required minimal assist to contact assist with voice cues for safety. She used a front-wheeled walker. Balance required contact guard to minimal assist. Endurance was fair. She ambulated 200 feet with a front-wheeled walker and standby assistance with voice cues for safety. She was noted to have decreased postural extension and kept her walker too far anterior with elbows extended and hips flexed. Communication was considered to be within normal limits. Regarding cognition, it was noted that she was able to follow commands. IMPRESSION: This patient is a 81-year-old woman who has had a complicated medical course with syncope, subdural hematoma, a rebleed of the subdural hematoma, a long-term facility stay and return to home, and then nausea, vomiting, weakness, and unresponsiveness, which prompted her most recent hospital admission with diagnosis of urinary tract infection, sepsis and Clostridium difficile colitis. She had been treated with antibiotics, and has been participating in rehabilitation, and is appropriate for inpatient rehabilitation. She will benefit from physical therapy and occupational therapy to optimize mobility and activities of daily living, from speech language pathology regarding dysphagia and cognition, from nursing care for fall risk, skin integrity, bowel and bladder, medication administration and medication education, and from the care of a physician regarding antibiotic management, risk for neurologic deterioration and management of comorbid Sjogren syndrome and likely coronary artery disease. Her goal is to return home with her and supportive services. For a safe discharge, it is anticipated that she will be independent with eating and grooming, and modified independent for bathing, dressing, transfers, and ambulation with the least restrictive device. She will need to be able to be alone for short periods of time safely. She will need to have insight into her deficits. She will have therapy with PT, OT, and TRACK LAYER for 60 minutes per day per discipline on 5 to 7 days of the week. Her expected duration of stay is 5 to 7 days. It is anticipated that upon discharge she will continue to benefit from outpatient therapy including OT and PT, and from a brain injury support group. PLAN: 1. Debility with history of subdural hematoma and metabolic encephalopathy due to urinary tract infection and Clostridium difficile colitis. Physical therapy and occupational to optimize mobility and activities of daily living. 2. Possible cognitive impairment and dysphagia to be assessed and treated by Speech and Language Pathology. 3. Clostridium difficile colitis. Continue oral vancomycin for 10 more days or through December 20, 2016. She appears to have recovered from loose stools and bowel incontinence. She will have close nursing care regarding her bowel function. 4. Urinary tract infection. She denies having had symptoms of urinary tract infection. She was clinically septic, but blood cultures were negative. Continue cephalexin as ordered for 2 more days through 12/12/2016. 5. History of subdural hematoma with rebleed. Continue tranexamic acid. There will be further evaluation, and consider discussion with Neurosurgery regarding duration of tranexamic acid. 6. Coronary artery disease with troponin leak and ischemia on myocardial stress imaging. Continue metoprolol and rosuvastatin. Initiate aspirin 81 mg per day when cleared by Neurosurgery. 7. Protein calorie malnutrition with a body mass index of 15. Sixteen kg weight loss documented since October 22 in the medical record. Latex Foam Worker consult to optimize her nutrition. 8. Sjogren syndrome. Continue prednisone and hydroxychloroquine. She reports Biotene has not been effective for dry mouth. She was treated with pilocarpine previously, and this will be continued. 9. 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 This has been persisting since her subdural hematoma in October. Continue fluid restriction and sodium tablets. Will repeat basic metabolic profile on . 10. History of gastroesophageal reflux disorder, on omeprazole. Omeprazole increases the risk for Clostridium difficile colitis. We will have further discussion with patient regarding indication to continue omeprazole. 11. Prophylaxis. She has been walking greater than 200 feet. She had a subdural hematoma with a rebleed and is on tranexamic acid. Given her improved mobility, it is unlikely that she would need pharmacologic anticoagulation. We will use sequential compression devices and ERIC hose. 12. Stage I coccygeal decubitus ulcer, documented during her hospital stay. She will have nursing care to promote skin healing and to prevent any further skin breakdown. FOLLOW UP: She will follow up with florist designer Dr. Ramirez after discharge, with brick grader Dr. Pereira after discharge, and her management will be discussed with [facility] for further advice regarding tranexamic acid and when aspirin can be initiated. /[id number]/MODL MTDD
[2016-12-10] MEDS: SODIUM CHLORIDE 1,000 MG TAB PO SCH (17:55)
[2016-12-10] MEDS: ONDANSETRON DISINTEGRATING 4 MG TAB PO PRN (19:13)
[2016-12-10] MEDS: TRANEXAMIC ACID 650 MG TAB PO SCH (20:15)
[2016-12-10] MEDS: ROSUVASTATIN CALCIUM 10 MG TAB PO SCH (20:15)
[2016-12-10] MEDS: HYDROXYCHLOROQUINE SULFATE 200 MG TAB PO SCH (20:15)
[2016-12-10] MEDS: ZOLPIDEM TARTRATE 5 MG TAB PO PRN (20:15)
[2016-12-10] MEDS: CYCLOSPORINE 0.05% 1 EACH BOX EACHEYE SCH (20:16)
[2016-12-10] MEDS ORDERED: NON-FORMULARY NEW DRUG (Rosuvastatin Calcium [Crestor 5mg] 5 MG) PO SCH (21:00)
[2016-12-11] MEDS: ACETAMINOPHEN 325 MG TAB PO PRN ×2 (02:05→22:06)
[2016-12-11] MEDS: VANCOMYCIN 125 MG/2.5 ML UDL PO SCH ×4 (05:36→20:09)
[2016-12-11] MEDS: CEPHALEXIN 500 MG CAP PO SCH ×4 (05:36→23:22)
[2016-12-11] MEDS: LEVOTHYROXINE 50 MCG TAB PO SCH (05:36)
[2016-12-11] MEDS: METOPROLOL SUCCINATE XR 25 MG TAB PO SCH (08:44)
[2016-12-11] MEDS: CITALOPRAM 20 MG TAB PO SCH (08:45)
[2016-12-11] MEDS: PANTOPRAZOLE SODIUM 40 MG TAB PO SCH (08:45)
[2016-12-11] MEDS: HYDROXYCHLOROQUINE SULFATE 200 MG TAB PO SCH ×2 (08:46→20:10)
[2016-12-11] MEDS: CYCLOSPORINE 0.05% 1 EACH BOX EACHEYE SCH ×2 (08:46→20:11)
[2016-12-11] MEDS: TRANEXAMIC ACID 650 MG TAB PO SCH ×2 (08:46→20:10)
[2016-12-11] MEDS: predniSONE 1 MG TAB PO SCH (08:46)
[2016-12-11] MEDS: SODIUM CHLORIDE 1,000 MG TAB PO SCH ×2 (08:46→18:22)
[2016-12-11] MEDS ORDERED: PREDNISONE 2 MG PO SCH (09:00)
[2016-12-11] MEDS ORDERED: NON-FORMULARY NEW DRUG (Omeprazole [Prilosec 20 Mg] 40 MG) PO SCH (09:00)
--- NOTE | 2016-12-11 09:11 | SOAPPROG ---
SOAP Progress Note Assessment/Plan: Assessment/Plan: Ms. Julian is a 81 y/o female with a complicated medical course to include syncope , subdural hematoma with rebleed with a recent hospitalization admission after she was found unresponsive. Found to have UTI with sepsis and C-difficile infections. 1. Debility with history of subdural hematoma and metabolic encephalopathy due to UTI and C-diff colitis. Will continue to participation with PT and OT to optimize her mobility and ADL's. 2. Cognitive impairment and dysphagia - Will be assessed treated by GROUP HOME PARAPROFESSIONAL 3. C-diff Colitis. Continue oral Vanco until 12/20. Mildly loose stools although has been continent. 4. UTI - No symptoms currently. Met criteria for sepsis - blood cultures have been negative. Continue cephalexin until 12/12/16 and then monitor. 5. CAD with ischemia on stress test/imaging - Cont metoprolol and rosuvastatin. Consider initiation of ASA when cleared by NSG given subdural hematomas. 6. Subdural Hematoma with h/o rebleed - Cont. tranexamic acid. Will continue to work closely with NSG for appropriate f/u/monitoring and duration of tranexamic acid. 7. Protein calorie malnutrition with BMI of 15 - pastry artist consult to provide recommendations regarding supplement and other nutritional support. P;t has a documented 16kg wt loss since October 8. Sjogren Syndrome - On prednisone and hydroxychloroquine. Being treated with pilocarpine for dry mouth 9. SIADH with hyponatremia - persistent since her subdural hematoma in october. Will continue fluid restriction and salt tabs and monitor bmp - next draw on 12/13 10. H/o GERD on omeprazole - This can potentiate risk for C-Diff infections. Will work with patient about alternatives vs consider outpt f/u with PCP/GI. 11. Prophylaxis - High risk for bleed given h/o subdural hematoma with rebleed. has been walking >200 feet which decreases her risk of VTE. Will use SCD's and ERIC hose for ppx. 12. Stage I Sacral/coccygeal PU Prior to Admission- will be monitored closely and RN will provide support to assure it is offloaded F/u: Dr. Ramirez - cardiology, Dr. Pereira - Rheumatology, PCP for GERD alternatives, We will touch base with NSG regarding f/u recs including duration of tranexamic acid and ASA 12/11/16 08:55 Subjective: Feeling tired this morning -like her energy is just not there. She overall is doing well - stomach still seems a little upset but much better and less frequently having to go to the bathroom. No SEBASTIAN, no change in vision. Objective: Vital Signs Temp Pulse Resp BP Pulse Ox 36.8 C 86 16 145/76 H 95 12/10/16 20:00 12/11/16 08:44 12/10/16 20:00 12/11/16 08:44 12/10/16 20:00 12/10/16 12/11/16 12/12/16 05:59 05:59 05:59 Intake Total 440 250 Output Total 840 Balance -400 250 Physical Exam - Physical Exam General Appearance: alert, no apparent distress, thin EENT: other (xerostomia) Respiratory: lungs clear Cardiac/Chest: regular rate, rhythm Abdomen: normal bowel sounds, soft Skin: warm/dry Extremities: other (No LE edema) Neuro/Psych: alert, oriented x 3, other (answering all questions appropriately this morning) ICD10 Worksheet Patient Problems: Problems Problem Status Onset Altered mental status Acute Clostridium difficile infection Acute ~12/06/16 Dehydration Acute Elevated troponin Acute Nausea & vomiting Acute Primary localized osteoarthritis of right knee Acute Subarachnoid hemorrhage Acute Subdural hematoma Acute Syncope Acute TIA (transient ischemic attack) Acute Troponin I above reference range Acute Urinary tract infection Acute Vomiting and diarrhea Acute
[2016-12-11] MEDS: ONDANSETRON DISINTEGRATING 4 MG TAB PO PRN ×3 (10:17→20:39)
[2016-12-11] MEDS: ZOLPIDEM TARTRATE 5 MG TAB PO PRN (20:09)
[2016-12-11] MEDS: ROSUVASTATIN CALCIUM 10 MG TAB PO SCH (20:10)
[2016-12-12] MEDS: ONDANSETRON DISINTEGRATING 4 MG TAB PO PRN ×2 (04:56→16:08)
[2016-12-12] MEDS: VANCOMYCIN 125 MG/2.5 ML UDL PO SCH ×4 (04:57→20:16)
[2016-12-12] MEDS: LEVOTHYROXINE 50 MCG TAB PO SCH (04:57)
[2016-12-12] MEDS: CEPHALEXIN 500 MG CAP PO SCH ×3 (04:57→17:34)
[2016-12-12] MEDS: TRANEXAMIC ACID 650 MG TAB PO SCH ×2 (08:12→20:15)
[2016-12-12] MEDS: SODIUM CHLORIDE 1,000 MG TAB PO SCH ×2 (08:12→17:34)
[2016-12-12] MEDS: ACETAMINOPHEN 325 MG TAB PO PRN (08:13)
[2016-12-12] MEDS: HYDROXYCHLOROQUINE SULFATE 200 MG TAB PO SCH ×2 (08:13→20:16)
[2016-12-12] MEDS: PANTOPRAZOLE SODIUM 40 MG TAB PO SCH (08:13)
[2016-12-12] MEDS: CITALOPRAM 20 MG TAB PO SCH (08:13)
--- NOTE | 2016-12-12 08:13 | SOAPPROG ---
SOAP Progress Note Assessment/Plan: Assessment/Plan: Ms. Julian is a 81 y/o female with a complicated medical course to include syncope , subdural hematoma with rebleed with a recent hospitalization admission after she was found unresponsive. Found to have UTI with sepsis and C-difficile infections. 1. Debility with history of subdural hematoma and metabolic encephalopathy due to UTI and C-diff colitis. Will continue to participation with PT and OT to optimize her mobility and ADL's. 2. Cognitive impairment and dysphagia - Will be assessed treated by BIOLOGY INSTRUCTOR 3. C-diff Colitis. Continue oral Vanco until 12/20. Mildly loose stools although has been continent. 4. UTI - No symptoms currently. Met criteria for sepsis - blood cultures have been negative. Continue cephalexin until 12/12/16 and then monitor. 5. CAD with ischemia on stress test/imaging - Cont metoprolol and rosuvastatin. Consider initiation of ASA when cleared by NSG given subdural hematomas. 6. Subdural Hematoma with h/o rebleed - Cont. tranexamic acid. Will continue to work closely with NSG for appropriate f/u/monitoring and duration of tranexamic acid. 7. Protein calorie malnutrition with BMI of 15 - train dispatcher consult to provide recommendations regarding supplement and other nutritional support. P;t has a documented 16kg wt loss since October 8. Sjogren Syndrome - On prednisone and hydroxychloroquine. Being treated with pilocarpine for dry mouth 9. SIADH with hyponatremia - persistent since her subdural hematoma in october. Will continue fluid restriction and salt tabs and monitor bmp - next draw on 12/13 10. H/o GERD on omeprazole - This can potentiate risk for C-Diff infections. Will work with patient about alternatives vs consider outpt f/u with PCP/GI. 11. Prophylaxis - High risk for bleed given h/o subdural hematoma with rebleed. has been walking >200 feet which decreases her risk of VTE. Will use SCD's and ERIC hose for ppx. 12. Stage I Sacral/coccygeal PU Prior to Admission- will be monitored closely and RN will provide support to assure it is offloaded F/u: Dr. Ramirez - cardiology, Dr. Pereira - Rheumatology, PCP for GERD alternatives, We will touch base with NSG regarding f/u recs including duration of tranexamic acid and ASA Continue current rehabilitation plan. Pt did have a bout of emesis yesterday - no associated neurologic changes. She has a mild "SEBASTIAN" in the back of her neck but is reproducible with palpation along the cervicalis muscles. She will benefit from close monitoring given her past history although nothing on exam this morning to warrant further workup. No fevers/chills or other signs of infection 12/12/16 08:09 Subjective: Reporting that has mild pain in her head - When asked where it is she points over the back of her neck. She reports not nausea now, no stomach pain. She has not had fevers/chills, No changes in her vision nor in her neurologic status. Objective: Vital Signs Temp Pulse Resp BP Pulse Ox 36.7 C 83 18 124/70 H 96 12/11/16 19:05 12/11/16 19:05 12/11/16 19:05 12/11/16 19:05 12/11/16 19:05 12/11/16 12/12/16 12/13/16 05:59 05:59 05:59 Intake Total 440 1160 300 Output Total 840 725 Balance -400 435 300 Physical Exam - Physical Exam General Appearance: alert, no apparent distress, thin EENT: PERRL/EOMI Neck: other (Pain reproduced/intesified with palpation over the posterior cervicalis muscles. No pain with leaning chin to chest nor moving side to side. ) Respiratory: lungs clear, normal breath sounds Cardiac/Chest: regular rate, rhythm Abdomen: normal bowel sounds, non-tender, soft Skin: normal color Neuro/Psych: alert, normal mood/affect, oriented x 3 ICD10 Worksheet Patient Problems: Problems Problem Status Onset Altered mental status Acute Clostridium difficile infection Acute ~12/06/16 Dehydration Acute Elevated troponin Acute Nausea & vomiting Acute Primary localized osteoarthritis of right knee Acute Subarachnoid hemorrhage Acute Subdural hematoma Acute Syncope Acute TIA (transient ischemic attack) Acute Troponin I above reference range Acute Urinary tract infection Acute Vomiting and diarrhea Acute
[2016-12-12] MEDS: METOPROLOL SUCCINATE XR 25 MG TAB PO SCH (08:14)
[2016-12-12] MEDS: CYCLOSPORINE 0.05% 1 EACH BOX EACHEYE SCH ×2 (08:14→20:17)
[2016-12-12] MEDS: predniSONE 1 MG TAB PO SCH (08:14)
[2016-12-12] MEDS: ROSUVASTATIN CALCIUM 10 MG TAB PO SCH (20:15)
[2016-12-12] MEDS: ZOLPIDEM TARTRATE 5 MG TAB PO PRN (20:30)
[2016-12-13] MEDS: ACETAMINOPHEN 325 MG TAB PO PRN ×2 (04:15→20:37)
[2016-12-13] MEDS: VANCOMYCIN 125 MG/2.5 ML UDL PO SCH ×4 (06:08→20:28)
[2016-12-13] MEDS: LEVOTHYROXINE 50 MCG TAB PO SCH (06:08)
[2016-12-13 08:05] LABS: ANION GAP 10 mEq/L (8-16); CALCIUM 8.8 mg/dL (8.5-10.4); CARBON DIOXIDE 20 mEq/l (22-31); CHLORIDE 99 mEq/L (97-110); CREATININE 0.8 mg/dL (0.6-1.0); GLOMERULAR FILTRATION RATE > 60; GLUCOSE 78 mg/dL (70-100); POTASSIUM 3.3 mEq/L (3.5-5.2); SODIUM 129 mEq/L (134-144)
[2016-12-13] MEDS: METOPROLOL SUCCINATE XR 25 MG TAB PO SCH (08:05)
[2016-12-13] MEDS: predniSONE 1 MG TAB PO SCH (08:06)
[2016-12-13] MEDS: SODIUM CHLORIDE 1,000 MG TAB PO SCH ×2 (08:07→17:54)
[2016-12-13] MEDS: PANTOPRAZOLE SODIUM 40 MG TAB PO SCH (08:08)
[2016-12-13] MEDS: HYDROXYCHLOROQUINE SULFATE 200 MG TAB PO SCH ×2 (08:08→20:28)
[2016-12-13] MEDS: CITALOPRAM 20 MG TAB PO SCH (08:08)
[2016-12-13] MEDS: TRANEXAMIC ACID 650 MG TAB PO SCH ×2 (08:08→20:28)
[2016-12-13] MEDS: CYCLOSPORINE 0.05% 1 EACH BOX EACHEYE SCH ×2 (08:29→20:28)
--- NOTE | 2016-12-13 11:04 | SOAPPROG ---
SOAP Progress Note Assessment/Plan: Assessment: * Debility with history of subdural hematoma and metabolic encephalopathy due to urinary tract infection and Clostridium difficile colitis. Initial functional independence measure 82 on 12/13/16. She ambulated 120 feet with standby assist and a front wheeled walker. She negotiated 4 steps with standby assist. Her Palacios balance inventory was 24/56 indicating a high fall risk. She had an episode of bowel incontinence described as smearing. She required standby assistance for bathing and minimal assistance for grooming and hygiene yesterday. Continue physical therapy and occupational to optimize mobility and activities of daily living. * Mild impairment to attention and memory. Continue Speech and Language Pathology. * Clostridium difficile colitis. Continue oral vancomycin for 10 more days or through December 20, 2016. * History of subdural hematoma with rebleed. Continue tranexamic acid. There will be further evaluation, and consider discussion with Neurosurgery regarding duration of tranexamic acid. Left message 12/13/2016. * Coronary artery disease with troponin leak and ischemia on myocardial stress imaging. Continue metoprolol and rosuvastatin. Initiate aspirin 81 mg per day when cleared by Neurosurgery. * Sjogren syndrome. Continue prednisone and hydroxychloroquine. 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 She reports Biotene has not been effective for dry mouth. Continue pilocarpine. Discontinue dicyclomine and citalopram due to adverse effects of dry mouth. 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 This has been persisting since her subdural hematoma in October. Continue fluid restriction and sodium tablets. Slightly worse on basic metabolic profile on 12/13/2016 possibly due to citalopram. Will DC citalopram. * She denies history of gastroesophageal reflux disorder. We will discontinue omeprazole and observe for return of symptoms. * Prophylaxis. She has been walking greater than 200 feet. She had a subdural hematoma with a rebleed and is on tranexamic acid. Given her improved mobility , it is unlikely that she would need pharmacologic anticoagulation. We will use sequential compression devices and ERIC hose. * Stage I coccygeal decubitus ulcer, documented during her hospital stay. She will have nursing care to promote skin healing and to prevent any further skin breakdown. Chronic/stable issues: * Urinary tract infection. She denies having had symptoms of urinary tract infection. She was clinically septic, but blood cultures were negative. Completed cephalexin on 12/12/2016. * Protein calorie malnutrition with a body mass index of 15. Sixteen kg weight loss documented since October 22 in the medical record. Rag Cutting Machine Operator consult to optimize her nutrition. Attendant staffing, 15 minutes. Discussed with nursing, case management, PT, OT , [employer]. Discharge date set for 12/20/2016. FOLLOW UP: She will follow up with warehouse checker Dr. Ramirez after discharge, with corral boss Dr. Pereira after discharge, and her management will be discussed with [facility] for further advice regarding tranexamic acid and when aspirin can be initiated. 12/13/16 12:45 12/13/16 21:56 Subjective: Has dry mouth. Reports pilocarpine was stopped previously because of diarrhea but now she knows that the diarrhea was due to lithium difficile. Denies dyspnea. Sleeps well, no orthopnea. Not in pain. Denies history of ulcers, reflux or GI bleed. Objective: Vital Signs Temp Pulse Resp BP Pulse Ox 36.6 C 77 16 153/82 H 93 12/13/16 07:30 12/13/16 07:30 12/13/16 07:30 12/13/16 07:30 12/12/16 20:00 Laboratory Results 12/13/16 06:12 12/12/16 12/13/16 12/14/16 05:59 05:59 05:59 Intake Total 1160 1140 246 Output Total 725 650 Balance 435 490 246 - Time Spent With Patient Time Spent With Patient: Greater than 35 minute staff time today, including more than 50% of time in coordination of care during staffing meeting, and counseling patient. Physical Exam - Physical Exam General Appearance: WD/WN, alert, no apparent distress Respiratory: normal breath sounds, wheezing (donna RLL expiratory), No crackles Cardiac/Chest: regular rate, rhythm, No edema, No diastolic murmur, No systolic murmur Skin: normal color, warm/dry Neuro/Psych: no motor/sensory deficits, alert, normal mood/affect, oriented x 3 ICD10 Worksheet Patient Problems: Problems Problem Status Onset Altered mental status Acute Clostridium difficile infection Acute ~12/06/16 Dehydration Acute Elevated troponin Acute Nausea & vomiting Acute Primary localized osteoarthritis of right knee Acute Subarachnoid hemorrhage Acute Subdural hematoma Acute Syncope Acute TIA (transient ischemic attack) Acute Troponin I above reference range Acute Urinary tract infection Acute Vomiting and diarrhea Acute
[2016-12-13] MEDS: PILOCARPINE HCL 5 MG TAB PO SCH ×2 (16:30→20:44)
[2016-12-13] MEDS: ROSUVASTATIN CALCIUM 10 MG TAB PO SCH (20:28)
[2016-12-13] MEDS: ZOLPIDEM TARTRATE 5 MG TAB PO PRN (20:37)
[2016-12-14] MEDS: LEVOTHYROXINE 50 MCG TAB PO SCH (05:42)
[2016-12-14] MEDS: METOPROLOL SUCCINATE XR 25 MG TAB PO SCH (07:49)
[2016-12-14] MEDS: SODIUM CHLORIDE 1,000 MG TAB PO SCH ×2 (07:49→16:57)
[2016-12-14] MEDS: HYDROXYCHLOROQUINE SULFATE 200 MG TAB PO SCH ×2 (07:50→20:24)
[2016-12-14] MEDS: predniSONE 1 MG TAB PO SCH (07:50)
[2016-12-14] MEDS: TRANEXAMIC ACID 650 MG TAB PO SCH ×2 (07:51→20:25)
[2016-12-14] MEDS: PANTOPRAZOLE SODIUM 40 MG TAB PO SCH (07:54)
[2016-12-14] MEDS: CYCLOSPORINE 0.05% 1 EACH BOX EACHEYE SCH ×2 (07:55→20:26)
[2016-12-14] MEDS: VANCOMYCIN 125 MG/2.5 ML UDL PO SCH ×4 (08:04→20:24)
[2016-12-14] MEDS: PILOCARPINE HCL 5 MG TAB PO SCH ×3 (08:04→21:29)
--- NOTE | 2016-12-14 11:29 | SOAPPROG ---
SOAP Progress Note Assessment/Plan: 81-year-old woman with rebleed of subdural hematoma with impaired mobility and self-care, complicated by Clostridium difficile colitis Today's update: Patient continues to have diarrhea, has multiple factors for why this could be. One consideration is a possible treatment failure of C diff. Continue to monitor closely. Discussed with her possibility of fecal transplant as a treatment option, she was not initially very amenable. Consider cholestyramine for symptom management, also continue to investigate the need for a proton pump inhibitor on steroids and given her history of Sjogren's. Continue to monitor her sodium with labs tomorrow, working diagnosis is still SIADH, continue fluid restriction. This is complicated by her Sjogren's and dry mouth, working to minimize the medications that would impact her mucous membranes. Continue to monitor her blood pressures specially given her current fluid restriction. No change to the her antihypertensives at this point. A total of 35 minutes was spent in the care of the patient, the majority of which was spent in counseling and coordination of care regarding polypharmacy, treatment of Sjogren's symptoms. * Impaired mobility and self-care with history of subdural hematoma and metabolic encephalopathy due to urinary tract infection and Clostridium difficile colitis. Initial functional independence measure 82 on 12/13/16. She ambulated 120 feet with standby assist and a front wheeled walker. She negotiated 4 steps with standby assist. Her Palacios balance inventory was 24/56 indicating a high fall risk. She had an episode of bowel incontinence described as smearing. She required standby assistance for bathing and minimal assistance for grooming and hygiene yesterday. Continue physical therapy and occupational to optimize mobility and activities of daily living. * Mild impairment to attention and memory. Continue Speech and Language Pathology. * Adjustment disorder: She has low mood, planning to work with counseling on this issue. Also working on antidepressant management. * Clostridium difficile colitis. Continue oral vancomycin for 10 more days or through December 20, 2016. Monitor for treatment failure * History of subdural hematoma with rebleed. Continue tranexamic acid. There will be further evaluation, and consider discussion with Neurosurgery regarding duration of tranexamic acid. Left message 12/13/2016. No word yet today * Coronary artery disease with troponin leak and ischemia on myocardial stress imaging. Continue metoprolol and rosuvastatin. Initiate aspirin 81 mg per day when cleared by Neurosurgery. * Sjogren syndrome. Continue prednisone and hydroxychloroquine. Try to minimize other medications that would worsen dry mucous membranes. 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 She reports Biotene has not been effective for dry mouth. Continue pilocarpine. Discontinue dicyclomine and citalopram due to adverse effects of dry mouth. 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 This has been persisting since her subdural hematoma in October. Continue fluid restriction and sodium tablets. Slightly worse on basic metabolic profile on 12/13/2016 possibly due to citalopram, which was stopped subsequently. * She denies history of gastroesophageal reflux disorder. PPI given history of Sjogren's, chronic use of steroids. Monitor * Prophylaxis. She has been walking greater than 200 feet. She had a subdural hematoma with a rebleed and is on tranexamic acid. Given her improved mobility , it is unlikely that she would need pharmacologic anticoagulation. We will use sequential compression devices and ERIC hose. * Stage I coccygeal pressure ulcer, documented during her hospital stay. She will have nursing care to promote skin healing and to prevent any further skin breakdown. Chronic/stable issues: * Urinary tract infection. She denies having had symptoms of urinary tract infection. She was clinically septic, but blood cultures were negative. Completed cephalexin on 12/12/2016. * Protein calorie malnutrition with a body mass index of 15. Sixteen kg weight loss documented since October 22 in the medical record. Bi Technical Lead consult to optimize her nutrition. Discharge date set for 12/20/2016. FOLLOW UP: She will follow up with cloth bale header Dr. Ramirez after discharge, with manager roofing Dr. Pereira after discharge, and her management will be discussed with [facility] for further advice regarding tranexamic acid and when aspirin can be initiated. 12/14/16 11:06 12/14/16 11:30 Subjective: Chief complaint: Ongoing diarrhea No acute events overnight. Patient endorses she has ongoing diarrhea, rare incontinence. She thinks that it is overall getting somewhat better. Additionally, she denies any new shortness of breath or chest pain, no new numbness, tingling, or weakness. She continues to have slightly low sodium, monitoring, she may or may not be compliant with the fluid restriction. Still no word from nerve surgery on the date to stop thromboxane. She endorses somewhat low mood, has not worked with counseling yet on this issue but is open to it. Objective: Vital Signs Temp Pulse Resp BP Pulse Ox 36.5 C 84 15 151/80 H 95 12/14/16 06:34 12/14/16 07:49 12/14/16 06:34 12/14/16 07:49 12/14/16 06:34 Laboratory Results 12/13/16 06:12 12/13/16 12/14/16 12/15/16 05:59 05:59 05:59 Intake Total 1140 1004 240 Output Total 650 800 Balance 490 204 240 Physical Exam - Physical Exam General Appearance: alert, no apparent distress, thin EENT: No scleral icterus (R), No scleral icterus (L) Respiratory: No respiratory distress, No accessory muscle use Cardiac/Chest: normal peripheral pulses, regular rate, rhythm, No edema Abdomen: non-tender, soft, No distended Skin: normal color, warm/dry, No cyanosis Extremities: normal range of motion, non-tender, No pedal edema, No swelling Neuro/Psych: alert, normal mood/affect, depressed affect ICD10 Worksheet Patient Problems: Problems Problem Status Onset Altered mental status Acute Clostridium difficile infection Acute ~12/06/16 Dehydration Acute Elevated troponin Acute Nausea & vomiting Acute Primary localized osteoarthritis of right knee Acute Subarachnoid hemorrhage Acute Subdural hematoma Acute Syncope Acute TIA (transient ischemic attack) Acute Troponin I above reference range Acute Urinary tract infection Acute Vomiting and diarrhea Acute
[2016-12-14] MEDS: ONDANSETRON DISINTEGRATING 4 MG TAB PO PRN (15:41)
[2016-12-14] MEDS: ACETAMINOPHEN 325 MG TAB PO PRN (16:57)
[2016-12-14] MEDS: ROSUVASTATIN CALCIUM 10 MG TAB PO SCH (20:24)
[2016-12-14] MEDS: ZOLPIDEM TARTRATE 5 MG TAB PO PRN (20:25)
[2016-12-15] MEDS: ACETAMINOPHEN 325 MG TAB PO PRN ×2 (01:47→13:57)
[2016-12-15] MEDS: VANCOMYCIN 125 MG/2.5 ML UDL PO SCH ×4 (05:58→21:18)
[2016-12-15] MEDS: LEVOTHYROXINE 50 MCG TAB PO SCH (05:58)
[2016-12-15] MEDS: SODIUM CHLORIDE 1,000 MG TAB PO SCH ×2 (07:41→17:51)
[2016-12-15] MEDS: PILOCARPINE HCL 5 MG TAB PO SCH ×3 (07:42→21:29)
[2016-12-15] MEDS: PANTOPRAZOLE SODIUM 40 MG TAB PO SCH (07:42)
[2016-12-15] MEDS: predniSONE 1 MG TAB PO SCH (07:43)
[2016-12-15] MEDS: CYCLOSPORINE 0.05% 1 EACH BOX EACHEYE SCH ×2 (07:43→21:30)
[2016-12-15] MEDS: HYDROXYCHLOROQUINE SULFATE 200 MG TAB PO SCH ×2 (07:43→21:17)
[2016-12-15] MEDS: TRANEXAMIC ACID 650 MG TAB PO SCH ×2 (07:43→21:15)
[2016-12-15] MEDS: METOPROLOL SUCCINATE XR 25 MG TAB PO SCH (08:16)
[2016-12-15] MEDS: LISINOPRIL 10 MG TAB PO SCH (10:21)
--- NOTE | 2016-12-15 11:50 | SOAPPROG ---
SOAP Progress Note Assessment/Plan: Assessment: * Debility with history of subdural hematoma and metabolic encephalopathy due to urinary tract infection and Clostridium difficile colitis. Initial functional independence measure 82 on 12/13/16. She ambulated 120 feet with standby assist and a front wheeled walker. She negotiated 4 steps with standby assist. Her Palacios balance inventory was 24/56 indicating a high fall risk. She had an episode of bowel incontinence described as smearing. She required standby assistance for bathing and minimal assistance for grooming and hygiene yesterday. Continue physical therapy and occupational to optimize mobility and activities of daily living. * Mild impairment to attention and memory. Continue Speech and Language Pathology. * Clostridium difficile colitis. Continue oral vancomycin for 10 more days or through December 20, 2016. * History of subdural hematoma with rebleed. Continue tranexamic acid. Discussed with Lilia Garcia, nurse practitioner with [facility] surgery, .. Per per their recommendation will order head CT for Tuesday morning 12/17/2016 which they will review and subsequently advise regarding continuation of tranexamic acid and whether aspirin can be restarted. * Coronary artery disease with troponin leak and ischemia on myocardial stress imaging. Continue metoprolol and rosuvastatin. Initiate aspirin 81 mg per day when cleared by Neurosurgery. * Hypertension. Initiate lisinopril 10 mg per day starting 12/15/2016. Reviewed adverse effects of antihypertensives; lisinopril does not cause dry mouth. Metoprolol does however it probably needs to be continued with presence of coronary artery disease. 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 She reports Biotene has not been effective for dry mouth. Continue pilocarpine. Discontinue dicyclomine and citalopram due to adverse effects of dry mouth. 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 This has been persisting since her subdural hematoma in October. Continue fluid restriction and sodium tablets. Slightly worse on basic metabolic profile on 12/13/2016 possibly due to citalopram. Will DC citalopram. Repeat BMP 12/15/2016with sodium improved to 130. * Prophylaxis. She has been walking greater than 200 feet. She had a subdural hematoma with a rebleed and is on tranexamic acid. Given her improved mobility , it is unlikely that she would need pharmacologic anticoagulation. We will use sequential compression devices and ERIC hose. * Stage I coccygeal decubitus ulcer, documented during her hospital stay. She will have nursing care to promote skin healing and to prevent any further skin breakdown. Chronic/stable issues: * She denies history of gastroesophageal reflux disorder. Discontinued omeprazole 12/15/2016and observe for return of symptoms. * Sjogren syndrome. Continue prednisone and hydroxychloroquine. * Urinary tract infection. She denies having had symptoms of urinary tract infection. She was clinically septic, but blood cultures were negative. Completed cephalexin on 12/12/2016. * Protein calorie malnutrition with a body mass index of 15. Sixteen kg weight loss documented since October 22 in the medical record. Primary Products Inspectors consult to optimize her nutrition. Discharge date set for 12/20/2016. FOLLOW UP: She will follow up with supervisor process testing Dr. Ramirez after discharge, and with detective Dr. Pereira after discharge. 12/15/16 17:02 Subjective: Slept well last night. Continues to have dry mouth. Not sure if she has noticed improvement with pilocarpine. Continues to have diarrhea several times a day but sometimes stool is also formed. No abdominal pain, no fevers or chills. Objective: Vital Signs Temp Pulse Resp BP Pulse Ox 36.4 C 76 16 150/85 H 95 12/15/16 07:56 12/15/16 08:16 12/15/16 07:56 12/15/16 10:21 12/15/16 07:56 Laboratory Results 12/13/16 06:12 12/14/16 12/15/16 12/16/16 05:59 05:59 05:59 Intake Total 1004 1580 250 Output Total 800 Balance 204 1580 250 Physical Exam - Physical Exam General Appearance: WD/WN, alert, no apparent distress Respiratory: No respiratory distress, No accessory muscle use Skin: normal color, warm/dry Neuro/Psych: alert, normal mood/affect, oriented x 3 ICD10 Worksheet Patient Problems: Problems Problem Status Onset Altered mental status Acute Clostridium difficile infection Acute ~12/06/16 Dehydration Acute Elevated troponin Acute Nausea & vomiting Acute Primary localized osteoarthritis of right knee Acute Subarachnoid hemorrhage Acute Subdural hematoma Acute Syncope Acute TIA (transient ischemic attack) Acute Troponin I above reference range Acute Urinary tract infection Acute Vomiting and diarrhea Acute
[2016-12-15 12:48] LABS: ABSOLUTE IMMATURE GRANULOCYTES 0.05 10^3/uL (0.00-0.10); ADD DIFF? NO; ADD MORPH? NO; ADD SCAN? NO; ATYPICAL LYMPHOCYTE FLAG 40 (0-99); FRAGMENT RBC FLAG 0 (0-99); HEMATOCRIT 30.4 % (38.0-47.0); HEMOGLOBIN 10.4 g/dL (12.6-16.3); LEFT SHIFT FLG 10 (0-99); LIPEMIA HEMOLYSIS FLAG 90 (0-99); MEAN CELL HEMOGLOBIN 31.5 pg (27.9-34.1); MEAN CELL HEMOGLOBIN CONCENTR. 34.2 g/dL (32.4-36.7); MEAN CELL VOLUME 92.1 fL (81.5-99.8); MEAN PLATELET VOLUME 9.6 fL (8.7-11.7); PLATELET CLUMPS FLAG 10 (0-99); PLATELET COUNT 238 10^3/uL (150-400); RED CELL DISTRIBUTION WIDTH 14.9 % (11.5-15.2)
[2016-12-15 13:02] LABS: ANION GAP 12 mEq/L (8-16); CALCIUM 8.6 mg/dL (8.5-10.4); CARBON DIOXIDE 19 mEq/l (22-31); CHLORIDE 99 mEq/L (97-110); CREATININE 0.7 mg/dL (0.6-1.0); GLOMERULAR FILTRATION RATE > 60; GLUCOSE 87 mg/dL (70-100); POTASSIUM 3.4 mEq/L (3.5-5.2); SODIUM 130 mEq/L (134-144)
[2016-12-15] MEDS: ONDANSETRON DISINTEGRATING 4 MG TAB PO PRN (18:03)
[2016-12-15] MEDS: ZOLPIDEM TARTRATE 5 MG TAB PO PRN (21:15)
[2016-12-15] MEDS: ROSUVASTATIN CALCIUM 10 MG TAB PO SCH (21:16)
[2016-12-16] MEDS: LEVOTHYROXINE 50 MCG TAB PO SCH (05:42)
[2016-12-16] MEDS: VANCOMYCIN 125 MG/2.5 ML UDL PO SCH ×4 (05:42→20:29)
[2016-12-16] MEDS: PANTOPRAZOLE SODIUM 40 MG TAB PO SCH (08:27)
[2016-12-16] MEDS: PILOCARPINE HCL 5 MG TAB PO SCH (08:27)
[2016-12-16] MEDS: predniSONE 1 MG TAB PO SCH (08:28)
[2016-12-16] MEDS: LISINOPRIL 10 MG TAB PO SCH (08:28)
[2016-12-16] MEDS: HYDROXYCHLOROQUINE SULFATE 200 MG TAB PO SCH ×2 (08:28→20:30)
[2016-12-16] MEDS: METOPROLOL SUCCINATE XR 25 MG TAB PO SCH (08:28)
[2016-12-16] MEDS: TRANEXAMIC ACID 650 MG TAB PO SCH ×2 (08:29→20:30)
[2016-12-16] MEDS: SODIUM CHLORIDE 1,000 MG TAB PO SCH ×2 (08:29→17:14)
[2016-12-16] MEDS: CYCLOSPORINE 0.05% 1 EACH BOX EACHEYE SCH ×2 (08:35→21:27)
--- NOTE | 2016-12-16 13:54 | SOAPPROG ---
SOAP Progress Note Assessment/Plan: Assessment: * Debility with history of subdural hematoma and metabolic encephalopathy due to urinary tract infection and Clostridium difficile colitis. Initial functional independence measure 82 on 12/13/16. She ambulated 120 feet with standby assist and a front wheeled walker. She negotiated 4 steps with standby assist. Her Palacios balance inventory was 24/56 indicating a high fall risk. She had an episode of bowel incontinence described as smearing. She required standby assistance for bathing and minimal assistance for grooming and hygiene yesterday. Continue physical therapy and occupational to optimize mobility and activities of daily living. * Mild impairment to attention and memory. Continue Speech and Language Pathology. * Clostridium difficile colitis. Continue oral vancomycin for 10 more days or through December 20, 2016. * Diarrhea and fecal incontinence. May be exacerbated by pilocarpine. Discontinue pilocarpine 12/16/2016 and assess for improvement. If no improvement consider C difficile treatment failure but not until completion of vancomycin course. * History of subdural hematoma with rebleed. Continue tranexamic acid. Discussed with Lilia Garcia, nurse practitioner with [facility], . Per per their recommendation will order head CT for Tuesday morning which they will review and subsequently advise regarding continuation of tranexamic acid and whether aspirin can be restarted. * Coronary artery disease with troponin leak and ischemia on myocardial stress imaging. Continue metoprolol and rosuvastatin. Initiate aspirin 81 mg per day when cleared by Neurosurgery. * Hypertension. Initiate lisinopril 10 mg per day starting 12/15/2016. Reviewed adverse effects of antihypertensives; lisinopril does not cause dry mouth. Metoprolol does however it probably needs to be continued with presence of coronary artery disease. 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 She reports Biotene has not been effective for dry mouth. Improved with pilocarpine but discontinuing 12/16/2016 due to diarrhea. Discontinue dicyclomine and citalopram due to adverse effects of dry mouth. 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 This has been persisting since her subdural hematoma in October. Continue fluid restriction and sodium tablets. Slightly worse on basic metabolic profile on 12/13/2016 possibly due to citalopram. Will DC citalopram. BMP with sodium improved to 130. Repeat BMP 12/17/2016. * Prophylaxis. She has been walking greater than 200 feet. She had a subdural hematoma with a rebleed and is on tranexamic acid. Given her improved mobility , it is unlikely that she would need pharmacologic anticoagulation. We will use sequential compression devices and ERIC hose. * Stage I coccygeal decubitus ulcer, documented during her hospital stay. She will have nursing care to promote skin healing and to prevent any further skin breakdown. Chronic/stable issues: * She denies history of gastroesophageal reflux disorder. Discontinued omeprazole 12/15/2016and observe for return of symptoms. * Sjogren syndrome. Continue prednisone and hydroxychloroquine. * Urinary tract infection. She denies having had symptoms of urinary tract infection. She was clinically septic, but blood cultures were negative. Completed cephalexin on 12/12/2016. * Protein calorie malnutrition with a body mass index of 15. Sixteen kg weight loss documented since October 22 in the medical record. Chemistry Professor consult to optimize her nutrition. Discharge date set for 12/20/2016. FOLLOW UP: She will follow up with farm equipment engineer Dr. Ramirez after discharge, and with wood crew supervisor Dr. Pereira after discharge. 12/16/16 13:54 Subjective: Still having diarrhea and had episode of fecal incontinence yesterday. Feels low energy. No fevers or chills, no abdominal pain. Objective: Vital Signs Temp Pulse Resp BP Pulse Ox 36.4 C 79 16 154/81 H 94 12/16/16 06:59 12/16/16 06:59 12/16/16 06:59 12/16/16 06:59 12/16/16 06:59 Laboratory Results 12/15/16 12:00 12/15/16 12:00 12/15/16 12/16/16 12/17/16 05:59 05:59 05:59 Intake Total 1580 1480 280 Output Total 400 Balance 1580 1080 280 Physical Exam - Physical Exam General Appearance: WD/WN, alert, no apparent distress Respiratory: normal breath sounds, No crackles, No rhonchi, No wheezing Cardiac/Chest: regular rate, rhythm, No edema Skin: normal color, warm/dry Neuro/Psych: no motor/sensory deficits, alert, normal mood/affect, oriented x 3 ICD10 Worksheet Patient Problems: Problems Problem Status Onset Altered mental status Acute Clostridium difficile infection Acute ~12/06/16 Dehydration Acute Elevated troponin Acute Nausea & vomiting Acute Primary localized osteoarthritis of right knee Acute Subarachnoid hemorrhage Acute Subdural hematoma Acute Syncope Acute TIA (transient ischemic attack) Acute Troponin I above reference range Acute Urinary tract infection Acute Vomiting and diarrhea Acute
[2016-12-16] MEDS: ONDANSETRON DISINTEGRATING 4 MG TAB PO PRN (16:32)
[2016-12-16] MEDS: ZOLPIDEM TARTRATE 5 MG TAB PO PRN (20:29)
[2016-12-16] MEDS: ROSUVASTATIN CALCIUM 10 MG TAB PO SCH (20:30)
[2016-12-17] MEDS: ACETAMINOPHEN 325 MG TAB PO PRN (01:48)
[2016-12-17] MEDS: LEVOTHYROXINE 50 MCG TAB PO SCH (05:43)
[2016-12-17] MEDS: VANCOMYCIN 125 MG/2.5 ML UDL PO SCH ×4 (05:43→20:07)
[2016-12-17] MEDS: SODIUM CHLORIDE 1,000 MG TAB PO SCH ×2 (08:48→17:17)
[2016-12-17] MEDS: predniSONE 1 MG TAB PO SCH (08:49)
[2016-12-17] MEDS: PANTOPRAZOLE SODIUM 40 MG TAB PO SCH (08:49)
[2016-12-17] MEDS: TRANEXAMIC ACID 650 MG TAB PO SCH (08:49)
[2016-12-17] MEDS: HYDROXYCHLOROQUINE SULFATE 200 MG TAB PO SCH ×2 (08:50→20:09)
[2016-12-17] MEDS: METOPROLOL SUCCINATE XR 25 MG TAB PO SCH (08:58)
[2016-12-17] MEDS: LISINOPRIL 10 MG TAB PO SCH (08:58)
[2016-12-17] MEDS: CYCLOSPORINE 0.05% 1 EACH BOX EACHEYE SCH ×3 (10:36→20:25)
[2016-12-17] MEDS ORDERED: ALBUTEROL 60 PUFFS/8 GM MDI IH PRN (12:03)
--- NOTE | 2016-12-17 12:04 | SOAPPROG ---
SOAP Progress Note Assessment/Plan: Assessment: * Debility with history of subdural hematoma and metabolic encephalopathy due to urinary tract infection and Clostridium difficile colitis. Initial functional independence measure 82 on 12/13/16. She ambulated 120 feet with standby assist and a front wheeled walker. She negotiated 4 steps with standby assist. Her Palacios balance inventory was 24/56 indicating a high fall risk. She had an episode of bowel incontinence described as smearing. She required standby assistance for bathing and minimal assistance for grooming and hygiene yesterday. Continue physical therapy and occupational to optimize mobility and activities of daily living. * Mild impairment to attention and memory. Continue Speech and Language Pathology. * Clostridium difficile colitis. Continue oral vancomycin for 10 more days or through December 20, 2016. * Diarrhea and fecal incontinence. Improved with discontinuation of pilocarpine 12/16/2016. Continue vancomycin. Observe for full resolution. * History of subdural hematoma with rebleed. Repeat head CT today 12/17/2016 with minimal residual SDH. Discussed with Lilia Garcia at [facility]. No need to continue tranexamic acid. Would continue to hold aspirin unless there is a strong cardiac indication. * Coronary artery disease with troponin leak and ischemia on myocardial stress imaging. Continue metoprolol and rosuvastatin. Initiate aspirin 81 mg per day when cleared by Neurosurgery. * Cough. Unclear etiology. We will stop KILEY-inhibitor and initiate valsartan. Since she has a wheeze on lung exam will initiate albuterol on a p.r.n. basis. Will order dextromethorphan as well. * Hypertension. Initiated lisinopril 10 mg per day starting 12/15/2016 with improved blood pressure control however due to cough will change to valsartan starting at low-dose 40 mg q.day. Plan to titrate if blood pressure remains elevated. Reviewed adverse effects of antihypertensives; ACEI and ARB do not cause dry mouth. Metoprolol does however it probably needs to be continued with presence of coronary artery disease. 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 She reports Biotene has not been effective for dry mouth. Improved with pilocarpine but discontinuing 12/16/2016 due to diarrhea. Discontinue dicyclomine and citalopram due to adverse effects of dry mouth. 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 This has been persisting since her subdural hematoma in October. Continue fluid restriction and sodium tablets. Slightly worse on basic metabolic profile on 12/13/2016 possibly due to citalopram. DC'd citalopram 12/15/16. BMP 12/15/2016with sodium improved to 130; improved to 132 on 12/17/2016. Continue fluid restriction, repeat BMP 12/20/2016. * Prophylaxis. She has been walking greater than 200 feet. She had a subdural hematoma with a rebleed and is on tranexamic acid. Given her improved mobility , it is unlikely that she would need pharmacologic anticoagulation. We will use sequential compression devices and ERIC hose. * Stage I coccygeal decubitus ulcer, documented during her hospital stay. She will have nursing care to promote skin healing and to prevent any further skin breakdown. Chronic/stable issues: * She denies history of gastroesophageal reflux disorder. * Sjogren syndrome. Continue prednisone and hydroxychloroquine. * Urinary tract infection. She denies having had symptoms of urinary tract infection. She was clinically septic, but blood cultures were negative. Completed cephalexin on 12/12/2016. * Protein calorie malnutrition with a body mass index of 15. Sixteen kg weight loss documented since October 22 in the medical record. [employer] consult to optimize her nutrition. Discharge date set for 12/20/2016. FOLLOW UP: She will follow up with color buffer Dr. Ramirez after discharge, and with automobile washer steam Dr. Pereira after discharge. Follow up with [facility], Dr. Louise, on approximately 01/07/2017. 12/17/16 16:42 Subjective: Complains of cough productive of scant white sputum especially when she lays down. She says she coughed a lot overnight. Diarrhea has resolved since discontinuing the pilocarpine yesterday. No fevers or chills, no dyspnea. Objective: Vital Signs Temp Pulse Resp BP Pulse Ox 36.6 C 78 16 135/76 H 93 12/17/16 06:20 12/17/16 08:58 12/17/16 06:20 12/17/16 08:58 12/17/16 06:20 Laboratory Results 12/15/16 12:00 12/15/16 12:00 12/16/16 12/17/16 12/18/16 05:59 05:59 05:59 Intake Total 1480 818 420 Output Total 400 Balance 1080 818 420 Physical Exam - Physical Exam General Appearance: WD/WN, alert, no apparent distress Respiratory: normal breath sounds, wheezing (Right upper lobe), No crackles, No rhonchi Cardiac/Chest: No edema Skin: normal color, warm/dry Neuro/Psych: alert, normal mood/affect, oriented x 3, other (Ambulating with PT , FWW, step-through pattern.) ICD10 Worksheet Patient Problems: Problems Problem Status Onset Altered mental status Acute Clostridium difficile infection Acute ~12/06/16 Dehydration Acute Elevated troponin Acute Nausea & vomiting Acute Primary localized osteoarthritis of right knee Acute Subarachnoid hemorrhage Acute Subdural hematoma Acute Syncope Acute TIA (transient ischemic attack) Acute Troponin I above reference range Acute Urinary tract infection Acute Vomiting and diarrhea Acute
[2016-12-17 14:02] LABS: ANION GAP 13 mEq/L (8-16); CALCIUM 8.8 mg/dL (8.5-10.4); CARBON DIOXIDE 21 mEq/l (22-31); CHLORIDE 98 mEq/L (97-110); CREATININE 0.7 mg/dL (0.6-1.0); GLOMERULAR FILTRATION RATE > 60; GLUCOSE 95 mg/dL (70-100); POTASSIUM 3.5 mEq/L (3.5-5.2); SODIUM 132 mEq/L (134-144)
[2016-12-17] MEDS: ALBUTEROL 200 PUFFS/18 GM MDI IH PRN (15:59)
[2016-12-17] MEDS: ONDANSETRON DISINTEGRATING 4 MG TAB PO PRN (17:32)
[2016-12-17] MEDS: ROSUVASTATIN CALCIUM 10 MG TAB PO SCH (20:09)
[2016-12-17] MEDS: ZOLPIDEM TARTRATE 5 MG TAB PO PRN (20:19)
[2016-12-18] MEDS: ACETAMINOPHEN 325 MG TAB PO PRN (00:14)
[2016-12-18] MEDS: VANCOMYCIN 125 MG/2.5 ML UDL PO SCH ×4 (06:26→19:45)
[2016-12-18] MEDS: LEVOTHYROXINE 50 MCG TAB PO SCH (06:26)
[2016-12-18] MEDS: CYCLOSPORINE 0.05% 1 EACH BOX EACHEYE SCH ×2 (08:52→19:49)
[2016-12-18] MEDS: predniSONE 1 MG TAB PO SCH (08:52)
[2016-12-18] MEDS: METOPROLOL SUCCINATE XR 25 MG TAB PO SCH (08:53)
[2016-12-18] MEDS: VALSARTAN 40 MG TAB PO SCH (08:53)
[2016-12-18] MEDS: HYDROXYCHLOROQUINE SULFATE 200 MG TAB PO SCH ×2 (08:53→19:46)
[2016-12-18] MEDS: PANTOPRAZOLE SODIUM 40 MG TAB PO SCH (08:53)
[2016-12-18] MEDS: SODIUM CHLORIDE 1,000 MG TAB PO SCH ×2 (08:53→18:02)
[2016-12-18] MEDS: ALBUTEROL 200 PUFFS/18 GM MDI IH PRN (15:19)
[2016-12-18] MEDS: GUAIFENESIN/DM 10 ML UDCUP PO PRN ×2 (15:19→19:11)
--- NOTE | 2016-12-18 15:20 | SOAPPROG ---
SOAP Progress Note Assessment/Plan: Assessment: Debility with history of subdural hematoma and metabolic encephalopathy due to urinary tract infection and Clostridium difficile colitis. Initial functional independence measure 82 on 12/13/16. She ambulated 120 feet with standby assist and a front wheeled walker. She negotiated 4 steps with standby assist. Her Palacios balance inventory was 24/56 indicating a high fall risk. She had an episode of bowel incontinence described as smearing. She required standby assistance for bathing and minimal assistance for grooming and hygiene yesterday. Continue physical therapy and occupational to optimize mobility and activities of daily living. * Mild impairment to attention and memory. Continue Speech and Language Pathology. * Clostridium difficile colitis. Continue oral vancomycin for 10 more days or through December 20, 2016. * Diarrhea and fecal incontinence. Improved with discontinuation of pilocarpine 12/16/2016. Continue vancomycin. Observe for full resolution. * History of subdural hematoma with rebleed. Repeat head CT today 12/17/2016 with minimal residual SDH. Discussed with Lilia Garcia at [facility]. No need to continue tranexamic acid. Would continue to hold aspirin unless there is a strong cardiac indication. * Coronary artery disease with troponin leak and ischemia on myocardial stress imaging. Continue metoprolol and rosuvastatin. Initiate aspirin 81 mg per day when cleared by Neurosurgery. * Cough. Unclear etiology. We will stop KILEY-inhibitor and initiate valsartan. Since she has a wheeze on lung exam will initiate albuterol on a p.r.n. basis. Will order dextromethorphan as well. * Hypertension. Initiated lisinopril 10 mg per day starting 12/15/2016 with improved blood pressure control however due to cough will change to valsartan starting at low-dose 40 mg q.day. Plan to titrate if blood pressure remains elevated. Reviewed adverse effects of antihypertensives; ACEI and ARB do not cause dry mouth. Metoprolol does however it probably needs to be continued with presence of coronary artery disease. 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 She reports Biotene has not been effective for dry mouth. Improved with pilocarpine but discontinuing 12/16/2016 due to diarrhea. Discontinue dicyclomine and citalopram due to adverse effects of dry mouth. 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 This has been persisting since her subdural hematoma in October. Continue fluid restriction and sodium tablets. Slightly worse on basic metabolic profile on 12/13/2016 possibly due to citalopram. DC'd citalopram 12/15/16. BMP 12/15/2016with sodium improved to 130; improved to 132 on 12/17/2016. Continue fluid restriction, repeat BMP 12/20/2016. * Prophylaxis. She has been walking greater than 200 feet. She had a subdural hematoma with a rebleed and is on tranexamic acid. Given her improved mobility , it is unlikely that she would need pharmacologic anticoagulation. We will use sequential compression devices and ERIC hose. * Stage I coccygeal decubitus ulcer, documented during her hospital stay. She will have nursing care to promote skin healing and to prevent any further skin breakdown. * Episodic vomiting - unclear cause. Could be due to vancomycin. Could also be due to discontinuation of citalopram. Will continue to monitor. Benign abdomen and tolerating most meals Chronic/stable issues: * She denies history of gastroesophageal reflux disorder. * Sjogren syndrome. Continue prednisone and hydroxychloroquine. * Urinary tract infection. She denies having had symptoms of urinary tract infection. She was clinically septic, but blood cultures were negative. Completed cephalexin on 12/12/2016. * Protein calorie malnutrition with a body mass index of 15. Sixteen kg weight loss documented since October 22 in the medical record. Nurse'S Aides Teacher consult to optimize her nutrition. Plan: 12/18/16 15:19 Subjective: Having issues with intermittent vomiting. Did vomit this morning. She did not have problems with this prior. Objective: Vital Signs Temp Pulse Resp BP Pulse Ox 36.9 C 81 18 140/87 H 95 12/18/16 06:56 12/18/16 08:53 12/18/16 06:56 12/18/16 08:53 12/18/16 06:56 Laboratory Results 12/15/16 12:00 12/17/16 13:25 12/17/16 12/18/16 12/19/16 05:59 05:59 05:59 Intake Total 818 1800 658 Output Total 200 Balance 818 1600 658 Physical Exam - Physical Exam General Appearance: WD/WN, alert, no apparent distress Respiratory: No respiratory distress Abdomen: non-tender, soft Neuro/Psych: alert, normal mood/affect, oriented x 3 ICD10 Worksheet Patient Problems: Problems Problem Status Onset Altered mental status Acute Clostridium difficile infection Acute ~12/06/16 Dehydration Acute Elevated troponin Acute Nausea & vomiting Acute Primary localized osteoarthritis of right knee Acute Subarachnoid hemorrhage Acute Subdural hematoma Acute Syncope Acute TIA (transient ischemic attack) Acute Troponin I above reference range Acute Urinary tract infection Acute Vomiting and diarrhea Acute
[2016-12-18] MEDS: ONDANSETRON DISINTEGRATING 4 MG TAB PO PRN ×2 (16:30→21:06)
[2016-12-18] MEDS: ROSUVASTATIN CALCIUM 10 MG TAB PO SCH (19:46)
[2016-12-18] MEDS: ZOLPIDEM TARTRATE 5 MG TAB PO PRN (21:06)
[2016-12-19] MEDS: ALBUTEROL 200 PUFFS/18 GM MDI IH PRN ×3 (00:11→20:27)
[2016-12-19] MEDS: ACETAMINOPHEN 325 MG TAB PO PRN (01:15)
[2016-12-19] MEDS: GUAIFENESIN/DM 10 ML UDCUP PO PRN ×3 (01:15→20:25)
[2016-12-19] MEDS: LEVOTHYROXINE 50 MCG TAB PO SCH (05:31)
[2016-12-19] MEDS: VANCOMYCIN 125 MG/2.5 ML UDL PO SCH ×4 (05:31→20:26)
[2016-12-19] MEDS: ONDANSETRON DISINTEGRATING 4 MG TAB PO PRN ×2 (05:32→16:24)
[2016-12-19] MEDS ORDERED: OXYCODONE/APAP 5/325 TAB PO PRN (07:01)
[2016-12-19] MEDS: SODIUM CHLORIDE 1,000 MG TAB PO SCH ×2 (08:51→17:27)
[2016-12-19] MEDS: METOPROLOL SUCCINATE XR 25 MG TAB PO SCH (08:51)
[2016-12-19] MEDS: HYDROXYCHLOROQUINE SULFATE 200 MG TAB PO SCH ×2 (08:51→20:26)
[2016-12-19] MEDS: predniSONE 1 MG TAB PO SCH (08:51)
[2016-12-19] MEDS: VALSARTAN 40 MG TAB PO SCH (08:52)
[2016-12-19] MEDS: PANTOPRAZOLE SODIUM 40 MG TAB PO SCH (08:52)
[2016-12-19] MEDS: CYCLOSPORINE 0.05% 1 EACH BOX EACHEYE SCH ×2 (08:52→20:39)
--- NOTE | 2016-12-19 11:56 | SOAPPROG ---
SOAP Progress Note Assessment/Plan: Assessment: Debility with history of subdural hematoma and metabolic encephalopathy due to urinary tract infection and Clostridium difficile colitis. Initial functional independence measure 82 on 12/13/16. She ambulated 120 feet with standby assist and a front wheeled walker. She negotiated 4 steps with standby assist. Her Palacios balance inventory was 24/56 indicating a high fall risk. She had an episode of bowel incontinence described as smearing. She required standby assistance for bathing and minimal assistance for grooming and hygiene yesterday. Continue physical therapy and occupational to optimize mobility and activities of daily living. * Mild impairment to attention and memory. Continue Speech and Language Pathology. * Clostridium difficile colitis. Continue oral vancomycin for 10 more days or through December 20, 2016. * Diarrhea and fecal incontinence. Improved with discontinuation of pilocarpine 12/16/2016. Continue vancomycin. Observe for full resolution. * History of subdural hematoma with rebleed. Repeat head CT today 12/17/2016 with minimal residual SDH. Discussed with Lilia Garcia at [facility]. No need to continue tranexamic acid. Would continue to hold aspirin unless there is a strong cardiac indication. * Coronary artery disease with troponin leak and ischemia on myocardial stress imaging. Continue metoprolol and rosuvastatin. Initiate aspirin 81 mg per day when cleared by Neurosurgery. * Cough. Unclear etiology. We will stop KILEY-inhibitor and initiate valsartan. Since she has a wheeze on lung exam will initiate albuterol on a p.r.n. basis. Will order dextromethorphan as well. * Hypertension. Initiated lisinopril 10 mg per day starting 12/15/2016 with improved blood pressure control however due to cough will change to valsartan starting at low-dose 40 mg q.day. Plan to titrate if blood pressure remains elevated. Reviewed adverse effects of antihypertensives; ACEI and ARB do not cause dry mouth. Metoprolol does however it probably needs to be continued with presence of coronary artery disease. 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 She reports Biotene has not been effective for dry mouth. Improved with pilocarpine but discontinuing 12/16/2016 due to diarrhea. Discontinue dicyclomine and citalopram due to adverse effects of dry mouth. 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 This has been persisting since her subdural hematoma in October. Continue fluid restriction and sodium tablets. Slightly worse on basic metabolic profile on 12/13/2016 possibly due to citalopram. DC'd citalopram 12/15/16. BMP 12/15/2016with sodium improved to 130; improved to 132 on 12/17/2016. Continue fluid restriction, repeat BMP 12/20/2016. * Prophylaxis. She has been walking greater than 200 feet. She had a subdural hematoma with a rebleed and is on tranexamic acid. Given her improved mobility , it is unlikely that she would need pharmacologic anticoagulation. We will use sequential compression devices and ERIC hose. * Stage I coccygeal decubitus ulcer, documented during her hospital stay. She will have nursing care to promote skin healing and to prevent any further skin breakdown. * Episodic vomiting - unclear cause. Could be due to vancomycin. Will continue to monitor. Benign abdomen and tolerating most meals Chronic/stable issues: * She denies history of gastroesophageal reflux disorder. * Sjogren syndrome. Continue prednisone and hydroxychloroquine. * Urinary tract infection. She denies having had symptoms of urinary tract infection. She was clinically septic, but blood cultures were negative. Completed cephalexin on 12/12/2016. * Protein calorie malnutrition with a body mass index of 15. Sixteen kg weight loss documented since October 22 in the medical record. Account Information Clerk consult to optimize her nutrition. Plan: 12/18/16 15:19 12/19/16 11:55 Subjective: No vomiting today. No new complaints Objective: Vital Signs Temp Pulse Resp BP Pulse Ox 36.6 C 88 16 184/84 H 95 12/19/16 08:00 12/19/16 08:51 12/19/16 08:00 12/19/16 08:52 12/19/16 08:00 Laboratory Results 12/15/16 12:00 12/17/16 13:25 12/18/16 12/19/16 12/20/16 05:59 05:59 05:59 Intake Total 1800 1126 Output Total 200 Balance 1600 1126 Physical Exam - Physical Exam General Appearance: alert, no apparent distress, mild distress Respiratory: No respiratory distress Abdomen: non-tender, soft Neuro/Psych: alert, normal mood/affect ICD10 Worksheet Patient Problems: Problems Problem Status Onset Altered mental status Acute Clostridium difficile infection Acute ~10/16/17 Dehydration Acute Elevated troponin Acute Nausea & vomiting Acute Primary localized osteoarthritis of right knee Acute Subarachnoid hemorrhage Acute Subdural hematoma Acute Syncope Acute TIA (transient ischemic attack) Acute Troponin I above reference range Acute Urinary tract infection Acute Vomiting and diarrhea Acute
[2016-12-19] MEDS: ZOLPIDEM TARTRATE 5 MG TAB PO PRN (20:25)
[2016-12-19] MEDS: ROSUVASTATIN CALCIUM 10 MG TAB PO SCH (20:26)
[2016-12-20] MEDS: ACETAMINOPHEN 325 MG TAB PO PRN (00:24)
[2016-12-20] MEDS: GUAIFENESIN/DM 10 ML UDCUP PO PRN ×3 (00:25→15:27)
[2016-12-20 06:18] VITALS: RESP 16; TEMP 97.3; O2SAT 93
[2016-12-20] MEDS: LEVOTHYROXINE 50 MCG TAB PO SCH (06:35)
[2016-12-20] MEDS: VANCOMYCIN 125 MG/2.5 ML UDL PO SCH ×3 (06:35→15:27)
[2016-12-20] MEDS: ONDANSETRON DISINTEGRATING 4 MG TAB PO PRN ×2 (07:13→11:37)
[2016-12-20 08:58] LABS: ANION GAP 9 mEq/L (8-16); CALCIUM 8.6 mg/dL (8.5-10.4); CARBON DIOXIDE 23 mEq/l (22-31); CHLORIDE 103 mEq/L (97-110); CREATININE 0.7 mg/dL (0.6-1.0); GLOMERULAR FILTRATION RATE > 60; GLUCOSE 81 mg/dL (70-100); POTASSIUM 3.3 mEq/L (3.5-5.2); SODIUM 135 mEq/L (134-144)
[2016-12-20] MEDS: HYDROXYCHLOROQUINE SULFATE 200 MG TAB PO SCH (09:35)
[2016-12-20] MEDS: predniSONE 1 MG TAB PO SCH (09:36)
[2016-12-20] MEDS: SODIUM CHLORIDE 1,000 MG TAB PO SCH ×2 (09:36→17:39)
[2016-12-20] MEDS: METOPROLOL SUCCINATE XR 25 MG TAB PO SCH (09:36)
[2016-12-20] MEDS: PANTOPRAZOLE SODIUM 40 MG TAB PO SCH (09:40)
[2016-12-20] MEDS: VALSARTAN 40 MG TAB PO SCH (09:40)
[2016-12-20] MEDS: CYCLOSPORINE 0.05% 1 EACH BOX EACHEYE SCH (09:42)
[2016-12-20 09:45] VITALS: BP 130/68; PULSE 75
--- NOTE | 2016-12-20 13:57 | PDOREHIP ---
Admission [facility] - Admission - 3 Day Assessment Period Admission Date/Day 1: 12/10/16 Day 2: 12/11/16 Day 3: 12/12/16 Discharge [facility] - Discharge - 3 Day Assessment Period 2 Days Prior to Anticipated Discharge Date: 12/18/16 1 Day Prior to Anticipated Discharge Date: 12/19/16 Anticipated Discharge Date: 12/20/16 - Discharge Skin Conditions Unhealed Pressure Ulcer (1 or more/Stage 1 or >)-Discharge: 0. No
--- NOTE | 2016-12-21 03:12 | GDS ---
[f rep st] DISCHARGE SUMMARY ADMISSION DIAGNOSIS: Debility with history of subdural hematoma complicated by sepsis. DISCHARGE DIAGNOSES: 1. Debility with history of subdural hematoma complicated by sepsis. 2. Clostridium difficile colitis. 3. History of subdural hematoma with recurrent bleed. 4. Cough. 5. Hypertension. 6. Sjogren syndrome with xerostomia. 7. Syndrome of inappropriate antidiuretic hormone secretion. CONSULTATIONS: There were none. PROCEDURES: There were none. COMPLICATIONS: There were none. HISTORY AND HOSPITAL COURSE: This patient had returned home after a custodial stay following a fall and subdural hematoma and a recurrent bleed, when she was found in the morning with reduced responsiveness by her . He brought her to the emergency department where she was diagnosed with sepsis, Clostridium difficile colitis, and a urinary tract infection. Treatment was initiated with IV, and then oral antibiotics for the urinary tract infection and oral vancomycin for the Clostridium difficile colitis. There was a cardiology consultation while she was hospitalized regarding elevated troponin. There were no anginal symptoms. There was a history of an abnormal nuclear stress test with anterior ischemia. Echocardiogram on a prior admission had shown preserved ejection fraction. Cardiac catheterization was indicated, but was postponed due to her ongoing medical complications. Aspirin 81 mg per day was to be reintroduced when cleared by Neurosurgery. She had improvement in her function in rehabilitation. She initially was able to ambulate 120 feet with a front-wheeled walker. She advanced to be able to walk 400 feet on level and unleveled surfaces with a front-wheeled walker and standby assistance. She was noted to have distractions and poor management of the front-wheeled walker on ramps and sidewalk cracks. She had decreased balance, especially with dual tasking and distractions. A Palacios balance inventory was done, and she scored 24/56 indicating a high fall risk, and therapy staff did not feel that her fall risk decreased significantly during her stay. She achieved supervision level for activities of daily living with supervision needed due to safety concerns when she was using her front- wheeled walker. She was assessed by speech and language pathology regarding cognition and was found to have mild to moderate deficits to attention, communication, executive functions, memory and problem solving/reasoning. It was recommended that she have supervision for management of medications. She had hyponatremia, which has been present since her initial subdural hematoma in October. She also had increased fluid intake due to xerosis as a consequence of Sjogren syndrome. Medications that could cause worsening dry mouth were discontinued including dicyclomine and citalopram. She had a trial of pilocarpine, which likely caused diarrhea and gave her some improvement. However, given that she had recently had Clostridium difficile colitis, it was thought that a medication that induced diarrhea could be confounding regarding whether or not she had recurrent Clostridium difficile colitis, so the pilocarpine was not continued. With some improvement in her dry mouth and encouragement to use sips rather than large quantities of water for dry mouth, her sodium improved. During her stay, she had a joni of sodium at 129 on 12/13/2016, and on the day of discharge 12/20/2016 her sodium was 135. She did, however, have a slightly low potassium at 3.3. She had hypertension. She had been continued on metoprolol out of the hospital. She had a trial of lisinopril, but she had a worsening cough. This was discontinued and valsartan was initiated on 12/17/2016 at a low dose. A wheeze was noted on lung exam and an albuterol was begun on a p.r.n. basis. She felt that the albuterol improved her cough. She was also treated with dextromethorphan. PHYSICAL EXAMINATION: VITAL SIGNS: On the day of discharge, blood pressure was 130/68, heart rate was 87, respiratory rate was 16, oxygen saturation was 93 % on room air, temperature was 36.3 degrees centigrade. GENERAL: This is a well-nourished, well-developed woman, appears her chronologic age, sitting up in bed, cooperative, and in no acute distress. HEART: There is a regular rate and rhythm with no murmurs, rubs, or gallops. LUNGS: Clear to auscultation bilaterally. ABDOMEN: Soft, nontender, nondistended with normoactive bowel sounds. EXTREMITIES: There is no cyanosis, clubbing, or edema. NEUROLOGIC: She is alert and oriented x3. Cranial nerves 2-12 are grossly intact. There is no focal weakness. Sensation is intact to light touch. Gait overall is within normal limits using a front-wheeled walker accompanied by Physical Therapy. LABORATORY DATA: Other labs and studies during her stay, she had anemia with a hemoglobin of 10.4 and hematocrit of 30.4 on 12/15/2016. This was improved from a hemoglobin of 9.9 and hematocrit of 28.9 on 12/09/2016. CONDITION UPON DISCHARGE: Good. ACTIVITY: Ad jenyn, but she should have supervision with all mobility due to her ongoing fall risk. DIET: Regular, but she should maintain a 1500 mL per day fluid restriction. DATE OF NEXT APPOINTMENT: She will see splicer machine operator Dr. Humberto Pereira, who also is serving as her primary care provider on 12/22/2016, and she will follow up with Dr. David Ramirez, electrician's helper within 1-2 weeks. DISCHARGE MEDICATIONS: 1. Albuterol metered-dose inhaler 2 puffs q.4 hours p.r.n. 2. Acetaminophen 650 mg p.o. q.4 hours p.r.n. 3. Guaifenesin/dextromethorphan 10 mL p.o. p.r.n. cough. 4. Valsartan 40 mg p.o. q. day. 5. Sodium chloride 2000 mg p.o. b.i.d. 6. Polyethylene glycol 17 g p.o. q. day p.r.n. 7. Cyclosporin 0.05% ophthalmic drops 1 drop each eye b.i.d. 8. Hydroxychloroquine 200 mg p.o. b.i.d. 9. Levothyroxine 50 mcg p.o. q. day. 10. Metoprolol succinate XR 25 mg p.o. q. day. 11. Omeprazole 40 mg p.o. q. day. 12. Ondansetron 40 mg p.o. q.4 hours p.r.n. 13. Oxycodone 5/325 one to two tablets p.o. q. day p.r.n. 14. Prednisone 2 mg p.o. q. day. 15. Rosuvastatin 5 mg p.o. q.h.s. 16. Zolpidem 10 mg p.o. q.h.s. p.r.n. ISSUES TO BE ADDRESSED AT FOLLOWUP: 1. Functional status: She will continue home physical therapy and she can follow up with Dr. Pereira regarding how she is doing. 2. History of Clostridium difficile colitis. Should she have recurrent diarrhea, would consider a consultation with Infectious Disease regarding whether or not this is truly Clostridium difficile recurrence. 3. Coronary artery disease. Aspirin was contraindicated in the short term due to her history of subdural hematoma, and she had been on tranexamic acid. She had a head CT on 12/17/2016, which was reviewed by Neurosurgery. The tranexamic acid was discontinued and recommendation regarding aspirin was to await the judgment of Cardiology as to whether there was a strong indication to resume aspirin, so she should follow up with Cardiology, and Cardiology can have further discussions with Neurosurgery. 4. Cough of unclear etiology with some improvement with albuterol metered-dose inhaler and potential exacerbation due to KILEY inhibitor. 5. Hypertension. She is on a very low dose of valsartan, as well as metoprolol. If her blood pressure remains elevated, then increasing the valsartan dose would be indicated. 6. Syndrome of inappropriate antidiuretic hormone secretion. Advise repeat basic metabolic profile per primary care physician. This would also follow up on her slight hypokalemia. Greater than 30 minutes were spent on this discharge including medication reconciliation, coordination of care, and counseling patient. /[id number]/MODL MTDD
== END 2016-12-20 06:30 | disposition home or self-care (01) | DRG 91 ==
LOC: BREH 10:44
PROVIDERS: ADMIT Internal Medicine; ATTEND Internal Medicine
PROC: F0636ZZ Communicative/Cognitive Integration Skills Treatment of Neurological System - Whole Body (ICD-10-PCS; principal; 2016-12-10)
PROC: F08Z7ZZ Vocational Activities and Functional Community or Work Reintegration Skills Treatment (ICD-10-PCS; principal; 2016-12-10)
PROC: F07M3ZZ Motor Function Treatment of Musculoskeletal System - Whole Body (ICD-10-PCS; principal; 2016-12-10)
DX: S06.5X9S Traumatic subdural hemorrhage with loss of consciousness of unspecified duration, sequela (principal); R53.81 Other malaise; G31.84 Mild cognitive impairment of uncertain or unknown etiology; E22.2 Syndrome of inappropriate secretion of antidiuretic hormone; A04.72 Enterocolitis due to Clostridium difficile, not specified as recurrent; E43 Unspecified severe protein-calorie malnutrition; Z68.1 Body mass index [BMI] 19.9 or less, adult; M35.00 Sjogren syndrome, unspecified; I25.10 Atherosclerotic heart disease of native coronary artery without angina pectoris; Z96.659 Presence of unspecified artificial knee joint; K21.9 Gastro-esophageal reflux disease without esophagitis; L89.151 Pressure ulcer of sacral region, stage 1; Z87.891 Personal history of nicotine dependence; K11.7 Disturbances of salivary secretion; Z87.440 Personal history of urinary (tract) infections; R05 Cough
CPT/HCPCS: 92507-GN; 92522-GN; 92610-GN; 97110-GO; 97110-GP; 97112-GP; 97116-GP; 97162-GP; 97166-GO; 97530-GO; 97530-GP; 97532-GO; 97535-GO

== ENCOUNTER 2016-12-29 01:54 | Inpatient (IN) | payer OTHER, MEDICARE ==
--- NOTE | 2016-12-29 02:00 | EDPHY ---
H & P HPI/ROS: HPI CHIEF COMPLAINT: Fall, facial injuries HISTORY OF PRESENT ILLNESS: This patient is a 81-year-old female she presents emergency room after she had a syncopal episode with head strike against a table sustaining multiple facial lacerations. Unclear exactly what caused her to pass out. She states she was standing at the window and watching this snow outside and then the next thing she remembers waking up on the ground. She denies any chest pain or preceding symptoms. She does not recall exactly the events. Past Medical History: Subdural hemorrhage, Sjogren's syndrome, hypertension, SIADH, UTI, debility, C diff Past Surgical History: Appendectomy, gallbladder removal Social History: Lives locally. Denies illicit drugs alcohol tobacco. Family History: Noncontributory ROS REVIEW OF SYSTEMS: A comprehensive 10 point review of systems is otherwise negative aside from elements mentioned in the history of present illness. Exam Constitutional triage nursing summary reviewed, vital signs reviewed, awake/ alert. Eyes normal conjunctivae and sclera, EOMI, PERRLA. HENT head/neck: No midline cervical spine pain or step-offs, obvious bilateral forehead facial lacerations, Right Eyebrow: 2Cm horizontal laceration , Left Eyebrow: 5CM horizontal laceration, midface stable, moist mucus membranes , no epistaxis, neck supple/ no meningismus, no raccoon eyes. Respiratory clear to auscultation bilaterally, normal breath sounds, no respiratory distress, no wheezing. Cardiovascular rate normal, regular rhythm, no murmur, no edema, distal pulses normal. Gastrointestinal soft, non-tender, no rebound, no guarding, normal bowel sounds, no distension, no pulsatile mass. Genitourinary no CVA tenderness. Musculoskeletal no midline vertebral tenderness, full range of motion, no calf swelling, no tenderness of extremities, no meningismus, good pulses, neurovascularly intact. Skin Multiple facial lacerations, Left elbow Laceration. Left Elbow: 2cm Laceration. No bony vomit. No arterial vomit. Neurologic awake, alert and oriented x 3, AAOx3, moves all 4 extremities equally, motor intact, sensory intact, CN II-XII intact, normal cerebellar, normal vision, normal speech. Psychiatric normal mood/affect. Heme/Lymph/Immune no lymphadenopathy. Differential Diagnosis: Includes but is not limited to in a particular order syncope, vasovagal syncope, cardiogenic syncope, electrolyte disturbance, intracranial bleed, skull fracture, cervical spine injury Medical Decision Making: Plan for this patient syncopal workup including troponin EKG, basic blood work, full cardiac tech, CT scan of the head and neck. And then repair of facial lacerations. Re-evaluation: EKG interpretation by me on record in [employer] system. Impression time of EKG 2:20 a.m., sinus rhythm LVH present. Biphasic T-waves seen V2 V3 V4 V5 . Otherwise I do not appreciate acute ischemic change. Laceration Repair Procedure: Verbal Consent was obtained, Under sterile conditions, The patient had lidocaine with epinephrine used approximately 3ccs to local anesthetize the RIGHT eyebrow laceration 2 cm horizontal length. The wound was copiously irrigated with sterile fluid, the wound was explored for foreign bodies there were none visualized, the wound was explored with a sterile glove to the base. There are no deep structures involved, including no arterial injury. THREE PROLENE 6.O interrupted Sutures were placed in this patient's laceration. She had good close approximation of the wound edges. She Tolerated this well. Laceration Repair Procedure: Verbal Consent was obtained, Under sterile conditions, The patient had lidocaine with epinephrine used approximately 5ccs to local anesthetize the LEFT EYEBROW 5cm Horizontal Laceration. The wound was copiously irrigated with sterile fluid, the wound was explored for foreign bodies there were none visualized, the wound was explored with a sterile glove to the base. There are no deep structures involved, including no arterial injury. SIX 6.O PROLENE interrupted Sutures were placed in this patient's laceration. She had good close approximation of the wound edges. She Tolerated this well. Laceration Repair Procedure: Verbal Consent was obtained, Under sterile conditions, The patient had lidocaine with epinephrine used approximately 2ccs to local anesthetize the Left ELBOW Laceration. The wound was copiously irrigated with sterile fluid, the wound was explored for foreign bodies there were none visualized, the wound was explored with a sterile glove to the base. There are no deep structures involved, including no arterial injury. TWO 4.O PROLENE interrupted Sutures were placed in this patient's laceration. She had good close approximation of the wound edges. She Tolerated this well. ED x-ray left elbow; negative for acute fracture. Image interpreted myself. ED x-ray chest x-ray: No visualize rib fractures or pneumothorax on this one- view chest x-ray CT scan of the head and neck without contrast for trauma called to me by Dr. Monge Negative for skull fracture or intracranial bleed. 0344: Updated the as well as the patient at bedside. Plan for admission for observation today for syncope. It is noted her EKG does have abnormal T-waves that are not biphasic V3 V4 V5 this is changed from her previous EKG dated December 05, 2016. is fine with admission for observation today as well as patient. Lacerations have been repaired. Sutures need to be removed in 12 days of the left elbow. Sutures need to be removed 7 days of the face. 0349: Patient be admitted for syncope versus vasovagal fall. This patient has a positive troponin. When I trend the troponin. This is a low troponin for her. Does have mild EKG changes. Patient be admitted for syncope further observation. Urinalysis pending. Source: Patient - Personal History Tetanus Vaccine Date: WITHIN THE LAST 10YRS - Medical/Surgical History Hx Asthma: No Hx Chronic Respiratory Disease: No Hx Diabetes: No Hx Cardiac Disease: Yes Hx Renal Disease: No Hx Cirrhosis: No Hx Alcoholism: No Hx HIV/AIDS: No Hx Splenectomy or Spleen Trauma: No Other PMH: Sjogrens, appy, gallbladder, r knee replacement, tonsils, 3 bladder tucks. Subdural bleed, holter monitor - Social History Smoking Status: Former smoker Constitutional: Initial Vital Signs Temperature (C) 36.8 C 12/29/16 01:58 Heart Rate 86 12/29/16 01:58 Respiratory Rate 18 12/29/16 01:58 Blood Pressure 168/104 H 12/29/16 01:58 O2 Sat (%) 95 12/29/16 01:58 O2 Delivery Mode Room Air Allergies/Adverse Reactions: oxaprozin Allergy (Unknown, Verified 12/29/16 22:30) Vomiting amoxicillin trihydrate [From Augmentin] Allergy (Verified 12/29/16 01:57) Vomiting cephalexin [From Keflex] Allergy (Verified 12/29/16 02:04) ciprofloxacin HCl [From Cipro] Allergy (Verified 12/29/16 01:57) Vomiting Metronidazole HCl [From Flagyl] Allergy (Verified 12/29/16 01:57) Vomiting morphine [Morphine] Allergy (Verified 12/29/16 01:57) Vomiting nitrofurantoin macrocrystalline [From Macrobid] Allergy (Verified 12/29/16 01:57 ) Unknown potassium clavula *RETIRED-11/01/11 [From Augmentin] Allergy (Verified 12/29/16 01:57) Vomiting Sulfa (Sulfonamide Antibiotics) Allergy (Verified 12/29/16 01:57) Hives tramadol [Tramadol] Allergy (Verified 12/29/16 01:57) Vomiting Home Medications: Medication Instructions Recorded Polyethylene Glycol 3350 [Miralax 17 gm PO DAILY PRN pkt 10/28/16 17 gm (*)] Albuterol [Ventolin Hfa Inhaler] 2 puffs IH Q4HRS PRN #1 mdi 12/20/16 Hydroxychloroquine Sulfate 200 mg PO BID #60 tab 12/20/16 [Plaquenil 200 mg (*)] Levothyroxine [Synthroid 50 mcg 50 mcg PO DAILY #30 tab 12/20/16 (*)] Metoprolol Succinate Xr [Toprol Xl 25 mg PO DAILY #30 tab 12/20/16 25 mg (*)] Ondansetron Odt [Zofran Odt 4 mg 4 - 8 mg PO Q4HRS PRN #30 tab 12/20/16 (*)] Rosuvastatin Calcium [Crestor 5mg] 5 mg PO HS #30 12/20/16 Sodium Chloride [Salt Tablet] 2,000 mg PO BID #120 tab 12/20/16 Valsartan [Diovan (*)] 40 mg PO DAILY #30 tab 12/20/16 Zolpidem Tartrate [Ambien 10 mg] 10 mg PO HS PRN #30 tablet 12/20/16 cycloSPORINE 0.05% [Restasis Opht 1 drop EACHEYE BID #1 box 12/20/16 Drops(*)] guaiFENesin/DEXTROMETHORPHAN 10 ml PO Q4HRS PRN ml 12/20/16 [Robitussin Dm Oral Liquid (*)] predniSONE [Kanwal] 2 mg PO DAILY #30 tablet. 12/20/16 Acetaminophen [Tylenol 325mg (*)] 325 mg PO DAILY PRN 12/29/16 Dicyclomine [Bentyl 20 MG (*)] 20 mg PO DAILY PRN 12/29/16 Omeprazole [Prilosec 20 mg] 20 mg PO BID 12/29/16 oxyCODONE/APAP 5/325 [Percocet 1 tab PO DAILY PRN 12/29/16 5/325 (*)] Medical Decision Making - Data Points Laboratory Results: Laboratory Results 12/29/16 02:45 12/29/16 02:45 Medications Given: Acetaminophen (Tylenol) 650 mg PO Q4HRS PRN PRN Reason: Pain, Mild/Fever, Can Take PO Stop: 06/27/17 03:47 Last Admin: 12/29/16 23:11 Dose: 650 mg Cyclosporine (Restasis) 1 drop EACHEYE BID [facility] Stop: 06/27/17 08:59 Last Admin: 12/29/16 21:02 Dose: Not Given Hydroxychloroquine Sulfate (Plaquenil) 200 mg PO BID MARY PRN Reason: Protocol Stop: 01/28/17 08:59 Last Admin: 12/29/16 20:39 Dose: 200 mg Levothyroxine Sodium (Synthroid) 50 mcg PO DAILY MARY Stop: 06/27/17 08:59 Last Admin: 12/29/16 11:14 Dose: 50 mcg Metoprolol Succinate (Toprol Xl) 25 mg PO DAILY MARY Stop: 06/27/17 08:59 Last Admin: 12/29/16 11:14 Dose: 25 mg Oxycodone/Acetaminophen (Percocet 5/325) 1 tab PO Q6H PRN PRN Reason: Pain, Severe Stop: 01/08/17 19:29 Last Admin: 12/29/16 20:59 Dose: 1 tab Pantoprazole Sodium (Protonix) 40 mg PO BID MARY Stop: 06/27/17 09:29 Last Admin: 12/29/16 20:39 Dose: 40 mg Prednisone (Prednisone) 2 mg PO DAILY MARY Stop: 06/27/17 10:29 Last Admin: 12/29/16 11:13 Dose: 2 mg Rosuvastatin Calcium (Crestor) 5 mg PO HS [facility] Stop: 06/27/17 20:59 Last Admin: 12/29/16 20:39 Dose: 5 mg Sodium Chloride (Salt Tablet) 2,000 mg PO BID MARY Stop: 06/27/17 08:59 Last Admin: 12/29/16 20:39 Dose: 2,000 mg Valsartan (Diovan) 20 mg PO DAILY MARY Stop: 06/27/17 08:59 Last Admin: 12/29/16 11:12 Dose: 20 mg Discontinued Medications Acetaminophen (Tylenol) 1,000 mg PO EDNOW ONE Stop: 12/29/16 06:14 Last Admin: 12/29/16 09:39 Dose: Not Given Sodium Chloride (Ns) 500 mls @ 1,000 mls/hr IV EDNOW ONE PRN Reason: Protocol Stop: 12/29/16 02:38 Last Admin: 12/29/16 03:34 Dose: 500 mls Ondansetron HCl (Zofran) 4 mg IVP EDNOW ONE Stop: 12/29/16 02:58 Last Admin: 12/29/16 02:56 Dose: 4 mg Oxycodone/Acetaminophen (Percocet 5/325) 1 tab PO DAILY PRN PRN Reason: Pain, Severe Stop: 01/08/17 08:37 Last Admin: 12/29/16 17:43 Dose: 1 tab Departure - Departure Disposition: [facility] Inpatient Acute Clinical Impression: Laceration, Skin tear Syncope Qualifiers: Syncope type: unspecified Qualified Code(s): R55 - Syncope and collapse Elbow laceration Qualifiers: Encounter type: initial encounter Laterality: unspecified laterality Qualified Code(s): S51.019A - Laceration without foreign body of unspecified elbow, initial encounter Condition: Fair
[2016-12-29] MEDS ORDERED: NS 500 ML IV ONE (02:09)
--- NOTE | 2016-12-29 02:22 | CPEKG ---
Heart Rate: 87 RR Interval: 690 P-R Interval: 196 QRSD Interval: 102 QT Interval: 412 QTC Interval: 496 P Onemo: 79 QRS Onemo: -35 T Wave [place]emo: 87 EKG Severity - ABNORMAL ECG - EKG Impression: SINUS RHYTHM EKG Impression: LEFT AXIS DEVIATION EKG Impression: LEFT VENTRICULAR HYPERTROPHY EKG Impression: BORDERLINE PROLONGED QT INTERVAL Electronically Signed By: Erick Hanley 29-Dec-2016 06:22:53
[2016-12-29] MEDS ORDERED: ONDANSETRON 4 MG/2 ML VIAL ONE (02:55)
[2016-12-29] MEDS ORDERED: ONDANSETRON 4 MG/2 ML VIAL IVP ONE (02:57)
[2016-12-29 02:59] LABS: % IMMATURE GRANULYOCYTES 0.8 % (0.0-1.1); ABSOLUTE IMMATURE GRANULOCYTES 0.06 10^3/uL (0.00-0.10); ADD DIFF? NO; ADD MORPH? NO; ADD SCAN? NO; ATYPICAL LYMPHOCYTE FLAG 10 (0-99); FRAGMENT RBC FLAG 0 (0-99); HEMATOCRIT 29.9 % (38.0-47.0); LEFT SHIFT FLG 0 (0-99); LIPEMIA HEMOLYSIS FLAG 80 (0-99); MEAN CELL HEMOGLOBIN 32.6 pg (27.9-34.1); MEAN CELL HEMOGLOBIN CONCENTR. 33.4 g/dL (32.4-36.7); MEAN CELL VOLUME 97.4 fL (81.5-99.8); MEAN PLATELET VOLUME 9.8 fL (8.7-11.7); PLATELET CLUMPS FLAG 0 (0-99); PLATELET COUNT 197 10^3/uL (150-400); RED BLOOD CELL COUNT 3.07 10^6/uL (4.18-5.33); RED CELL DISTRIBUTION WIDTH 15.4 % (11.5-15.2)
[2016-12-29 03:08] LABS: INR 1.05 (0.83-1.16); PROTIME(PATIENT) 13.6 SEC (12.0-15.0)
[2016-12-29 03:09] LABS: APTT 23.6 SEC (23.0-38.0)
[2016-12-29 03:16] LABS: ANION GAP 10 mEq/L (8-16); CALCIUM 8.9 mg/dL (8.5-10.4); CARBON DIOXIDE 24 mEq/l (22-31); CHLORIDE 103 mEq/L (97-110); CREATININE 0.8 mg/dL (0.6-1.0); GLOMERULAR FILTRATION RATE > 60; GLUCOSE 96 mg/dL (70-100); POTASSIUM 4.4 mEq/L (3.5-5.2); SODIUM 137 mEq/L (134-144)
[2016-12-29 03:27] LABS: TROPONIN I 0.124 ng/mL (0.000-0.034)
[2016-12-29] MEDS ORDERED: ONDANSETRON 4 MG/2 ML VIAL IVP PRN (03:48)
[2016-12-29] MEDS ORDERED: ONDANSETRON DISINTEGRATING 4 MG TAB PO PRN ×2 (03:48→08:38)
[2016-12-29 03:59] LABS: COLOR YELLOW; LEUKOCYTE ESTERASE,URINE TRACE (NEGATIVE); NITRITE,URINE NEGATIVE (NEGATIVE)
[2016-12-29 04:18] LABS: BACTERIA TRACE /hpf (NONE SEEN); MUCUS TRACE /lpf (NONE-1+)
--- NOTE | 2016-12-29 04:19 | PDGENHP ---
History and Physical - Chief Complaint Fall - History of Present Illness 81 yo F w/ Sjogren's and multiple recent admissions for SDH and C. Diff presents after a fall. She has been home from [facility] for about a week and been doing quite well. Then, last night, she got up to go to the bathroom and experienced a fall. She has a very vague memory of the sequence of events but recalls needing to go to the bathroom, then stopping to look at the snow outside , and then crying out when she fell and hit her head. She does not recall a specific LOC event although she cannot be completely clear about this. She took Ambien prior to going to sleep. Currently aside from some aches related to the fall she is asymptomatic. History Information - Allergies/Home Medication List Allergies/Adverse Reactions: ciprofloxacin Allergy (Unknown, Unverified 12/29/16 01:57) Vomiting metronidazole Allergy (Unknown, Unverified 12/29/16 01:57) Vomiting nitrofurantoin Allergy (Unknown, Unverified 12/29/16 01:57) Unknown oxaprozin Allergy (Unknown, Unverified 12/29/16 01:57) Vomiting amoxicillin trihydrate [From Augmentin] Allergy (Verified 12/29/16 01:57) Vomiting cephalexin [From Keflex] Allergy (Verified 12/29/16 02:04) ciprofloxacin HCl [From Cipro] Allergy (Verified 12/29/16 01:57) Vomiting Metronidazole HCl [From Flagyl] Allergy (Verified 12/29/16 01:57) Vomiting morphine [Morphine] Allergy (Verified 12/29/16 01:57) Vomiting nitrofurantoin macrocrystalline [From Macrobid] Allergy (Verified 12/29/16 01:57 ) Unknown potassium clavula *RETIRED-11/01/11 [From Augmentin] Allergy (Verified 12/29/16 01:57) Vomiting Sulfa (Sulfonamide Antibiotics) Allergy (Verified 12/29/16 01:57) Hives tramadol [Tramadol] Allergy (Verified 12/29/16 01:57) Vomiting amoxicillin trihydrate Allergy (Unknown, Uncoded 12/29/16 01:57) Vomiting ciprofloxacin HCl Allergy (Unknown, Uncoded 12/29/16 01:57) Vomiting Metronidazole HCl Allergy (Unknown, Uncoded 12/29/16 01:57) Vomiting nitrofurantoin macrocrystalline Allergy (Unknown, Uncoded 12/29/16 01:57) Unknown potassium clavula *RETIRED-11/01/11 Allergy (Unknown, Uncoded 12/29/16 01:57) Vomiting Home Medications: Gluc Oxid/l-Peroxid/Muramidase [Biotene Mouthwash (*)] 15 ml MM Q4HRS PRN [Last Taken Unknown] I have personally reviewed and updated: family history, medical history - Past Medical History Additional medical history: Sjogren's syndrome. Hypothyroidism. Gastroesophageal reflux disease. Possible TIA. Hypoglycemia. Anemia with most recent hemoglobin level 9.3 in September of 2016. Pyelonephritis treated approximately 2 weeks ago - Surgical History Additional surgical history: right total knee replacement in August of 2016, hysterectomy, bladder suspension surgery, cholecystectomy - Family History Positive for: hypertension (Quit 38 years ago) Additional family history: no coronary artery disease, family history of hypertension - Social History Smoking Status: Former smoker Additional social history: currently lives independently in her home with her Review of Systems Review of Systems: ROS: 10pt was reviewed & negative except for what was stated in HPI & below Physical Exam Physical Exam: Temp Pulse Resp BP Pulse Ox 36.8 C 86 18 168/104 H 95 12/29/16 01:58 12/29/16 01:58 12/29/16 01:58 12/29/16 01:58 12/29/16 01:58 Constitutional: no apparent distress, appears nourished Eyes: PERRL, EOMI Ears, Nose, Mouth, Throat: poor dentition, dry mucous membranes Cardiovascular: regular rate and rhythym, systolic murmur Respiratory: no respiratory distress, no rales or rhonchi Gastrointestinal: normoactive bowel sounds, soft, non-tender abdomen Skin: abrasion (Multiple facial lacerations) Musculoskeletal: full muscle strength, no muscle tenderness Neurologic: AAOx3, sensation intact bilaterally, CN II-XII Intact, No weakness, No numbness, No facial droop Psychiatric: interacting appropriately, not anxious Lab Data & Imaging Review 12/29/16 02:45 12/29/16 02:45 WBC 7.61 10^3/uL (3.80-9.50) 12/29/16 02:45 RBC 3.07 10^6/uL (4.18-5.33) L 12/29/16 02:45 Hgb 10.0 g/dL (12.6-16.3) L 12/29/16 02:45 Hct 29.9 % (38.0-47.0) L 12/29/16 02:45 MCV 97.4 fL (81.5-99.8) 12/29/16 02:45 MCH 32.6 pg (27.9-34.1) 12/29/16 02:45 MCHC 33.4 g/dL (32.4-36.7) 12/29/16 02:45 RDW 15.4 % (11.5-15.2) H 12/29/16 02:45 Plt Count 197 10^3/uL (150-400) 12/29/16 02:45 MPV 9.8 fL (8.7-11.7) 12/29/16 02:45 Neut % (Auto) 82.8 % (39.3-74.2) H 12/29/16 02:45 Lymph % (Auto) 7.0 % (15.0-45.0) L 12/29/16 02:45 [place] % (Auto) 7.4 % (4.5-13.0) 12/29/16 02:45 Eos % (Auto) 1.6 % (0.6-7.6) 12/29/16 02:45 Baso % (Auto) 0.4 % (0.3-1.7) 12/29/16 02:45 Nucleat RBC Rel Count 0.0 % (0.0-0.2) 12/29/16 02:45 Absolute Neuts (auto) 6.31 10^3/uL (1.70-6.50) 12/29/16 02:45 Absolute Lymphs (auto) 0.53 10^3/uL (1.00-3.00) L 12/29/16 02:45 Absolute Monos (auto) 0.56 10^3/uL (0.30-0.80) 12/29/16 02:45 Absolute Eos (auto) 0.12 10^3/uL (0.03-0.40) 12/29/16 02:45 Absolute Basos (auto) 0.03 10^3/uL (0.02-0.10) 12/29/16 02:45 Absolute Nucleated RBC 0.00 10^3/uL (0-0.01) 12/29/16 02:45 Immature Gran % 0.8 % (0.0-1.1) 12/29/16 02:45 Immature Gran # 0.06 10^3/uL (0.00-0.10) 12/29/16 02:45 PT 13.6 SEC (12.0-15.0) 12/29/16 02:45 INR 1.05 (0.83-1.16) 12/29/16 02:45 APTT 23.6 SEC (23.0-38.0) 12/29/16 02:45 Sodium 137 mEq/L (134-144) 12/29/16 02:45 Potassium 4.4 mEq/L (3.5-5.2) 12/29/16 02:45 Chloride 103 mEq/L (97-110) 12/29/16 02:45 Carbon Dioxide 24 mEq/l (22-31) 12/29/16 02:45 Anion Gap 10 mEq/L (8-16) 12/29/16 02:45 BUN 13 mg/dL (7-23) 12/29/16 02:45 Creatinine 0.8 mg/dL (0.6-1.0) 12/29/16 02:45 Estimated GFR > 60 12/29/16 02:45 Glucose 96 mg/dL (70-100) 12/29/16 02:45 Calcium 8.9 mg/dL (8.5-10.4) 12/29/16 02:45 Troponin I 0.124 ng/mL (0.000-0.034) H 12/29/16 02:45 Urine Color YELLOW 12/29/16 03:47 Urine Appearance CLEAR 12/29/16 03:47 Urine pH 6.0 (5.0-7.5) 12/29/16 03:47 Ur Specific [place] 1.012 (1.002-1.030) 12/29/16 03:47 Urine Protein NEGATIVE (NEGATIVE) 12/29/16 03:47 Urine Ketones NEGATIVE (NEGATIVE) 12/29/16 03:47 Urine Blood NEGATIVE (NEGATIVE) 12/29/16 03:47 Urine Nitrate NEGATIVE (NEGATIVE) 12/29/16 03:47 Urine Bilirubin NEGATIVE (NEGATIVE) 12/29/16 03:47 Urine Urobilinogen NEGATIVE EU (0.2-1.0) 12/29/16 03:47 Ur Leukocyte Esterase TRACE (NEGATIVE) H 12/29/16 03:47 Urine Glucose NEGATIVE (NEGATIVE) 12/29/16 03:47 Imaging Review: CT Head and C-spine without acute abnormality. Visualized and Interpreted EKG results: Yes EKG Interpretation: Positive for: normal sinsus rhythm, other (Indeterminate ST changes in setting of wandering baseline) Assessment & Plan Assessment: 81 yo F w/ Sjogren's and multiple recent admission presents after a fall and possible syncope. Plan: 1. Possible syncope - Unclear if true LOC leading to a fall. My impression is that this may be related to Ambien noting patient has a foggy, dream-like recollection of the events prior to and after the fall. She does not describe a singular syncope event. She does remember needing to go to the bathroom so vaso- vagal syncope is another consideration. She denies chest pain, SOB, and has an intact neurologic exam. CTH stable from prior and trauma evaluation largely negative aside from superficial lacerations addressed in the ED. - Monitor on telemetry - Trend cardiac enzymes - PT/OT/CM consults - Discontinue Ambien, I discussed this with patient and she is in agreement - Admit for observation 2. Recent SDH - No acute change on CTH in ED per preliminary read. Neurologically intact. 3. Elevated troponin - This seems to be chronically elevated. She had recently abnormal nuclear stress test but did not undergo catheterization due to medical comorbidities. Will trend enzymes and continue BB and statin. 4. Sjogren's syndrome - On low dose prednisone, HCQ, and cyclosporine drops. 5. HTN - On losartan and metoprolol as outpatient. I doubt her BP dropped too low leading to the above event but worth monitoring her BP values while inpatient to make sure she is not suffering from iatrogenic hypotension. Diet - Regular Code - Full Ppx - SCDs Dispo - Admit to observation status
[2016-12-29] MEDS ORDERED: ACETAMINOPHEN 500 MG TAB PO ONE (06:13)
[2016-12-29] MEDS ORDERED: POLYETHYLENE GLYCOL 3350 17 GM PKT PO PRN (08:38)
[2016-12-29] MEDS ORDERED: NON-FORMULARY NEW DRUG (Albuterol 2 PUFFS) IH PRN (08:38)
[2016-12-29] MEDS ORDERED: DICYCLOMINE 20 MG TAB PO PRN (08:38)
[2016-12-29] MEDS ORDERED: GUAIFENESIN/DM 10 ML UDCUP PO PRN (08:38)
[2016-12-29] MEDS ORDERED: NON-FORMULARY NEW DRUG (Omeprazole [Prilosec 20 Mg] 20 MG) PO SCH (09:00)
[2016-12-29] MEDS ORDERED: PREDNISONE 2 MG PO SCH (09:00)
--- NOTE | 2016-12-29 09:20 | HOSPPROG ---
Hospitalist Progress Note Assessment/Plan: First encounter with this patient 81 yo F w/ Sjogren's and multiple recent admission presents after a fall and possible syncope. Plan: 1. Possible syncope - Unclear if true LOC leading to a fall. My impression is that this may be related to Ambien noting patient has a foggy, dream-like recollection of the events prior to and after the fall. She does not describe a singular syncope event. She does remember needing to go to the bathroom so vaso- vagal syncope is another consideration. She denies chest pain, SOB, and has an intact neurologic exam. CTH stable from prior and trauma evaluation largely negative aside from superficial lacerations addressed in the ED. - Cont Tele - Trend cardiac enzymes, pending - PT/OT/CM consults, pending - Discontinue Ambien, I discussed this with patient and she is in agreement - decrease valsartan to 20mg daily 2. Recent SDH - No acute change on CTH in ED per preliminary read. Neurologically intact. 3. Elevated troponin - This seems to be chronically elevated. She had recently abnormal nuclear stress test but did not undergo catheterization due to medical comorbidities. Will trend enzymes and continue BB and statin. 4. Sjogren's syndrome - On low dose prednisone, HCQ, and cyclosporine drops. 5. HTN - On losartan and metoprolol as outpatient. Losartan will be decreased per above. 6. Long QT syndrome. Stop Zofran. Avoid med which increase the QT 7. Urinary Frequency: UA essentially unremarkable. Will send culture. Await culture and consider treating if no clinical improvement. Hold abx for now 8. Recent C-Diff, s/p treatment, no active diarrhea currently. 9. Acute pain, provide pain mgmt PRN 10. Weakness and deconditioning: PT/OT Diet - Regular Code - Full Ppx - SCDs Dispo - Admit to observation status, pending clinical course may need inpatient care. Subjective: has generalized pain. No CP or SOB. NO neuro deficits Objective: Vital Signs Temp Pulse Resp BP Pulse Ox 36.8 C 85 18 149/67 H 93 12/29/16 01:58 12/29/16 06:00 12/29/16 06:00 12/29/16 06:00 12/29/16 06:00 PT 13.6 SEC (12.0-15.0) 12/29/16 02:45 INR 1.05 (0.83-1.16) 12/29/16 02:45 - Physical Exam Constitutional: no apparent distress, appears nourished Eyes: PERRL Ears, Nose, Mouth, Throat: moist mucous membranes, hearing normal Cardiovascular: regular rate and rhythym Respiratory: no respiratory distress Gastrointestinal: normoactive bowel sounds Genitourinary: no bladder fullness, no bladder tenderness Skin: warm, normal color Neurologic: AAOx3, CN II-XII Intact, No facial droop Psychiatric: interacting appropriately ICD10 Worksheet Patient Problems: Problems Problem Status Onset Elbow laceration Acute Laceration Acute Skin tear Acute Syncope Acute Altered mental status Acute Clostridium difficile infection Acute ~12/06/16 Dehydration Acute Elevated troponin Acute Nausea & vomiting Acute Primary localized osteoarthritis of right knee Acute Subarachnoid hemorrhage Acute Subdural hematoma Acute TIA (transient ischemic attack) Acute Troponin I above reference range Acute Urinary tract infection Acute Vomiting and diarrhea Acute
[2016-12-29] MEDS ORDERED: ALBUTEROL 200 PUFFS/18 GM MDI IH PRN (10:23)
[2016-12-29 10:54] LABS: % IMMATURE GRANULYOCYTES 0.5 % (0.0-1.1); ABSOLUTE IMMATURE GRANULOCYTES 0.03 10^3/uL (0.00-0.10); ADD DIFF? NO; ADD MORPH? NO; ADD SCAN? NO; ATYPICAL LYMPHOCYTE FLAG 40 (0-99); FRAGMENT RBC FLAG 0 (0-99); HEMATOCRIT 28.6 % (38.0-47.0); HEMOGLOBIN 9.5 g/dL (12.6-16.3); LEFT SHIFT FLG 0 (0-99); LIPEMIA HEMOLYSIS FLAG 80 (0-99); MEAN CELL HEMOGLOBIN 31.7 pg (27.9-34.1); MEAN CELL HEMOGLOBIN CONCENTR. 33.2 g/dL (32.4-36.7); MEAN CELL VOLUME 95.3 fL (81.5-99.8); MEAN PLATELET VOLUME 9.5 fL (8.7-11.7); PLATELET CLUMPS FLAG 0 (0-99); PLATELET COUNT 165 10^3/uL (150-400); RED CELL DISTRIBUTION WIDTH 15.4 % (11.5-15.2)
[2016-12-29] MEDS: SODIUM CHLORIDE 1,000 MG TAB PO SCH ×2 (11:12→20:39)
[2016-12-29] MEDS: VALSARTAN 40 MG TAB PO SCH (11:12)
[2016-12-29] MEDS: HYDROXYCHLOROQUINE SULFATE 200 MG TAB PO SCH ×2 (11:13→20:39)
[2016-12-29] MEDS: predniSONE 1 MG TAB PO SCH (11:13)
[2016-12-29] MEDS: LEVOTHYROXINE 50 MCG TAB PO SCH (11:14)
[2016-12-29] MEDS: PANTOPRAZOLE SODIUM 40 MG TAB PO SCH ×2 (11:14→20:39)
[2016-12-29] MEDS: METOPROLOL SUCCINATE XR 25 MG TAB PO SCH (11:14)
[2016-12-29] MEDS: CYCLOSPORINE 0.05% 1 EACH BOX EACHEYE SCH ×2 (11:15→21:02)
--- NOTE | 2016-12-29 11:19 | ASMTCMCOM ---
CM Note CM Note Notes: Patient admitted after a fall of unknown etiology. She has had multiple admissions for the same. Patient's most recent hospitalization was 12/05 and she discharged to [facility] inpatient rehabilitation on 12/10. She was discharged home from rehab on 12/20. Per patient, she had been doing well at home until she fell the night of 12/28 when she got out of bed to use the bathroom. She does not remeber events preceeding the fall but does endorse using Ambien. She lives with her . PT/OT/DYEING MACHINE TENDER to eval and make recommendations. CM will follow for discharge planning. Date Signed: 12/29/2016 11:18 AM Electronically Signed By:Mary Grace Harrison RN
[2016-12-29 11:24] LABS: ANION GAP 10 mEq/L (8-16); CALCIUM 8.7 mg/dL (8.5-10.4); CARBON DIOXIDE 23 mEq/l (22-31); CHLORIDE 102 mEq/L (97-110); CREATININE 0.7 mg/dL (0.6-1.0); GLOMERULAR FILTRATION RATE > 60; GLUCOSE 92 mg/dL (70-100); POTASSIUM 3.9 mEq/L (3.5-5.2); SODIUM 135 mEq/L (134-144)
[2016-12-29 11:34] LABS: TROPONIN I 0.121 ng/mL (0.000-0.034)
[2016-12-29] MEDS: OXYCODONE/APAP 5/325 TAB PO PRN ×3 (11:36→20:59)
--- NOTE | 2016-12-29 12:36 | ASMTCMCOM ---
CM Note CM Note Notes: 12/29/2016 Case Management Note Case management received phone call from [facility]. Pt is current with home care PT RN and other services. Case Management d/c poc: Home when medically stable to resume services from [facility]. Case Management available if needs change. Date Signed: 12/29/2016 12:35 PM Electronically Signed By:Ana Huynh RN
[2016-12-29] MEDS: ROSUVASTATIN CALCIUM 10 MG TAB PO SCH (20:39)
[2016-12-29] MEDS ORDERED: NON-FORMULARY NEW DRUG (Rosuvastatin Calcium [Crestor 5mg] 5 MG) PO SCH (21:00)
[2016-12-29] MEDS: ACETAMINOPHEN 325 MG TAB PO PRN (23:11)
[2016-12-30] MEDS: SODIUM CHLORIDE 1,000 MG TAB PO SCH ×2 (10:10→21:12)
[2016-12-30] MEDS: predniSONE 1 MG TAB PO SCH (10:10)
[2016-12-30] MEDS: VALSARTAN 40 MG TAB PO SCH (10:10)
[2016-12-30] MEDS: LEVOTHYROXINE 50 MCG TAB PO SCH (10:13)
[2016-12-30] MEDS: HYDROXYCHLOROQUINE SULFATE 200 MG TAB PO SCH ×2 (10:13→21:11)
[2016-12-30] MEDS: PANTOPRAZOLE SODIUM 40 MG TAB PO SCH ×2 (10:14→21:13)
[2016-12-30] MEDS: METOPROLOL SUCCINATE XR 25 MG TAB PO SCH (10:15)
[2016-12-30] MEDS: CYCLOSPORINE 0.05% 1 EACH BOX EACHEYE SCH ×2 (10:16→21:13)
[2016-12-30] MEDS ORDERED: VALSARTAN 40 MG TAB PO ONE (11:30)
--- NOTE | 2016-12-30 13:44 | HOSPPROG ---
Hospitalist Progress Note Assessment/Plan: 81 yo F w/ Sjogren's and multiple recent admission presents after a fall and possible syncope. 1. Possible syncope - Unclear if true LOC leading to a fall. My impression is that this may be related to Ambien noting patient has a foggy, dream-like recollection of the events prior to and after the fall. She does not describe a singular syncope event. She does remember needing to go to the bathroom so vaso- vagal syncope is another consideration. She denies chest pain, SOB, and has an intact neurologic exam. CTH stable from prior and trauma evaluation largely negative aside from superficial lacerations addressed in the ED. - Cont Tele - Trend cardiac enzymes: These are c/w 0.121 x 2. she does not have any chest pain. She has a hx of these being elevated at a higher level since 09/29/16. Given her MMP a decision to not CATH was already previously made prior to this admission - PT/OT/CM/ST: They recommend / care, but the patient is refusing at this time. - Discontinue Ambien, I discussed this with patient and she is in agreement 2. Recent SDH - No acute change on CTH in ED per preliminary read. Neurologically intact. 3. Elevated troponin - This seems to be chronically elevated. She had recently abnormal nuclear stress test but did not undergo catheterization due to medical comorbidities. Continue BB and statin. 4. Sjogren's syndrome - On low dose prednisone, HCQ, and cyclosporine drops. 5. HTN - On losartan and metoprolol as outpatient. Given HTN, Losartan will be increased back to her home dose today 6. Long QT syndrome. Stop Zofran. Avoid med which increase the QT. She does not have any nausea at this time. 7. Urinary Frequency: UA essentially unremarkable. Will send culture. Await culture and consider treating if no clinical improvement. Hold abx for now 8. Recent C-Diff, s/p treatment, no active diarrhea currently. 9. Acute pain, provide pain mgmt PRN 10. Weakness and deconditioning: PT/OT Diet - Regular Code - Full Ppx - SCDs Dispo - Inpatient. She will be monitored overnight with likely discharge to home tomorrow. She would benefit from SNF, but she is refusing this at this time. Subjective: No Nause. No CP. No SOB. generalized weakness Objective: Vital Signs Temp Pulse Resp BP Pulse Ox 36.7 C 74 20 163/76 H 93 12/30/16 11:02 12/30/16 11:02 12/30/16 11:02 12/30/16 11:02 12/30/16 11:02 Laboratory Results 12/29/16 10:30 12/29/16 10:30 12/29/16 12/30/16 12/31/16 05:59 05:59 05:59 Intake Total 480 Balance 480 PT 13.6 SEC (12.0-15.0) 12/29/16 02:45 INR 1.05 (0.83-1.16) 12/29/16 02:45 - Physical Exam Constitutional: chronically ill appearing Eyes: PERRL, EOMI Ears, Nose, Mouth, Throat: moist mucous membranes, hearing normal Cardiovascular: regular rate and rhythym, no murmur, rub, or gallop, systolic murmur Respiratory: no respiratory distress, no rales or rhonchi Gastrointestinal: normoactive bowel sounds Skin: warm Musculoskeletal: generalized weakness Neurologic: AAOx3 Psychiatric: interacting appropriately, not anxious, not encephalopathic ICD10 Worksheet Patient Problems: Problems Problem Status Onset Elbow laceration Acute Laceration Acute Skin tear Acute Syncope Acute Altered mental status Acute Clostridium difficile infection Acute ~12/06/16 Dehydration Acute Elevated troponin Acute Nausea & vomiting Acute Primary localized osteoarthritis of right knee Acute Subarachnoid hemorrhage Acute Subdural hematoma Acute TIA (transient ischemic attack) Acute Troponin I above reference range Acute Urinary tract infection Acute Vomiting and diarrhea Acute
--- NOTE | 2016-12-30 14:07 | ASMTCMCOM ---
CM Note CM Note Notes: CM met w/ pt for dispo planning. PT is recommending HC. DRY CELL TESTER is recommending 24hr supervision. Pt is interested in going back to [place]. CM communicated this w/ Dr. García. Pt is agreeable to having referrals made to [facility]. CM sent referrals. Non triggering PASRR completed. CM to follow. Date Signed: 12/30/2016 02:06 PM Electronically Signed By:WARD Dumont
--- NOTE | 2016-12-30 16:57 | PDMN ---
Medical Necessity Medical necessity: Change to IP, as of 12/30/16, per MD; los >2 mn for ongoing eval/tx of possible syncope r/t fall, hx Sjogrens syndrome, recent C-Diff, SDH, htn, per progress note & order 12/30/16
[2016-12-30] MEDS: ROSUVASTATIN CALCIUM 10 MG TAB PO SCH (21:11)
[2016-12-30] MEDS: OXYCODONE/APAP 5/325 TAB PO PRN (21:12)
[2016-12-31 05:08] LABS: % IMMATURE GRANULYOCYTES 0.9 % (0.0-1.1); ABSOLUTE IMMATURE GRANULOCYTES 0.04 10^3/uL (0.00-0.10); ADD DIFF? NO; ADD MORPH? NO; ADD SCAN? NO; ATYPICAL LYMPHOCYTE FLAG 60 (0-99); FRAGMENT RBC FLAG 0 (0-99); HEMATOCRIT 31.8 % (38.0-47.0); HEMOGLOBIN 10.5 g/dL (12.6-16.3); LEFT SHIFT FLG 0 (0-99); LIPEMIA HEMOLYSIS FLAG 80 (0-99); MEAN CELL HEMOGLOBIN 31.5 pg (27.9-34.1); MEAN CELL VOLUME 95.5 fL (81.5-99.8); MEAN PLATELET VOLUME 9.5 fL (8.7-11.7); PLATELET CLUMPS FLAG 0 (0-99); PLATELET COUNT 204 10^3/uL (150-400); RED BLOOD CELL COUNT 3.33 10^6/uL (4.18-5.33); RED CELL DISTRIBUTION WIDTH 15.3 % (11.5-15.2)
[2016-12-31 05:26] LABS: ANION GAP 11 mEq/L (8-16); CARBON DIOXIDE 23 mEq/l (22-31); CHLORIDE 100 mEq/L (97-110); CREATININE 0.7 mg/dL (0.6-1.0); GLOMERULAR FILTRATION RATE > 60; GLUCOSE 82 mg/dL (70-100); SODIUM 134 mEq/L (134-144)
[2016-12-31] MEDS: predniSONE 1 MG TAB PO SCH (09:22)
[2016-12-31] MEDS: PANTOPRAZOLE SODIUM 40 MG TAB PO SCH ×2 (09:23→21:25)
[2016-12-31] MEDS: HYDROXYCHLOROQUINE SULFATE 200 MG TAB PO SCH ×2 (09:23→21:26)
[2016-12-31] MEDS: LEVOTHYROXINE 50 MCG TAB PO SCH (09:23)
[2016-12-31] MEDS: METOPROLOL SUCCINATE XR 25 MG TAB PO SCH (09:23)
[2016-12-31] MEDS: VALSARTAN 40 MG TAB PO SCH (09:23)
[2016-12-31] MEDS: SODIUM CHLORIDE 1,000 MG TAB PO SCH ×2 (09:24→22:01)
[2016-12-31] MEDS: ACETAMINOPHEN 325 MG TAB PO PRN ×2 (09:30→15:06)
--- NOTE | 2016-12-31 13:29 | HOSPPROG ---
Hospitalist Progress Note Assessment/Plan: 81 yo F w/ Sjogren's and multiple recent admission presents after a fall and possible syncope. She had a syncopal episode in early October. Unfortunately an etiology has not been found. The patient and her are very frustrated about this. The patient sees Dr. Ramirez and she has an event monitor. Cards will evaluate today. I've also discussed the case with Dr. Hussein with Neurology who will consult on the patient. 1. Possible syncope - Unclear if true LOC leading to a fall. This may be related to Ambien noting patient had a foggy, dream-like recollection of the events prior to and after the fall on admission. She did not describe a singular syncope event. She did remember needing to go to the bathroom so vaso- vagal syncope is another consideration. She cont to deny chest pain, SOB, and has an intact neurologic exam. -CTH stable from prior and trauma evaluation largely negative aside from superficial lacerations addressed in the ED. - Cont Tele. No events noted - Trend cardiac enzymes: These are c/w 0.121 x 2. she does not have any chest pain. She has a hx of these being elevated at a higher level since 09/29/16. Per medical record, given her MMP a decision to not CATH was already previously made prior to this admission. Cardiology will see. -There is no e/o of hypotension or orthostasis -no e/o of bradycardia on telemetry - PT/OT/CM/ST: They recommend 24/7 care due to weakness and impaired cognition. The patient and her is unconvinced that this level of care is needed. CM is looking into options. - Discontinue Ambien -Avoid narcotics, benzo's, and other centrally depressing meds 2. Recent SDH - No acute change on CTH in ED per preliminary read. Neurologically intact. 3. Elevated troponin - This seems to be chronically elevated. She had recently abnormal nuclear stress test but did not undergo catheterization due to medical comorbidities. Continue BB and statin. 4. Sjogren's syndrome - On low dose prednisone, HCQ, and cyclosporine drops. 5. HTN - cont Losartan and Metoprolol 6. Long QT syndrome. Stop Zofran. Avoid med which increase the QT. She does not have any nausea at this time. 7. Urinary Frequency: UA essentially unremarkable. Will send culture. Await culture and consider treating if no clinical improvement. Hold abx for now. She cont not to have any urinary frequency 8. Recent C-Diff, s/p treatment, no active diarrhea currently. 9. Acute pain, provide pain mgmt PRN 10. Weakness and deconditioning: PT/OT Diet - Regular Code - Full Ppx - SCDs Dispo - Inpatient Subjective: No CP, SOB, N/V/D, afebrile. Does not feel weaker than baseline. Seems very frustrated. Somewhat confused when answering questions Objective: Vital Signs Temp Pulse Resp BP Pulse Ox 36.7 C 84 24 H 154/77 H 94 12/31/16 07:41 12/31/16 07:41 12/31/16 07:41 12/31/16 07:41 12/31/16 07:41 Laboratory Results 12/31/16 04:20 12/31/16 04:20 12/30/16 12/31/16 01/01/17 05:59 05:59 05:59 Intake Total 1000 Balance 1000 PT 13.6 SEC (12.0-15.0) 12/29/16 02:45 INR 1.05 (0.83-1.16) 12/29/16 02:45 - Time Spent With Patient Time Spent with Patient: greater than 35 minutes Time Spent with Patient: Greater than 35 minutes spent on this patients care, greater than 50% of time spent counseling, educating, and coordinating care regarding the above mentioned plan. - Physical Exam Constitutional: chronically ill appearing Eyes: PERRL, EOMI Ears, Nose, Mouth, Throat: moist mucous membranes, hearing normal Cardiovascular: regular rate and rhythym, No edema Respiratory: no respiratory distress, no rales or rhonchi, clear to auscultation Gastrointestinal: normoactive bowel sounds, soft, non-tender abdomen Skin: warm Neurologic: AAOx3 Psychiatric: interacting appropriately ICD10 Worksheet Patient Problems: Problems Problem Status Onset Elbow laceration Acute Laceration Acute Skin tear Acute Syncope Acute Altered mental status Acute Clostridium difficile infection Acute ~12/06/16 Dehydration Acute Elevated troponin Acute Nausea & vomiting Acute Primary localized osteoarthritis of right knee Acute Subarachnoid hemorrhage Acute Subdural hematoma Acute TIA (transient ischemic attack) Acute Troponin I above reference range Acute Urinary tract infection Acute Vomiting and diarrhea Acute
[2016-12-31] MEDS: CYCLOSPORINE 0.05% 1 EACH BOX EACHEYE SCH ×2 (15:02→21:26)
--- NOTE | 2016-12-31 15:05 | ASMTCMCOM ---
CM Note CM Note Notes: Darya from [facility] came in today to do an on site. Amando CHANG, LUIS and Dr. García met w/ and pt for a tx team meeting. Dr. García is ordering a cardiology and neurology consult. expressed that pt has been to 3 SNFs in the past and has contracted an infection from the facilities. would like to wait until neurology and cardiology sees pt. CM to follow. Date Signed: 12/31/2016 03:04 PM Electronically Signed By:WARD Dumont
[2016-12-31] MEDS: MELATONIN 3 MG TAB PO PRN (21:24)
[2016-12-31] MEDS: ROSUVASTATIN CALCIUM 10 MG TAB PO SCH (21:24)
[2016-12-31] MEDS: OXYCODONE/APAP 5/325 TAB PO PRN (21:25)
--- NOTE | 2016-12-31 22:04 | GCON ---
[f rep st] CONSULTATION CARDIOLOGY CONSULTATION DATE OF CONSULTATION: 12/31/2016 REFERRING PHYSICIAN: Han Tariq MD INDICATION FOR CONSULTATION: Syncope. HISTORY OF PRESENT ILLNESS: The patient is a pleasant 81-year-old female with a known history of Sjogren syndrome followed by Dr. Pereira at [facility] and a history of recurrent syncopal events that began this summer after knee replacement surgery, who is followed closely by Dr. David Ramirez at [facility]. She was admitted on December 29, 2016, at approximately 4 in the morning after having a traumatic fall in the bathroom after a syncopal episode. In reviewing the events of the patient's most recent syncopal episode, she states she has very little memory of the events. She recalls going to bed at night and then the next thing she recalls is waking up in the intensive care unit at [facility]. She briefly recalls being covered with blood on the floor of her bathroom and calling out for her for help. She denies any history of prodrome prior to her syncopal episode. In reviewing her history of syncope, she describes her initial episode of syncope occurred while recovering at the rehab facility after knee replacement surgery. She states she became very tired and fell weak and ultimately resulted in a fall resulting in a subdural hematoma. She reports a second episode where she was feeling perfectly well got into the garage to go run some errands when she had a syncopal event without any prodrome. This most recent episode, again, appears to be without prodrome, although her memory of the events are limited, as described above. She has undergone extensive cardiac workup. She has been seen at the [facility] for an echocardiogram in May of 2015, which demonstrated normal left ventricular size and function, normal atrial dimensions, normal right ventricular size and function, no significant valvular abnormalities. She has undergone a more recent echocardiogram on October 23, 2016, which demonstrated LVEF of 55% to 60% with a trace tricuspid, mitral, and pulmonic insufficiency. There was evidence of left ventricular hypertrophy. She also underwent an exercise nuclear stress test in my office in July of 2016, which demonstrated normal perfusion and function. She also had a Holter monitor from July of 2015, which was essentially unremarkable with the exception of an 11- beat run of supraventricular tachycardia that was asymptomatic. She has also undergone repeat nuclear stress testing in October, demonstrated evidence of mild lateral ischemia in the setting of a mild troponin elevation. She has also undergone an implantable loop recorder in October. The device was interrogated this afternoon, demonstrating no cardiac events. There does appear to be 1 isolated episode of atrial fibrillation that lasted for approximately 2 minutes with a mean rate of 102 beats per minute from November 09, 2016, at 1:18 in the afternoon. Currently, at the time of my exam, she is resting comfortably. She denies complaints of palpitations, lightheadedness, nausea, vomiting, or diaphoresis. She has no complaints of chest pain or chest pressure. She has no complaints of PND, orthopnea, or lower extremity edema. She denies any recent changes to her medications. She has no complaints of recent viral illness, nausea, or vomiting. PAST MEDICAL HISTORY: Notable for Sjogren syndrome followed by Dr. Pereira of Rheumatology at [facility], hypothyroidism, GERD, hypoglycemia, anemia, and syncope of unclear etiology. PAST SURGICAL HISTORY: Includes right total knee replacement August 2016, hysterectomy, bladder suspension surgery, and cholecystectomy. MEDICATIONS: On admission include Bentyl 20 mg daily p.r.n.; Crestor 5 mg p.o. q.h.s.; Zofran p.r.n.; metoprolol succinate 25 mg once daily; Synthroid 50 mcg daily; Plaquenil 200 mg p.o. b.i.d.; albuterol inhaler 2 puffs q.4 hours p.r.n. ; prednisone 2 mg daily; Percocet 1 tab daily; guaifenesin/dextromethorphan ( Robitussin) 10 mL p.o. q.4 hours p.r.n.; cyclosporine 0.05% eye drops, 1 drop each eye b.i.d.; Ambien 10 mg p.o. h.s.; Diovan 40 mg p.o. daily; and sodium chloride tablets 2000 mg p.o. b.i.d. ALLERGIES: To medication: She is allergic to numerous medications, including oxaprozin, amoxicillin, ciprofloxacin, metronidazole, morphine, nitrofurantoin, sulfa, and tramadol. SOCIAL HISTORY: She is . She lives with her . She has 4 children. FAMILY HISTORY: Noncontributory. PHYSICAL EXAMINATION: VITAL SIGNS: Blood pressure is 148/77, heart rate is 83 in sinus rhythm, respiratory rate of 16, oxygen saturation 97% on room air. GENERAL: She is awake, alert, oriented, and appropriate, in no apparent distress. There is visible trauma over both eyebrows with multiple sutures. No trauma to her nose and the remainder of her facial structures. CARDIAC: S1 , S2. Regular rate and rhythm. No murmurs, rubs, or gallops. LUNGS: Clear to auscultation bilaterally anteriorly. ABDOMEN: Soft, nontender, nondistended. She has no evidence of cyanosis, clubbing, or edema. DATA: White blood cell count 4.24, hemoglobin of 10.5, hematocrit of 31.8, platelets 204. Sodium 134, potassium 4.0, chloride 100, bicarb 23, BUN 11, creatinine 0.7. Interrogation of [employer] LINQ demonstrates no cardiac events at the time of her syncopal episode. There was 1 brief episode of 2 minutes of paroxysmal atrial fibrillation. Certainly in the setting of recent falls with trauma and subdural hematoma, she is not an appropriate candidate for anticoagulation. IMPRESSION: Syncope without prodrome. SUMMARY: Pleasant 81-year-old female with multiple recurrent episodes of syncope with trauma without prodrome with extensive cardiac workup to date and no evidence of cardiac events on LINQ Medtronic implantable loop recorder at the time of her syncopal event. Isolated episode of 2 minutes of atrial fibrillation on November 09, 2016. With the sudden onset of events resulting in trauma, with the absence of any events on her Medtronic loop recorder, I do not think that the etiology of her syncope is cardiac. I would consider checking bilateral carotid Dopplers, and once stable, considering a tilt table test. Agree with plan for neurology consult, as well, at this point. PLAN: 1. Continue current medications. 2. Continue telemetry monitoring. 3. Bilateral carotid Doppler study. 4. Agree with neurology consult. 45 minutes spent coordinating care. /[id number]/MODL MTDD
[2017-01-01] MEDS: HYDROXYCHLOROQUINE SULFATE 200 MG TAB PO SCH ×2 (08:35→21:02)
[2017-01-01] MEDS: PANTOPRAZOLE SODIUM 40 MG TAB PO SCH ×2 (08:35→21:02)
[2017-01-01] MEDS: METOPROLOL SUCCINATE XR 25 MG TAB PO SCH (08:36)
[2017-01-01] MEDS: predniSONE 1 MG TAB PO SCH (08:36)
[2017-01-01] MEDS: LEVOTHYROXINE 50 MCG TAB PO SCH (08:36)
[2017-01-01] MEDS: SODIUM CHLORIDE 1,000 MG TAB PO SCH ×2 (08:36→21:03)
[2017-01-01] MEDS: VALSARTAN 40 MG TAB PO SCH (08:36)
[2017-01-01] MEDS: CYCLOSPORINE 0.05% 1 EACH BOX EACHEYE SCH ×2 (08:38→22:15)
--- NOTE | 2017-01-01 10:18 | PDCARPN ---
Cardiology Progress Note Assessment/Plan: Assessment/plan: 81-year-old female with a history of Sjogren's syndrome and hypothyroidism. She has had several falls and possible syncope complicated by subdural hematoma since a knee replacement this summer. She is now admitted with recurrent fall, questionable syncope. She does not remember much about the event and had taken Ambien before going to sleep. She does have a LINQ monitor in place, and this has not shown any recent arrhythmias. By report, she did have a very short episode of paroxysmal atrial fibrillation on November 09. No arrhythmias around the time of her fall that warranted this current admission. She also has a history of mildly abnormal nuclear stress test, borderline troponin, and no angina. 1. Recurrent falls with possible syncope: This does not seem to be arrhythmic. I wonder about the Bentyl that she takes and also her Ambien use. The Ambien has been discontinued. Please check orthostatic vital signs. Carotid ultrasound this admission does not suggest flow limitation in the carotids or the vertebral arteries. Recent echocardiogram shows normal ejection fraction. Neurology consultation is pending. If no clear etiology, could consider CT coronary angiography for further cardiac risk stratification. Invasive coronary angiography and anticoagulation would be high risk given her recent subdural hematoma. 2. Hypertension: Please check orthostatics. We may need to adjust her antihypertensive therapy. 3. Anemia: This is chronic. 4. Paroxysmal atrial fibrillation: This was seen on LINQ monitor in the middle of October. Brief episode. She also had about 20 beats of SVT on December 29. Continue beta-imelda. I would not intensified anticoagulation given her subdural hematoma. 5. Sjogren syndrome: She is followed by Dr. Humberto Pereira. 6. Hypothyroidism: TSH was normal in October of this year. 7. Non flow-limiting carotid disease: On statin. Greater than 30 minutes was spent in chart review, discussion with Dr. Hussein, and direct patient contact. 01/01/17 10:48 Subjective: Darya is frustrated. She has some left rib discomfort. She denies dyspnea or chest pain. She again reports that she does not really recall the events of her most recent fall. Remembers yelling out for her and being on the floor. She does not recall any preceding chest pain or palpitations. She had taken Ambien that night. Objective: Vital Signs (8 Hrs) Temp Pulse Resp BP Pulse Ox 01/01/17 07:48 36.9 C 80 15 156/78 H 95 01/01/17 04:00 36.6 C 87 15 157/74 H 94 Intake/Output (24 Hrs) 12/31/16 01/01/17 01/02/17 05:59 05:59 05:59 Intake Total 1000 850 Balance 1000 850 Intake: Oral (ml) 1000 850 Other: Intake Quantity Yes Sufficient Number of Voids Toilet 4 3 Number of Stools Toilet 1 Result Diagrams: 12/31/16 04:20 12/31/16 04:20 EKG: NSR. LAD. Borderline prolonged QT Telemetry: 20 beat run of SVT on December 29. ICD10 Worksheet Patient Problems: Problems Problem Status Onset Elbow laceration Acute Laceration Acute Skin tear Acute Syncope Acute Altered mental status Acute Clostridium difficile infection Acute ~12/06/16 Dehydration Acute Elevated troponin Acute Nausea & vomiting Acute Primary localized osteoarthritis of right knee Acute Subarachnoid hemorrhage Acute Subdural hematoma Acute TIA (transient ischemic attack) Acute Troponin I above reference range Acute Urinary tract infection Acute Vomiting and diarrhea Acute
--- NOTE | 2017-01-01 12:00 | NEUROPROG ---
Assessment: [id number] CC: Recurrent Syncope HPI: Pt had a knee replacement surgery summer 2016 and had an unexplained syncope afterwords. She also had an unexplained syncope in October 2016 for which she fell and sustained a subdural hematoma. She saw cardiology and had an event monitor placed but no cause was found. On 12/29/16 she reported she got up to use the bathroom in the evening and then fell. She had taken an ambien earlier. She has a vague memory of the fall but does not recall a LOC although she is not completely clear about this. Cardiology saw the patient on 12/31/16 and did not feel a cardiac cause of syncope was likely. I initially saw the patient on 01/01/17. Carotid U/S showed some stenosis but nothing exceeding 50 % so it appeared asymptomatic and not likely the cause of recurrent syncope. PMHx: Sjogrens, SDH, C. Diff, hypothyroidism, GERD, possible TIA, anemia, hypoglycemia, pyelonephritis, R knee surgery 2016, hysterectomy, bladder suspension surgery, choli SHx: former tobacco user FHx: HTN ROS: Pt denied acute fever, total vision loss, active severe chest pain, respiratory failure, total body severe rash, total bowel/bladder incontinence, psychosis, active seizures, or active bleeding O: VS reviewed General: Alert Eyes: Fundoscopic exam not able to visualize optic disks CV: Heart RRR, no murmur, no carotid bruit Lungs: Clear to auscultation bilaterally, no rhonci or rales Neuro: - Mental: . Oriented x person/place/date . concentration appears normal . speech fluency/comprehension normal . memory appears normal . fund of knowledge appear intact - Cranial Nerves: . II: PERRL, VFFTC . III/IV/: EOMI, no nystagmus, normal smooth pursuits, no Ptosis . V: facial sensation intact to LT . VII: face symmetric to eye closure and smile . VIII: hearing intact to conversation . IX/X: uvula raises symmetrically . XI: SCM 5/5 B/L strength . XII: tongue protrudes midline w/nl strength - Motor: . Tone: normal tone in all 4 extrem, left hand action tremor noted but no rest tremor and no increased tone to suggest parkinsonian syndrome . Strength: no pronator drift, strength 5/5 throughout (B/L delt, bic, tri, hand machinist mate, hf/he, df/pf) - Reflexes: B/L patella 2/4 - Sensory: all 4 extrem intact to light touch - Coord: [id number] wnl, LICO wnl, [id number] wnl - Gait: deferred Labs: 12/31/16- CBC Hct 31.8L, Chem wnl Rads: 12/29/16- Head CT: no acute intracranial changes (I personally visualized the images on 01/01/17) 12/31/16- Carotid U/S: There is evidence of atherosclerotic plaque in both carotid bulbs extending to both internal carotid arteries and in the left mid common carotid artery which appears to have slightly increased over the interval. However is still not flow significant with only mild less than 50% stenosis. Assessment: 1. Recurrent Syncope: Unremarkable neurologic exam 01/01/17 (showed only left arm intention tremor) and unremarkable head CT 12/29/16. Given history, negative cardiology evaluation, and carotid doppler with no stenosis > 50%, I suspect she is likely having recurrent vasovagal events likely worsened by medication use (ambien) and possibly a predisposition to hypotension given recent medical issues (subdural hematoma, knee surgery). However, atypical seizures are also possible or atypical stroke. I will further evaluate with a brain MRI and give a trial of Keppra 500 mg bid to cover small chance of seizures. Pt can f/u with me the clinic in 1-2 weeks for outpatient EEG as well. Plan: - Brain MRI w/o con - Trial of Keppra 500 mg bid for seizure prevention - Agree with cardiology consult - Agree with stopping ambien - I will try to call her to discuss case with him (he was not at bedside , nurse given my number and told to call me if he comes in) - F/U in 1-2 weeks in neurology clinic, will obtain EEG at that time Objective: Vital Signs Temp Pulse Resp BP Pulse Ox 36.9 C 80 15 156/78 H 95 01/01/17 07:48 01/01/17 07:48 01/01/17 07:48 01/01/17 07:48 01/01/17 07:48 Laboratory Results 12/31/16 04:20 12/31/16 04:20 12/31/16 01/01/17 01/02/17 05:59 05:59 05:59 Intake Total 1000 850 Balance 1000 850 PT 13.6 SEC (12.0-15.0) 12/29/16 02:45 INR 1.05 (0.83-1.16) 12/29/16 02:45 Allergies/Adverse Reactions: oxaprozin Allergy (Unknown, Verified 12/29/16 22:30) Vomiting amoxicillin trihydrate [From Augmentin] Allergy (Verified 12/29/16 01:57) Vomiting cephalexin [From Keflex] Allergy (Verified 12/29/16 02:04) ciprofloxacin HCl [From Cipro] Allergy (Verified 12/29/16 01:57) Vomiting Metronidazole HCl [From Flagyl] Allergy (Verified 12/29/16 01:57) Vomiting morphine [Morphine] Allergy (Verified 12/29/16 01:57) Vomiting nitrofurantoin macrocrystalline [From Macrobid] Allergy (Verified 12/29/16 01:57 ) Unknown potassium clavula *RETIRED-11/01/11 [From Augmentin] Allergy (Verified 12/29/16 01:57) Vomiting Sulfa (Sulfonamide Antibiotics) Allergy (Verified 12/29/16 01:57) Hives tramadol [Tramadol] Allergy (Verified 12/29/16 01:57) Vomiting
[2017-01-01] MEDS ORDERED: MAGNESIUM HYDROXIDE 30 ML UDCUP PO PRN (12:06)
[2017-01-01] MEDS ORDERED: BISACODYL 10 MG SUPP PR PRN (12:06)
[2017-01-01] MEDS ORDERED: POLYETHYLENE GLYCOL 3350 17 GM PKT PO PRN (12:06)
[2017-01-01] MEDS ORDERED: LACTULOSE 20 GM/30 ML UDCUP PO PRN (12:06)
--- NOTE | 2017-01-01 14:18 | HOSPPROG ---
Hospitalist Progress Note Assessment/Plan: 81 yo F w/ Sjogren's and multiple recent admission presents with syncope and trauma. She suffered multiple lacerations which were repaired in the E.D. She has had extensive Cardiac w/u and the etiology is likely not Cardiac. While here , she has not had hypotension, orthostatic hypotension, arrhythmia, or other cardiac event. Corotid US did not show flow limiting stenosis. She has a LINQ monitor which was reviewed on 01/01/17 which showed some Afib in October but otherwise unremarkable. She is not a candidate for AC. She has been seen by Neurology and they are starting Keppra, although likely seizure d/o is not the etiology. The etiology is likely a vasovagal event in conjunction with Ambien. She has a tilt table test scheduled for Tuesday. 1. Syncope - MRI brain pending -cont Keprra per Neuro, EEG can be done in 1-2 weeks - Discontinue Ambien -Avoid narcotics, benzo's, and other centrally depressing meds 2. Recent SDH - No acute change on CTH in ED per preliminary read. Neurologically intact. 3. Elevated troponin - This seems to be chronically elevated. She had recently abnormal nuclear stress test but did not undergo catheterization due to medical comorbidities. Continue BB and statin. 4. Sjogren's syndrome - On low dose prednisone, HCQ, and cyclosporine drops. 5. HTN - cont Losartan and Metoprolol 6. Long QT syndrome. Stop Zofran. Avoid med which increase the QT. She does not have any nausea at this time. 7. Urinary Frequency: UA essentially unremarkable. Will send culture. Await culture and consider treating if no clinical improvement. Hold abx for now. She cont not to have any urinary frequency 8. Recent C-Diff, s/p treatment, no active diarrhea currently. 9. Acute pain, provide pain mgmt PRN 10. Weakness and deconditioning: PT/OT 11. paroxysmal Afib: not a candidate for AC. On Metoprolol Diet - Regular Code - Full Ppx - SCDs Dispo - Inpatient Subjective: No O/n Events. No events on telemetry. No CP or SOB. No N/V. She is still frustrated that an etiology for syncope has not been found. Objective: Vital Signs Temp Pulse Resp BP Pulse Ox 36.7 C 79 23 H 140/79 H 93 01/01/17 12:00 01/01/17 12:00 01/01/17 12:00 01/01/17 12:00 01/01/17 12:00 Laboratory Results 12/31/16 04:20 12/31/16 04:20 12/31/16 01/01/17 01/02/17 05:59 05:59 05:59 Intake Total 1000 850 Balance 1000 850 PT 13.6 SEC (12.0-15.0) 12/29/16 02:45 INR 1.05 (0.83-1.16) 12/29/16 02:45 - Physical Exam Constitutional: no apparent distress Eyes: PERRL, EOMI Ears, Nose, Mouth, Throat: moist mucous membranes, hearing normal Cardiovascular: regular rate and rhythym, No edema Respiratory: no respiratory distress, clear to auscultation Skin: warm Neurologic: AAOx3 Psychiatric: interacting appropriately, not anxious, not encephalopathic ICD10 Worksheet Patient Problems: Problems Problem Status Onset Elbow laceration Acute Laceration Acute Skin tear Acute Syncope Acute Altered mental status Acute Clostridium difficile infection Acute ~12/06/16 Dehydration Acute Elevated troponin Acute Nausea & vomiting Acute Primary localized osteoarthritis of right knee Acute Subarachnoid hemorrhage Acute Subdural hematoma Acute TIA (transient ischemic attack) Acute Troponin I above reference range Acute Urinary tract infection Acute Vomiting and diarrhea Acute
[2017-01-01] MEDS: ACETAMINOPHEN 325 MG TAB PO PRN (18:36)
[2017-01-01] MEDS: ROSUVASTATIN CALCIUM 10 MG TAB PO SCH (20:57)
[2017-01-01] MEDS: MELATONIN 3 MG TAB PO PRN (21:02)
[2017-01-01] MEDS: levETIRAcetam 500 MG TAB PO SCH (21:02)
[2017-01-01] MEDS: SENNOSIDES/DOCUSATE SODIUM TAB PO SCH (21:02)
[2017-01-01] MEDS: OXYCODONE/APAP 5/325 TAB PO PRN (21:03)
[2017-01-02] MEDS: predniSONE 1 MG TAB PO SCH (08:53)
[2017-01-02] MEDS: PANTOPRAZOLE SODIUM 40 MG TAB PO SCH ×2 (08:53→20:31)
[2017-01-02] MEDS: SENNOSIDES/DOCUSATE SODIUM TAB PO SCH ×2 (08:54→20:31)
[2017-01-02] MEDS: levETIRAcetam 500 MG TAB PO SCH ×2 (08:54→20:31)
[2017-01-02] MEDS: LEVOTHYROXINE 50 MCG TAB PO SCH (08:54)
[2017-01-02] MEDS: VALSARTAN 40 MG TAB PO SCH (08:54)
[2017-01-02] MEDS: SODIUM CHLORIDE 1,000 MG TAB PO SCH ×2 (08:55→20:32)
[2017-01-02] MEDS: HYDROXYCHLOROQUINE SULFATE 200 MG TAB PO SCH ×2 (08:55→20:32)
[2017-01-02] MEDS: METOPROLOL SUCCINATE XR 25 MG TAB PO SCH (08:55)
[2017-01-02] MEDS: CYCLOSPORINE 0.05% 1 EACH BOX EACHEYE SCH ×2 (09:03→20:32)
--- NOTE | 2017-01-02 09:49 | PDCARPN ---
Cardiology Progress Note Assessment/Plan: Assessment/plan: 81-year-old female with a history of Sjogren's syndrome and hypothyroidism. She has had several falls and possible syncope complicated by subdural hematoma since a knee replacement this summer. She is now admitted with recurrent fall, questionable syncope. She does not remember much about the event and had taken Ambien before going to sleep. She does have a LINQ monitor in place, and this has not shown any recent arrhythmias. By report, she did have a very short episode of paroxysmal atrial fibrillation on November 09. No arrhythmias around the time of her fall that warranted this current admission. She also has a history of mildly abnormal nuclear stress test, borderline troponin, and no angina. 1. Recurrent falls with possible syncope: This does not seem to be arrhythmic. I wonder about the Bentyl that she takes and also her Ambien use. The Ambien has been discontinued. She was not orthostatic by vital signs yesterday, but this was a couple of days after admission.. Carotid ultrasound this admission does not suggest flow limitation in the carotids or the vertebral arteries. Recent echocardiogram shows normal ejection fraction. Neurology evaluation ongoing for possible atypical seizure. Brain MRI was not suggestive of stroke. Invasive coronary angiography and anticoagulation would be high risk given her recent subdural hematoma. 2. Hypertension: This is stable. She was not orthostatic. 3. Anemia: This is chronic. 4. Paroxysmal atrial fibrillation: This was seen on LINQ monitor in the middle of October. Brief episode. She also had about 20 beats of SVT on December 29. Continue beta-imelda. I would not intensified anticoagulation given her subdural hematoma. 5. Sjogren syndrome: She is followed by Dr. Humberto Pereira. 6. Hypothyroidism: TSH was normal in October of this year. 7. Non flow-limiting carotid disease: On statin. We will sign off. Please call with questions. Thank you 01/02/17 09:50 Subjective: Darya denies angina or dyspnea. She was able to get up and use the bathroom in the middle the night without dizziness. Objective: Vital Signs (8 Hrs) Temp Pulse Resp BP Pulse Ox 01/02/17 07:44 36.9 C 80 20 124/54 H 90 L 01/02/17 04:00 36.3 C 80 14 144/74 H 93 Intake/Output (24 Hrs) 11/01/0701/02/17 01/03/17 05:59 05:59 05:59 Intake Total 850 370 Balance 850 370 Intake: Oral (ml) 850 370 Other: Intake Quantity Yes Yes Sufficient Number of Voids Toilet 3 4 No acute distress. JVP less than 10. Regular rate and rhythm without murmur or gallop Lungs clear anteriorly and laterally bilaterally No lower extremity edema Result Diagrams: 12/31/16 04:20 12/31/16 04:20 Telemetry: Sinus rhythm with occasional PVCs ICD10 Worksheet Patient Problems: Problems Problem Status Onset Laceration Acute Elbow laceration Acute Skin tear Acute Clostridium difficile infection Acute ~12/06/16 Vomiting and diarrhea Acute Dehydration Acute Elevated troponin Acute Syncope Acute Subdural hematoma Acute Subarachnoid hemorrhage Acute Nausea & vomiting Acute Altered mental status Acute Urinary tract infection Acute Primary localized osteoarthritis of right knee Acute Troponin I above reference range Acute TIA (transient ischemic attack) Acute
--- NOTE | 2017-01-02 14:20 | NEUROPROG ---
Assessment: [id number] CC: Recurrent Syncope Narrative Summary: Pt had a knee replacement surgery summer 2016 and had an unexplained syncope afterwards. She also had an unexplained syncope in October 2016 for which she fell and sustained a subdural hematoma. She saw cardiology and had an event monitor placed but no cause was found. On 12/29/16 she reported she got up to use the bathroom in the evening and then fell. She had taken an ambien earlier. She has a vague memory of the fall but does not recall a LOC although she is not completely clear about this. Cardiology saw the patient on 12/31/16 and did not feel a cardiac cause of syncope was likely. I initially saw the patient on 01/01/17. Carotid U/S showed some stenosis but nothing exceeding 50 % so it appeared asymptomatic and not likely the cause of recurrent syncope. HPI: Inpatient f/u 01/02/17. Brain MRI w/o con showed no acute changes (results below). No new problems. PMHx: Sjogrens, SDH, C. Diff, hypothyroidism, GERD, possible TIA, anemia, hypoglycemia, pyelonephritis, R knee surgery 2016, hysterectomy, bladder suspension surgery, choli SHx: former tobacco user FHx: HTN ROS: Pt denied acute fever, total vision loss, active severe chest pain, respiratory failure, total body severe rash, total bowel/bladder incontinence, psychosis, active seizures, or active bleeding Labs: 12/31/16- CBC Hct 31.8L, Chem wnl Rads: 12/29/16- Head CT: no acute intracranial changes 12/31/16- Carotid U/S: There is evidence of atherosclerotic plaque in both carotid bulbs extending to both internal carotid arteries and in the left mid common carotid artery which appears to have slightly increased over the interval. However is still not flow significant with only mild less than 50% stenosis. 01/01/17- Brain MRI w/o con: moderate chronic microvascular disease, no evidence of acute stroke or other acute findings Assessment: 1. Recurrent Syncope: Unremarkable neurologic exam 01/01/17 (showed only left arm intention tremor) and unremarkable head CT 12/29/16 and unremarkable brain MRI 01/01/17. Given history, negative cardiology evaluation, and carotid doppler with no stenosis > 50%, I suspect she is likely having recurrent vasovagal events likely worsened by medication use (ambien) and possibly a predisposition to hypotension given recent medical issues (subdural hematoma, knee surgery). However, atypical seizures are also possible. I will give a trial of Keppra 500 mg bid to cover small chance of seizures. Pt can f/u with me the clinic in 1-2 weeks for outpatient EEG as well. Plan: - Trial of Keppra 500 mg bid for seizure prevention - Agree with cardiology consult - Agree with stopping ambien - I will try to call her to discuss case with him (he was not at bedside , nurse given my number and told to call me if he comes in, I tried to call twice but he was not home and there was no ability to leave a voice mail) - F/U in 1-2 weeks in neurology clinic, will obtain EEG at that time Objective: Vital Signs Temp Pulse Resp BP Pulse Ox 36.7 C 83 17 116/57 L 94 01/02/17 12:00 01/02/17 12:00 01/02/17 12:00 01/02/17 12:00 01/02/17 12:00 Laboratory Results 12/31/16 04:20 12/31/16 04:20 01/01/17 01/02/17 01/03/17 05:59 05:59 05:59 Intake Total 850 370 Balance 850 370 PT 13.6 SEC (12.0-15.0) 12/29/16 02:45 INR 1.05 (0.83-1.16) 12/29/16 02:45 Allergies/Adverse Reactions: oxaprozin Allergy (Unknown, Verified 12/29/16 22:30) Vomiting amoxicillin trihydrate [From Augmentin] Allergy (Verified 12/29/16 01:57) Vomiting cephalexin [From Keflex] Allergy (Verified 12/29/16 02:04) ciprofloxacin HCl [From Cipro] Allergy (Verified 12/29/16 01:57) Vomiting Metronidazole HCl [From Flagyl] Allergy (Verified 12/29/16 01:57) Vomiting morphine [Morphine] Allergy (Verified 12/29/16 01:57) Vomiting nitrofurantoin macrocrystalline [From Macrobid] Allergy (Verified 12/29/16 01:57 ) Unknown potassium clavula *RETIRED-11/01/11 [From Augmentin] Allergy (Verified 12/29/16 01:57) Vomiting Sulfa (Sulfonamide Antibiotics) Allergy (Verified 12/29/16 01:57) Hives tramadol [Tramadol] Allergy (Verified 12/29/16 01:57) Vomiting
--- NOTE | 2017-01-02 14:26 | HOSPPROG ---
Hospitalist Progress Note Assessment/Plan: 81 yo F w/ Sjogren's and multiple recent admission presents with syncope and trauma. She suffered multiple lacerations which were repaired in the E.D. She has had extensive Cardiac w/u and the etiology is likely not Cardiac. While here , she has not had hypotension, orthostatic hypotension, arrhythmia, or other cardiac event. Corotid US did not show flow limiting stenosis. She has a LINQ monitor which was reviewed on 01/01/17 which showed some Afib in October but otherwise unremarkable. She is not a candidate for AC. She has been seen by Neurology and they have started Keppra, although likely seizure d/o is not the etiology. The etiology is likely a vasovagal event in conjunction with Ambien. Anticipate she will be ready for discharge tomorrow with f/u to PCP, Cards, and Neuro. Rehab has been recommending and the pt and her are considering it. Discussed care of plan with CM and Dr. Hussein with Neurology. 1. Syncope - MRI brain no acute events -cont Keprra per Neuro, EEG can be done in 1-2 weeks - Discontinue Ambien -Avoid narcotics, benzo's, and other centrally depressing meds 2. Recent SDH - No acute change on CTH in ED per preliminary read. Neurologically intact. 3. Elevated troponin - This seems to be chronically elevated. She had recently abnormal nuclear stress test but did not undergo catheterization due to medical comorbidities. Continue BB and statin. 4. Sjogren's syndrome - On low dose prednisone, HCQ, and cyclosporine drops. 5. HTN - cont Losartan and Metoprolol. She has not had sings of hypotension while hospitalized 6. Long QT syndrome. Stop Zofran. Avoid med which increase the QT. She does not have any nausea at this time. 7. Urinary Frequency: UA essentially unremarkable. Will send culture. Await culture and consider treating if no clinical improvement. Hold abx for now. She cont not to have any urinary frequency 8. Recent C-Diff, s/p treatment, no active diarrhea currently. 9. Acute pain, provide pain mgmt PRN 10. Weakness and deconditioning: PT/OT 11. paroxysmal Afib: not a candidate for AC. On Metoprolol Diet - Regular Code - Full Ppx - SCDs Dispo - Inpatient. Expect discharge tomorrow. Subjective: No CP or SOB. NO N/V. No dizzyness. BP ok. Afebrile. Not dizzy Objective: Vital Signs Temp Pulse Resp BP Pulse Ox 36.7 C 83 17 116/57 L 94 01/02/17 12:00 01/02/17 12:00 01/02/17 12:00 01/02/17 12:00 01/02/17 12:00 Laboratory Results 12/31/16 04:20 12/31/16 04:20 01/01/17 01/02/17 01/03/17 05:59 05:59 05:59 Intake Total 850 370 Balance 850 370 PT 13.6 SEC (12.0-15.0) 12/29/16 02:45 INR 1.05 (0.83-1.16) 12/29/16 02:45 - Physical Exam Constitutional: no apparent distress, appears nourished Eyes: PERRL, EOMI Ears, Nose, Mouth, Throat: moist mucous membranes, hearing normal Cardiovascular: regular rate and rhythym, no murmur, rub, or gallop Respiratory: no respiratory distress, no rales or rhonchi Gastrointestinal: normoactive bowel sounds Skin: warm Neurologic: AAOx3 Psychiatric: interacting appropriately, not anxious, not encephalopathic ICD10 Worksheet Patient Problems: Problems Problem Status Onset Elbow laceration Acute Laceration Acute Skin tear Acute Syncope Acute Altered mental status Acute Clostridium difficile infection Acute ~12/06/16 Dehydration Acute Elevated troponin Acute Nausea & vomiting Acute Primary localized osteoarthritis of right knee Acute Subarachnoid hemorrhage Acute Subdural hematoma Acute TIA (transient ischemic attack) Acute Troponin I above reference range Acute Urinary tract infection Acute Vomiting and diarrhea Acute
--- NOTE | 2017-01-02 14:56 | ASMTCMCOM ---
CM Note CM Note Notes: 01/02/2017 Case Management Note Spoke with pt Leighton on the phone. Leighton in agreement with [facility] for SNF rehab. Awaiting acceptance at [facility]. Case Management d/c poc: To [facility] pending acceptance when medically stable. Case Management to follow. Date Signed: 01/02/2017 02:56 PM Electronically Signed By:Ana Huynh RN
[2017-01-02] MEDS: ROSUVASTATIN CALCIUM 10 MG TAB PO SCH (20:30)
[2017-01-02] MEDS: MELATONIN 3 MG TAB PO PRN (20:38)
[2017-01-02] MEDS: OXYCODONE/APAP 5/325 TAB PO PRN (20:38)
[2017-01-03] MEDS: OXYCODONE/APAP 5/325 TAB PO PRN (04:01)
[2017-01-03 08:01] VITALS: TEMP 98.4
[2017-01-03] MEDS: SENNOSIDES/DOCUSATE SODIUM TAB PO SCH (09:09)
[2017-01-03] MEDS: levETIRAcetam 500 MG TAB PO SCH (09:10)
[2017-01-03] MEDS: VALSARTAN 40 MG TAB PO SCH (09:10)
[2017-01-03] MEDS: SODIUM CHLORIDE 1,000 MG TAB PO SCH (09:10)
[2017-01-03] MEDS: PANTOPRAZOLE SODIUM 40 MG TAB PO SCH (09:10)
[2017-01-03] MEDS: HYDROXYCHLOROQUINE SULFATE 200 MG TAB PO SCH (09:10)
[2017-01-03] MEDS: predniSONE 1 MG TAB PO SCH (09:10)
[2017-01-03] MEDS: METOPROLOL SUCCINATE XR 25 MG TAB PO SCH (09:10)
[2017-01-03] MEDS: CYCLOSPORINE 0.05% 1 EACH BOX EACHEYE SCH (09:15)
[2017-01-03] MEDS: LEVOTHYROXINE 50 MCG TAB PO SCH (11:01)
--- NOTE | 2017-01-03 11:04 | PDIAF ---
- Diagnosis Diagnosis: Syncope, Fall, Lacerations Code Status: Full Code - Medication Management Discharge Medications: Medications to Continue on Transfer Polyethylene Glycol 3350 [Miralax 17 gm (*)] 17 gm PO DAILY PRN pkt 10/28/16 [ Last Taken Unknown] Albuterol [Ventolin Hfa Inhaler] 2 puffs IH Q4HRS PRN #1 mdi 12/20/16 [Last Taken Unknown] Hydroxychloroquine Sulfate [Plaquenil 200 mg (*)] 200 mg PO BID #60 tab [Last Taken 12/28/16 21:00] Levothyroxine [Synthroid 50 mcg (*)] 50 mcg PO DAILY #30 tab 12/20/16 [Last Taken 12/28/16] Metoprolol Succinate Xr [Toprol Xl 25 mg (*)] 25 mg PO DAILY #30 tab 12/20/16 [ Last Taken 12/28/16] Rosuvastatin Calcium [Crestor 5mg] 5 mg PO HS #30 12/20/16 [Last Taken 12/28/16] Sodium Chloride [Salt Tablet] 2,000 mg PO BID #120 tab 12/20/16 [Last Taken 09/06 21:00] Valsartan [Diovan (*)] 40 mg PO DAILY #30 tab 12/20/16 [Last Taken 12/28/16] cycloSPORINE 0.05% [Restasis Opht Drops(*)] 1 drop EACHEYE BID #1 box 12/20/16 [ Last Taken 12/28/16 21:00] guaiFENesin/DEXTROMETHORPHAN [Robitussin Dm Oral Liquid (*)] 10 ml PO Q4HRS PRN ml 12/20/16 [Last Taken 12/28/16 21:00] predniSONE [Kanwal] 2 mg PO DAILY #30 tablet.dr 12/20/16 [Last Taken 12/28/16] Acetaminophen [Tylenol 325mg (*)] 325 mg PO DAILY PRN 12/29/16 [Last Taken Unknown] Dicyclomine [Bentyl 20 MG (*)] 20 mg PO DAILY PRN 12/29/16 [Last Taken Unknown] Omeprazole [Prilosec 20 mg] 20 mg PO BID 12/29/16 [Last Taken 12/28/16 21:00] oxyCODONE/APAP 5/325 [Percocet 5/325 (*)] 1 tab PO DAILY PRN 12/29/16 [Last Taken Unknown] Melatonin [Melatonin 3 MG (*)] 3 mg PO HS PRN tab 01/03/17 [Last Taken Unknown] Polyethylene Glycol 3350 [Miralax 17 gm (*)] 17 gm PO DAILY PRN pkt 01/03/17 [ Last Taken Unknown] Sennosides/Docusate Sodium [Senokot-S] 1 - 2 tab PO BID tab 01/03/17 [Last Taken Unknown] levETIRAcetam [Keppra 500 mg (*)] 500 mg PO BID tab 01/03/17 [Last Taken Unknown] Optical Glass Inspector Antibiotics: NA Discharge Medications: Refer to the Discharge Home Medication list for PRN reason. PICC Care - Routine: N/A - Orders Services needed: Registered Nurse, Physical Therapy, Occupational Therapy Isolation Type: CDIFF Isolation Oxygen: NA Diet Recommendation: no restrictions on diet Weigh Patient: weekly Jon: Not applicable Wound Care Instructions: local wound care to left elbow Sutures/Phill Site: bilat eyebrows and left elbow Date to Remove Sutures/[place]: 01/05/17 (remove eyebrow sutures 01/05, remove left elbow sutures 01/09) Activity/Weight Bearing Restrictions: as tolerated Equipment: walker - Follow Up Care Current Providers and Referrals: Humberto Pereira MD [Primary Care Provider] - 3-5 days Lexy Oliveira MD [Medical Doctor] - 3 days of d/c SNF/Rehab
[2017-01-03 11:21] VITALS: BP 109/47; PULSE 79; RESP 18; O2SAT 93
--- NOTE | 2017-01-03 11:31 | ASMTCMCOM ---
CM Note CM Note Notes: Orders received for patient's discharge. She will go to [facility] at 1300 with [place] transport. LUIS Rodriguez to call report. Date Signed: 01/03/2017 11:31 AM Electronically Signed By:Mary Grace Harrison RN
--- NOTE | 2017-01-03 15:32 | ASDISCHSUM ---
Discharge Information Plan Status:SNF Medically Cleared to Leave: Discharge Date:01/03/2017 01:25 PM D/C Disposition:Detention Facility ADT D/C Disposition:Detention Facility Projected Discharge Date:01/01/2017 11:00 AM Transportation at D/C:Family Discharge Delay Reason: Follow-Up Date:01/01/2017 11:00 AM Discharge Slot: Final Diagnosis: Placement Information Referral Type:*Long-Term/SNF Referral ID:[id number] Provider Name:[facility] Address 1:[address] Address 2: City:[place] Selection Factors: State:[place] Patient Contact Information Contact Name:KHANH Relationship: Address:[address] City:[place] Alternate Phone: State/Zip Code:[place] [address] Email: Financial Information Financial Class: Primary Plan Desc:MEDICARE INPATIENT Primary Plan Number:[id number] Secondary Plan Desc:[employer]/MDR SUPPLEMENT Secondary Plan Number:[id number] Assessment Information LACE LACE Acuity / Level of Care Answers: Was the patient admitted to hospital via the emergency department? Yes: Emergency dept visits in Answers: 2 last 6 months Score: 5 Date Signed: 12/29/2016 09:27 AM Electronically Signed By:Reina Reardon RN [facility] CM Progress Note CM Note CM Note Notes: Patient admitted after a fall of unknown etiology. She has had multiple admissions for the same. Patient's most recent hospitalization was 12/05 and she discharged to [facility]'s inpatient rehabilitation on 12/10. She was discharged home from rehab on 12/20. Per patient, she had been doing well at home until she fell the night of 12/28 when she got out of bed to use the bathroom. She does not remeber events preceeding the fall but does endorse using Ambien. She lives with her . PT/OT/SENIOR PAYROLL ADMINISTRATOR to eval and make recommendations. CM will follow for discharge planning. Date Signed: 12/29/2016 11:18 AM Electronically Signed By:Mary Grace Harrison RN [facility] CM Progress Note CM Note CM Note Notes: 12/29/2016 Case Management Note Case management received phone call from [facility]. Pt is current with home care PT RN and other services. Case Management d/c poc: Home when medically stable to resume services from [facility]. Case Management available if needs change. Date Signed: 12/29/2016 12:35 PM Electronically Signed By:Ana Huynh RN [facility] CM Progress Note CM Note CM Note Notes: CM met w/ pt for dispo planning. PT is recommending HC. SENIOR PAYROLL ADMINISTRATOR is recommending 24hr supervision. Pt is interested in going back to [facility]. CM communicated this w/ Dr. García. Pt is agreeable to having referrals made to [facility]. CM sent referrals. Non triggering PASRR completed. CM to follow. Date Signed: 12/30/2016 02:06 PM Electronically Signed By:WARD Dumont [facility] CM Progress Note CM Note CM Note Notes: Darya from [facility] came in today to do an on site. BERNARDO, LUIS Goel and Dr. García met w/ and pt for a tx team meeting. Dr. García is ordering a cardiology and neurology consult. expressed that pt has been to 3 SNFs in the past and has contracted an infection from the facilities. would like to wait until neurology and cardiology sees pt. CM to follow. Date Signed: 12/31/2016 03:04 PM Electronically Signed By:WARD Dumont [facility] CM Progress Note CM Note CM Note Notes: 01/02/2017 Case Management Note Spoke with pt barak Manzanares on the phone. Leighton in agreement with [facility] for SNF rehab. Awaiting acceptance at [facility]. Case Management d/c poc: To [facility] pending acceptance when medically stable. Case Management to follow. Date Signed: 01/02/2017 02:56 PM Electronically Signed By:Ana Huynh RN [facility] CM Progress Note CM Note CM Note Notes: Orders received for patient's discharge. She will go to [facility] at 1300 with [facility] transport. LUIS Rodriguez to call report. Date Signed: 01/03/2017 11:31 AM Electronically Signed By:Mary Grace Harrison RN Intervention Information Intervention Type:*RANDLE-Signed Date of Service:12/30/2016 09:30 AM Patient Type:Observation Staff Member:Arlin Madrid Hours: Discipline: Severity: Comment: Intervention Type:*IM-Signed Date of Service:01/03/2017 01:47 PM Patient Type:Inpatient Staff Member:Arlin Madrid Hours: Discipline: Severity: Comment:
--- NOTE | 2017-01-03 19:11 | PDDCSUM ---
Discharge Summary Discharge Summary: DISCHARGE SUMMARY FOLLOW-UP ITEMS: Schedule follow up with Cardiology and Neurology DATE OF ADMISSION: 12/29/2016 DATE OF DISCHARGE: 01/03/2017 DISCHARGE DIAGNOSES: 1. Acute suspected vasovagal syncope 2. Acute face and elbow lacerations 3. Abnormal troponin level 4. Chronic hypertension 5. Prolonged QT syndrome 6. Paroxysmal atrial fibrillation 7. Mild carotid artery stenosis CONSULTATIONS: Neurology, Cardiology PROCEDURES / IMAGING: Brain MRI demonstrating microvascular disease but no acute infarct, carotid ultrasounds demonstrating less than 50% stenosis CHIEF COMPLAINT: Acute syncope and fall SUBJECTIVE: Patient is feeling well at time of discharge, her pain is well controlled PHYSICAL EXAM ON DISCHARGE: Negative orthostatic vital signs, systolic blood pressure 130, heart rate 80, afebrile overnight, satting well on room air, chronically ill-appearing, healing laceration along the frontal scalp as well as left elbow, with synthetic sutures in place, lungs are clear to auscultation bilaterally, lower extremities demonstrate no edema LABS ON DISCHARGE: Creatinine 0.7, potassium 4, creatinine 0.12 HOSPITAL COURSE BY PROBLEM: The patient presented with recurrent syncope and traumatic fall, resulting in lacerations along her frontal scalp as well as her left elbow. It is suspected that this recurrent syncope is secondary to vasovagal events worsened by her use of Ambien. She also has predispose to hypovolemia and resultant hypotension in the setting of Sjogren's disease as well as antihypertensive medications. The patient received IV fluids, discontinuation of Ambien, and underwent orthostatic vital signs on 01/01, which were normal. She was seen in consultation by Cardiology as well as Neurology, and they both concluded that there is unlikely to be additional underlying cerebral vascular or cardiovascular cause of her recurrent events. Neurology did recommend initiation of Keppra, given that it is certainly possible that she is experiencing small seizures, and recommend an outpatient EEG in 1-2 weeks, to be arranged by their clinic. The patient was initiated on melatonin as a sleep aid, and will avoid Ambien, avoid benzos, avoid QT prolonging agents. She will receive physical and occupational therapy at [facility] prior to returning home. Her atrial fibrillation was not felt to be contributing to her presentation, as her length monitor in the middle of October demonstrated 1 brief episode with 20 beats of supraventricular tachycardia in early December, but neither of these corresponded to her syncopal events. She was continued on her beta-imelda and she is not on systemic anticoagulation given her recent subdural hematoma. It should also be noted that patient's marginally elevated troponin levels have been consistent with her previous elevated lab values, and no further cardiac risk stratification was pursued given the patient's recent subdural hematoma and the contraindication of anticoagulation if invasive PCI were pursued. DISCHARGE MEDICATIONS: Please see official discharge medication reconciliation sheet in chart continue on melatonin, continue on Keppra, off of Ambien, benzos, Zofran. DISCHARGE INSTRUCTIONS: Please follow up with Neurology next week, cardiology thereafter. Suture removal dates 01/05 for face, 01/09 for elbow. TIME SPENT: Greater than 30 minutes were spent on direct patient care, as well as discharge planning and preparation.
== END 2017-01-03 13:25 | DRG 312 ==
LOC: F2W 10:15 → OBSVTOIN 12-30 15:02
PROVIDERS: ADMIT Student in an Organized Health Care Education/Training Program; ATTEND Student in an Organized Health Care Education/Training Program
PROC: 0HQ1XZZ Repair Face Skin, External Approach (ICD-10-PCS; principal; 2016-12-30)
PROC: 0HQEXZZ Repair Left Lower Arm Skin, External Approach (ICD-10-PCS; principal; 2016-12-30)
DX: R55 Syncope and collapse (principal); S51.012A Laceration without foreign body of left elbow, initial encounter; I10 Essential (primary) hypertension; I48.0 Paroxysmal atrial fibrillation; I65.29 Occlusion and stenosis of unspecified carotid artery; I45.81 Long QT syndrome; M35.00 Sjogren syndrome, unspecified; W01.190A Fall on same level from slipping, tripping and stumbling with subsequent striking against furniture, initial encounter; S01.111A Laceration without foreign body of right eyelid and periocular area, initial encounter; S01.112A Laceration without foreign body of left eyelid and periocular area, initial encounter; E03.9 Hypothyroidism, unspecified; Z96.651 Presence of right artificial knee joint; Z79.01 Long term (current) use of anticoagulants
CPT/HCPCS: 92507-GN; 92523-GN; 96374; 97116-GP; 97162-GP; 97166-GO; 97530-GP; 97535-GO; G0378; G8978-GP-CJ; G8979-GP-CI; G8987-GO-CL; G8988-GO-CJ; G9168-GN-CK; G9169-GN-CJ; J2405

== ENCOUNTER → 2017-02-03 | Outpatient (CLI) | payer OTHER, MEDICARE ==
--- NOTE | 2017-02-04 07:45 | CPEEG ---
[f rep st] ELECTROENCEPHALOGRAM EEG DATE OF STUDY: 02/03/2017 INTERPRETATION: Normal EEG during wakefulness and drowsiness. There were no potentially epileptogen ic abnormalities present during the recording. REPORT: This EEG contains 9 Hz alpha activity over the posterior head regions. There was no abnorma l activation at rest, during photic stimulation or hyperventilation. The patient became drowsy durin g the study. There was no abnormal activation during drowsiness or during times of arousal. /[id number]/MODL
== END ==
LOC: FCPNEURO 12:58
PROVIDERS: ATTEND Psychiatry & Neurology Neurology
DX: R55 Syncope and collapse (principal); R41.3 Other amnesia

== ENCOUNTER → 2017-02-25 | Outpatient (CLI) | payer OTHER, MEDICARE | LOC: BHFA 14:30 | PROVIDERS: ATTEND Internal Medicine Interventional Cardiology | DX: I51.7 Cardiomegaly (principal); M35.00 Sjogren syndrome, unspecified ==

== ENCOUNTER → 2017-03-11 | Outpatient (CLI) | payer OTHER, MEDICARE | LOC: FIMAGING 10:37 | PROVIDERS: ATTEND Internal Medicine | DX: R05 Cough (principal) ==

== ENCOUNTER → 2017-04-19 | Outpatient (CLI) | payer OTHER, MEDICARE | LOC: BMCIMAGING 12:05 | PROVIDERS: ATTEND Internal Medicine Rheumatology | DX: R05 Cough (principal) ==

== ENCOUNTER → 2017-06-23 | Outpatient (CLI) | payer OTHER, MEDICARE | LOC: FIMAGING 12:00 | PROVIDERS: ATTEND Internal Medicine | DX: Z12.31 Encounter for screening mammogram for malignant neoplasm of breast (principal) ==

== ENCOUNTER → 2018-06-27 | Outpatient (CLI) | payer OTHER, MEDICARE | LOC: FIMAGING 10:49 | PROVIDERS: ATTEND Internal Medicine | DX: Z12.31 Encounter for screening mammogram for malignant neoplasm of breast (principal) ==